=== PATIENT | male | born 1950 | race Caucasian/White ===

== ENCOUNTER 2018-09-01 04:52 | Inpatient (IN) | payer MEDICARE, OTHER ==
[~2018-09-01] VITALS: Ht 167.6 cm; Wt 155.1 kg
[2018-09-01] VITALS (10 sets, daily range): BP systolic 98–130; BP diastolic 60–70
--- OUTSIDE RECORDS SUMMARY | 2018-09-01 05:00 | XMS REPORT ---
Author Author TESSY POON Organization [facility] Address [address] [place] [address] Care Team Providers Care [facility] Coordinator Name Role Phone TESSY POON Unavailable PROBLEMS Type Condition ICD9-CM Code [id number] Code Onset Dates Condition Status SNOMED Code Problem Gout 274.9 Aug, 0 93462760 Problem Atrial fibrillation 427.31 May, 0 04568938 Problem Hyperlipidemia 272.4 May, 0 65122439 Problem Chronic anticoagulation Z79.01 May, 0 471832266 Problem MICHELLE (obstructive sleep apnea) G47.33 May, 0 39307795 Problem Cardiomyopathy I42.9 May, 0 05672603 Problem Sleep apnea G47.30 July, 0 12736371 Problem Essential hypertension I10 0 90678127 Problem Sleep apnea 780.57 July, 0 66877582 Problem Arthritis of left acromioclavicular joint M19.012 Jun, 0 3584179182657054 Problem Type 2 diabetes mellitus 250.00 Jan, 0 90906182 Problem Essential hypertension 401.9 0 35334038 Problem Spider bite 989.5 0 985924661 Problem H/O six vessel coronary artery bypass graft Z95.1 May, 0 540050758 Problem H/O six vessel coronary artery bypass graft V15.1 May, 0 Problem Low serum testosterone level R79.89 May, 0 301456755 Problem Low serum testosterone level 790.99 May, 0 79358380 Problem Arthritis, degenerative M19.90 May, 0 640614999 Problem Obesity, morbid, BMI 50 or higher 278.01 May, 0 820723702 Problem Arthritis, degenerative 715.90 May, 0 973442147 Problem Cardiomyopathy 425.4 May, 0 32108990 Problem Arthritis of left acromioclavicular joint 716.91 Jun, 0 9789332649809943 Problem MICHELLE (obstructive sleep apnea) 327.23 May, 0 64709879 Problem Hematuria, undiagnosed cause 599.70 Aug, 0 69619790 Problem Chronic anticoagulation V58.61 May, 0 237827853 Problem Hyperlipidemia E78.5 May, 0 81317687 Problem Hematuria, undiagnosed cause R31.9 Aug, 0 68231672 Problem Obesity, morbid, BMI 50 or higher E66.01 May, 0 003701991 Problem Hyperlipemia E78.5 Active 98418799 Problem Gout M10.9 Aug, 0 50795131 Problem Obstructive sleep apnea G47.33 Active 37944604 Problem Spider bite T63.301A 0 162582849 Problem Atrial fibrillation I48.91 May, 0 82454464 Problem Type 2 diabetes mellitus E11.9 Active 30006670 Problem Hypertension I10 Active 12128489 Problem Low testosterone E34.9 Active 838645919 Problem Chronic gout of foot, unspecified cause, unspecified laterality M1A.0790 Active 75434887 ALLERGIES No Information ENCOUNTERS Encounter Location Date Diagnosis [address] [address] Sep, [address] [address] 03 Jun, 2018 Type 2 diabetes mellitus E11.9 and Hypertension I10 [address] [address] Jun, Atrial fibrillation I48.[address] [address] May, [address] [address] May, Atrial fibrillation I48.[address] [address] May, Atrial fibrillation I48.[address] [address] May, BMI 45.0-49.9, adult Z68.42 ; Hypertension I10 ; Hyperlipemia E78.5 ; Type 2 diabetes mellitus E11.9 ; Atrial fibrillation I48.91 and Chronic gout of foot, unspecified cause, unspecified laterality M1A.0790 [place] [address] [place] [address] Feb, [facility] [address] [place] [address] Feb, [place] [address] [place] [id number] [place] [address] Oct, [place] [address] [place] [address] Dec, [place] [address] [place] [address] Feb, IMMUNIZATIONS No Known Immunizations SOCIAL HISTORY Never Assessed REASON FOR VISIT Requests return call PLAN OF CARE VITAL SIGNS MEDICATIONS Medication Instructions Dosage Frequency Start Date End Date Duration Status Xarelto 20 MG Oral Once a day 1 tablet 24h 30 day(s) Active RESULTS No Results PROCEDURES No Known procedures INSTRUCTIONS MEDICATIONS ADMINISTERED No Known Medications MEDICAL (GENERAL) HISTORY Type Description Date Medical History Hypertension Medical History Hyperlipemia Medical History Type 2 diabetes mellitus Medical History Obesity Medical History Obstructive sleep apnea Medical History Chronic anticoagulation Medical History Cardiomyopathy Medical History Gout Medical History Arthritis Medical History Low testosterone Medical History Atrial fibrillation Surgical History Bypass-Six Vessel 2015 Hospitalization History Bypass, CVA 2015
--- OUTSIDE RECORDS SUMMARY | 2018-09-01 05:00 | XMS REPORT ---
Author Author TESSY POON Organization [facility] Address [address] [place] [address] Care Team Providers Care Deli Cook Name Role Phone TESSY POON Unavailable PROBLEMS Type Condition ICD9-CM Code VGZ29-WU Code Onset Dates Condition Status SNOMED Code Problem Gout 274.9 Aug, 0 31483271 Problem Atrial fibrillation 427.31 May, 0 20591605 Problem Hyperlipidemia 272.4 May, 0 68775265 Problem Chronic anticoagulation Z79.01 May, 0 516852379 Problem MICHELLE (obstructive sleep apnea) G47.33 May, 0 46040670 Problem Cardiomyopathy I42.9 May, 0 43964362 Problem Sleep apnea G47.30 July, 0 10125796 Problem Essential hypertension I10 0 48475855 Problem Sleep apnea 780.57 July, 0 03631152 Problem Arthritis of left acromioclavicular joint M19.012 Jun, 0 4339985795366349 Problem Type 2 diabetes mellitus 250.00 Jan, 0 59351696 Problem Essential hypertension 401.9 0 88313585 Problem Spider bite 989.5 0 834199060 Problem H/O six vessel coronary artery bypass graft Z95.1 May, 0 485121959 Problem H/O six vessel coronary artery bypass graft V15.1 May, 0 Problem Low serum testosterone level R79.89 May, 0 054259645 Problem Low serum testosterone level 790.99 May, 0 23165943 Problem Arthritis, degenerative M19.90 May, 0 427778020 Problem Obesity, morbid, BMI 50 or higher 278.01 May, 0 306546145 Problem Arthritis, degenerative 715.90 May, 0 950737652 Problem Cardiomyopathy 425.4 May, 0 96780246 Problem Arthritis of left acromioclavicular joint 716.91 Jun, 0 5647007065250288 Problem MICHELLE (obstructive sleep apnea) 327.23 May, 0 58618079 Problem Hematuria, undiagnosed cause 599.70 Aug, 0 10765383 Problem Chronic anticoagulation V58.61 May, 0 718572054 Problem Hyperlipidemia E78.5 May, 0 13703774 Problem Hematuria, undiagnosed cause R31.9 Aug, 0 27356651 Problem Obesity, morbid, BMI 50 or higher E66.01 May, 0 198322278 Problem Hyperlipemia E78.5 Active 34446197 Problem Gout M10.9 Aug, 0 68582253 Problem Obstructive sleep apnea G47.33 Active 14377879 Problem Spider bite T63.301A 0 875392415 Problem Atrial fibrillation I48.91 May, 0 29691987 Problem Type 2 diabetes mellitus E11.9 Active 68869793 Problem Hypertension I10 Active 39477973 Problem Low testosterone E34.9 Active 965720163 Problem Chronic gout of foot, unspecified cause, unspecified laterality M1A.0790 Active 73978160 ALLERGIES No Information ENCOUNTERS Encounter Location Date Diagnosis [address] [address] May, Atrial fibrillation I48.[address] [address] May, Atrial fibrillation I48.[address] [address] May, BMI 45.0-49.9, adult Z68.42 ; Hypertension I10 ; Hyperlipemia E78.5 ; Type 2 diabetes mellitus E11.9 ; Atrial fibrillation I48.91 and Chronic gout of foot, unspecified cause, unspecified laterality M1A.0790 [facility] [address] [id number] [address] Feb, [facility] [address] [address] Feb, [facility] [address] [id number] [address] Oct, [facility] [address] [facility]NOTE 3] [id number] [place] [address] Dec, [facility] [address] [facility]NOTE 3] [id number] [place] [address] Feb, IMMUNIZATIONS No Known Immunizations SOCIAL HISTORY Never Assessed REASON FOR VISIT Medication refill request PLAN OF CARE VITAL SIGNS MEDICATIONS Medication [...]
--- OUTSIDE RECORDS SUMMARY | 2018-09-01 05:00 | XMS REPORT | Continuity of Care Document ---
Author Organization Unknown Address Unknown Allergies There is no data. Medications There is no data. Problems There is no data. Procedures There is no data. Results Test Result Range CULTURE, URINE - 08/14/18 14:08 CULTURE, URINE, ROUTINE SEE NOTE NRG A1C - 08/18/18 09:09 HEMOGLOBIN A1c 8.2 % of total Hgb <5.7 CULTURE, URINE - 08/26/18 14:30 CULTURE, URINE, ROUTINE SEE NOTE NRG Encounters ACCT No. Visit Date/Time Discharge Status Pt. Type Provider Facility Loc./Unit Complaint [id number] 08/26/2018 14:00:00 08/26/2018 23:59:59 CLS Outpatient [facility] [id number] 08/26/2018 14:00:00 Document Registration [id number] 08/18/2018 09:00:00 Document Registration [id number] 08/14/2018 14:00:00 Document Registration
[2018-09-01 05:46] LABS: HEMATOCRIT 38 % (40-54); HEMOGLOBIN 12.5 G/DL (13.3-17.7); MEAN CORPUSCULAR HEMOGLOBIN 31 PG (25-34); MEAN CORPUSCULAR VOLUME 93 FL (80-99); WHITE BLOOD COUNT 15.8 10^3/uL (4.3-11.0)
[2018-09-01 05:47] LABS: BASOPHILS % (AUTO) 0 % (0-10); EOSINOPHILS % (AUTO) 0 % (0-10); LYMPHOCYTES # (AUTO) 1.2 X 10^3 (1.0-4.0); LYMPHOCYTES % (AUTO) 7 % (12-44); MEAN CORPUSCULAR HGB CONC 33 G/DL (32-36); MEAN PLATELET VOLUME 11.5 FL (7.4-10.4); MONOCYTES % (AUTO) 7 % (0-12); NEUTROPHILS # (AUTO) 13.5 X 10^3 (1.8-7.8); NEUTROPHILS % (AUTO) 86 % (42-75); PLATELET COUNT 232 10^3/uL (130-400); RED CELL DISTRIBUTION WIDTH 13.5 % (10.0-14.5)
--- NOTE | 2018-09-01 05:53 | ED General ---
General Chief Complaint: Altered Mental Status Stated Complaint: FELL AT HOME;POSS STROKE Source of Information: Patient, Family Exam Limitations: Other (confusion) (SAL LOW DO) History of Present Illness Date Seen by Provider: Sep 01, 2018 Time Seen by Provider: 05:30 Initial Comments Patient is a 68-year-old male with history of CVA, atrial fibrillation, CAD, diabetes, and obstructive sleep apnea who presents with altered mental status. Patient is normally alert and oriented 3 per spouse but has been progressively more confused with impaired short-term memory the past 2 days . Patient is unable to recall place, month or year and is unsure why he is been evaluated in the emergency department. He has completed antibiotic for treatment of the urinary tract infection 3 days ago. He has not had fever or vomiting or flank pain. Patient has also had difficulty while sleeping at night and has been moving by himself with use of a walker from his bed to the living room to sit in the recliner. Patient has been compliant with his CPAP mask. Spouse reports increased leg swelling. No history of congestive heart failure. Patient is currently on a diuretic. Initially, EMS were called the patient's home for a l ift assist. Apparently, the patient lost balance this evening and fell while trying to go from his bedroom to his living room recliner. Patient denies headache, neck pain, injury or any other pain complaint. He is currently anticoagulated on Xarelto. He denies dizziness lightheadedness, extremity weakness or loss of sensation or any other strokelike symptoms. Denies any constitutional symptoms. History is limited to the patient's memory impairment. Additional history obtained from the patient's spouse and medical records. Timing/Duration: 1-2 Days Severity: Moderate Associated Systoms: Shortness of Air (SAL LOW DO) Allergies and Home Medications Allergies Coded Allergies: No Known Drug Allergies (Unverified , 09/01/18) Patient Home Medication List Home Medication List Reviewed: Yes (SAL LOW DO) Review of Systems Review of Systems Constitutional: no symptoms reported EENTM: no symptoms reported Respiratory: No cough; short of breath Cardiovascular: see HPI, edema, Hx of Intervention, vascular heart diseas Gastrointestinal: no symptoms reported Genitourinary: no symptoms reported Musculoskeletal: no symptoms reported Skin: no symptoms reported Psychiatric/Neurological: No Symptoms Reported (SAL LOW DO) All Other Systems Reviewed Negative Unless Noted: Yes (SAL LOW DO) Past Xxexvyi-Ejvakc-Ytnrdr Hx Past Med/Social Hx: Reviewed Nursing Past Med/Soc Hx (SAL LOW DO) Patient Social History Alcohol Use: Denies Use Recreational Drug Use: No Smoking Status: Former Smoker 2nd Hand Smoke Exposure: No Recent Foreign Travel: No Contact w/Someone Who Travel: No Recent Hopitalizations: No Physical Abuse: No Sexual Abuse: No Mistreated: No Fear: No (SAL LOW DO) Seasonal Allergies Seasonal Allergies: No (SAL LOW DO) Past Medical History Surgeries: Yes (H/O heart bypass) Cardiac Respiratory: Yes Sleep Apnea Cardiac: Yes (six vessel coronary artery bypass graph) Atrial Fibrillation, Cardiomyopathy, High Cholesterol, Hypertension Neurological: Yes (cerebral vasculary accident) Genitourinary: Yes (hematuria) Gastrointestinal: No Musculoskeletal: Yes (arthritis of left acromioclavicular joint, arthritis degenerative) Arthritis Endocrine: Yes (gout, type 2 diabetes) Diabetes, Non-Insulin dep HEENT: No Cancer: No Psychosocial: No Integumentary: No Blood Disorders: No (SAL LOW DO) Physical Exam Vital Signs Vital Signs - First Documented 09/01/18 05:21 Temp 98.4 Pulse 94 Resp 20 B/P (MAP) 128/57 (80) Pulse Ox 95 O2 Delivery Room Air (ÁLVARO CROOK MD) Vital Signs Capillary Refill : (SAL LOW DO) Height, Weight, BMI Height: '" Weight: lbs. oz. kg; BMI Method: General Appearance: No Apparent Distress, WD/WN Eyes: Bilateral Eye Normal Inspection, Bilateral Eye PERRL, Bilateral Eye EOMI HEENT: PERRL/EOMI, TMs Normal, Normal ENT Inspection, Pharynx Normal Neck: Full Range of Motion, Normal Inspection, Non Tender Respiratory: Chest Non Tender, Lungs Clear, Normal Breath Sounds Cardiovascular: Regular Rate, Rhythm, Other (bilateral edema of lower extremities extending proximally to proximal legs, negative Homans signs.) Gastrointestinal: Normal Bowel Sounds, Other (obesity compromising exam) Back: Normal Inspection, No CVA Tenderness Extremity: Normal Capillary Refill, Normal Inspection Neurologic/Psychiatric: No Motor/Sensory Deficits, Normal Mood/Affect, Abnormal x ray developer II-XII, Aphasia, Facial Droop, Motor Weakness Skin: Normal Color, Warm/Dry (SAL LOW DO) Focused Exam Sepsis Stage: Ruled Out (SAL LOW DO) Lactate Level 09/01/18 05:42: Lactic Acid Level 2.65*H (ÁLVARO CROOK MD) Lactic Acid Level Laboratory Tests Test 09/01/18 05:42 Lactic Acid Level 2.65 MMOL/L (0.50-2.00) *H (ÁLVARO CROOK MD) Progress/Results/Core Measures Suspected Sepsis SIRS Temperature: Pulse: Respiratory Rate: Laboratory Tests 09/01/18 05:08: Blood Pressure / Mean: Laboratory Tests 09/01/18 05:08: (SAL LOW DO) Results/Orders Lab Results Laboratory Tests Test 09/01/18 05:08 09/01/18 05:14 09/01/18 05:42 09/01/18 05:50 Range/Units White Blood Count 15.8 H 4.3-11.0 10^3/uL Red Blood Count 4.08 L 4.35-5.85 10^6/uL Hemoglobin 12.5 L 13.3-17.7 G/DL Hematocrit 38 L 40-54 % Mean Corpuscular Volume 93 80-99 FL Mean Corpuscular Hemoglobin 31 25-34 PG Mean Corpuscular Hemoglobin Concent 33 32-36 G/DL Red Cell Distribution Width 13.5 10.0-14.5 % Platelet Count 232 130-400 10^3/uL Mean Platelet Volume 11.5 H 7.4-10.4 FL Neutrophils (%) (Auto) 86 H 42-75 % Lymphocytes (%) (Auto) 7 L 12-44 % Monocytes (%) (Auto) 7 0-12 % Eosinophils (%) (Auto) 0 0-10 % Basophils (%) (Auto) 0 0-10 % Neutrophils # (Auto) 13.5 H 1.8-7.8 X 10^3 Lymphocytes # (Auto) 1.2 1.0-4.0 X 10^3 Monocytes # (Auto) 1.0 0.0-1.0 X 10^3 Eosinophils # (Auto) 0.0 0.0-0.3 10^3/uL Basophils # (Auto) 0.0 0.0-0.1 10^3/uL Neutrophils % (Manual) 83 % Lymphocytes % (Manual) 5 % Monocytes % (Manual) 3 % Eosinophils % (Manual) 0 % Basophils % (Manual) 1 % Band Neutrophils 8 % Sodium Level 132 L 135-145 MMOL/L Potassium Level 4.1 3.6-5.0 MMOL/L Chloride Level 92 L 98-107 MMOL/L Carbon Dioxide Level 19 L 21-32 MMOL/L Anion Gap 21 H 5-14 MMOL/L Blood Urea Nitrogen 14 7-18 MG/DL Creatinine 0.83 0.60-1.30 MG/DL Estimat Glomerular Filtration Rate > 60 BUN/Creatinine Ratio 17 Glucose Level 240 H 70-105 MG/DL Calcium Level 9.2 8.5-10.1 MG/DL Corrected Calcium 9.6 8.5-10.1 MG/DL Total Bilirubin 1.2 H 0.1-1.0 MG/DL Aspartate Amino Transf (AST/SGOT) 25 5-34 U/L Alanine Aminotransferase (ALT/SGPT) 20 0-55 U/L Alkaline Phosphatase 82 40-136 U/L Troponin T 24 H <=15 NG/L Total Protein 7.3 6.4-8.2 GM/DL Albumin 3.5 3.2-4.5 GM/DL Serum Alcohol < 10 <10 MG/DL Glucometer 209 H 70-110 MG/DL Lactic Acid Level 2.65 *H 0.50-2.00 MMOL/L Blood Gas Puncture Site LT RADIAL Blood Gas Patient Temperature 98.4 Arterial Blood pH 7.53 H 7.37-7.43 Arterial Blood Partial Pressure CO2 27 L 35-45 MMHG Arterial Blood Partial Pressure O2 66 L 79-93 MMHG Arterial Blood HCO3 23 23-27 MMOL/L Arterial Blood Total CO2 23.4 21.0-31.0 MMOL/L Arterial Blood Oxygen Saturation 95 94-100 % Arterial Blood Base Excess 0.9 -2.5-2.5 MMOL/L Nick Test UNALBE Blood Gas Ventilator Setting NO Blood Gas Inspired Oxygen 94% (ÁLVARO CROOK MD) My Orders Orders - ÁLVARO CROOK MD Ed Iv/Invasive Line Start (09/01/18 06:17) Vancomycin Injection (Vancomycin Injecti (09/01/18 06:17) Cefepime Injection (Maxipime Injection) (09/01/18 06:17) Blood Culture (09/01/18 06:22) Acetaminophen (09/01/18 06:22) Salicylate (09/01/18 06:22) Probnp Fs (09/01/18 06:26) Ed Iv/Invasive Line Start (09/01/18 06:27) Ns Iv 1000 Ml (Sodium Chloride 0.9%) (09/01/18 06:27) Acetaminophen Tablet/Caplet (Tylenol T (09/01/18 07:00) (ÁLVARO CROOK MD) Vital Signs/I&O 09/01/18 09/01/18 05:21 06:52 Temp 98.4 102.3 Pulse 94 91 Resp 20 22 B/P (MAP) 128/57 (80) 121/67 Pulse Ox 95 97 O2 Delivery Room Air Room Air (ÁLVARO CROOK MD) Vital Signs/I&O Capillary Refill : (SAL LOW DO) Progress Note : Time: 07:07 Progress Note I, Dr. Crook, assumed care from Dr. Low at shift change at 0600. I personally evaluated the patient. In brief, this is a 68-year-old comorbid gentleman with a history of hypertension, hyperlipidemia, coronary artery disease/MO status post bypass, ICD in place, questionable history of heart failure with no echo results immediately available to me, history of paroxysmal atrial fibrillation on Xarelto, gout on allopurinol and on mirtazapine for sleep. The patient was reportedly treated for urinary tract infection with amoxicillin over the last week and took his last pill for this 3 days ago. Over the last 2 days family have noticed and the patient has noticed that he is more confused. He did have what sounds like a mechanical fall while ambulating in his home overnight and that was the reason for initial EMS contact as he needed a lift assist. EMS noted that he was confused and brought him here. Vital signs were initially appropriate and they have remained so aside from a fever which has been noted to 102.5 Fahrenheit. He is pleasantly an appropriately alert and interactive and in no distress but tells me that he knows he is confused and is unable to tell me the year or the president or the month or the season. He moves all extremities equally and no lateralizing deficits are noted on examination. Patient is not complaining of any pain from his fall aside from to his left hip, for which we will obtain an x-ray. Results of workup are otherwise largely unremarkable. We have been unable to obtain a urine sample yet even via straight cath as the patient seems dry and only had 50 mL in his bladder on bladder scan. Patient does have a leukocytosis and an elevated lactate although less than less than 4 so he does not require a full 30 mL per kg bolus. I have held him to 1 L of fluids for now given pulmonary congestion seen on chest x-ray. Troponin is very mildly elevated without acute EKG changes, likely in context reflective of demand ischemia from infectious process. We will cover with cefepime and vancomycin and blood cultures have been drawn. Patient is graciously accepted for admission at [facility] by Dr. Degroot. (ÁLVARO CROOK MD) Departure Communication (Admissions) Patient alert and oriented times person only. Vital signs are stable. Patient h as difficulty following commands but is pain continues coordinated movement of all [address] head ordered to evaluate for possible injury from fall. Limited interpretation due to motion artifact, but without acute evidence of intracranial hemorrhage or acute abnormality. EKG reviewed: Sinus rhythm Rate controlled, inferior Q waves, nonspecific ST-T wave changes. Additional workup pending. Care endorsed to oncoming [facility] at 06:00. Disposition pending. (SAL LOW DO) Impression Primary Impression: Altered mental state Qualified Codes: R41.0 - Disorientation, unspecified Additional Impressions: Transient alteration of awareness Severe sepsis Elevated troponin Disposition: ADMITTED INPATIENT Condition: Improved Admissions Decision to Admit Reason: Admit from ER (Trauma) (ÁLVARO CROOK MD) Departure-Patient Inst. Referrals: TESSY POON MD (PCP) Primary Care Physician SAL LOW DO Sep 01, 2018 05:53 ÁLVARO CROOK MD Sep 01, 2018 07:12
[2018-09-01 05:56] LABS: ABG BASE EXCESS 0.9 MMOL/L (-2.5-2.5); ABG OXYGEN SATURATION 95 % (94-100); ABG PCO2 27 MMHG (35-45); ABG PH 7.53 (7.37-7.43); ABG PO2 66 MMHG (79-93); ABG TCO2 23.4 MMOL/L (21.0-31.0)
[2018-09-01 05:57] LABS: ALLENS TEST UNALBE; PATIENT TEMP 98.4
[2018-09-01 05:58] LABS: VENTILATOR NO
[2018-09-01 06:12] LABS: BAND NEUTROPHILS 8 %; BASOPHILS % (MANUAL) 1 %; EOSINOPHILS % (MANUAL) 0 %; LYMPHOCYTES % (MANUAL) 5 %; MONOCYTES % (MANUAL) 3 %; NEUTROPHILS % (MANUAL) 83 %
--- NOTE | 2018-09-01 06:13 | Diagnostic Imaging Report ---
PROCEDURE: CT head without contrast. TECHNIQUE: Multiple contiguous axial images were obtained through the brain without the use of intravenous contrast. Auto Exposure Controls were utilized during the CT exam to meet ALARA standards for radiation dose reduction. INDICATION: Confusion, not following commands. History of stroke. CORRELATION STUDY: None FINDINGS: Examination compromised by significant patient motion artifact. Ventricles and sulci demonstrate ex-vacuo dilatation of the left lateral ventricle. This is owing to an old left medial parieto-occipital infarct. Additional chronic appearing infarct in the right frontal lobe. Chronic lacunar type infarcts right cerebellar hemisphere. Definitive area of decreased attenuation to suggest edema is not demonstrated. No definitive evidence for an acute intracranial hemorrhage. No midline shift or mass effect. Intracranial vascular calcification. No hyperdense MCA sign. Bony calvarium appearing intact. Paranasal sinuses and mastoid air cells clear. IMPRESSION: 1. Compromised and limited examination by patient motion artifact. No definitive evidence for acute intracranial abnormality. A preliminary report was provided by [employer]. Dictated by: Dictated on workstation # [id number]
[2018-09-01] MEDS ORDERED: CEFEPIME INJECTION 1,000 MG in WATER (STERILE) FOR INJECTION 10 ML IV STA (06:17)
[2018-09-01] MEDS ORDERED: VANCOMYCIN INJECTION 1,000 MG in NS (IVPB) 250 ML IV STA (06:17)
[2018-09-01] MEDS ORDERED: NS IV 1000 ML 1,000 ML IV SCH ×2 (06:17→06:27)
[2018-09-01 06:28] LABS: BUN/CREATININE RATIO 17; CHLORIDE 92 MMOL/L (98-107); CREATININE SERUM 0.83 MG/DL (0.60-1.30); GFR ESTIMATED > 60; POTASSIUM 4.1 MMOL/L (3.6-5.0); SODIUM 132 MMOL/L (135-145)
[2018-09-01 06:29] LABS: ALANINE AMINOTRANSFERASE 20 U/L (0-55); ALBUMIN 3.5 GM/DL (3.2-4.5); ALKALINE PHOSPHATASE 82 U/L (40-136); BILIRUBIN,TOTAL 1.2 MG/DL (0.1-1.0); CALCIUM 9.2 MG/DL (8.5-10.1); GLUCOSE 240 MG/DL (70-105); TOTAL PROTEIN 7.3 GM/DL (6.4-8.2)
--- NOTE | 2018-09-01 06:35 | NUR ---
8 lithuanian straight catheter attempt. No urine return, so bladder scan will be completed.
--- NOTE | 2018-09-01 06:35 | Diagnostic Imaging Report ---
INDICATION: Increasing confusion, unable to follow commands. History of stroke. TECHNIQUE: Single view chest 5:09 AM. CORRELATION STUDY: None FINDINGS: Poststernotomy changes. Left-sided AICD. Heart size enlarged. There is presence of pulmonary vascular congestion and mild perihilar edema. Slightly increased density in the right lung base could reflect mild edema versus early infiltrate or atelectasis. Remaining lung salcedo otherwise clear. IMPRESSION: 1. Findings of pulmonary vascular congestion. Superimposed edema versus infiltrate of the right lung base. Followup imaging as clinically warranted. Dictated by: Dictated on workstation # [id number]
--- NOTE | 2018-09-01 06:40 | NUR ---
Bladder scanned pt with 52 mls.
[2018-09-01 06:47] LABS: CARBON DIOXIDE 19 MMOL/L (21-32)
[2018-09-01] MEDS ORDERED: ACETAMINOPHEN 325 MG TABLET PO ONE (07:00)
--- NOTE | 2018-09-01 07:00 | NUR ---
Report from Isabel MALDONADO: pt needs blood cultures done so antibiotics may be started. Pt has no urine for UA specimen. Laboratory Cathleen is in room reporting unable to get any blood for culture. Isabel MALDONADO returning to room also and Arterial stick R radial performed per Dr permission for a lab specimen. Spoke with Dr Crook and add'l site for #2 blood culture required yet. Pt still has not voided. Pt alert and pleasantly confused with knowing his name and family. Reports at hospital but doesn't know date, yr, or President name. Pt laughs alot and then moans loudly frequently. Altered mental status per family as reported sending "strange text" earlier.
[2018-09-01 07:26] LABS: SALICYLATE < 0.3 MG/DL (5.0-20.0)
[2018-09-01 07:27] LABS: ACETAMINOPHEN < 10 UG/ML (10-30)
--- NOTE | 2018-09-01 07:40 | NUR ---
Attempt x 3 per this RN to get blood. 2 unsuccessful threading of 20 ga IV cath. 22 ga started to Left hand near 4th knuckle. Specimen pulled for 2nd blood culture. Pt needs gentle reminders frequently to hold still and not move during procedures and also the NIBP checks.
--- NOTE | 2018-09-01 07:45 | NUR ---
1000 ml bolus of NS infused. Spoke with Dr Crook and no further bolus order rec'd r/t CXR result and the actual lab value of the Lactic Acid. states to proceed with antibiotics.
--- NOTE | 2018-09-01 07:45 | NUR ---
Pt voided approxx 50 ml concentrated urine. UA to lab.
[2018-09-01] MEDS ORDERED: VANCOMYCIN 1000 MG/VIAL ONE (07:47)
[2018-09-01] MEDS ORDERED: NS (IVPB) 250 ML ONE (07:48)
--- NOTE | 2018-09-01 07:50 | NUR ---
and son departing at this time for home and will return, consent to transfer signed by before departing r/t pt's AMS.
[2018-09-01 08:06] LABS: CLARITY,URINE CLEAR; COLOR,URINE DARK YELLOW; GLUCOSE, URINE (UA) NEGATIVE (NEGATIVE); KETONES,URINE 1+ (NEGATIVE); NITRITE,URINE NEGATIVE (NEGATIVE); PROTEIN,URINE 1+ (NEGATIVE)
[2018-09-01 08:07] LABS: BACTERIA,URINE NEGATIVE /HPF; BILIRUBIN,URINE 2+ (NEGATIVE); LEUKOCYTE ESTERASE ,URINE TRACE (NEGATIVE); RBC,URINE 0-2 /HPF
--- OUTSIDE RECORDS SUMMARY | 2018-09-01 08:07 | XMS REPORT | Continuity of Care Document ---
[...] Status Pt. Type Provider Facility Loc./Unit Complaint [id number] 08/26/2018 14:00:00 08/26/2018 23:59:59 CLS Outpatient [facility] [id number] 08/26/2018 14:00:00 Document Registration [id number] 08/18/2018 09:00:00 Document Registration [id number] 08/14/2018 14:00:00 Document Registration
[2018-09-01 08:09] LABS: AMPHETAMINE SCREEN, URINE NEGATIVE (NEGATIVE); BARBITURATE SCREEN URINE NEGATIVE (NEGATIVE); BENZODIAZEPINES SCREEN URINE NEGATIVE (NEGATIVE); CANNABINOID SCREEN, URINE NEGATIVE (NEGATIVE); COCAINE SCREEN URINE NEGATIVE (NEGATIVE); METHADONE STAT NEGATIVE (NEGATIVE); METHAMPHETAMINE SCREEN URINE S NEGATIVE (NEGATIVE); OPIATE SCREEN URINE NEGATIVE (NEGATIVE); OXYCODONE STAT NEGATIVE (NEGATIVE); PROPOXYPHENE STAT NEGATIVE (NEGATIVE); TRICYCLIC ANTIDEPRESSANTS SCRE NEGATIVE (NEGATIVE)
--- NOTE | 2018-09-01 08:20 | NUR ---
Maxipime infused/ended on mini infusor.
--- NOTE | 2018-09-01 08:30 | NUR ---
Report to Clair MALDONADO at [facility].
--- NOTE | 2018-09-01 08:40 | NUR ---
[facility] here for transfer.
--- NOTE | 2018-09-01 09:00 | NUR ---
Pt departing at this time for transfer to [facility], Cardiac Stepdown CU 2. Condition unchanged, stable. Pt continues on Vancomycin infusing in route. Pt difficult to move as poor manuevering as he requested to assisted scooting to EMS cot. Pt limited in assisting self and staff trying to pull pt up on cart. Pt follows commands poorly, hx of stroke. Report from family pt primarily lives in a chair and uses a walker. Recently ended an antibiotic for UTI.
[2018-09-01] MEDS ORDERED: CATHETER FLUSH 10 ML SYR IV PRN (10:15)
--- NOTE | 2018-09-01 10:28 | History & Physical-Hospitalist ---
History of Present Illness HPI/Chief Complaint CC: Confusion HPI: This is a 68yoWM very complicated pt of Dr. Bright and Dr. [facility] in [place] with a PMH of diabetes mellitus, HTN, defibrillator placement who presented to the [place] [facility] with confusion pt was found to be encephalopathic and found to have UTI with recent antibiotic use for UTI last week with Amoxicillin. Pt wad deemed stable but in need of cardiac step [facility] admission with Cardiology and Pulmonology consultation along with Vancomycin, Cefepime empiric antibiotics and for further supportive care to clear encephalopathy. Source: patient Date Seen 09/01/18 Time Seen by a Provider: 10:00 Attending Physician Latonya Degroot Pankaj K MD Referring Physician Date of Admission Sep 01, 2018 at 08:00 Home Medications & Allergies Home Medications Reviewed patient Home Medication Reconciliation performed by pharmacy medication reconciliations validation technician and/or nursing. Patients Allergies have been reviewed. Allergies Allergies Coded Allergies No Known Drug Allergies (Unverified09/01/18) Past Ezzbald-Kbqhzl-Lqsain Hx Past Med/Social Hx: Reviewed Nursing Past Med/Soc Hx, Reviewed and Corrections made Patient Social History Marrital Status: Employed/Student: retired Alcohol Use: Denies Use Recreational Drug Use: No Smoking Status: Former Smoker 2nd Hand Smoke Exposure: No Recent Foreign Travel: No Contact w/other who traveled: No Recent Hopitalizations: No Recent Infectious Disease Expo: No Seasonal Allergies Seasonal Allergies: No Past Medical History Surgeries: Cardiac Respiratory: Sleep Apnea Currently Using CPAP: Yes Cardiac: Atrial Fibrillation, Cardiomyopathy, Heart Attack, High Cholesterol, Hypertension Musculoskeletal: Arthritis Endocrine: Diabetes, Non-Insulin dep History of Blood Disorders: No Review of Systems Constitutional: other (confused) EENTM: no symptoms reported Respiratory: dyspnea on exertion Cardiovascular: no symptoms reported Gastrointestinal: no symptoms reported Genitourinary: no symptoms reported Musculoskeletal: no symptoms reported Skin: no symptoms reported Psychiatric/Neurological: Other (confusion) Physical Exam Physical Exam Vital Signs Vital Signs - First Documented 09/01/18 05:21 Temp 98.4 Pulse 94 Resp 20 B/P (MAP) 128/57 (80) Pulse Ox 95 O2 Delivery Room Air Capillary Refill : Less Than 3 Seconds Height, Weight, BMI Height: 5'6.00" Weight: 330lbs. 0oz. 149.541781it; BMI Method:Stated General Appearance: No Apparent Distress, WD/WN, Chronically ill, Obese Eyes: Right Eye Normal Inspection, Right Eye PERRL HEENT: PERRL/EOMI, Normal ENT Inspection, Pharynx Normal, Moist Mucous Membranes Neck: Full Range of Motion, Normal Inspection, Non Tender Respiratory: Chest Non Tender, Lungs Clear, Normal Breath Sounds, No Accessory Muscle Use, No Respiratory Distress Cardiovascular: Regular Rate, Rhythm, No Edema, No Gallop, No JVD, No Murmur, Normal Peripheral Pulses Gastrointestinal: Normal Bowel Sounds, No Organomegaly, No Pulsatile Mass, Non Tender, Soft Back: Normal Inspection, No CVA Tenderness, No Vertebral Tenderness Extremity: Normal Capillary Refill, Normal Inspection, Normal Range of Motion, Non Tender, No Calf Tenderness, No Pedal Edema Neurologic/Psychiatric: Alert, Oriented x3, No Motor/Sensory Deficits, Normal Mood/Affect, Disoriented (subtle memory recall) Skin: Normal Color, Warm/Dry Lymphatic: No Adenopathy Results Results/Procedures Labs Laboratory Tests 09/01/18 05:08 Patient resulted labs reviewed. Assessment/Plan Admission Diagnosis Assessment: AMS UTI Cardiomyopathy Defib in place MICHELLE on CPAP CAD prev bypass Plan: Abx Cardiology and Pulmonology consultants Admission Status: Inpatient Order (span 2 midnights) Reason for Inpatient Admission: UTI with encephalopathy Diagnosis/Problems Diagnosis/Problems (1) Altered mental state Status: Acute Qualifiers: Altered mental status type: disorientation Qualified Codes: R41.0 - Disorientation, unspecified (2) UTI (urinary tract infection) Status: Acute Qualifiers: Urinary tract infection type: acute cystitis Hematuria presence: without hematuria Qualified Codes: N30.00 - Acute cystitis without hematuria (3) Cardiomyopathy Status: Chronic Qualifiers: Cardiomyopathy type: unspecified Qualified Codes: I42.9 - Cardiomyopathy, unspecified (4) Cardiac defibrillator in place Status: Chronic (5) Diabetes mellitus Status: Chronic Qualifiers: Diabetes mellitus type: type 2 Diabetes mellitus alf insulin use: with alf use Diabetes mellitus complication status: with circulatory complication Diabetes mellitus complication detail: with other circulatory complications Qualified Codes: E11.59 - Type 2 diabetes mellitus with other circulatory complications; Z79.4 - 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
[2018-09-01] MEDS ORDERED: DOCUSATE SODIUM 100 MG (COLACE) CAP PO PRN (10:45)
[2018-09-01] MEDS ORDERED: HYDROcodone/APAP 5 MG/325 MG (LORTAB) TAB PO PRN (10:45)
[2018-09-01] MEDS ORDERED: diphenhydrAMINE 25 MG TAB (BENADRYL) PO PRN (10:45)
[2018-09-01] MEDS ORDERED: CALCIUM CARBONATE 500 MG (TUMS) TAB.CHEW PO PRN (10:45)
[2018-09-01] MEDS ORDERED: LOPERAMIDE 2 MG (IMODIUM) CAP PO PRN (10:45)
[2018-09-01] MEDS ORDERED: ACETAMINOPHEN 500 MG TAB (TYLENOL) PO PRN (10:45)
[2018-09-01] MEDS ORDERED: ONDANSETRON 4 MG/2 ML (SDV) Z0FRAN IVP PRN (10:45)
[2018-09-01] MEDS ORDERED: MELATONIN 3 MG TABLET PO PRN (10:45)
[2018-09-01] MEDS ORDERED: ALPRAZolam 0.25 MG (XANAX) TAB PO PRN (10:45)
[2018-09-01] MEDS ORDERED: VANCOMYCIN INJECTION 1,500 MG in NS IV 500 ML 500 ML IV NR (11:00)
[2018-09-01] MEDS ORDERED: VANCOMYCIN INJECTION 2,500 MG in NS IV 500 ML 500 ML IV NR (11:00)
[2018-09-01] MEDS ORDERED: FAMO20TA3 PO (11:03)
[2018-09-01] MEDS ORDERED: ALLO300T2 PO (11:03)
[2018-09-01] MEDS ORDERED: METF-397 PO (11:03)
[2018-09-01] MEDS ORDERED: SOTA160T PO (11:03)
[2018-09-01] MEDS ORDERED: SPIR25TA PO (11:03)
[2018-09-01] MEDS ORDERED: MIRT15TA6 PO (11:03)
[2018-09-01] MEDS ORDERED: FURO40TA4 PO (11:03)
[2018-09-01] MEDS ORDERED: ASPI-983 PO (11:03)
[2018-09-01] MEDS ORDERED: RIVA20TA PO (11:03)
[2018-09-01] MEDS ORDERED: PRAV20TA3 PO (11:03)
[2018-09-01] MEDS ORDERED: FINA5TAB6 PO (11:03)
[2018-09-01] MEDS ORDERED: ACET-2267 PO (11:03)
[2018-09-01] MEDS ORDERED: LOSA50TA63 PO (11:03)
--- NOTE | 2018-09-01 11:28 | NUR ---
VANCOMYCIN DOSING SCR 0.83 (USED 1.0); CRCL ~ 96 (USED ADJ BW 98 KG); BOLUS VANC 2500 MG TOTAL THEN VANC 15 MG/KG X 149 KG ~ 2250 MG Q12H CHECK TROUGH LEVEL 6/5 AT 1000 PLESE HOLD DOSE AND CONTACT PHARMACY IF LEVEL IS GREATER THAN 20 OR LESS THAN 10
--- NOTE | 2018-09-01 11:54 | NUR ---
PATIENTS FAMILY HAD A DETAILED LIST OF MEDICATIONS AND VERIFIED HOW HE TAKES THEM. I HAD A LIST FAXED OVER FROM [facility] IN [place] TO VERIFY. THEY HAVE NOT DISPENSED THE SOTALOL, FUROSEMIDE, OR FAMOTIDINE THAT THE FAMILY REPORTED THE PATIENT TAKING ON THEIR LIST. [facility] HAS FILLED FAMOTIDINE 20MG DAILY #90 06-22-18 HOWEVER FAMILY REPORTED IT BID. [facility] CHANGED SYSTEMS IN AND DO NOT HAVE RECORDS OF WHAT WAS FILLED PRIOR TO THAT. I HAVE CALLED AND LEFT A MESSAGE WITH THE PATIENTS TO CALL ME BACK FOR CLARIFICATION ON THESE THREE MEDS. WILL UPDATE MED REC WHEN SHE RETURNS MY CALL. [facility] FILLED: 08-31-18 XARELTO 20MG DAILY #30 (TAKES AT DINNER TIME) 08-31-18 FINASTERIDE 5MG DAILY #30 08-26-18 SPIRONOLACTONE 25MG DAILY #30 08-23-18 PRAVASTATIN 20MG 3 HS #90 08-21-18 METFORMIN 500MG BID #60 08-17-18 AMOXICILLIN 500MG TID X 7 DAYS (FINISHED) 08-14-18 LOSARTAN 50MG DAILY #30 08-14-18 ALLOPURINOL 300MG DAILY #30 07-16-18 MIRTAZAPINE 15MG HS #30 (TAKES 1/2 TAB) HE TAKES ASPIRIN 81MG DAILY AND TYLENOL PRN OTC. Addendum: 09/01/18 at 1310 by GEE FRANZ [facility] SPOKE WITH THE PATIENTS AT THIS TIME AND SHE STATES THE PATIENT IS TAKING THE THREE MEDICATIONS IN QUESTION. THEY DOUBLE CHECKED THEIR LIST AND HE DOES TAKE THE FAMOTIDINE BID DESPITE THE DIRECTIONS AT [facility] 20MG HS LAST FILLED #30 06-22-18. I DID FIND WHERE [facility] FILLED SOTALOL 160MG BID 08-19-18 BUT THEY DID NOT HAVE RECORD OF FUROSEMIDE. I LEFT HE FUROSEMIDE DAILY ON THE MED REC THEY REPORTED HIM TAKING IT HOWEVER WAS UNABLE TO VERIFY THE LAST FILL DATE AND DOSE WITH A PHARMACY.
[2018-09-01] MEDS: CEFEPIME INJECTION 1,000 MG in WATER (STERILE) FOR INJECTION 10 ML IV SCH ×2 (14:33→20:55)
[2018-09-01] MEDS: CATHETER FLUSH 10 ML SYR IV SCH ×2 (14:33→23:16)
--- NOTE | 2018-09-01 17:28 | Consultation-Cardiology ---
HPI-Cardiology Cardiology Consultation Date of Consultation 09/01/18 Date of Admission Time Seen by Provider: 17:24 Indication: change in mental status, coronary artery disease HPI 68 years old gentleman with history of chronic atrial fibrillation, coronary artery disease, permanent pacemaker and CVA. Was treated for urinary tract infection recently, was found at home on the floor, was lethargic, confused, currently feeling better, denied any chest pain, has been having chronic dyspnea. No palpitation, syncope or near syncopal episodes. No claudications. Home Medications & Allergies Allergies: Coded Allergies: No Known Drug Allergies (Unverified , 09/01/18) Home Medication List Reviewed: Yes TMP-Zqsnov-Idexmp Hx Patient Social History Marital Status: Employed/Student: retired Alcohol Use: Denies Use Recreational Drug Use: No Smoking Status: Former Smoker 2nd Hand Smoke Exposure: No Recent Foreign Travel: No Recent Infectious Disease Expo: No Recent Hopitalizations: No Past Medical History discussed below Family Medical History Family Medical Hx noncontributory Review of Systems-General Review of Systems Constitutional: no symptoms reported, diaphoresis, malaise, weakness EENTM: see HPI, no symptoms reported Respiratory: see HPI; No cough; dyspnea on exertion, orthopnea, short of breath Cardiovascular: see HPI; No chest pain; edema, Hx of Intervention; No palpitations, No syncope; vascular heart diseas; No other Gastrointestinal: no symptoms reported, see HPI Genitourinary: no symptoms reported, see HPI Musculoskeletal: no symptoms reported, see HPI Skin: no symptoms reported, see HPI Psychiatric/Neurological: No Symptoms Reported All Other Systems Reviewed Negative Unless Noted: Yes Reviewed Test Results Reviewed Test Results Lab Laboratory Tests Test 09/01/18 05:08 09/01/18 05:14 09/01/18 05:42 09/01/18 05:50 Range/Units White Blood Count 15.8 H 4.3-11.0 10^3/uL Red Blood Count 4.08 L 4.35-5.85 10^6/uL Hemoglobin 12.5 L 13.3-17.7 G/DL Hematocrit 38 L 40-54 % Mean Corpuscular Volume 93 80-99 FL Mean Corpuscular Hemoglobin 31 25-34 PG Mean Corpuscular Hemoglobin Concent 33 32-36 G/DL Red Cell Distribution Width 13.5 10.0-14.5 % Platelet Count 232 130-400 10^3/uL Mean Platelet Volume 11.5 H 7.4-10.4 FL Neutrophils (%) (Auto) 86 H 42-75 % Lymphocytes (%) (Auto) 7 L 12-44 % Monocytes (%) (Auto) 7 0-12 % Eosinophils (%) (Auto) 0 0-10 % Basophils (%) (Auto) 0 0-10 % Neutrophils # (Auto) 13.5 H 1.8-7.8 X 10^3 Lymphocytes # (Auto) 1.2 1.0-4.0 X 10^3 Monocytes # (Auto) 1.0 0.0-1.0 X 10^3 Eosinophils # (Auto) 0.0 0.0-0.3 10^3/uL Basophils # (Auto) 0.0 0.0-0.1 10^3/uL Neutrophils % (Manual) 83 % Lymphocytes % (Manual) 5 % Monocytes % (Manual) 3 % Eosinophils % (Manual) 0 % Basophils % (Manual) 1 % Band Neutrophils 8 % Sodium Level 132 L 135-145 MMOL/L Potassium Level 4.1 3.6-5.0 MMOL/L Chloride Level 92 L 98-107 MMOL/L Carbon Dioxide Level 19 L 21-32 MMOL/L Anion Gap 21 H 5-14 MMOL/L Blood Urea Nitrogen 14 7-18 MG/DL Creatinine 0.83 0.60-1.30 MG/DL Estimat Glomerular Filtration Rate > 60 BUN/Creatinine Ratio 17 Glucose Level 240 H 70-105 MG/DL Calcium Level 9.2 8.5-10.1 MG/DL Corrected Calcium 9.6 8.5-10.1 MG/DL Total Bilirubin 1.2 H 0.1-1.0 MG/DL Aspartate Amino Transf (AST/SGOT) 25 5-34 U/L Alanine Aminotransferase (ALT/SGPT) 20 0-55 U/L Alkaline Phosphatase 82 40-136 U/L Troponin T 24 H <=15 NG/L Pro-B-Type Natriuretic Peptide 1151.0 H <75.0 PG/ML Total Protein 7.3 6.4-8.2 GM/DL Albumin 3.5 3.2-4.5 GM/DL Thyroid Stimulating Hormone (TSH) 3.41 0.35-4.94 UIU/ML Salicylates Level < 0.3 L 5.0-20.0 MG/DL Acetaminophen Level < 10 L 10-30 UG/ML Serum Alcohol < 10 <10 MG/DL Glucometer 209 H 70-110 MG/DL Lactic Acid Level 2.65 *H 0.50-2.00 MMOL/L Ammonia 48 H 11-32 UMOL/L Blood Gas Puncture Site LT RADIAL Blood Gas Patient Temperature 98.4 Arterial Blood pH 7.53 H 7.37-7.43 Arterial Blood Partial Pressure CO2 27 L 35-45 MMHG Arterial Blood Partial Pressure O2 66 L 79-93 MMHG Arterial Blood HCO3 23 23-27 MMOL/L Arterial Blood Total CO2 23.4 21.0-31.0 MMOL/L Arterial Blood Oxygen Saturation 95 94-100 % Arterial Blood Base Excess 0.9 -2.5-2.5 MMOL/L Nick Test UNALBE Blood Gas Ventilator Setting NO Blood Gas Inspired Oxygen 94% Test 09/01/18 07:45 09/01/18 10:03 09/01/18 11:00 09/01/18 16:24 Range/Units Urine Color DARK YELLOW Urine Clarity CLEAR Urine pH 6.0 5-9 Urine Specific [place] 1.020 1.016-1.022 Urine Protein 1+ H NEGATIVE Urine Glucose (UA) NEGATIVE NEGATIVE Urine Ketones 1+ H NEGATIVE Urine Nitrite NEGATIVE NEGATIVE Urine Bilirubin 2+ H NEGATIVE Urine Urobilinogen 4.0 NORMAL MG/DL Urine Leukocyte Esterase TRACE H NEGATIVE Urine RBC (Auto) 1+ H NEGATIVE Urine RBC 0-2 /HPF Urine WBC 2-5 /HPF Urine Squamous Epithelial Cells 10-25 H /HPF Urine Crystals NONE /LPF Urine Bacteria NEGATIVE /HPF Urine Casts PRESENT /LPF Urine Hyaline Casts 10-25 H /LPF Urine Mucus LARGE H /LPF Urine Culture Indicated NO Urine Opiates Screen NEGATIVE NEGATIVE Urine Oxycodone Screen NEGATIVE NEGATIVE Urine Methadone Screen NEGATIVE NEGATIVE Urine Propoxyphene Screen NEGATIVE NEGATIVE Urine Barbiturates Screen NEGATIVE NEGATIVE Ur Tricyclic Antidepressants Screen NEGATIVE NEGATIVE Urine Phencyclidine Screen NEGATIVE NEGATIVE Urine Amphetamines Screen NEGATIVE NEGATIVE Urine Methamphetamines Screen NEGATIVE NEGATIVE Urine Benzodiazepines Screen NEGATIVE NEGATIVE Urine Cocaine Screen NEGATIVE NEGATIVE Urine Cannabinoids Screen NEGATIVE NEGATIVE Lactic Acid Level 1.82 0.50-2.00 MMOL/L Troponin I 0.028 < 0.028 <0.028 NG/ML Physical Exam Physical Exam Vital Signs Vital Signs - First Documented 6/4/19 05:21 Temp 98.4 Pulse 94 Resp 20 B/P (MAP) 128/57 (80) Pulse Ox 95 O2 Delivery Room Air Capillary Refill : Less Than 3 Seconds Height, Weight, BMI Height: 5'6.00" Weight: 330lbs. 0oz. 149.317742zq; BMI Method:Stated General Appearance: No Apparent Distress, WD/WN Eyes: Bilateral Eye Normal Inspection, Bilateral Eye PERRL, Bilateral Eye EOMI HEENT: PERRL/EOMI, TMs Normal, Normal ENT Inspection, Pharynx Normal Neck: Full Range of Motion, Normal Inspection, Non Tender Respiratory: Chest Non Tender, Lungs Clear, Normal Breath Sounds Cardiovascular: Regular Rate, Rhythm, No Gallop, No JVD, Systolic Murmur, Other (bilateral edema of lower extremities extending proximally to proximal legs, negative Homans signs.) Gastrointestinal: Normal Bowel Sounds, Other (obesity compromising exam) Back: Normal Inspection, No CVA Tenderness Extremity: Normal Capillary Refill, Normal Inspection Neurologic/Psychiatric: No Motor/Sensory Deficits, Normal Mood/Affect, Abnormal pressure vessel inspector II-XII, Aphasia, Facial Droop, Motor Weakness Skin: Normal Color, Warm/Dry A/P-Cardiology Admission Diagnosis Sepsis Coronary artery disease Permanent pacemaker Congestive heart failure Assessment/Plan Sepsis, septic workup initiated, started on antibiotic, managed by primary care physician. Coronary artery disease, history of CABG 6 done in 2014. Following with a automotive refinisher, did not see his primary automotive refinisher for the past 2 years. Restart home medication monitor next Chronic atrial fibrillation, maintained on sotalol, monitor EKG. History of permanent pacemaker/ICD. No checkup was done for the past 2 years. I will evaluate and interrogate his pacemaker. Change in mental status, better at this time, probably secondary to sepsis. History of CVA, occurred after his bypass surgery in 2014. Hypertension, restart home medication monitor blood pressure next Hyperlipidemia, monitor lipids COPD/obstructive sleep apnea. Followed by primary care physician next Morbid obesity. BMI 53, we discussed weight loss. DAVIDA FOUNTAIN MD Sep 01, 2018 17:28
[2018-09-01] MEDS ORDERED: SOTALOL HCL 160 MG PO SCH (18:00)
[2018-09-01] MEDS: RIVAROXABAN 20 MG TABLET (XARELTO) PO SCH (18:25)
[2018-09-01] MEDS: SOTALOL 80 MG (BETAPACE) TAB PO SCH (18:25)
[2018-09-01] MEDS ORDERED: NON-FORMULARY MEDICATION 1 EA EA (Famotidine (Acid Reducer (FAMOTIDINE)) 20 MG) PO SCH (21:00)
[2018-09-01] MEDS ORDERED: PRAVASTATIN SODIUM PO SCH (21:00)
[2018-09-01] MEDS: SIMvastatin 10 MG (ZOCOR) TAB PO SCH (21:03)
[2018-09-01] MEDS: FAMOTIDINE 20 MG (PEPCID) TABLET PO SCH (21:11)
[2018-09-01] MEDS: POLYETHYLENE GLYCOL 17 GM (MIRALAX) PACK PO SCH (21:41)
[2018-09-01] MEDS ORDERED: VANCOMYCIN INJECTION 2,250 MG in NS IV 500 ML 500 ML IV SCH (23:00)
[2018-09-02 00:05] VITALS: BP 105/62
[2018-09-02] MEDS: CEFEPIME INJECTION 1,000 MG in WATER (STERILE) FOR INJECTION 10 ML IV SCH ×4 (02:54→20:36)
[2018-09-02 03:41] LABS: BASOPHILS % (AUTO) 0 % (0-10); EOSINOPHILS # (AUTO) 0.1 10^3/uL (0.0-0.3); EOSINOPHILS % (AUTO) 1 % (0-10); HEMATOCRIT 36 % (40-54); HEMOGLOBIN 11.7 G/DL (13.3-17.7); LYMPHOCYTES # (AUTO) 1.8 X 10^3 (1.0-4.0); LYMPHOCYTES % (AUTO) 18 % (12-44); MEAN CORPUSCULAR HEMOGLOBIN 30 PG (25-34); MEAN CORPUSCULAR HGB CONC 33 G/DL (32-36); MEAN CORPUSCULAR VOLUME 93 FL (80-99); MEAN PLATELET VOLUME 11.1 FL (7.4-10.4); MONOCYTES # (AUTO) 1.2 X 10^3 (0.0-1.0); MONOCYTES % (AUTO) 12 % (0-12); NEUTROPHILS # (AUTO) 7.2 X 10^3 (1.8-7.8); NEUTROPHILS % (AUTO) 70 % (42-75); PLATELET COUNT 186 10^3/uL (130-400); RED CELL DISTRIBUTION WIDTH 13.6 % (10.0-14.5); WHITE BLOOD COUNT 10.3 10^3/uL (4.3-11.0)
[2018-09-02 03:58] LABS: ALANINE AMINOTRANSFERASE 20 U/L (0-55); ALBUMIN 3.1 GM/DL (3.2-4.5); ALKALINE PHOSPHATASE 72 U/L (40-136); BUN/CREATININE RATIO 17; CALCIUM 8.6 MG/DL (8.5-10.1); CARBON DIOXIDE 20 MMOL/L (21-32); CHLORIDE 101 MMOL/L (98-107); CHOLESTEROL 109 MG/DL (< 200); CREATININE SERUM 0.77 MG/DL (0.60-1.30); GFR ESTIMATED > 60; GLUCOSE 171 MG/DL (70-105); HDL CHOLESTEROL 21 MG/DL (40-60); POTASSIUM 3.6 MMOL/L (3.6-5.0); SODIUM 131 MMOL/L (135-145); TOTAL PROTEIN 6.7 GM/DL (6.4-8.2); TRIGLYCERIDES 148 MG/DL (<150); VLDL CHOLESTEROL 30 MG/DL (5-40)
[2018-09-02 04:00] VITALS: BP 97/64
[2018-09-02 04:11] LABS: BAND NEUTROPHILS 5 %; LYMPHOCYTES % (MANUAL) 18 %; MONOCYTES % (MANUAL) 8 %; NEUTROPHILS % (MANUAL) 69 %; RBC MORPH NORMAL
--- NOTE | 2018-09-02 05:09 | Pulmonary Consultation ---
History of Present Illness History of Present Illness Date of Consultation 09/02/18 05:04 Time Seen by Provider: 05:05 Date of Admission Reason for Visit: change in mental status, coronary artery disease History of Present Illness 68yo with hx of Afib, CAD, CHF presented secondary to SOB, worsening lethargy, confusion. Denied CP, palpitations, syncope. No prior hx like this in the past. I am consulted for ICU management. Allergies and Home Medications Allergies Coded Allergies: No Known Drug Allergies (Unverified , 09/01/18) Home Medications Acetaminophen 500 Mg Tablet, 1,000 MG PO Q6H PRN for PAIN-MILD, (Reported) Allopurinol 300 Mg Tablet, 300 MG PO DAILY, (Reported) Aspirin 81 Mg Tablet.dr, 81 MG PO DAILY, (Reported) Famotidine 20 Mg Tablet, 20 MG PO BID, (Reported) Finasteride 5 Mg Tablet, 5 MG PO DAILY, (Reported) Furosemide 40 Mg Tablet, 40 MG PO DAILY, (Reported) Losartan Potassium 50 Mg Tablet, 50 MG PO DAILY, (Reported) Metformin HCl 500 Mg Tablet, 500 MG PO 0800,1800, (Reported) Mirtazapine 15 Mg Tablet, 7.5 MG PO HS, (Reported) TAKES 1/2 (15MG) TABLET Pravastatin Sodium 20 Mg Tablet, 60 MG PO HS, (Reported) TAKES 3 (20MG) TABLETS Rivaroxaban 20 Mg Tablet, 20 MG PO 1800, (Reported) Sotalol HCl 160 Mg Tablet, 160 MG PO 0800,1800, (Reported) Spironolactone 25 Mg Tablet, 25 MG PO DAILY, (Reported) Past Pfdhqac-Mrslti-Lkezst Hx Past Med/Social Hx: Reviewed Nursing Past Med/Soc Hx, Reviewed and Corrections made Patient Social History Alcohol Use: Denies Use Recreational Drug Use: No Smoking Status: Former Smoker 2nd Hand Smoke Exposure: No Recent Foreign Travel: No Contact w/Someone Who Travel: No Recent Infectious Disease Expo: No Recent Hopitalizations: No Physical Abuse: No Sexual Abuse: No Mistreated: No Fear: No Seasonal Allergies Seasonal Allergies: No Past Medical History Surgeries: Yes (H/O heart bypass, defibrillator ) Cardiac Respiratory: Yes Sleep Apnea Currently Using CPAP: Yes Cardiac: Yes (six vessel coronary artery bypass graph, defibrillator) Atrial Fibrillation, Cardiomyopathy, Heart Attack, High Cholesterol, Hypertension Neurological: Yes (cerebral vasculary accident) Genitourinary: Yes (hematuria) Gastrointestinal: No Musculoskeletal: Yes (arthritis of left acromioclavicular joint, arthritis degenerative) Arthritis Endocrine: Yes (gout, type 2 diabetes) Diabetes, Non-Insulin dep HEENT: No Cancer: No Psychosocial: No Integumentary: No Blood Disorders: No Review of Systems Time Seen by Provider: 07:18 Sepsis Event Evaluation Height, Weight, BMI Height: 5'6.00" Weight: 330lbs. 0.0oz. 149.695879ol; 53.3 BMI Method:Stated Exam Exam Vital Signs Date Time Temp Pulse Resp B/P (MAP) Pulse Ox O2 Delivery O2 Flow Rate FiO2 09/02/18 04:00 95 Room Air 09/02/18 04:00 65 22 97/64 (75) 92 Room Air 09/02/18 01:05 80 09/02/18 00:05 71 22 105/62 (76) 94 Room Air 09/02/18 00:00 94 Room Air 09/01/18 21:00 95 Room Air 09/01/18 20:00 98.3 75 16 105/70 (82) 94 Room Air 09/01/18 20:00 95 Room Air 09/01/18 19:11 82 09/01/18 18:32 98 Room Air 09/01/18 16:00 89 10 98/69 (79) Room Air 09/01/18 16:00 98 Room Air 09/01/18 13:00 96 09/01/18 12:00 98 Room Air 09/01/18 12:00 97.5 89 21 100/67 (78) 97 09/01/18 10:50 89 15 120/68 (85) 96 Room Air 09/01/18 09:49 87 09/01/18 09:40 98.1 70 32 130/68 (88) 98 Room Air 09/01/18 09:00 102.2 94 22 128/70 (89) 94 Room Air 09/01/18 08:45 94 22 106/61 (76) 95 Room Air 09/01/18 08:30 94 22 128/70 (89) 94 Room Air 09/01/18 08:00 102.3 92 20 116/60 (78) 96 Room Air 09/01/18 07:58 102.2 09/01/18 07:30 89 20 119/62 (81) 97 Room Air 09/01/18 07:02 102.3 91 22 121/67 (85) 97 Room Air 09/01/18 06:52 102.3 91 22 121/67 97 Room Air 09/01/18 05:21 98.4 94 20 128/57 (80) 95 Room Air I & O 09/02/18 07:00 Intake Total 6910 ml Output Total 500 ml Balance 6410 ml Height & Weight Height: 5'6.00" Weight: 330lbs. 0.0oz. 149.148271gu; 53.3 BMI Method:Stated General Appearance: No Apparent Distress, WD/WN, Chronically ill, Obese HEENT: PERRL/EOMI, Normal ENT Inspection, Pharynx Normal, Moist Mucous Membranes Neck: Full Range of Motion, Normal Inspection, Non Tender Respiratory: Chest Non Tender, Lungs Clear, Normal Breath Sounds, No Accessory Muscle Use, No Respiratory Distress Cardiovascular: Regular Rate, Rhythm, No Edema, No Gallop, No JVD, No Murmur, Normal Peripheral Pulses Capillary Refill: Less Than 3 Seconds Extremity: Normal Capillary Refill, Normal Inspection, Normal Range of Motion, Non Tender, No Calf Tenderness, No Pedal Edema Neurologic/Psychiatric: Alert, Oriented x3, No Motor/Sensory Deficits, Normal Mood/Affect, Disoriented (subtle memory recall) Skin: Normal Color, Warm/Dry Lymphatic: No Adenopathy Results Lab Laboratory Tests 09/01/18 05:08 09/02/18 03:15 Assessment/Plan Assessment/Plan S/p Fall Cardiomyopathy with CHFAE -Lasix , Spironolactone -Cardiology following -Echo pending DM MICHELLE CAD hx of CABG REINIER GRIJALVA DO Sep 02, 2018 05:09
[2018-09-02] MEDS: CATHETER FLUSH 10 ML SYR IV SCH ×3 (06:12→20:36)
--- NOTE | 2018-09-02 07:23 | Cardiology Progress Note ---
Subjective Date Seen by Provider: Sep 02, 2018 Time Seen by Provider: 07:20 Subjective/Events-last exam Patient is in bed, no new complaint, feeling better Review of Systems General: No Chills, No Night Sweats, No Fatigue, No Malaise, No Appetite, No Other HEENT: No Head Aches, No Visual Changes, No Eye Pain, No Ear Pain, No Dysphasia, No Sinus Congestion, No Post Nasal Drip, No Sore Throat, No Other Pulmonary: Dyspnea; No Cough, No Pleuritic Chest Pain, No Other Cardiovascular: No: Chest Pain, Palpitations, Orthopnea, Paroxysmal Noc. Dyspnea, Edema, Lt Headedness, Other Focused Exam Lactate Level 09/01/18 05:42: Lactic Acid Level 2.65*H 09/01/18 10:03: Lactic Acid Level 1.82 Objective-Cardiology Exam Last Set of Vital Signs Vital Signs 09/02/18 04:00 Temp 98.3 Pulse 65 Resp 22 B/P (MAP) 97/64 (75) Pulse Ox 95 O2 Delivery Room Air Capillary Refill : Less Than 3 Seconds I&O Intake and Output 09/01/18 23:59 Intake Total 4910 ml Output Total 500 ml Balance 4410 ml Intake Oral 900 ml IV Total 4010 ml Output Urine Total 500 ml Daily Weight Change No General: Alert, Oriented X3, Cooperative HEENT: Atraumatic, PERRLA Neck: Supple, No JVD, No Thyromegaly Lungs: Clear to Auscultation, Normal Air Movement Heart: Regular Rate, Normal S1, Normal S2, No Murmurs, Other (S3) Abdomen: Normal Bowel Sounds, Soft, No Tenderness, No Hepatosplenomegaly, No Masses Extremities: No Clubbing, No Cyanosis, Normal Pulses, No Tenderness/Swelling Skin: No Rashes, No Breakdown, No Significant Lesion Neuro: Normal Gait, Normal Speech, Strength at 5/5 X4 Ext, Normal Tone, Sensation Intact Psych/Mental Status: Mental Status NL, Mood NL Results Lab Laboratory Tests 09/02/18 03:15 A/P-Cardiology Admission Diagnosis Sepsis Coronary artery disease Permanent pacemaker Congestive heart failure Assessment/Plan UTI, receiving antibiotics and managed by primary care physician S/P fall and confusion, better at this time Coronary artery disease, history of CABG 6 done in 2014. 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 clinically stable, continue to monitor Elevated BNP, history of CHF, evaluate echo Chronic atrial fibrillation, maintained on sotalol, ECG reviewed, QTc 484, continue to monitor History of permanent pacemaker/ICD. No checkup was done for the past 2 years, [employer]tr[employer] device. I will evaluate and interrogate his pacemaker. Change in mental status, better at this time, probably secondary to sepsis. History of CVA, occurred after his bypass surgery in 2014. Hypertension, restart home medication monitor blood pressure next Hyperlipidemia, monitor lipids COPD/obstructive sleep apnea. Followed by primary care physician next Morbid obesity. BMI 53, we discussed weight loss. Clinical Quality Measures DVT/VTE Risk/Contraindication: Risk Factor Score Per Nursin RFS Level Per Nursing on Admit: 4+=Very High DAVIDA FOUNTAIN MD Sep 02, 2018 07:23
[2018-09-02] MEDS: ASPIRIN E.C. 81 MG (ECOTRIN) TAB PO SCH (07:37)
[2018-09-02] MEDS: SPIRONOLACTONE 25 MG (ALDACTONE) TAB PO SCH (07:37)
[2018-09-02] MEDS: SOTALOL 80 MG (BETAPACE) TAB PO SCH ×2 (07:37→17:08)
[2018-09-02] MEDS: FUROSEMIDE 40 MG (LASIX) TAB PO SCH (07:38)
[2018-09-02] MEDS: FAMOTIDINE 20 MG (PEPCID) TABLET PO SCH ×2 (07:38→20:36)
[2018-09-02] MEDS: LOSARTAN 50 MG (COZAAR) TAB PO SCH (07:39)
[2018-09-02] MEDS: POLYETHYLENE GLYCOL 17 GM (MIRALAX) PACK PO SCH ×2 (07:39→20:36)
--- NOTE | 2018-09-02 08:22 | NUR ---
REPORT FROM AURA MALDONADO AT THIS TIME. THIS RN WILL ASSUME CARE OF THIS PATIENT WHEN HE ARRIVES TO THIS FLOOR..
--- NOTE | 2018-09-02 08:27 | NUR ---
Pt transferred to Room 433 at this time. VSS prior to transfer. Telemetry placed on pt prior to transfer. Pt transferred by this RN via wheelchair, Arabella and personal belongings transferred with pt at this time.
[2018-09-02] MEDS ORDERED: NON-FORMULARY MEDICATION 1 EA EA (Spironolactone (Aldactone) 25 MG) PO SCH (09:00)
[2018-09-02] MEDS ORDERED: NON-FORMULARY MEDICATION 1 EA EA (Losartan Potassium 50 MG) PO SCH (09:00)
[2018-09-02] MEDS ORDERED: TROUGH ORDER-PHARMACY XX NR (10:00)
--- NOTE | 2018-09-02 10:23 | Progress Note-Hospitalist ---
Subjective HPI/CC On Admission Date Seen by Provider: Sep 02, 2018 Time Seen by Provider: 09:00 CC: Confusion HPI: This is a 68yoWM very complicated pt of Dr. Bright and Dr. [facility] in [place] with a PMH of diabetes mellitus, HTN, defibrillator placement who presented to the [place] ER with confusion pt was found to be encephalopathic and found to have UTI with recent antibiotic use for UTI last week with A moxicillin. Pt wad deemed stable but in need of cardiac step town admission with Cardiology and Pulmonology consultation along with Vancomycin, Cefepime empiric antibiotics and for further supportive care to clear encephalopathy. Subjective/Events-last exam Pt transferred to 4th floor Will consult Dr. Jack for UTI Maintain on antibiotics Breathing, eating, and drinking well PT will be consulted and family brought his walker Likely disposition tomorrow Confusion resolved Review of Systems General: Fatigue Focused Exam Lactate Level 09/01/18 05:42: Lactic Acid Level 2.65*H 09/01/18 10:03: Lactic Acid Level 1.82 Objective Exam Vital Signs Vital Signs Date Time Temp Pulse Resp B/P (MAP) Pulse Ox O2 Delivery O2 Flow Rate FiO2 09/02/18 20:50 98.1 68 18 109/69 (82) 97 NIV CPAP Capillary Refill : Less Than 3 Seconds General Appearance: No Apparent Distress, WD/WN, Chronically ill, Obese HEENT: PERRL/EOMI, Normal ENT Inspection, Pharynx Normal, Moist Mucous Membranes Neck: Full Range of Motion, Normal Inspection, Non Tender Respiratory: Chest Non Tender, Lungs Clear, Normal Breath Sounds, No Accessory Muscle Use, No Respiratory Distress Cardiovascular: Regular Rate, Rhythm, No Edema, No Gallop, No JVD, No Murmur, Normal Peripheral Pulses Gastrointestinal: Normal Bowel Sounds, No Organomegaly, No Pulsatile Mass, Non Tender, Soft Back: Normal Inspection, No CVA Tenderness, No Vertebral Tenderness Extremity: Normal Capillary Refill, Normal Inspection, Normal Range of Motion, Non Tender, No Calf Tenderness, No Pedal Edema Neurologic/Psychiatric: Alert, Oriented x3, No Motor/Sensory Deficits, Normal Mood/Affect, Disoriented (subtle memory recall) Skin: Normal Color, Warm/Dry Lymphatic: No Adenopathy Results/Procedures Lab Laboratory Tests 09/02/18 03:15 Patient resulted labs reviewed. Diagnosis/Problems Diagnosis/Problems (1) Altered mental state Status: Acute Qualifiers: Altered mental status type: disorientation Qualified Codes: R41.0 - Disorientation, unspecified (2) UTI (urinary tract infection) Status: Acute Qualifiers: Urinary tract infection type: acute cystitis Hematuria presence: without hematuria Qualified Codes: N30.00 - Acute cystitis without hematuria (3) Cardiomyopathy Status: Chronic Qualifiers: Cardiomyopathy type: unspecified Qualified Codes: I42.9 - Cardiomyopathy, unspecified (4) Cardiac defibrillator in place Status: Chronic (5) Diabetes mellitus Status: Chronic Qualifiers: Diabetes mellitus type: type 2 Diabetes mellitus six pack loader operator insulin use: with six pack loader operator use Diabetes mellitus complication status: with circulatory complication Diabetes mellitus complication detail: with other circulatory complications Qualified Codes: E11.59 - Type 2 diabetes mellitus with other circulatory complications; Z79.4 - client professional (current) use of insulin (6) MICHELLE on CPAP Status: Chronic Clinical Quality Measures DVT/VTE Risk/Contraindication: Risk Factor Score Per Nursin RFS Level Per Nursing on Admit: 4+=Very High ROSEMARY CURRIE DO Sep 02, 2018 10:23
--- NOTE | 2018-09-02 11:52 | Physical Therapy Evaluation ---
PT Evaluation-General Medical Diagnosis Admission Date Sep 01, 2018 at 08:00 Medical Diagnosis: severe sepsis Onset Date: Sep 02, 2018 Therapy Diagnosis Therapy Diagnosis: abnormal gait Height/Weight Height (Feet): 5 Height (Inches): 6.00 Weight (Pounds): 329 Weight (Ounces): 4.0 Precautions Precautions/Isolations: Fall Prevention, Standard Precautions Referral Physician: Mikayla Reason for Referral: Evaluation/Treatment Medical History Pertinent Medical History: DM, HTN, HI Additional Medical History defibrillator, encephalopathic, cardiomyopathy, frequent UTI Current History Admitted with severe sepsis due to UTI Reviewed History: Yes Social History Home: Single Level Current Living Status: Spouse (and son) Entry Into Home: Stairs With Railing Prior/Core FIM Prior Level of Function Therapy Code Descriptions/Definitions Functional [place] Measure: 0=Not Assessed/NA 4=Minimal Assistance 1=Total Assistance 5=Supervision or Setup 2=Maximal Assistance 6=Modified [place] 3=Moderate Assistance 7=Complete [place] Therapy Quality Codes: 6 Independent with activity with or without an assistive device 5 Patient requires set up or clean up by helper. Patient completes activity by themselves 4 Supervision or touching assist (CGA). [place] provide cues , steadying assist 3 The helper provides less than half the effort to complete the activity 2 The helper provides more than half the effort to complete the activity 1 Dependent. The helper does all the effort to complete an activity 7 Patient refused to complete or attempt activity 9 The patient did not perform the activity before the current illness or injury 88 Not attempted due to Medical conditions or safety concerns Functional Abilities and Goals: Independent: Patient completed the activities by him/herself, with or without an assistive device, with no assistance from a helper. Needed Some Help: Patient needed partial assistance from another person to complete activities. Dependent: A helper completed the activities for the patient. Unknown: Not Applicable: Bed Mobility: 6 Transfers (B,C,W/C) (FIM): 6 Gait: 6 Indoor Mobility (Ambulation): Independent Stairs: Independent fWW at home; mod indep with all mobility; able to walk short community distances. PT Evaluation-Current Subjective Agrees to PT. Reports he progressively got weaker at home. Inquires about [facility] PT after hospital discharge. Objective Patient Orientation: Person, Place, Time, Situation Problem Solving: Good ROM/Strength ROM Lower Extremities wNL Strength Lower Extremities grossly 4-/5 Integumentary/Posture Integumentary intact Bowel Incontinence: No Bladder Incontinence: No Posture forward flexed at hips in standing; Neuromuscular (Tone, Coordination, Reflexes) intact and functional Sensory Vision: Wears Glasses Hearing: Functional Hand Dominance: Right Sensation Right Lower Extremit: Intact Sensation Left Lower Extremity: Intact Transfers Therapy Code Descriptions/Definitions Functional [place] Measure: 0=Not Assessed/NA 4=Minimal Assistance 1=Total Assistance 5=Supervision or Setup 2=Maximal Assistance 6=Modified [place] 3=Moderate Assistance 7=Complete [place] Sit to/from Stand: 4 (CGA for safety with skilled cues for hand placement. ) Gait Mode of Locomotion: Walk Anticipated Mode of Locomotion: Walk Gait (FIM): 4 Distance (FIM): 3=150 ft Distance: 150 ft Gait Assistive Device: FWW Comments/Gait Description slow gait with decreased foot clearance and forward flexed at hips. steady and without noted LOB Balance Sitting Static: Good Sitting Dynamic: Good Standing Static: Good Standing Dynamic: Good Assessment/Needs Pt presents with decreased functional activity tolerance and safety with gait and transfers. He will benefit from skilled PT to address strength and mobilty to allow him to return to a mod indep level of mobility. Rehab Potential: Good PT Half-Way Goals Winding Operator Goals PT Winding Operator Goals Time Frame: Sep 09, 2018 Transfers (B,C,W/C) (FIM): 6 Gait (FIM): 6 Gait distance (FIM): 3=150 ft Gait Assistive Device: FWW PT Plan Problem List Problem List: Activity Tolerance, Functional Strength, Safety, Balance, Gait, Transfer, Bed Mobility Treatment/Plan Treatment Plan: Continue Plan of Care Treatment Plan: Bed Mobility, Education, Functional Activity Dale, Functional Strength, Gait, Safety, Therapeutic Exercise, Transfers Treatment Duration: Sep 09, 2018 Frequency: 6 times per week Estimated Hrs Per Day: .5 hour per day Patient and/or Family Agrees t: Yes Safety Risks/Education Patient Education: Safety Issues Teaching Recipient: Patient Teaching Methods: Discussion Response to Teaching: Return Demonstration Discharge Recommendations Therapy D/C Recommendations: Physical Therapy Home Care Time/GCodes Time In: 1125 Time Out: 1151 Total Billed Treatment Time: 26 Total Billed Treatment visit EVM 10 GT 16 PANFILO MARIE PT Sep 02, 2018 11:52
[2018-09-02 12:00] VITALS: BP 101/65
--- NOTE | 2018-09-02 14:08 | CONSULTATION REPORT ---
DATE OF SERVICE: 09/02/2018 ATTENDING PHYSICIAN: Dr. Degroot. SUMMARY: This is an established patient of mine that sees me every 6 months in [facility]. He was due to see me on 04/30/2018. He missed his appointment and rescheduled it for tomorrow morning at [place], but he is being admitted by Dr. Degroot for UTI and some cognitive changes. He was then put on the appropriate treatment. The patient has a history of BPH and prostatism and is on Proscar 5 mg daily. His PSA has been normal. His rectal exam has been normal. He previously had some microhematuria with negative workup and has sexual dysfunction and hypogonadism and is under observation by the patient's request. IMPRESSION: UTI with history of BPH. RECOMMENDATION: Continue present management and we will reschedule him to [facility] once discharged. Job ID: [id number] DocumentID: [id number] Dictated Date: 09/02/2018 13:01:28 Guardian Family Member Date: 09/02/2018 14:07:29 Dictated By: NELSY TAPIA MD
[2018-09-02] MEDS ORDERED: WATER (STERILE) FOR INJECTION 10 ML ONE (14:10)
[2018-09-02] MEDS ORDERED: ceFAZolin INJECTION 1,000 MG ONE (14:10)
--- NOTE | 2018-09-02 14:26 | Physical Therapy Daily Note ---
PT Daily Note-Current Subjective Patient in bed pre tx, agrees to PT but doesn't want to get out of bed, he says he just got back to bed. Patient has 8/10 pain in right hip. Appearance Patient in bed post tx with nurse call,phone, tray, all needs met. Mental Status Patient Orientation: Person, Place, Situation Transfers Therapy Code Descriptions/Definitions Functional [place] Measure: 0=Not Assessed/NA 4=Minimal Assistance 1=Total Assistance 5=Supervision or Setup 2=Maximal Assistance 6=Modified [place] 3=Moderate Assistance 7=Complete [place] Therapy Quality Codes: 6 Independent with activity with or without an assistive device 5 Patient requires set up or clean up by helper. Patient completes activity by themselves 4 Supervision or touching assist (CGA). [place] provide cues , steadying assist 3 The helper provides less than half the effort to complete the activity 2 The helper provides more than half the effort to complete the activity 1 Dependent. The helper does all the effort to complete an activity 7 Patient refused to complete or attempt activity 9 The patient did not perform the activity before the current illness or injury 88 Not attempted due to Medical conditions or safety concerns Weight Bearing Partial Weight Bearing Exercises Supine Ex: Ankle pumps, Quad Set, Glut sets, Heel Slides, Short Arc Quads, Stra ight leg raise, Hip abd/add Supine Reps: 10 Treatments RLE hip protocol x10 Assessment Current Status: Fair Progress good performance with exercises, patient needed occasional rest break PT Skilled Nursing Goals Car Pusher Goals PT Car Pusher Goals Time Frame: Sep 09, 2018 Transfers (B,C,W/C) (FIM): 6 Gait (FIM): 6 Gait distance (FIM): 3=150 ft Gait Assistive Device: FWW PT Plan Problem List Problem List: Activity Tolerance, Functional Strength, Safety, Balance, Gait, Transfer, Bed Mobility, ROM Treatment/Plan Treatment Plan: Continue Plan of Care Treatment Plan: Bed Mobility, Education, Functional Activity Dale, Functional Strength, Gait, Safety, Therapeutic Exercise, Transfers Treatment Duration: Sep 09, 2018 Frequency: 6 times per week Estimated Hrs Per Day: .5 hour per day Patient and/or Family Agrees t: Yes Safety Risks/Education Patient Education: Correct Positioning, Safety Issues Teaching Recipient: Patient Teaching Methods: Demonstration, Discussion Response to Teaching: Reinforcement Needed Time/GCodes Time In: 1411 Time Out: 1421 Total Billed Treatment Time: 10 Total Billed Treatment 1 visit EX 10' FRANCY JUNIOR PT Sep 02, 2018 14:26
[2018-09-02 16:55] VITALS: BP 103/68
[2018-09-02] MEDS: RIVAROXABAN 20 MG TABLET (XARELTO) PO SCH (17:08)
[2018-09-02] MEDS: SIMvastatin 10 MG (ZOCOR) TAB PO SCH (20:36)
[2018-09-02 20:50] VITALS: BP 109/69
[2018-09-03 00:22] VITALS: BP 132/84
[2018-09-03] MEDS: CEFEPIME INJECTION 1,000 MG in WATER (STERILE) FOR INJECTION 10 ML IV SCH ×2 (02:20→09:23)
[2018-09-03 04:28] VITALS: BP 109/66
[2018-09-03 05:17] LABS: BASOPHILS # (AUTO) 0.1 10^3/uL (0.0-0.1); BASOPHILS % (AUTO) 1 % (0-10); EOSINOPHILS # (AUTO) 0.2 10^3/uL (0.0-0.3); EOSINOPHILS % (AUTO) 3 % (0-10); HEMATOCRIT 35 % (40-54); HEMOGLOBIN 11.5 G/DL (13.3-17.7); LYMPHOCYTES # (AUTO) 1.6 X 10^3 (1.0-4.0); LYMPHOCYTES % (AUTO) 24 % (12-44); MEAN CORPUSCULAR HEMOGLOBIN 30 PG (25-34); MEAN CORPUSCULAR HGB CONC 33 G/DL (32-36); MEAN CORPUSCULAR VOLUME 92 FL (80-99); MEAN PLATELET VOLUME 11.1 FL (7.4-10.4); MONOCYTES # (AUTO) 0.8 X 10^3 (0.0-1.0); MONOCYTES % (AUTO) 12 % (0-12); NEUTROPHILS # (AUTO) 3.9 X 10^3 (1.8-7.8); NEUTROPHILS % (AUTO) 60 % (42-75); PLATELET COUNT 201 10^3/uL (130-400); RED CELL DISTRIBUTION WIDTH 13.7 % (10.0-14.5); WHITE BLOOD COUNT 6.5 10^3/uL (4.3-11.0)
[2018-09-03 05:49] LABS: ALANINE AMINOTRANSFERASE 20 U/L (0-55); ALKALINE PHOSPHATASE 71 U/L (40-136); BILIRUBIN,TOTAL 0.8 MG/DL (0.1-1.0); BUN/CREATININE RATIO 23; CALCIUM 8.8 MG/DL (8.5-10.1); CARBON DIOXIDE 19 MMOL/L (21-32); CHLORIDE 102 MMOL/L (98-107); GFR ESTIMATED > 60; GLUCOSE 207 MG/DL (70-105); POTASSIUM 3.5 MMOL/L (3.6-5.0); SODIUM 133 MMOL/L (135-145); TOTAL PROTEIN 6.5 GM/DL (6.4-8.2)
[2018-09-03] MEDS: CATHETER FLUSH 10 ML SYR IV SCH (06:01)
[2018-09-03 08:00] VITALS: BP 120/69
--- NOTE | 2018-09-03 09:04 | Physical Therapy Daily Note ---
PT Daily Note-Current Subjective Agreeable to PT. Reports he is hoping to go home today. Reports he is going to inquire about [facility] PT. Mental Status Patient Orientation: Person, Place, Time, Situation Transfers Therapy Code Descriptions/Definitions Functional [place] Measure: 0=Not Assessed/NA 4=Minimal Assistance 1=Total Assistance 5=Supervision or Setup 2=Maximal Assistance 6=Modified [place] 3=Moderate Assistance 7=Complete [place] Therapy Quality Codes: 6 Independent with activity with or without an assistive device 5 Patient requires set up or clean up by helper. Patient completes activity by themselves 4 Supervision or touching assist (CGA). [place] provide cues , steadying assist 3 The helper provides less than half the effort to complete the activity 2 The helper provides more than half the effort to complete the activity 1 Dependent. The helper does all the effort to complete an activity 7 Patient refused to complete or attempt activity 9 The patient did not perform the activity before the current illness or in jury 88 Not attempted due to Medical conditions or safety concerns Pt transfers sit to / from stand mod indep. Pt stood while this therapist performs lito care. Pt able to assist in pulling his pants up. Pt and and confirm that she assists with pericare at home. Weight Bearing Partial Weight Bearing Gait Training Gait (FIM): 5 Distance (FIM): 3=150 ft Distance: 175 ft Gait Level of Assist: 5 (SBA for safety) Gait Assistive Device: FWW Pt walked 175 ft with FWW , forward flexed at hips and does not fully extend his knees; relies on FWW fairly heavily. Steady gait without noted LOB episode. Treatments Pt in chair post treatment with needs met. Assessment Current Status: Good Progress Pt is SBA with mobiltiy simply for safety concerns. He does not need asssit and appears to have good safety awareness just slight functional weakness. He would benefit from [facility] PT to address functional strengthening and safety in his home. PT Heel Slicker Goals Care Home Goals PT Care Home Goals Time Frame: Sep 09, 2018 Transfers (B,C,W/C) (FIM): 6 Gait (FIM): 6 Gait distance (FIM): 3=150 ft Gait Assistive Device: FWW PT Plan Problem List Problem List: Activity Tolerance, Functional Strength, Safety Treatment/Plan Treatment Plan: Continue Plan of Care Treatment Plan: Bed Mobility, Education, Functional Activity Dale, Functional Strength, Gait, Safety, Therapeutic Exercise, Transfers Treatment Duration: Sep 09, 2018 Frequency: 6 times per week Estimated Hrs Per Day: .5 hour per day Patient and/or Family Agrees t: Yes Safety Risks/Education Patient Education: Safety Issues Teaching Recipient: Patient Teaching Methods: Discussion Response to Teaching: Verbalize Understanding Discharge Recommendations Therapy D/C Recommendations: Physical Therapy Home Care Time/GCodes Time In: 815 Time Out: 840 Total Billed Treatment Time: 25 Total Billed Treatment visit FA 25 PANFILO MARIE PT Sep 03, 2018 09:04
--- NOTE | 2018-09-03 09:13 | Cardiology Progress Note ---
Subjective Date Seen by Provider: Sep 03, 2018 Time Seen by Provider: 09:10 Subjective/Events-last exam patient is laying down in bed, feeling better. No new complaint. Denied any chest pain Review of Systems General: No Chills, No Night Sweats, No Fatigue, No Malaise, No Appetite, No Other Pulmonary: No Dyspnea, No Cough, No Pleuritic Chest Pain, No Other Cardiovascular: No: Chest Pain, Palpitations, Orthopnea, Paroxysmal Noc. Dyspnea, Edema, Lt Headedness, Other Focused Exam Lactate Level 09/01/18 05:42: Lactic Acid Level 2.65*H 09/01/18 10:03: Lactic Acid Level 1.82 Objective-Cardiology Exam Last Set of Vital Signs Vital Signs 09/03/18 08:00 Temp 97.7 Pulse 74 Resp 18 B/P (MAP) 120/69 (86) Pulse Ox 95 O2 Delivery NIV CPAP Capillary Refill : Less Than 3 Seconds I&O Intake and Output 09/03/18 00:00 Intake Total 5732.5 ml Output Total 1045 ml Balance 4687.5 ml Intake Oral 1180 ml IV Total 4552.5 ml Output Urine Total 1045 ml General: Alert, Oriented X3, Cooperative HEENT: Atraumatic, PERRLA Neck: Supple, No JVD, No Thyromegaly Lungs: Clear to Auscultation, Normal Air Movement Heart: Regular Rate, Normal S1, Normal S2, No Murmurs, Other (S3) Abdomen: Normal Bowel Sounds, Soft, No Tenderness, No Hepatosplenomegaly, No Masses Extremities: No Clubbing, No Cyanosis, Normal Pulses, No Tenderness/Swelling Skin: No Rashes, No Breakdown, No Significant Lesion Neuro: Normal Gait, Normal Speech, Strength at 5/5 X4 Ext, Normal Tone, Sensa tion Intact Psych/Mental Status: Mental Status NL, Mood NL Results Lab Laboratory Tests 09/03/18 05:10 A/P-Cardiology Admission Diagnosis Sepsis Coronary artery disease Permanent pacemaker Congestive heart failure Assessment/Plan UTI, receiving antibiotics and managed by primary care physician S/P fall and confusion, better at this time Coronary artery disease, history of CABG 6 done in 2014. Following with a fusing line inspector, did not see his primary fusing line inspector for the past 2 years. no new complaint, clinically stable. Congestive heart failure, chronic compensated left ventricular systolic dysfunction, probably ischemic cardiomyopathy, echocardiogram showed ejection fraction 40-45 percent. Mild to moderate mitral regurgitation, PA pressure 35 mmHg. Continue on losartan and sotalol. Continue to monitor. No changes are recommended. Chronic atrial fibrillation, maintained on sotalol, ECG reviewed, QTc 484, continue to monitor History of permanent pacemaker/ICD. No checkup was done for the past 2 years, [employer] device. I will evaluate and interrogate his pacemaker. Change in mental status, better at this time, probably secondary to sepsis. History of CVA, occurred after his bypass surgery in 2014. Hypertension, restart home medication monitor blood pressure Hyperlipidemia, monitor lipids COPD/obstructive sleep apnea. Followed by primary care physician next Morbid obesity. BMI 53, we discussed weight loss. Clinical Quality Measures DVT/VTE Risk/Contraindication: Risk Factor Score Per Nursin RFS Level Per Nursing on Admit: 4+=Very High DAVIDA FOUNTAIN MD Sep 03, 2018 09:13
[2018-09-03] MEDS: FUROSEMIDE 40 MG (LASIX) TAB PO SCH (09:23)
[2018-09-03] MEDS: ASPIRIN E.C. 81 MG (ECOTRIN) TAB PO SCH (09:23)
[2018-09-03] MEDS: FAMOTIDINE 20 MG (PEPCID) TABLET PO SCH (09:23)
[2018-09-03] MEDS: SOTALOL 80 MG (BETAPACE) TAB PO SCH (09:23)
[2018-09-03] MEDS: SPIRONOLACTONE 25 MG (ALDACTONE) TAB PO SCH (09:23)
[2018-09-03] MEDS: LOSARTAN 50 MG (COZAAR) TAB PO SCH (09:23)
[2018-09-03] MEDS: POLYETHYLENE GLYCOL 17 GM (MIRALAX) PACK PO SCH (09:24)
[2018-09-03] MEDS ORDERED: LEVO500T2 PO (10:40)
--- NOTE | 2018-09-03 10:42 | Discharge Summary-Hospitalist ---
Diagnosis/Chief Complaint Date of Admission Sep 01, 2018 at 08:00 Date of Discharge Discharge Date: Sep 03, 2018 Admission Diagnosis Assessment: AMS UTI Cardiomyopathy Defib in place MICHELLE on CPAP CAD prev bypass Plan: Abx Cardiology and Pulmonology consultants Discharge Diagnosis (1) Altered mental state Status: Acute (2) UTI (urinary tract infection) Status: Acute (3) Cardiomyopathy Status: Chronic (4) Cardiac defibrillator in place Status: Chronic (5) Diabetes mellitus Status: Chronic (6) MICHELLE on CPAP Status: Chronic Discharge Summary Discharge Physical Exam Allergies: Coded Allergies: No Known Drug Allergies (Unverified , 09/01/18) Vitals & I&Os Vital Signs Date Time Temp Pulse Resp B/P (MAP) Pulse Ox O2 Delivery O2 Flow Rate FiO2 09/03/18 14:00 68 18 115/65 96 Room Air 09/03/18 12:00 98.0 General Appearance: No Apparent Distress, WD/WN Respiratory: Chest Non Tender, Lungs Clear, Normal Breath Sounds, No Accessory Muscle Use, No Respiratory Distress Cardiovascular: Regular Rate, Rhythm, No Edema, No Gallop, No JVD, No Murmur, Normal Peripheral Pulses Neurologic/Psychiatric: Alert, Oriented x3, No Motor/Sensory Deficits, Normal Mood/Affect Hospital Course Was the Problem List Reviewed?: Yes Hospital course: patient had an uneventful course after he was admitted for confusion and found to have acute on chronic UTI s/p recent Amoxil so he was placed on Vanc and Cefepime and consulted Dr Jack along with Cardiology and pulmo. Patient's confusion improved and patient was deemed stable for DC on Le vaquin for 3 days. Labs (last 24 hrs) Laboratory Tests 09/03/18 05:10: White Blood Count 6.5, Red Blood Count 3.86L, Hemoglobin 11.5L, Hematocrit 35L, Mean Corpuscular Volume 92, Mean Corpuscular Hemoglobin 30, Mean Corpuscular Hemoglobin Concent 33, Red Cell Distribution Width 13.7, Platelet Count 201, Mean Platelet Volume 11.1H, Neutrophils (%) (Auto) 60, Lymphocytes (%) (Auto) 24, Monocytes (%) (Auto) 12, Eosinophils (%) (Auto) 3, Basophils (%) (Auto) 1, Neutrophils # (Auto) 3.9, Lymphocytes # (Auto) 1.6, Monocytes # (Auto) 0.8, Eosinophils # (Auto) 0.2, Basophils # (Auto) 0.1, Sodium Level 133L, Potassium Level 3.5L, Chloride Level 102, Carbon Dioxide Level 19L, Anion Gap 12, Blood Urea Nitrogen 18, Creatinine 0.80, Estimat Glomerular Filtration Rate > 60, BUN/Creatinine Ratio 23, Glucose Level 207H, Calcium Level 8.8, Corrected Calcium 9.6, Total Bilirubin 0.8, Aspartate Amino Transf (AST/SGOT) 25, Alanine Aminotransferase (ALT/SGPT) 20, Alkaline Phosphatase 71, Total Protein 6.5, Albumin 3.0L Microbiology 09/01/18 Blood Culture - Preliminary, Resulted Probable Coag Negative Staph Patient resulted labs reviewed. Pending Labs Discussion & Recommendations Discharge Planning: <30 minutes discharge planning Discharge Home Medications: Active Scripts Active Levaquin (Levofloxacin) 500 Mg Tablet 500 Mg PO DAILY Reported Tylenol Extra Strength (Acetaminophen) 500 Mg Tablet 1,000 Mg PO Q6H PRN Mirtazapine 15 Mg Tablet 7.5 Mg PO HS TAKES 1/2 (15MG) TABLET Pravastatin Sodium 20 Mg Tablet 60 Mg PO HS TAKES 3 (20MG) TABLETS Xarelto (Rivaroxaban) 20 Mg Tablet 20 Mg PO 1800 Acid Cone Runner (FAMOTIDINE) (Famotidine) 20 Mg Tablet 20 Mg PO BID Sotalol (Sotalol HCl) 160 Mg Tablet 160 Mg PO 0800,1800 Aldactone (Spironolactone) 25 Mg Tablet 25 Mg PO DAILY Furosemide 40 Mg Tablet 40 Mg PO DAILY Losartan Potassium 50 Mg Tablet 50 Mg PO DAILY Allopurinol 300 Mg Tablet 300 Mg PO DAILY Finasteride 5 Mg Tablet 5 Mg PO DAILY Aspirin EC (Aspirin) 81 Mg Tablet.dr 81 Mg PO DAILY Metformin HCl 500 Mg Tablet 500 Mg PO 0800,1800 Instructions to patient/family Please see electronic discharge instructions given to patient. Clinical Quality Measures DVT/VTE Risk/Contraindication: Risk Factor Score Per Nursin RFS Level Per Nursing on Admit: 4+=Very High Problem Qualifiers (1) Altered mental state: Altered mental status type: disorientation Qualified Codes: R41.0 - Di sorientation, unspecified (2) UTI (urinary tract infection): Urinary tract infection type: acute cystitis Hematuria presence: without hematuria Qualified Codes: N30.00 - Acute cystitis without hematuria (3) Cardiomyopathy: Cardiomyopathy type: unspecified Qualified Codes: I42.9 - Cardiomyopathy, unspecified (4) Diabetes mellitus: Diabetes mellitus type: type 2 Diabetes mellitus fpc insulin use: with fpc use Diabetes mellitus complication status: with circulatory complication Diabetes mellitus complication detail: with other circulatory complications Qualified Codes: E11.59 - Type 2 diabetes mellitus with other circulatory complications; Z79.4 - rodent exterminator (current) use of insulin ROSEMARY CURRIE DO Sep 03, 2018 10:42
--- NOTE | 2018-09-03 11:42 | Progress Note-Urology ---
Progress Note-Urology Progress Notes/Assess & Plan Progress/Assessment & Plan DOING WELL. HOME. FOLLOW UP [facility] IN 2 WEEKS Final Diagnosis UTI NELSY TAPIA MD Sep 03, 2018 11:41
[2018-09-03 12:00] VITALS: BP 115/65
[2018-09-03 14:00] VITALS: BP 115/65
--- NOTE | 2018-09-04 17:13 | Physician Query-Final Dx ---
Final Diagnosis Give Final Diagnosis Please give Final Diagnosis DEVAN CHAPPELL Sep 04, 2018 17:13
--- NOTE | 2018-09-09 08:16 | Physician Query Clarification ---
PQ-Intro New Diagnosis Admission/Discharge Admission Date: Sep 01, 2018 at 08:00 Discharge Date: Sep 03, 2018 at 14:00 The medical record reflects the following clinical scenario: History/Risk Factors: short-term memory altered mental status. Patient is normally alert and oriented 3 per spouse but has been progressively more confused with impaired memory the past 2 days .presented to the [place] ER with confusion pt was found to be encephalopathic and found to have UTI with recent antibiotic use for UTI last week with Amoxicillin. Clinical Findings: Patient is normally alert and oriented 3 per spouse but has been progressively more confused with impaired short-term memory the past 2 days . Patient is unable to recall place, month or year and is unsure why he is been evaluated in the emergency department. Treatment: Vancomycin, Cefepime empiric antibiotics and for further supportive care to clear encephalopathy. Question: What condition best reflects the above clinical scenario? Please document a response in the Progress Noter or Discharge Summary. 1. Encephalopathy 2. Altered mental state 3. Other, with explanation of the clinical findings. 4. Clinically undetermined, no explanation for the clinical findings. PHYSICIAN RESPONSE What condition reflects above: 1 Please remember a lack of response to the above will prompt a phone page by CDI/Coding staff. In responding to this query, please exercise your independent professional judgment. The purpose of this communication is to more accurately reflect the complexity of your patients condition. The fact that a question is asked does not imply that any particular answer is desired or expected. Thank you for your timely response to this clarification. Requestors name: Cathleen Garrido THIS PHYSICIAN QUERY FORM IS A PERMANENT PART OF THE MEDICAL RECORD SAVITA GARRIDO Sep 09, 2018 08:16 ROSEMARY CURRIE DO Sep 09, 2018 08:50
== END 2018-09-03 14:00 | disposition home or self-care (01) | DRG 690 ==
LOC: ER FS 04:56 → ICU 08:00 → 4TH 09-02 08:25
PROVIDERS: ADMIT Internal Medicine; ATTEND Internal Medicine
DX: N30.00 Acute cystitis without hematuria (principal); G93.49 Other encephalopathy; E66.01 Morbid (severe) obesity due to excess calories; Z68.43 Body mass index [BMI] 50.0-59.9, adult; I11.0 Hypertensive heart disease with heart failure; I50.22 Chronic systolic (congestive) heart failure; I25.5 Ischemic cardiomyopathy; I25.10 Atherosclerotic heart disease of native coronary artery without angina pectoris; I48.0 Paroxysmal atrial fibrillation; I34.0 Nonrheumatic mitral (valve) insufficiency; E11.59 Type 2 diabetes mellitus with other circulatory complications; J44.9 Chronic obstructive pulmonary disease, unspecified; G47.33 Obstructive sleep apnea (adult) (pediatric); E78.00 Pure hypercholesterolemia, unspecified; M19.91 Primary osteoarthritis, unspecified site; M10.9 Gout, unspecified; M25.552 Pain in left hip; W19.XXXA Unspecified fall, initial encounter; Y92.019 Unspecified place in single-family (private) house as the place of occurrence of the external cause; Z79.01 Long term (current) use of anticoagulants; Z79.4 Long term (current) use of insulin; Z87.891 Personal history of nicotine dependence; Z95.1 Presence of aortocoronary bypass graft; Z95.810 Presence of automatic (implantable) cardiac defibrillator; Z86.73 Personal history of transient ischemic attack (TIA), and cerebral infarction without residual deficits
CPT/HCPCS: 36415; 70450; 71045; 80053; 80061; 80306; 80320; 80329; 81000; 82140; 82805; 82962; 83605; 83880; 84443; 84484; 85007; 85025; 85027; 87040; 87077; 93005; 93306; 96361; 96365; 96367

== ENCOUNTER 2018-09-23 15:59 | Inpatient (IN) | payer MEDICARE, OTHER ==
[2018-09-23] VITALS (11 sets, daily range): BP systolic 100–132; BP diastolic 61–85
[~2018-09-23] VITALS: Ht 177.8 cm; Wt 161.0 kg
[~2018-09-23 15:59] MED LIST: ACET-2267 PO; ALLO300T2 PO; ASPI-983 PO; FAMO20TA3 PO; FINA5TAB6 PO; FURO40TA4 PO; LEVO500T2 PO; LOSA50TA63 PO; METF-397 PO; MIRT15TA6 PO; PRAV20TA3 PO; RIVA20TA PO; SOTA160T PO; SPIR25TA PO
--- OUTSIDE RECORDS SUMMARY | 2018-09-23 16:05 | XMS REPORT | Continuity of Care Document ---
[...] Status Pt. Type Provider Facility Loc./Unit Complaint [id number] 09/07/2018 09:45:00 09/07/2018 23:59:59 [facility] Outpatient [facility] HU [facility] [id number] 08/26/2018 14:00:00 Document Registration [id number] 08/18/2018 09:00:00 Document Registration [id number] 08/14/2018 14:00:00 Document Registration
--- NOTE | 2018-09-23 16:19 | ED General ---
General Stated Complaint: SOB History of Present Illness Date Seen by Provider: Sep 23, 2018 Time Seen by Provider: 16:18 Initial Comments Patient presents emergency department for evaluation of generalized malaise and fatigue nausea and decreased appetite this started yesterday and today he started feeling short of breath. While he was trying to get into the car shortly prior to arrival he was defibrillated 4 times he thinks within a one to 2 time minute time span. He denies any pain anywhere including his chest and he also denies fevers vomiting diarrhea. He says he has not had any medication regimen changes. He is tachycardic and on a monitored appears that it is intermittently irregular however his EKG appears to be in sinus tachycardia. He does not know his resting heart rate but he doesn't think it is as fast as 120. He is in no obvious distress with normal vital signs other than the tachycardia. Allergies and Home Medications Allergies Coded Allergies: No Known Drug Allergies (Unverified , 09/01/18) Home Medications Acetaminophen 500 Mg Tablet, 1,000 MG PO Q6H PRN for PAIN-MILD, (Reported) Allopurinol 300 Mg Tablet, 300 MG PO DAILY, (Reported) Aspirin 81 Mg Tablet.dr, 81 MG PO DAILY, (Reported) Famotidine 20 Mg Tablet, 20 MG PO BID, (Reported) Finasteride 5 Mg Tablet, 5 MG PO DAILY, (Reported) Furosemide 40 Mg Tablet, 40 MG PO DAILY, (Reported) Levofloxacin 500 Mg Tablet, 500 MG PO DAILY Prescribed by: ROSEMARY CURRIE on 09/03/18 1040 Losartan Potassium 50 Mg Tablet, 50 MG PO DAILY, (Reported) Metformin HCl 500 Mg Tablet, 500 MG PO 0800,1800, (Reported) Mirtazapine 15 Mg Tablet, 7.5 MG PO HS, (Reported) TAKES 1/2 (15MG) TABLET Pravastatin Sodium 20 Mg Tablet, 60 MG PO HS, (Reported) TAKES 3 (20MG) TABLETS Rivaroxaban 20 Mg Tablet, 20 MG PO 1800, (Reported) Sotalol HCl 160 Mg Tablet, 160 MG PO 0800,1800, (Reported) Spironolactone 25 Mg Tablet, 25 MG PO DAILY, (Reported) Patient Home Medication List Home Medication List Reviewed: Yes Review of Systems Review of Systems Constitutional: malaise EENTM: no symptoms reported Respiratory: short of breath Cardiovascular: no symptoms reported Gastrointestinal: no symptoms reported All Other Systems Reviewed Negative Unless Noted: Yes Past Oxeougb-Cumuxk-Rztgmm Hx Patient Social History 2nd Hand Smoke Exposure: No Recent Foreign Travel: No Contact w/Someone Who Travel: No Recent Hopitalizations: No Seasonal Allergies Seasonal Allergies: No Past Medical History Surgeries: Yes (H/O heart bypass, defibrillator ) Cardiac Respiratory: Yes Sleep Apnea Currently Using CPAP: Yes Cardiac: Yes (six vessel coronary artery bypass graph, defibrillator) Atrial Fibrillation, Cardiomyopathy, Heart Attack, High Cholesterol, Hypertension Neurological: Yes (cerebral vasculary accident) Genitourinary: Yes (hematuria) Gastrointestinal: No Musculoskeletal: Yes (arthritis of left acromioclavicular joint, arthritis degenerative) Arthritis Endocrine: Yes (gout, type 2 diabetes) Diabetes, Non-Insulin dep HEENT: No Cancer: No Psychosocial: No Integumentary: No Blood Disorders: No Physical Exam Vital Signs Vital Signs - First Documented 09/23/18 16:02 Temp 97.1 Pulse 122 Resp 18 B/P (MAP) 147/72 (97) Pulse Ox 96 O2 Delivery Room Air Capillary Refill : Height, Weight, BMI Height: 5'6.00" Weight: 342lbs. 0.2oz. 155.255182rx; 53.3 BMI Method:Stated General Appearance: No Apparent Distress, Chronically ill, Obese HEENT: PERRL/EOMI Neck: Supple Respiratory: Lungs Clear, No Accessory Muscle Use, No Respiratory Distress Cardiovascular: Tachycardia Gastrointestinal: Non Tender, Soft Back: Normal Inspection Extremity: Swelling Neurologic/Psychiatric: Alert, Oriented x3 Skin: Normal Color, Warm/Dry Progress/Results/Core Measures Suspected Sepsis SIRS Temperature: Pulse: Respiratory Rate: Laboratory Tests 09/23/18 16:15: White Blood Count 12.4H Blood Pressure / Mean: Laboratory Tests 09/23/18 16:15: Creatinine 0.76, INR Comment 1.3, Platelet Count 252, Total Bilirubin 0.9 Results/Orders Lab Results Laboratory Tests Test 09/23/18 16:15 Range/Units White Blood Count 12.4 H 4.3-11.0 10^3/uL Red Blood Count 4.48 4.35-5.85 10^6/uL Hemoglobin 13.6 13.3-17.7 G/DL Hematocrit 42 40-54 % Mean Corpuscular Volume 93 80-99 FL Mean Corpuscular Hemoglobin 30 25-34 PG Mean Corpuscular Hemoglobin Concent 33 32-36 G/DL Red Cell Distribution Width 13.8 10.0-14.5 % Platelet Count 252 130-400 10^3/uL Mean Platelet Volume 11.3 H 7.4-10.4 FL Neutrophils (%) (Auto) 80 H 42-75 % Lymphocytes (%) (Auto) 12 12-44 % Monocytes (%) (Auto) 7 0-12 % Eosinophils (%) (Auto) 0 0-10 % Basophils (%) (Auto) 1 0-10 % Neutrophils # (Auto) 9.9 H 1.8-7.8 X 10^3 Lymphocytes # (Auto) 1.4 1.0-4.0 X 10^3 Monocytes # (Auto) 0.9 0.0-1.0 X 10^3 Eosinophils # (Auto) 0.0 0.0-0.3 10^3/uL Basophils # (Auto) 0.1 0.0-0.1 10^3/uL Prothrombin Time 16.3 H 12.2-14.7 SEC INR Comment 1.3 0.8-1.4 Activated Partial Thromboplast Time 32 24-35 SEC D-Dimer 0.61 H 0.00-0.49 UG/ML Sodium Level 133 L 135-145 MMOL/L Potassium Level 4.4 3.6-5.0 MMOL/L Chloride Level 93 L 98-107 MMOL/L Carbon Dioxide Level 19 L 21-32 MMOL/L Anion Gap 21 H 5-14 MMOL/L Blood Urea Nitrogen 14 7-18 MG/DL Creatinine 0.76 0.60-1.30 MG/DL Estimat Glomerular Filtration Rate > 60 BUN/Creatinine Ratio 18 Glucose Level 216 H 70-105 MG/DL Calcium Level 9.6 8.5-10.1 MG/DL Corrected Calcium 9.7 8.5-10.1 MG/DL Magnesium Level 1.3 L 1.8-2.4 MG/DL Total Bilirubin 0.9 0.1-1.0 MG/DL Aspartate Amino Transf (AST/SGOT) 32 5-34 U/L Alanine Aminotransferase (ALT/SGPT) 26 0-55 U/L Alkaline Phosphatase 96 40-136 U/L Troponin T 16 H <=15 NG/L Pro-B-Type Natriuretic Peptide 429.8 H <75.0 PG/ML Total Protein 8.2 6.4-8.2 GM/DL Albumin 3.9 3.2-4.5 GM/DL Lipase 16 8-78 U/L My Orders Orders - ESTEPHANIE WOODY DO Chest 1 View Ap/Pa Only (09/23/18 16:20) Troponin T (09/23/18 16:20) Cbc With Automated Diff (09/23/18 16:20) Comprehensive Metabolic Panel (09/23/18 16:20) Fibrin Degradation Products (09/23/18 16:20) Lipase (09/23/18 16:20) Magnesium (09/23/18 16:20) Partial Thromboplastin Time (09/23/18 16:20) Probnp Fs (09/23/18 16:20) Protime With Inr (09/23/18 16:20) Ua Culture If Indicated (09/23/18 16:20) Lactic Acid Analyzer (09/23/18 16:27) Aspirin Chewable Tablet (Baby Aspirin Ch (09/23/18 16:45) Diltiazem Injection (Cardizem Injection) (09/23/18 17:00) Ns Iv 1000 Ml (Sodium Chloride 0.9%) (09/23/18 17:00) Ns (Ivpb) (Sodium Chloride 0.9%) (09/23/18 16:54) Magnesium 1 Gm/100 Ml Ivpb (Magnesium Dale (09/23/18 17:30) Vital Signs/I&O 09/23/18 16:02 Temp 97.1 Pulse 122 Resp 18 B/P (MAP) 147/72 (97) Pulse Ox 96 O2 Delivery Room Air Capillary Refill : Progress Note : Progress Note Patient appears to be in possible A. fib with RVR versus sinus tachycardia with frequent PVCs. I'm going to trial a small dose of Cardizem and then repeat EKG. Patient will require transfer to [place] as he has been defibrillated multiple times. We are trying to get his defibrillator interrogated here however the connection to the Internet has not been able to be established to this point. Dr. Grewal accepted patient. Patient's complexes appeared to narrow after the Cardizem and he appears to be in a sinus tachycardia at 105. His magnesium is low which could be causing the arrhythmia some magnesium was ordered in addition to a small fluid bolus. Patient will be sent in guarded condition. Patient will be admitted to the ICU at [place] at the request of the brass finisher. Critical Care Note Critical Care Total Time (minutes) 37 Departure Impression Primary Impression: Defibrillator discharge Additional Impressions: Hypomagnesemia Elevated brain natriuretic peptide (BNP) level Elevated troponin I level Disposition: ADMITTED INPATIENT Condition: Improved Departure-Patient Inst. Referrals: TESSY POON MD (PCP/Family) Primary Care Physician ESTEPHANIE WOODY DO Sep 23, 2018 16:19
[2018-09-23 16:38] LABS: HEMATOCRIT 42 % (40-54); HEMOGLOBIN 13.6 G/DL (13.3-17.7); MEAN CORPUSCULAR HEMOGLOBIN 30 PG (25-34); MEAN CORPUSCULAR HGB CONC 33 G/DL (32-36); MEAN CORPUSCULAR VOLUME 93 FL (80-99); PLATELET COUNT 252 10^3/uL (130-400); RED CELL DISTRIBUTION WIDTH 13.8 % (10.0-14.5); WHITE BLOOD COUNT 12.4 10^3/uL (4.3-11.0)
[2018-09-23 16:39] LABS: BASOPHILS # (AUTO) 0.1 10^3/uL (0.0-0.1); BASOPHILS % (AUTO) 1 % (0-10); EOSINOPHILS % (AUTO) 0 % (0-10); LYMPHOCYTES # (AUTO) 1.4 X 10^3 (1.0-4.0); LYMPHOCYTES % (AUTO) 12 % (12-44); MEAN PLATELET VOLUME 11.3 FL (7.4-10.4); MONOCYTES # (AUTO) 0.9 X 10^3 (0.0-1.0); MONOCYTES % (AUTO) 7 % (0-12); NEUTROPHILS # (AUTO) 9.9 X 10^3 (1.8-7.8); NEUTROPHILS % (AUTO) 80 % (42-75)
[2018-09-23] MEDS ORDERED: ASPIRIN 81 MG CHEW (CHILDREN'S ASA) PO ONE (16:45)
--- NOTE | 2018-09-23 16:53 | Diagnostic Imaging Report ---
INDICATION: Shortness of breath. EXAMINATION: Portable chest at 4:28 PM. FINDINGS: There is a dual-chamber pacemaker with IACD. The heart size and pulmonary vascularity are normal. The lungs are clear. There are no effusions or pneumothoraces. IMPRESSION: Post surgical changes. No acute abnormality is seen. Dictated by: Dictated on workstation # [id number]
[2018-09-23] MEDS ORDERED: NS (IVPB) 250 ML ONE (16:54)
[2018-09-23] MEDS ORDERED: NS 1000 ML IV BAG IV ONE (17:00)
[2018-09-23] MEDS ORDERED: DILTIAZEM 25 MG/5 ML INJ (CARDIZEM) VIAL IVP ONE (17:00)
[2018-09-23 17:03] LABS: SODIUM 133 MMOL/L (135-145)
[2018-09-23 17:04] LABS: ALKALINE PHOSPHATASE 96 U/L (40-136); BILIRUBIN,TOTAL 0.9 MG/DL (0.1-1.0); BUN/CREATININE RATIO 18; CALCIUM 9.6 MG/DL (8.5-10.1); CARBON DIOXIDE 19 MMOL/L (21-32); CHLORIDE 93 MMOL/L (98-107); CREATININE SERUM 0.76 MG/DL (0.60-1.30); GFR ESTIMATED > 60; GLUCOSE 216 MG/DL (70-105); POTASSIUM 4.4 MMOL/L (3.6-5.0)
[2018-09-23 17:05] LABS: ALANINE AMINOTRANSFERASE 26 U/L (0-55); ALBUMIN 3.9 GM/DL (3.2-4.5); LIPASE 16 U/L (8-78); TOTAL PROTEIN 8.2 GM/DL (6.4-8.2)
--- OUTSIDE RECORDS SUMMARY | 2018-09-23 17:05 | XMS REPORT | Continuity of Care Document ---
[...] Status Pt. Type Provider Facility Loc./Unit Complaint [id number] 09/07/2018 09:45:00 09/07/2018 23:59:59 [facility] Outpatient [facility] HU [facility] [id number] 08/26/2018 14:00:00 Document Registration [id number] 08/18/2018 09:00:00 Document Registration [id number] 08/14/2018 14:00:00 Document Registration
[2018-09-23 17:06] LABS: FIBRIN DEGRADATION PRODUCTS 0.61 UG/ML (0.00-0.49); INR 1.3 (0.8-1.4); PROTHROMBIN TIME PATIENT 16.3 SEC (12.2-14.7)
[2018-09-23 17:16] LABS: MAGNESIUM 1.3 MG/DL (1.8-2.4)
--- NOTE | 2018-09-23 17:29 | NUR ---
EMS being paged out at this time.
[2018-09-23] MEDS ORDERED: NS (IVPB) 250 ML IV ONE (17:30)
[2018-09-23] MEDS: MAGNESIUM 1 GM/100 ML IVPB 100 ML IV SCH ×3 (17:31→22:15)
--- NOTE | 2018-09-23 18:26 | NUR ---
SU WARD admitted to room CU5-1, with an admitting diagnosis of , on 09/23/18 from ER via [facility], accompanied by EMS.SU WARD introduced to surroundings, call light, bed controls, phone, TV, temperature control, lights, meal times, smoking policy, visitor policy, side rail policy, bathrooms and showers. Patient Rights given to patient in the handbook. SU WARD verbalizes understanding that [facility] is not responsible for the loss or damage to any personal effects or valuables that are kept in the patients posession during their hospitalization. The following Patient Care Plans were discussed with the PT: Discharge Planning, ANXIETY,KNOWLEDGE DEFICIT, and ALTERED TISSUE PERFUSION. SU WARD verbalizes understanding of Interdisciplinary Patient Education. Patient and family were informed about the Rapid Response Team and its purpose.
[2018-09-23] MEDS ORDERED: CATHETER FLUSH 10 ML SYR IV PRN (18:45)
--- NOTE | 2018-09-23 18:55 | NUR ---
PER MADAY MALDONADO AT [facility], CARDIOLOGY NOTIFIED BY DR WOODY.
--- NOTE | 2018-09-23 20:02 | Consultation-Cardiology ---
HPI-Cardiology Cardiology Consultation: Date of Consultation 09/23/18 Time Seen by a Provider: 19:30 Date of Admission Attending Physician Mary Grewal MD Admitting Physician Miky Bright MD Consulting Physician EPIFANIO WINTER MD, MA, FACP, FACC, FSCAI, CCDS Physician requesting consult: Dr Grewal HPI: Chief Complaint: Reason for consult: Multiple ICD discharges HPI 68 yo man with h/o CAD and ischemic cm who had multiple ICD discharges today. Reports a h/o PAF. Does not report any cp or palp or syncope today. Feels fairly well at the time of my exam Review of Systems-Cardiology Review of Systems Constitutional: malaise, tiredness; No weight loss, No weight gain Eyes: No vision change Ears/Nose/Throat: No ear discharge, No nasal drainage, No recent hearing loss Respiratory: As described under HPI Cardiovascular: As described under HPI Gastrointestinal: No diarrhea, No nausea, No vomiting Genitourinary: No dysuria, No urine frequency changes Musculoskeletal: back pain (chronic), joint pain (chronic) Skin: No rash, No ulcerations Psychiatric/Neurological: No seizure, No focal weakness, No syncope Hematologic: No bleeding abnormalities All Other Systems Reviewed Negative Unless Noted: Yes YBB-Xjanrz-Sqrfdu Hx Patient Social History Alcohol Use: Denies Use Recreational Drug Use: No Smoking Status: Never a Smoker 2nd Hand Smoke Exposure: No Recent Foreign Travel: No Recent Infectious Disease Expo: No Immunizations Up To Date Date of Pneumonia Vaccine: Sep 23, 2016 Past Medical History PMH As described under Assessment. Family Medical History Family History: Cardiovascular disease 19 MOTHER Diabetes mellitus 19 MOTHER Neoplasm 19 FATHER Allergies and Home Medications Allergies Coded Allergies: No Known Drug Allergies (Unverified , 09/01/18) Home Medications Acetaminophen 500 Mg Tablet, 1,000 MG PO Q6H PRN for PAIN-MILD, (Reported) Allopurinol 300 Mg Tablet, 300 MG PO DAILY, (Reported) Aspirin 81 Mg Tablet.dr, 81 MG PO DAILY, (Reported) Famotidine 20 Mg Tablet, 20 MG PO BID, (Reported) Finasteride 5 Mg Tablet, 5 MG PO DAILY, (Reported) Furosemide 40 Mg Tablet, 40 MG PO DAILY, (Reported) Levofloxacin 500 Mg Tablet, 500 MG PO DAILY Prescribed by: ROSEMARY CURRIE on 09/03/18 1040 Losartan Potassium 50 Mg Tablet, 50 MG PO DAILY, (Reported) Metformin HCl 500 Mg Tablet, 500 MG PO 0800,1800, (Reported) Mirtazapine 15 Mg Tablet, 7.5 MG PO HS, (Reported) TAKES 1/2 (15MG) TABLET Pravastatin Sodium 20 Mg Tablet, 60 MG PO HS, (Reported) TAKES 3 (20MG) TABLETS Rivaroxaban 20 Mg Tablet, 20 MG PO 1800, (Reported) Sotalol HCl 160 Mg Tablet, 160 MG PO 0800,1800, (Reported) Spironolactone 25 Mg Tablet, 25 MG PO DAILY, (Reported) Patient Home Medication List Home Medication List Reviewed: Yes Physical Exam-Cardiology Physical Exam Vital Signs/I&O 09/23/18 09/23/18 09/23/18 09/23/18 16:02 17:45 18:26 18:41 Temp 97.1 97.5 97.2 Pulse 122 105 Resp 18 18 B/P (MAP) 147/72 (97) 149/65 (93) Pulse Ox 96 96 96 O2 Delivery Room Air Room Air 09/23/18 19:27 Temp 97.2 Pulse 92 Resp 18 B/P (MAP) 120/70 (87) Pulse Ox 96 O2 Delivery Room Air Capillary Refill : Less Than 3 Seconds Data Review Labs Laboratory Tests 09/23/18 16:15: White Blood Count 12.4H, Red Blood Count 4.48, Hemoglobin 13.6, Hematocrit 42, Mean Corpuscular Volume 93, Mean Corpuscular Hemoglobin 30, Mean Corpuscular Hemoglobin Concent 33, Red Cell Distribution Width 13.8, Platelet Count 252, Mean Platelet Volume 11.3H, Neutrophils (%) (Auto) 80H, Lymphocytes (%) (Auto) 12, Monocytes (%) (Auto) 7, Eosinophils (%) (Auto) 0, Basophils (%) (Auto) 1, Neutrophils # (Auto) 9.9H, Lymphocytes # (Auto) 1.4, Monocytes # (Auto) 0.9, Eosinophils # (Auto) 0.0, Basophils # (Auto) 0.1, Prothrombin Time 16.3H, INR Comment 1.3, Activated Partial Thromboplast Time 32, D-Dimer 0.61H, Sodium Level 133L, Potassium Level 4.4, Chloride Level 93L, Carbon Dioxide Level 19L, Anion Gap 21H, Blood Urea Nitrogen 14, Creatinine 0.76, Estimat Glomerular Filtration Rate > 60, BUN/Creatinine Ratio 18, Glucose Level 216H, Calcium Level 9.6, Corrected Calcium 9.7, Magnesium Level 1.3L, Total Bilirubin 0.9, Aspartate Amino Transf (AST/SGOT) 32, Alanine Aminotransferase (ALT/SGPT) 26, Alkaline Phosphatase 96, Troponin T 16H, Pro-B-Type Natriuretic Peptide 429.8H, Total Protein 8.2, Albumin 3.9, Lipase 16 09/23/18 19:09: Troponin I 0.149H A/P-Cardiology Assessment/Admission Diagnosis Multiple ICD discharges probably due to PAF with RVR CAD, s/p CABG x 6 in [place], [place] approx 4 years ago, according to the patient H/o ischemic cardiomyopathy that led to ICD placement by his medical microbiologist in [place], [place] Echo of 09/02/18 (Dr Bermudez): LVEF 40-45%, PASP 35 mmHg, biatrial enlargement, mild to mod MR, mod TR Obesity and obesity-hypoventilation and MICHELLE (by history) H/o PAF Discussion and Recomendations * Continue previous cardiac regimen, including Xarelto for stroke prophylaxis * Continue sotalol for rhythm control * Add long-acting diltiazem for vent rate control during A Fib * Monitor rhythm * Monitor labs * I had a detailed discussion with him and his and his son, and explained our treatment plan * I also discussed his case Dr Grewal on the phone earlier today Clinical Quality Measures DVT/VTE Risk/Contraindication: Risk Factor Score Per Nursin RFS Level Per Nursing on Admit: 4+=Very High EPIFANIO WINTER MD [facility] Sep 23, 2018 20:02
[2018-09-23] MEDS ORDERED: DILTIAZEM 240 MG (CARDIZEM CD) CAP PO NR (20:15)
[2018-09-23] MEDS ORDERED: DILTIAZEM 240 MG (CARDIZEM CD) CAP PO ONE (20:16)
[2018-09-23] MEDS ORDERED: RIVAROXABAN 20 MG TABLET (XARELTO) ONE (20:31)
[2018-09-23] MEDS: SOTALOL 80 MG (BETAPACE) TAB PO SCH (20:42)
[2018-09-23] MEDS: RIVAROXABAN 20 MG TABLET (XARELTO) PO SCH (20:45)
[2018-09-23] MEDS: CATHETER FLUSH 10 ML SYR IV SCH (22:15)
[2018-09-24] VITALS (21 sets, daily range): BP systolic 94–132; BP diastolic 61–86
[2018-09-24] MEDS: KCL 20 MEQ TAB (K-DUR) PO SCH (03:22)
[2018-09-24] MEDS: MAGNESIUM 1 GM/100 ML IVPB 100 ML IV SCH ×2 (03:22)
[2018-09-24] MEDS: POTASSIUM CL 10MEQ/50ML IVPB 50 ML IV SCH (03:22)
[2018-09-24] MEDS: CATHETER FLUSH 10 ML SYR IV SCH ×3 (03:40→21:13)
[2018-09-24 03:53] LABS: BASOPHILS % (AUTO) 0 % (0-10); EOSINOPHILS % (AUTO) 0 % (0-10); HEMATOCRIT 37 % (40-54); HEMOGLOBIN 12.3 G/DL (13.3-17.7); LYMPHOCYTES # (AUTO) 1.1 X 10^3 (1.0-4.0); LYMPHOCYTES % (AUTO) 11 % (12-44); MEAN CORPUSCULAR HEMOGLOBIN 30 PG (25-34); MEAN CORPUSCULAR HGB CONC 33 G/DL (32-36); MEAN CORPUSCULAR VOLUME 92 FL (80-99); MEAN PLATELET VOLUME 11.4 FL (7.4-10.4); MONOCYTES % (AUTO) 10 % (0-12); NEUTROPHILS # (AUTO) 8.1 X 10^3 (1.8-7.8); NEUTROPHILS % (AUTO) 79 % (42-75); PLATELET COUNT 210 10^3/uL (130-400); RED CELL DISTRIBUTION WIDTH 14.1 % (10.0-14.5); WHITE BLOOD COUNT 10.2 10^3/uL (4.3-11.0)
[2018-09-24 04:12] LABS: BUN/CREATININE RATIO 17; CARBON DIOXIDE 20 MMOL/L (21-32); CHLORIDE 98 MMOL/L (98-107); CREATININE SERUM 0.84 MG/DL (0.60-1.30); POTASSIUM 4.8 MMOL/L (3.6-5.0); SODIUM 131 MMOL/L (135-145)
[2018-09-24 04:13] LABS: CALCIUM 9.3 MG/DL (8.5-10.1); GFR ESTIMATED > 60; GLUCOSE 194 MG/DL (70-105); MAGNESIUM 2.6 MG/DL (1.8-2.4); PHOSPHORUS 2.5 MG/DL (2.3-4.7)
[2018-09-24] MEDS: DILTIAZEM 240 MG (CARDIZEM CD) CAP PO SCH (08:27)
[2018-09-24] MEDS: SOTALOL 80 MG (BETAPACE) TAB PO SCH ×2 (08:27→21:01)
[2018-09-24] MEDS: SPIRONOLACTONE 25 MG (ALDACTONE) TAB PO SCH (08:27)
[2018-09-24] MEDS: FUROSEMIDE 40 MG (LASIX) TAB PO SCH (08:27)
[2018-09-24] MEDS: LOSARTAN 25 MG (COZAAR) TAB PO SCH (08:28)
--- NOTE | 2018-09-24 08:43 | Cardiology Progress Note ---
Subjective Date Seen by Provider: Sep 24, 2018 Time Seen by Provider: 08:40 Review of Systems General: No Chills, No Night Sweats, No Fatigue, No Malaise, No Appetite, No Other HEENT: No Head Aches, No Visual Changes, No Eye Pain, No Ear Pain, No Dysphasia, No Sinus Congestion, No Post Nasal Drip, No Sore Throat, No Other Pulmonary: Dyspnea; No Cough, No Pleuritic Chest Pain, No Other Cardiovascular: Edema; No: Chest Pain, Palpitations, Orthopnea, Paroxysmal Noc. Dyspnea, Lt Headedness, Other Objective-Cardiology Exam Last Set of Vital Signs Vital Signs 09/24/18 08:00 Temp 100.6 Pulse 78 Resp 11 B/P (MAP) 105/68 (80) Pulse Ox 90 O2 Delivery Room Air Capillary Refill : Less Than 3 Seconds I&O Intake and Output 09/23/18 23:59 Intake Total 500 ml Output Total 450 ml Balance 50 ml Intake Oral 200 ml IV Total 300 ml Output Urine Total 450 ml Daily Weight Change No General: Alert, Oriented X3, Cooperative HEENT: Atraumatic, PERRLA Neck: Supple, No JVD, No Thyromegaly Lungs: Normal Air Movement, Other (terrell rhonchi) Heart: Regular Rate, Normal S1, Normal S2, No Murmurs Abdomen: Normal Bowel Sounds, Soft, No Tenderness, No Hepatosplenomegaly, No Masses Extremities: No Clubbing, No Cyanosis, Normal Pulses, No Tenderness/Swelling, Other (edema) Skin: No Rashes, No Breakdown, No Significant Lesion Neuro: Normal Gait, Normal Speech, Strength at 5/5 X4 Ext, Normal Tone, Sensation Intact Psych/Mental Status: Mental Status NL, Mood NL Results Lab Laboratory Tests 09/23/18 16:15 09/24/18 03:10 A/P-Cardiology Admission Diagnosis Congestive heart failure Coronary artery disease Hypertension Hyperlipidemia Assessment/Plan Multiple shocks from defibrillator occurred while awake, could be secondary to malignant arrhythmia. We will interrogate his device. Consult EP Shortness of breath, generalized M.D., and just of heart failure with acute on chronic left ventricular systolic dysfunction, ischemic cardiomyopathy with ejection fraction 40-45 percent. Echocardiogram was done earlier this month showing [id number] mitral regurgitation, PA pressure 35 mmHg. Continue to monitor. Eye lid elevated troponin level, history of coronary artery disease, CABG 6 done in 2014, planning to evaluate Lexiscan stress test. Chronic paroxysmal atrial fibrillation maintained on sotalol, we'll interrogate his device, continue on current medication. History of permanent pacemaker/ICD. No checkup was done for the past 2 years, [employer] device. I will evaluate and interrogate his pacemaker. Change in mental status, better at this time, probably secondary to sepsis. History of CVA, occurred after his bypass surgery in 2014. Hypertension, restart home medication monitor blood pressure Hyperlipidemia, monitor lipids COPD/obstructive sleep apnea. Followed by primary care physician next Morbid obesity. BMI 53, we discussed weight loss. Clinical Quality Measures DVT/VTE Risk/Contraindication: Risk Factor Score Per Nursin RFS Level Per Nursing on Admit: 4+=Very High DAVIDA FOUNTAIN MD Sep 24, 2018 08:43
[2018-09-24] MEDS ORDERED: REGADENOSON 0.4 MG/5 ML SYR (LEXISCAN) IV ONE (08:45)
--- NOTE | 2018-09-24 09:13 | Electrophysiology Consultation ---
HPI-Cardiology Cardiology Consultation: Date of Consultation 09/24/18 Date of Admission Attending Physician Mary Grewal MD Admitting Physician Miky Bright MD Consulting Physician Royal LAWSON MD HPI: Time Seen by a Provider: 12:00 Chief Complaint: Post-ICD shock This is a 68-year-old gentleman with history of CABG 4 years ago. He also has ischemic cardiomyopathy therefore an ICD was placed for primary prevention around the same time. The patient has history of paroxysmal atrial fibrillation and is on sotalol, Xarelto. 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 Also the ICD was last checked one year ago. The patient was not feeling well yesterday but denied having any palpitation, chest pain or shortness of breath. He then experienced 4 shocks. He denied any syncope or near syncope. Review of Systems-Cardiology Review of Systems Constitutional: No As described under HPI, No no symptoms reported, No chills, No fever, No lightheadedness; malaise, tiredness; No weight loss, No weight gain, No other Eyes: No As described under HPI, No no symptoms reported, No blindness, No blurred vision, No contact lenses, No drainage, No decreased acuity, No foreign body sensation, No glasses, No inflammation, No pain, No photophobia, No previous injury, No shadows, No tunnel vision, No other, No vision change Ears/Nose/Throat: No As described under HPI, No no symptoms reported, No chronic hearing loss, No epistaxis, No ear discharge, No ear pain, No loose teeth, No mouth pain, No mouth swelling, No nasal drainage, No nose pain, No recent hearing loss, No throat pain, No throat swelling, No ulcerations, No other Respiratory: No no symptoms reported; As described under HPI; No cough, No orthopnea, No shortness of breath, No SOB with excertion, No SOB at rest, No stridor, No wheezing, No other Cardiovascular: No no symptoms reported; As described under HPI; No chest pain, No edema, No irregular heart rate, No lightheadedness, No palpitations, No syncope, No other Gastrointestinal: No no symptoms reported, No As described under HPI, No abdomen distended, No abdominal pain, No blood streaked bowels, No constipation, No diarrhea, No difficulty swallowing, No nausea, No poor appetite, No poor fluid intake, No rectal bleeding, No vomiting, No other, No nausea /vomiting/diarrhea, No stool coloration changes Genitourinary: No no symptoms reported, No As described under HPI, No burning, No dysuria, No discharge, No frequency, No flank pain, No hematuria, No incontinence, No pain, No urgency, No other, No urine frequency changes, No urine coloration changes Musculoskeletal: No no symptoms reported, No As describe under HPI; back pain (chronic); No gout; joint pain (chronic); No joint swelling, No muscle pain, No muscle stiffness, No neck pain, No other Skin: No no symptoms reported, No As described under HPI, No change in color, No change in hair/nails, No dryness, No lesions, No lumps, No rash, No other, No skin related problems, No ulcerations, No rash on exposed areas, No ulcerations on exposed areas Psychiatric/Neurological: No seizure, No focal weakness, No syncope Hematologic: No bleeding abnormalities All Other Systems Reviewed Negative Unless Noted: Yes [id number] Hx Patient Social History Alcohol Use: Denies Use Recreational Drug Use: No Smoking Status: Never a Smoker 2nd Hand Smoke Exposure: No Recent Foreign Travel: No Recent Infectious Disease Expo: No Immunizations Up To Date Date of Pneumonia Vaccine: Sep 23, 2016 Past Medical History PMH As described under Assessment. Family Medical History Family History: Cardiovascular disease 19 MOTHER Diabetes mellitus 19 MOTHER Neoplasm 19 FATHER Allergies and Home Medications Allergies Coded Allergies: No Known Drug Allergies (Unverified , 09/01/18) Home Medications Acetaminophen 500 Mg Tablet, 500 MG PO Q4H PRN for PAIN-MILD, (Reported) Allopurinol 300 Mg Tablet, 300 MG PO DAILY, (Reported) Aspirin 81 Mg Tablet.dr, 81 MG PO DAILY, (Reported) Famotidine 20 Mg Tablet, 20 MG PO BID, (Reported) Finasteride 5 Mg Tablet, 5 MG PO DAILY, (Reported) Furosemide 40 Mg Tablet, 40 MG PO DAILY, (Reported) Losartan Potassium 50 Mg Tablet, 50 MG PO DAILY, (Reported) Metformin HCl 500 Mg Tablet, 500 MG PO 0800,1800, (Reported) Mirtazapine 15 Mg Tablet, 7.5 MG PO HS, (Reported) TAKES 1/2 (15MG) TABLET Pravastatin Sodium 20 Mg Tablet, 60 MG PO HS, (Reported) TAKES 3 (20MG) TABLETS Rivaroxaban 20 Mg Tablet, 20 MG PO 1800, (Reported) Sotalol HCl 160 Mg Tablet, 160 MG PO 0800,1800, (Reported) Spironolactone 25 Mg Tablet, 25 MG PO DAILY, (Reported) Patient Home Medication List Home Medication List Reviewed: Yes Physical Exam-Cardiology Physical Exam Vital Signs/I&O 09/24/18 09/24/18 09/24/18 09/24/18 05:00 06:00 07:00 07:00 Pulse 80 80 79 79 Resp 15 13 15 B/P (MAP) 114/77 (89) 113/70 (84) 116/73 (87) Pulse Ox 94 93 92 O2 Delivery Room Air Room Air Room Air 09/24/18 09/24/18 09/24/18 09/24/18 07:45 08:00 08:00 09:00 Temp 100.6 Pulse 78 80 Resp 11 25 B/P (MAP) 105/68 (80) 114/69 (84) Pulse Ox 90 91 O2 Delivery Room Air Room Air Room Air 09/24/18 09/24/18 09/24/18 09/24/18 10:00 11:00 11:04 12:00 Temp 98.7 Pulse 70 64 Resp 12 23 B/P (MAP) 107/71 (83) 104/70 (81) Pulse Ox 90 92 O2 Delivery Room Air Room Air Room Air 09/24/18 09/24/18 09/24/18 09/24/18 12:00 12:55 13:00 14:00 Pulse 60 61 60 60 Resp 24 22 27 B/P (MAP) 99/68 (78) 97/61 (73) 94/69 (77) Pulse Ox 93 93 92 O2 Delivery Room Air Room Air Room Air 09/24/18 09/24/18 15:32 15:53 Temp 97.4 O2 Delivery Room Air 09/24/18 00:00 Intake Total 500 ml Output Total 450 ml Balance 50 ml Capillary Refill : Less Than 3 Seconds Constitutional: appears stated age, AAO x 3; No apparent distress; well- developed, well-nourished HEENT: PERRL; No normal ENT inspection, No TMs normal, No pharynx normal, No scleral icterus (R), No scleral icterus (L), No pale conjunctivae (R), No pale conjunctivae (L), No photophobia, No TM abnormal (R), No TM abnormal (L), No pharyngeal erythema, No tonsillar exudate, No other, No discharge, No EOMI; hearing is well preserved; No hard of hearing; oral hygience is good; No ulceration, No xanthelasmas are seen Neck: No non-tender, No full range of motion, No supple, No normal inspection, No carotid bruit, No limited range of motion, No lymphadenopathy (R), No lymphadenopathy (L), No tender lateral, No tender midline, No thyromegaly, No other; carotid pulses are 2 + bilaterally; No with good upstrokes Respiratory: No accessory muscle use, No respiratory distress, No chest tender, No chest expansion is symmetric; chest is bilaterally symmetric; No lungs clear to percussion; lungs clear to auscultation; No crackles, No rhonchi, No rales, No stridor, No wheezing, No pleural rub, No other Cardiovascular: regular rate-rhythm; No irregularly irregular, No extra beats, No parasternal heave is noted, No JVD, No edema, No bradycardia, No tachycardia, No point of maximal impulse, No cardiac thrills are palpable; S1 and S2; No gallop/S3, No gallop/S4, No diastolic murmur, No systolic murmur, No friction rub, No click, No other Gastrointestinal: No tender, No soft, No round, No distended, No pulsatile mass, No organomegaly, No guarding, No rebound, No tenderness, No hernia, No mass, No audible bowel sounds, No abnormal bowel sounds, No abdominal bruits, No spleenomegaly, No other Rectal: deferred Extremities: No normal range of motion, No non-tender, No normal inspection, No pedal edema, No calf tenderness, No normal capillary refill, No pelvis stable, No calf tenderness, No inflammation, No pedal edema, No slow capillary refill, No swelling, No other, No abrasion, No clubbing, No cyanosis, No ecchymosis, No laceration, No no lower extremity edema bilateral, No significant edema, No tenderness, No wound Neurologic/Psychiatric: no motor/sensory deficits, alert, normal mood/affect, oriented x 3, power is 5/5 both on sides Skin: No normal color, No warm/dry, No cyanosis, No cool, No diaphoresis, No damp, No ecchymosis, No jaundice, No mottled, No pallor, No rash, No tattoos/piercings, No ulcerations, No rash on exposed areas, No ulcerations on exposed areas, No other Data Review Labs Laboratory Tests 09/23/18 19:09: Troponin I 0.149H 09/24/18 03:10: White Blood Count 10.2, Red Blood Count 4.05L, Hemoglobin 12.3L, Hematocrit 37L, Mean Corpuscular Volume 92, Mean Corpuscular Hemoglobin 30, Mean Corpuscular Hemoglobin Concent 33, Red Cell Distribution Width 14.1, Platelet Count 210, Mean Platelet Volume 11.4H, Neutrophils (%) (Auto) 79H, Lymphocytes (%) (Auto) 11L, Monocytes (%) (Auto) 10, Eosinophils (%) (Auto) 0, Basophils (%) (Auto) 0, Neutrophils # (Auto) 8.1H, Lymphocytes # (Auto) 1.1, Monocytes # (Auto) 1.0, Eosinophils # (Auto) 0.0, Basophils # (Auto) 0.0, Sodium Level 131L, Potassium Level 4.8, Chloride Level 98, Carbon Dioxide Level 20L, Anion Gap 13, Blood Urea Nitrogen 14, Creatinine 0.84, Estimat Glomerular Filtration Rate > 60, BUN/Creatinine Ratio 17, Glucose Level 194H, Calcium Level 9.3, Phosphorus Level 2.5, Magnesium Level 2.6H ECG Impression ECG Comment Atrial paced rhythm. QTc interval 416 ms. A/P-Cardiology Assessment/Admission Diagnosis ICD shock, Paroxysmal atrial fibrillation, History of ischemic cardiomyopathy, CAD, CABG. Plan ICD interrogation. Likely inappropriate shocks due to atrial fibrillation with RVR. Device reprogramming of the VT/VF zones. Aggressive management of atrial fibrillation with Betapace and Cardizem. Continue Xarelto for atrial f ibrillation. May require atrial fibrillation ablation in the future. Patient does have history of morbid obesity and obstructive sleep apnea. Deferred treatment of ischemic cardiomyopathy, CAD to Dr. Bermudez. Thank you for your consultation. Please call me if you have any questions. Manuel Lawson MD, FACP, FACC, FSCAI, FHRS, CCDS Interventional Cardiology Cardiac Electrophysiology Vascular Medicine and Endovascular Interventions Clinical Quality Measures DVT/VTE Risk/Contraindication: Risk Factor Score Per Nursin RFS Level Per Nursing on Admit: 4+=Very High Royal LAWSON MD Sep 24, 2018 9:13 am
--- NOTE | 2018-09-24 09:51 | History & Physicial (CHS) ---
HPI History of Present Illness: Few weeks ago was in hospital with sepsis, pretty sick, states he got better after that and has been going to cardiac rehab, he had an appointment yesterday morning but felt too poorly to go and around 3 pm he told his he couldn't breathe, he did not feel palpitations or anything, but felt very short of breath. As they were getting into the car to go to the ER, his defibrillator went off, and went off again- total of 4 times. Date seen by provider: Sep 24, 2018 Time Seen by Provider: 09:45 Attending Physician Leander Grewal MD PCP Miky Bright MD Consult Date of Admission Sep 23, 2018 at 16:34 Home Medications Home Medications Reviewed patient Home Medication Reconciliation performed by pharmacy medication reconciliations pharmacy order entry technician and/or nursing. Patients Allergies have been reviewed. Allergies Coded Allergies: No Known Drug Allergies (Unverified , 09/01/18) [id number] Hx Patient Social History Alcohol Use: Denies Use Recreational Drug Use: No Smoking Status: Never a Smoker 2nd Hand Smoke Exposure: No Recent Foreign Travel: No Contact w/other who traveled: No Recent Hopitalizations: No Recent Infectious Disease Expo: No Immunizations Up To Date Date of Pneumonia Vaccine: Sep 23, 2016 Past Medical History PMHx: CABG x 6 CVA after CABG Atrial fibrillation HTN DMII SurgHx: CABG Debrillator Family Medical History Family History: Cardiovascular disease 19 MOTHER Diabetes mellitus 19 MOTHER Neoplasm 19 FATHER Review of Systems ([facility]) Constitutional: No fever EENTM: No nose congestion, No throat pain Respiratory: cough Cardiovascular: No chest pain, No edema Gastrointestinal: No abdominal pain, No constipation, No diarrhea, No nausea, No vomiting Genitourinary: dysuria Musculoskeletal: joint pain (baseline) Skin: rash (has very red skin in groin ) Psychiatric/Neurological: Denies Anxiety, Denies Depressed Reviewed Test Results Reviewed Test Results Lab Laboratory Tests Test 09/23/18 16:15 09/23/18 19:09 09/24/18 03:10 Range/Units White Blood Count 12.4 H 10.2 4.3-11.0 10^3/uL Red Blood Count 4.48 4.05 L 4.35-5.85 10^6/uL Hemoglobin 13.6 12.3 L 13.3-17.7 G/DL Hematocrit 42 37 L 40-54 % Mean Corpuscular Volume 93 92 80-99 FL Mean Corpuscular Hemoglobin 30 30 25-34 PG Mean Corpuscular Hemoglobin Concent 33 33 32-36 G/DL Red Cell Distribution Width 13.8 14.1 10.0-14.5 % Platelet Count 252 210 130-400 10^3/uL Mean Platelet Volume 11.3 H 11.4 H 7.4-10.4 FL Neutrophils (%) (Auto) 80 H 79 H 42-75 % Lymphocytes (%) (Auto) 12 11 L 12-44 % Monocytes (%) (Auto) 7 10 0-12 % Eosinophils (%) (Auto) 0 0 0-10 % Basophils (%) (Auto) 1 0 0-10 % Neutrophils # (Auto) 9.9 H 8.1 H 1.8-7.8 X 10^3 Lymphocytes # (Auto) 1.4 1.1 1.0-4.0 X 10^3 Monocytes # (Auto) 0.9 1.0 0.0-1.0 X 10^3 Eosinophils # (Auto) 0.0 0.0 0.0-0.3 10^3/uL Basophils # (Auto) 0.1 0.0 0.0-0.1 10^3/uL Prothrombin Time 16.3 H 12.2-14.7 SEC INR Comment 1.3 0.8-1.4 Activated Partial Thromboplast Time 32 24-35 SEC D-Dimer 0.61 H 0.00-0.49 UG/ML Sodium Level 133 L 131 L 135-145 MMOL/L Potassium Level 4.4 4.8 3.6-5.0 MMOL/L Chloride Level 93 L 98 98-107 MMOL/L Carbon Dioxide Level 19 L 20 L 21-32 MMOL/L Anion Gap 21 H 13 5-14 MMOL/L Blood Urea Nitrogen 14 14 7-18 MG/DL Creatinine 0.76 0.84 0.60-1.30 MG/DL Estimat Glomerular Filtration Rate > 60 > 60 BUN/Creatinine Ratio 18 17 Glucose Level 216 H 194 H 70-105 MG/DL Calcium Level 9.6 9.3 8.5-10.1 MG/DL Corrected Calcium 9.7 8.5-10.1 MG/DL Magnesium Level 1.3 L 2.6 H 1.8-2.4 MG/DL Total Bilirubin 0.9 0.1-1.0 MG/DL Aspartate Amino Transf (AST/SGOT) 32 5-34 U/L Alanine Aminotransferase (ALT/SGPT) 26 0-55 U/L Alkaline Phosphatase 96 40-136 U/L Troponin T 16 H <=15 NG/L Pro-B-Type Natriuretic Peptide 429.8 H <75.0 PG/ML Total Protein 8.2 6.4-8.2 GM/DL Albumin 3.9 3.2-4.5 GM/DL Lipase 16 8-78 U/L Troponin I 0.149 H <0.028 NG/ML Phosphorus Level 2.5 2.3-4.7 MG/DL Physical Exam-([facility]) Physical Exam Vital Signs VS - Last 72 Hours, by Label 09/23/18 09/23/18 09/23/18 09/23/18 16:02 17:45 18:26 18:41 Temp 97.1 97.5 97.2 Pulse 122 105 Resp 18 18 B/P (MAP) 147/72 (97) 149/65 (93) Pulse Ox 96 96 96 O2 Delivery Room Air Room Air 09/23/18 09/23/18 09/23/18 09/23/18 18:42 19:00 19:00 19:15 Pulse 99 100 100 98 Resp 13 11 B/P (MAP) Pulse Ox 97 97 O2 Delivery Room Air Room Air 09/23/18 09/23/18 09/23/18 09/23/18 19:27 19:45 20:00 20:00 Temp 97.2 Pulse 92 92 105 Resp 18 20 29 B/P (MAP) 120/70 (87) 125/79 (94) 131/81 (98) Pulse Ox 96 96 93 95 O2 Delivery Room Air Room Air Room Air Room Air 09/23/18 09/23/18 09/23/18 09/23/18 20:35 20:45 21:00 21:15 Pulse 100 95 98 95 Resp 13 17 16 16 B/P (MAP) 128/84 (99) 132/85 (101) 115/73 (87) 100/79 (86) Pulse Ox 96 95 94 96 O2 Delivery Room Air Room Air Room Air Room Air 09/23/18 09/23/18 09/23/18 09/23/18 21:30 21:45 22:00 23:00 Pulse 93 92 86 74 Resp 23 15 22 20 B/P (MAP) 125/80 (95) 115/74 (88) 129/77 (94) 107/61 (76) Pulse Ox 93 94 92 96 O2 Delivery Room Air Room Air Room Air Room Air 09/24/18 09/24/18 09/24/18 09/24/18 00:00 00:00 00:00 01:00 Temp 98.8 Pulse 74 80 Resp 22 B/P (MAP) 132/86 (101) Pulse Ox 94 96 O2 Delivery Room Air Room Air 09/24/18 09/24/18 09/24/18 09/24/18 01:00 02:00 03:00 04:00 Pulse 80 79 71 Resp 26 14 B/P (MAP) 132/79 (96) 124/68 (86) 121/69 (86) Pulse Ox 95 96 94 93 O2 Delivery Room Air Room Air Room Air Room Air 09/24/18 09/24/18 09/24/18 09/24/18 04:00 05:00 06:00 07:00 Pulse 74 80 80 79 Resp 25 15 13 B/P (MAP) 127/77 (94) 114/77 (89) 113/70 (84) Pulse Ox 96 94 93 O2 Delivery Room Air Room Air Room Air 09/24/18 09/24/18 09/24/18 09/24/18 07:00 07:45 08:00 08:00 Temp 100.6 Pulse 79 78 Resp 15 11 B/P (MAP) 116/73 (87) 105/68 (80) Pulse Ox 92 90 O2 Delivery Room Air Room Air Room Air 09/24/18 09/24/18 09/24/18 09/24/18 09:00 10:00 11:00 11:04 Pulse 80 70 64 Resp 25 12 23 B/P (MAP) 114/69 (84) 107/71 (83) 104/70 (81) Pulse Ox 91 90 92 O2 Delivery Room Air Room Air Room Air Room Air 09/24/18 09/24/18 09/24/18 09/24/18 12:00 12:00 12:55 13:00 Temp 98.7 Pulse 60 61 60 Resp 24 22 B/P (MAP) 99/68 (78) 97/61 (73) Pulse Ox 93 93 O2 Delivery Room Air Room Air 09/24/18 09/24/18 09/24/18 14:00 15:32 15:53 Temp 97.4 Pulse 60 Resp 27 B/P (MAP) 94/69 (77) Pulse Ox 92 O2 Delivery Room Air Room Air Capillary Refill : Less Than 3 Seconds General Appearance: WD/WN, no apparent distress Respiratory: lungs clear, normal breath sounds Cardiovascular: regular rate, rhythm, no murmur Gastrointestinal: normal bowel sounds, non tender, soft Extremities: no pedal edema Neurologic/Psychiatric: alert, normal mood/affect Skin: normal color, warm/dry Assessment/Plan Assessment/Plan Admission Dx Defibrillator activation Tachycardia CAD with elevated troponin Admission Status: Inpatient Order (span 2 midnights) Reason for Inpatient Admission: Arrhythmia with possible need for continuous antiarrythmic drip. (1) Defibrillator discharge Status: Acute Assessment & Plan: Possibly related to malignant arrhythmia, interrogating device per Cardiology. Cardizem added on admit. (2) Atrial fibrillation Status: Chronic (3) Coronary artery disease Status: Chronic Assessment & Plan: history of CABG, mildly elevated troponin, last stress test some time ago, plan to repeat per Cardiology. (4) Diabetes mellitus Status: Chronic Assessment & Plan: Sliding scale insulin, diabetic diet. Qualifiers: (5) Hypomagnesemia Status: Acute (6) Elevated brain natriuretic peptide (BNP) level Status: Acute (7) Elevated troponin I level Status: Acute (8) DVT prophylaxis Status: Acute Assessment & Plan: On chronic anticoagulation (9) Hyponatremia Status: Acute Clinical Quality Measures DVT/VTE Risk/Contraindication: Risk Factor Score Per Nursin RFS Level Per Nursing on Admit: 4+=Very High LEANDER GREWAL MD Sep 24, 2018 09:51
--- NOTE | 2018-09-24 10:07 | Diagnostic Imaging Report ---
INDICATION: Dyspnea. COMPARISON: 09/23/2018. FINDINGS: ICD device and midline sternal wire is stable. Upper limits heart size stable. No substantial overdistention of vascularity. No edema, pneumonia, effusion or pneumothorax. IMPRESSION: Stable chest. Dictated by: Dictated on workstation # [id number]
--- NOTE | 2018-09-24 10:09 | NUR ---
WENT OVER MED LIST WITH PATIENT (AND VIEWED EXTERNAL MED HISTORY), HOWEVER PT WAS ADMITTED EARLIER THIS MONTH AND NO CHANGED WERE NOTED EXCEPT THE PATIENT DID FINISH HIS ROUND OF LEVAQUIN.
[2018-09-24] MEDS: RIVAROXABAN 20 MG TABLET (XARELTO) PO SCH (17:34)
[2018-09-24] MEDS: metFORMIN 500 MG (GLUCOPHAGE) TAB PO SCH (17:37)
[2018-09-24] MEDS ORDERED: NON-FORMULARY MEDICATION 1 EA EA (Metformin HCl 500 MG) PO SCH (18:00)
[2018-09-24] MEDS ORDERED: ATORVASTATIN 10 MG (LIPITOR) TABLET PO SCH (21:00)
[2018-09-24] MEDS ORDERED: MIRTAZAPINE 15 MG (REMERON) TAB PO SCH (21:00)
[2018-09-24] MEDS ORDERED: NON-FORMULARY MEDICATION 1 EA EA (Mirtazapine 7.5 MG) PO SCH (21:00)
[2018-09-24] MEDS ORDERED: PRAVASTATIN SODIUM PO SCH (21:00)
[2018-09-24] MEDS ORDERED: NON-FORMULARY MEDICATION 1 EA EA (Famotidine (Acid Reducer (FAMOTIDINE)) 20 MG) PO SCH (21:00)
[2018-09-24] MEDS: FAMOTIDINE 20 MG (PEPCID) TABLET PO SCH (21:01)
[2018-09-25 00:47] VITALS: BP 126/73
[2018-09-25 04:00] LABS: HEMOGLOBIN 12.2 G/DL (13.3-17.7); MEAN PLATELET VOLUME 11.6 FL (7.4-10.4); RED CELL DISTRIBUTION WIDTH 14.6 % (10.0-14.5); WHITE BLOOD COUNT 12.4 10^3/uL (4.3-11.0)
[2018-09-25 04:24] LABS: BUN/CREATININE RATIO 22; CARBON DIOXIDE 22 MMOL/L (21-32); CHLORIDE 96 MMOL/L (98-107); CREATININE SERUM 1.16 MG/DL (0.60-1.30); POTASSIUM 4.6 MMOL/L (3.6-5.0); SODIUM 130 MMOL/L (135-145)
[2018-09-25 04:25] LABS: ALANINE AMINOTRANSFERASE 22 U/L (0-55); ALBUMIN 3.5 GM/DL (3.2-4.5); ALKALINE PHOSPHATASE 75 U/L (40-136); CALCIUM 9.2 MG/DL (8.5-10.1); GFR ESTIMATED > 60; GLUCOSE 182 MG/DL (70-105); MAGNESIUM 1.6 MG/DL (1.8-2.4); PHOSPHORUS 2.7 MG/DL (2.3-4.7); TOTAL PROTEIN 7.1 GM/DL (6.4-8.2)
[2018-09-25 05:13] VITALS: BP 121/77
[2018-09-25] MEDS: POTASSIUM CL 10MEQ/50ML IVPB 50 ML IV SCH (05:14)
[2018-09-25] MEDS: KCL 20 MEQ TAB (K-DUR) PO SCH (05:14)
[2018-09-25] MEDS: CATHETER FLUSH 10 ML SYR IV SCH (05:14)
[2018-09-25] MEDS: MAGNESIUM 1 GM/100 ML IVPB 100 ML IV SCH (05:14)
--- NOTE | 2018-09-25 06:54 | Diagnostic Imaging Report ---
Indication: Shortness of breath. Portable chest 3:38 AM There are postop changes from a median sternotomy. There is a dual-chamber pacemaker. Heart size and pulmonary vascularity are normal. Lungs are clear. There are no effusions or pneumothoraces. Impression: Postsurgical changes of the chest. No acute abnormalities. No change from previous day. Dictated by: Dictated on workstation # [id number]
[2018-09-25] MEDS ORDERED: REGADENOSON 0.4 MG/5 ML SYR (LEXISCAN) IV ONE (07:34)
--- NOTE | 2018-09-25 08:45 | Cardiology Progress Note ---
Cardiology SOAP Progress Note Subjective: no cardiac complaints. Objective: I&O/Vital Signs 09/25/18 09/25/18 09/25/18 09/25/18 04:00 05:13 08:00 09:06 Temp 97.6 Pulse 77 73 Resp 16 B/P (MAP) 121/77 (92) Pulse Ox 93 O2 Delivery Room Air Room Air Room Air 09/25/18 09/25/18 09/25/18 09/25/18 09:15 09:45 10:00 12:00 Pulse 80 73 73 Resp 26 28 25 B/P (MAP) 100/65 (77) 98/64 (75) 99/64 (76) O2 Delivery Room Air Room Air Room Air Room Air 09/25/18 00:00 Intake Total 1250 ml Output Total 500 ml Balance 750 ml Weight (Pounds): 355 Weight (Ounces): 0.0 Weight (Calculated Kilograms): [id number] Constitutional: appears stated age, AAO x 3; No apparent distress; well- developed, well-nourished Respiratory: No accessory muscle use, No respiratory distress, No chest tender, No chest expansion is symmetric; chest is bilaterally symmetric; No lungs clear to percussion; lungs clear to auscultation; No crackles, No rhonchi, No rales, No stridor, No wheezing, No pleural rub, No other Cardiovascular: regular rate-rhythm; No irregularly irregular, No extra beats, No parasternal heave is noted, No JVD, No edema, No bradycardia, No tachycardia, No point of maximal impulse, No cardiac thrills are palpable; S1 and S2; No gallop/S3, No gallop/S4, No diastolic murmur, No systolic murmur, No friction rub, No click, No other Gastrointestional: No tender, No soft, No round, No distended, No pulsatile mass, No organomegaly, No guarding, No rebound, No tenderness, No hernia, No mass, No audible bowel sounds, No abnormal bowel sounds, No abdominal bruits, No spleenomegaly, No other Extremities: No normal range of motion, No non-tender, No normal inspection, No pedal edema, No calf tenderness, No normal capillary refill, No pelvis stable, No calf tenderness, No inflammation, No pedal edema, No slow capillary refill, No swelling, No other, No abrasion, No clubbing, No cyanosis, No ecchymosis, No laceration, No no lower extremity edema bilateral, No significant edema, No tenderness, No wound Neurologic/Psychiatric: no motor/sensory deficits, alert, normal mood/affect, oriented x 3, power is 5/5 both on sides Skin: No normal color, No warm/dry, No cyanosis, No cool, No diaphoresis, No damp, No ecchymosis, No jaundice, No mottled, No pallor, No rash, No tattoos/piercings, No ulcerations, No rash on exposed areas, No ulcerations on exposed areas, No other Results/Procedures: Labs Laboratory Tests 09/25/18 03:15: White Blood Count 12.4H, Red Blood Count 4.12L, Hemoglobin 12.2L, Hematocrit 38L , Mean Corpuscular Volume 92, Mean Corpuscular Hemoglobin 30, Mean Corpuscular Hemoglobin Concent 32, Red Cell Distribution Width 14.6H, Platelet Count 206, Mean Platelet Volume 11.6H, Sodium Level 130L, Potassium Level 4.6, Chloride Level 96L, Carbon Dioxide Level 22, Anion Gap 12, Blood Urea Nitrogen 25H, Creatinine 1.16, Estimat Glomerular Filtration Rate > 60, BUN/Creatinine Ratio 22, Glucose Level 182H, Calcium Level 9.2, Corrected Calcium 9.6, Phosphorus Level 2.7, Magnesium Level 1.6L, Total Bilirubin 1.0, Aspartate Amino Transf (AST/SGOT) 20, Alanine Aminotransferase (ALT/SGPT) 22, Alkaline Phosphatase 75, Troponin I 0.066H, B-Type Natriuretic Peptide 181.8H, Total Protein 7.1, Albumin 3.5 09/25/18 11:10: Urine Color YELLOW, Urine Clarity CLEAR, Urine pH 5, Urine Specific [place]y 1.015L, Urine Protein 3+H, Urine Glucose (UA) NEGATIVE, Urine Ketones NEGATIVE, Urine Nitrite NEGATIVE, Urine Bilirubin NEGATIVE, Urine Urobilinogen 1, Urine Leukocyte Esterase 1+H, Urine RBC (Auto) 3+H, Urine RBC 0-2, Urine WBC 5-10H, Urine Squamous Epithelial Cells 10-25H, Urine Crystals NONE, Urine Bacteria FEWH , Urine Casts NONE, Urine Mucus SMALLH, Urine Culture Indicated YES Microbiology 09/23/18 MRSA Screen - Final, Complete MRSA not isolated A/P: Assessment/Dx: ICD shock, Paroxysmal atrial fibrillation, History of ischemic cardiomyopathy, CAD, CABG. Plan: ICD interrogation done and reviewed in depth by myself. Inappropriate shocks due to atrial fibrillation with rapid ventricular rate. The patient has 3 zones programmed for device therapy. We will change it to only 1 zone for shock therapy for ventricular fibrillation with ventricular rate of 214 ms and above. Atrial fibrillation discriminators will be added. Aggressive atrial fibrillation management with rate control with added Cardizem 240 mg daily. Continue sotalol and Xarelto. May require atrial fibrillation ablation in the future. Patient does have history of morbid obesity and obstructive sleep apnea. patient is interested in transferring his electrophysiology care to our office. Office information was provided. Deferred treatment of ischemic cardiomyopathy, CAD to Dr. Bermudez. Thank you for your consultation. Please call me if you have any questions. Manuel Lawson MD, FACP, FACC, FSCAI, FHRS, CCDS Interventional Cardiology Cardiac Electrophysiology Vascular Medicine and Endovascular Interventions Royal LAWSON MD Sep 25, 2018 08:44
[2018-09-25] MEDS ORDERED: ALLOPURINOL 300 MG (ZYLOPRIM) TAB PO SCH (09:00)
[2018-09-25] MEDS ORDERED: ASPIRIN E.C. 81 MG (ECOTRIN) TAB PO SCH (09:00)
[2018-09-25] MEDS ORDERED: NON-FORMULARY MEDICATION 1 EA EA (Allopurinol 300 MG) PO SCH (09:00)
[2018-09-25 09:15] VITALS: BP 100/65
[2018-09-25] MEDS: SOTALOL 80 MG (BETAPACE) TAB PO SCH (09:42)
[2018-09-25] MEDS: FUROSEMIDE 40 MG (LASIX) TAB PO SCH (09:42)
[2018-09-25] MEDS: metFORMIN 500 MG (GLUCOPHAGE) TAB PO SCH ×2 (09:42→11:59)
[2018-09-25] MEDS: DILTIAZEM 240 MG (CARDIZEM CD) CAP PO SCH (09:43)
[2018-09-25] MEDS: SPIRONOLACTONE 25 MG (ALDACTONE) TAB PO SCH (09:43)
[2018-09-25] MEDS: LOSARTAN 25 MG (COZAAR) TAB PO SCH (09:43)
[2018-09-25] MEDS: FAMOTIDINE 20 MG (PEPCID) TABLET PO SCH (09:44)
[2018-09-25 09:45] VITALS: BP 98/64
[2018-09-25 10:00] VITALS: BP 99/64
[2018-09-25 11:19] LABS: BILIRUBIN,URINE NEGATIVE (NEGATIVE); CLARITY,URINE CLEAR; COLOR,URINE YELLOW; GLUCOSE, URINE (UA) NEGATIVE (NEGATIVE); KETONES,URINE NEGATIVE (NEGATIVE); LEUKOCYTE ESTERASE ,URINE 1+ (NEGATIVE); NITRITE,URINE NEGATIVE (NEGATIVE); PH,URINE 5 (5-9); PROTEIN,URINE 3+ (NEGATIVE); UROBILINOGEN,URINE 1 MG/DL (NORMAL)
[2018-09-25 11:31] LABS: BACTERIA,URINE FEW /HPF; RBC,URINE 0-2 /HPF
--- NOTE | 2018-09-25 12:01 | Cardiology Progress Note ---
Subjective Date Seen by Provider: Sep 25, 2018 Time Seen by Provider: 11:59 Subjective/Events-last exam Patient is in bed, feeling better, no new complaint Review of Systems General: No Chills, No Night Sweats, No Fatigue, No Malaise, No Appetite, No Other HEENT: No Head Aches, No Visual Changes, No Eye Pain, No Ear Pain, No Dysphasia, No Sinus Congestion, No Post Nasal Drip, No Sore Throat, No Other Pulmonary: No Dyspnea, No Cough, No Pleuritic Chest Pain, No Other Cardiovascular: No: Chest Pain, Palpitations, Orthopnea, Paroxysmal Noc. Dyspnea, Edema, Lt Headedness, Other Objective-Cardiology Exam Last Set of Vital Signs Vital Signs 09/25/18 09/25/18 05:13 10:00 Temp 97.6 Pulse 73 Resp 25 B/P (MAP) 99/64 (76) Pulse Ox 93 O2 Delivery Room Air Capillary Refill : Less Than 3 Seconds I&O Intake and Output 09/25/18 00:00 Intake Total 2120 ml Output Total 1150 ml Balance 970 ml Intake Oral 2020 ml IV Total 100 ml Output Urine Total 1150 ml # Bowel Movements 2 General: Alert, Oriented X3, Cooperative HEENT: Atraumatic, PERRLA Neck: Supple, No JVD, No Thyromegaly Lungs: Normal Air Movement, Other (terrell rhonchi) Heart: Regular Rate, Normal S1, Normal S2, No Murmurs Abdomen: Normal Bowel Sounds, Soft, No Tenderness, No Hepatosplenomegaly, No Masses Extremities: No Clubbing, No Cyanosis, Normal Pulses, No Tenderness/Swelling, Other (edema) Skin: No Rashes, No Breakdown, No Significant Lesion Neuro: Normal Gait, Normal Speech, Strength at 5/5 X4 Ext, Normal Tone, Sensation Intact Psych/Mental Status: Mental Status NL, Mood NL Results Lab Laboratory Tests 09/25/18 03:15 A/P-Cardiology Admission Diagnosis Congestive heart failure Coronary artery disease Hypertension Hyperlipidemia Assessment/Plan Multiple shocks from defibrillator occurred while awake, secondary to atrial fibrillation with rapid ventricular response. Better at this time, started on Cardizem and tolerating it well. Shortness of breath, generalized M.D., and just of heart failure with acute on chronic left ventricular systolic dysfunction, ischemic cardiomyopathy with ejection fraction 40-45 percent. Echocardiogram was done earlier this month sh owing [id number] mitral regurgitation, PA pressure 35 mmHg. Continue to monitor. Elevation in troponin level probably secondary to the treatment with the defibrillator next Coronary artery disease history of CABG 6 done in 2014, stress test showed fixed defect at the inferior wall with no significant ischemia. Probably extracardiac attenuation. Chronic paroxysmal atrial fibrillation maintained on sotalol, back in atrial paced rhythm, continue on sotalol and add Cardizem and monitor as an outpatient History of permanent pacemaker/ICD. No checkup was done for the past 2 years, [employer] device, interrogation showed multiple shocks from defibrillator due to atrial fibrillation with rapid ventricular response Change in mental status, better at this time, probably secondary to sepsis. History of CVA, occurred after his bypass surgery in 2014. Hypertension, restart home medication monitor blood pressure Hyperlipidemia, monitor lipids COPD/obstructive sleep apnea. Followed by primary care physician next Morbid obesity. BMI 53, we discussed weight loss. Okay for discharge and follow-up as an outpatient Clinical Quality Measures DVT/VTE Risk/Contraindication: Risk Factor Score Per Nursin RFS Level Per Nursing on Admit: 4+=Very High DAVIDA FOUNTAIN MD Sep 25, 2018 12:01
[2018-09-25] MEDS ORDERED: DILT240C97 PO (12:03)
--- NOTE | 2018-09-25 12:29 | Discharge Instructions ---
Discharge Inst-[facility] Discharge Medications New Medications: Diltiazem HCl (Diltiazem 24Hr Cd) 240 Mg Cap.er.24h 240 MG PO DAILY, #30 CAP 3 Refills Continued Medications: Acetaminophen (Tylenol Extra Strength) 500 Mg Tablet 500 MG PO Q4H PRN for PAIN-MILD, TAB Allopurinol (Allopurinol) 300 Mg Tablet 300 MG PO DAILY, TAB Aspirin (Aspirin EC) 81 Mg Tablet.dr 81 MG PO DAILY, TAB Famotidine (Acid Student Financial Services Counselor (FAMOTIDINE)) 20 Mg Tablet 20 MG PO BID, TAB Finasteride (Finasteride) 5 Mg Tablet 5 MG PO DAILY, TAB Furosemide (Furosemide) 40 Mg Tablet 40 MG PO DAILY, TAB Losartan Potassium (Losartan Potassium) 50 Mg Tablet 50 MG PO DAILY, TAB Metformin HCl (Metformin HCl) 500 Mg Tablet 500 MG PO 0800,1800, TAB Mirtazapine (Mirtazapine) 15 Mg Tablet 7.5 MG PO HS, TAB TAKES 1/2 (15MG) TABLET Pravastatin Sodium (Pravastatin Sodium) 20 Mg Tablet 60 MG PO HS, TAB TAKES 3 (20MG) TABLETS Rivaroxaban (Xarelto) 20 Mg Tablet 20 MG PO 1800, TAB Sotalol HCl (Sotalol) 160 Mg Tablet 160 MG PO 0800,1800, TAB Spironolactone (Aldactone) 25 Mg Tablet 25 MG PO DAILY, TAB Patient Instructions Goal/Follow Up Appt: Follow up September 30 at 9:20 with Cathy Patterson at [facility] in [facility] (Dr. Bright is out of the office next week) Activity & Diet Discharge Diet: ADA Diet Activity as Tolerated: Yes LEANDER PATRICIA MD Sep 25, 2018 12:29
--- NOTE | 2018-09-25 13:47 | Discharge Summary ---
Diagnosis/Chief Complaint Date of Admission Sep 23, 2018 at 16:34 Date of Discharge Sep 25, 2018 Admission Diagnosis Admission Diagnosis Debrillator discharge Afib with RVR Hyponatremia Hypomagnesemia acute on Chronic systolic CHF CAD Discharge Diagnosis See problem list Problems/Diagnosis: (1) Defibrillator discharge Assessment & Plan: Possibly related to malignant arrhythmia, interrogating device per Cardiology. Cardizem added on admit. Secondary to afib with RVR, management per Cardiology, appreciate recommendations. Status: Acute (2) Atrial fibrillation Status: Chronic (3) Coronary artery disease Assessment & Plan: history of CABG, mildly elevated troponin, last stress test some time ago, plan to repeat per Cardiology. Stress test 09/25 with fixed inferior wall defect, no significant ischemia Status: Chronic (4) Diabetes mellitus Assessment & Plan: Sliding scale insulin, diabetic diet. Qualifiers: Status: Chronic (5) Hypomagnesemia Assessment & Plan: May be secondary to furosemide, will need further follow up/recheck outpatient. Status: Acute (6) Elevated brain natriuretic peptide (BNP) level Status: Acute (7) Elevated troponin I level Status: Acute (8) Hyponatremia Assessment & Plan: Possibly related to volume overload from CHF vs mirtazepine vs furosemide. Needs recheck/further work-up outpatient. Status: Acute (9) Acute on chronic systolic (congestive) heart failure Status: Acute Chief Complaint/HPI Chief Complaint/HPI Few weeks ago was in hospital with sepsis, pretty sick, states he got better after that and has been going to cardiac rehab, he had an appointment yesterday morning but felt too poorly to go and around 3 pm he told his he couldn't breathe, he did not feel palpitations or anything, but felt very short of breath. As they were getting into the car to go to the ER, his defibrillator went off, and went off again- total of 4 times. Discharge Summary-Simple/Stand Consultations Discharge Physical Examination Allergies: Coded Allergies: No Known Drug Allergies (Unverified , 09/01/18) Vitals & I&Os Vital Sign - Last 12Hours Date Time Temp Pulse Resp B/P (MAP) Pulse Ox O2 Delivery O2 Flow Rate FiO2 09/25/18 12:00 Room Air 09/25/18 10:00 73 25 99/64 (76) 09/25/18 05:13 97.6 93 Intake and Output 09/25/18 00:00 Intake Total 1250 ml Output Total 500 ml Balance 750 ml General Appearance: Alert, No Acute Distress Respiratory: Clear to Auscultation, Normal Air Movement Cardiovascular: Regular Rate, No Murmurs Neuro: Normal Speech Psych/Mental Status: Mental Status NL Hospital Course See final discharge diagnosis. Labs Laboratory Tests Test 09/23/18 16:15 09/23/18 19:09 09/24/18 03:10 09/25/18 03:15 Range/Units White Blood Count 12.4 H 10.2 12.4 H 4.3-11.0 10^3/uL Red Blood Count 4.48 4.05 L 4.12 L 4.35-5.85 10^6/uL Hemoglobin 13.6 12.3 L 12.2 L 13.3-17.7 G/DL Hematocrit 42 37 L 38 L 40-54 % Mean Corpuscular Volume 93 92 92 80-99 FL Mean Corpuscular Hemoglobin 30 30 30 25-34 PG Mean Corpuscular Hemoglobin Concent 33 33 32 32-36 G/DL Red Cell Distribution Width 13.8 14.1 14.6 H 10.0-14.5 % Platelet Count 252 210 206 130-400 10^3/uL Mean Platelet Volume 11.3 H 11.4 H 11.6 H 7.4-10.4 FL Neutrophils (%) (Auto) 80 H 79 H 42-75 % Lymphocytes (%) (Auto) 12 11 L 12-44 % Monocytes (%) (Auto) 7 10 0-12 % Eosinophils (%) (Auto) 0 0 0-10 % Basophils (%) (Auto) 1 0 0-10 % Neutrophils # (Auto) 9.9 H 8.1 H 1.8-7.8 X 10^3 Lymphocytes # (Auto) 1.4 1.1 1.0-4.0 X 10^3 Monocytes # (Auto) 0.9 1.0 0.0-1.0 X 10^3 Eosinophils # (Auto) 0.0 0.0 0.0-0.3 10^3/uL Basophils # (Auto) 0.1 0.0 0.0-0.1 10^3/uL Prothrombin Time 16.3 H 12.2-14.7 SEC INR Comment 1.3 0.8-1.4 Activated Partial Thromboplast Time 32 24-35 SEC D-Dimer 0.61 H 0.00-0.49 UG/ML Sodium Level 133 L 131 L 130 L 135-145 MMOL/L Potassium Level 4.4 4.8 4.6 3.6-5.0 MMOL/L Chloride Level 93 L 98 96 L 98-107 MMOL/L Carbon Dioxide Level 19 L 20 L 22 21-32 MMOL/L Anion Gap 21 H 13 12 5-14 MMOL/L Blood Urea Nitrogen 14 14 25 H 7-18 MG/DL Creatinine 0.76 0.84 1.16 0.60-1.30 MG/DL Estimat Glomerular Filtration Rate > 60 > 60 > 60 BUN/Creatinine Ratio 18 17 22 Glucose Level 216 H 194 H 182 H 70-105 MG/DL Calcium Level 9.6 9.3 9.2 8.5-10.1 MG/DL Corrected Calcium 9.7 9.6 8.5-10.1 MG/DL Magnesium Level 1.3 L 2.6 H 1.6 L 1.8-2.4 MG/DL Total Bilirubin 0.9 1.0 0.1-1.0 MG/DL Aspartate Amino Transf (AST/SGOT) 32 20 5-34 U/L Alanine Aminotransferase (ALT/SGPT) 26 22 0-55 U/L Alkaline Phosphatase 96 75 40-136 U/L Troponin T 16 H <=15 NG/L Pro-B-Type Natriuretic Peptide 429.8 H <75.0 PG/ML Total Protein 8.2 7.1 6.4-8.2 GM/DL Albumin 3.9 3.5 3.2-4.5 GM/DL Lipase 16 8-78 U/L Troponin I 0.149 H 0.066 H <0.028 NG/ML Phosphorus Level 2.5 2.7 2.3-4.7 MG/DL B-Type Natriuretic Peptide 181.8 H <100.0 PG/ML Test 09/25/18 11:10 Range/Units Urine Color YELLOW Urine Clarity CLEAR Urine pH 5 5-9 Urine Specific [place] 1.015 L 1.016-1.022 Urine Protein 3+ H NEGATIVE Urine Glucose (UA) NEGATIVE NEGATIVE Urine Ketones NEGATIVE NEGATIVE Urine Nitrite NEGATIVE NEGATIVE Urine Bilirubin NEGATIVE NEGATIVE Urine Urobilinogen 1 NORMAL MG/DL Urine Leukocyte Esterase 1+ H NEGATIVE Urine RBC (Auto) 3+ H NEGATIVE Urine RBC 0-2 /HPF Urine WBC 5-10 H /HPF Urine Squamous Epithelial Cells 10-25 H /HPF Urine Crystals NONE /LPF Urine Bacteria FEW H /HPF Urine Casts NONE /LPF Urine Mucus SMALL H /LPF Urine Culture Indicated YES Discharge Instructions to patient/family Please see electronic discharge instructions given to patient. Discharge Medications Reviewed and agree with Discharge Medication list on patient's Discharge Instruction sheet Clinical Quality Measures DVT/VTE Risk/Contraindication: Risk Factor Score Per Nursin RFS Level Per Nursing on Admit: 4+=Very High Copy Copies To 1: TESSY POON MD, BETHANY N MD Sep 25, 2018 13:47
--- NOTE | 2018-09-25 14:29 | STRESS TEST ---
DATE OF SERVICE: 09/25/2018 LEXISCAN MYOVIEW STRESS TEST REPORT REFERRING PHYSICIANS: 1. Miky Bright MD 2. Mary Grewal MD Baseline heart rate is 75. Baseline blood pressure 113/70. Baseline EKG is sinus rhythm with poor R-wave progression. IN SUMMARY: The patient was injected with 10.77 mCi of technetium-99 Myoview and the resting images were obtained. Then, the patient received 0.4 mg of Lexiscan followed by 32.6 mCi of technetium-99 Myoview. After the test, patient became hypotensive and had lightheadedness that improved with IV fluid. No EKG changes were noted. The resting and stress images were reviewed and compared in the short axis, horizontal long axis, and vertical long axis views. Review of the images showed decreased uptake involving the inferior wall, mid to apical inferior wall and inferolateral wall with no reversibility. SSS is 9, SDS 1, TID value 1.1. On the gated images, the left ventricle appeared to be normal size with normal contractility. Calculated ejection fraction 54%. IN CONCLUSION: 1. The patient tolerated Lexiscan well. 2. Diaphragmatic attenuation with fixed defect involving the mid to apical inferior wall and inferolateral wall. 3. Normal left ventricular size with calculated ejection fraction 54%. Job ID: [id number] DocumentID: [id number] Dictated Date: 09/25/2018 11:46:12 Data Management Specialist Date: 09/25/2018 14:29:11 Dictated By: DAVIDA FOUNTAIN MD
[2018-09-28] MEDS ORDERED: DILT240C PO (12:07)
== END 2018-09-25 15:40 | disposition home or self-care (01) | DRG 308 ==
LOC: EDUNIT# 15:59 → ER FS 16:01 → 4TH 16:34 → ICU 16:34 → UNDOADMIN 16:34 → ICU 09-24 14:05
PROVIDERS: ADMIT Family Medicine; ATTEND Family Medicine
DX: I48.0 Paroxysmal atrial fibrillation (principal); I11.0 Hypertensive heart disease with heart failure; I50.23 Acute on chronic systolic (congestive) heart failure; E66.2 Morbid (severe) obesity with alveolar hypoventilation; Z68.43 Body mass index [BMI] 50.0-59.9, adult; E87.1 Hypo-osmolality and hyponatremia; E83.42 Hypomagnesemia; I25.10 Atherosclerotic heart disease of native coronary artery without angina pectoris; I25.5 Ischemic cardiomyopathy; I34.0 Nonrheumatic mitral (valve) insufficiency; E78.00 Pure hypercholesterolemia, unspecified; E11.9 Type 2 diabetes mellitus without complications; M19.91 Primary osteoarthritis, unspecified site; J44.9 Chronic obstructive pulmonary disease, unspecified; I25.2 Old myocardial infarction; Z86.73 Personal history of transient ischemic attack (TIA), and cerebral infarction without residual deficits; Z79.01 Long term (current) use of anticoagulants; Z79.82 Long term (current) use of aspirin; Z79.84 Long term (current) use of oral hypoglycemic drugs; Z95.810 Presence of automatic (implantable) cardiac defibrillator; Z95.1 Presence of aortocoronary bypass graft
CPT/HCPCS: 36415; 71045; 78452; 80048; 80053; 81000; 83690; 83735; 83880; 84100; 84484; 85025; 85027; 85379; 85610; 85730; 87077; 87081; 87088; 87186; 93005; 93017; 96374; 96375

== ENCOUNTER 2018-09-28 07:08 | Inpatient (IN) | payer MEDICARE, OTHER | END 2018-09-29 10:47 | LOC: 4TH 09-29 02:02 → ER FS 07:08 → 4TH 08:35 ==

== ENCOUNTER 2018-09-29 10:04 | Inpatient (IN) | payer MEDICARE, OTHER ==
[~2018-09-29] VITALS: Ht 177.8 cm; Wt 151.7 kg
--- NOTE | 2018-09-29 08:43 | NUR ---
Pt c/o's non prod cough. Dr. Degroot notified and new orders received for Rain GARCIA q4hrs prn. Addendum: 09/29/18 at 233 by DAYRON CARRINGTON RN 09/29/18 at 0327
[~2018-09-29 10:04] MED LIST changes: +DILT240C PO; +DILT240C97 PO
--- NOTE | 2018-09-29 10:50 | NUR ---
Admitted to room 232, with an admitting diagnosis of debility, on 09-29-18 from 4th via , accompanied by .SU WARD introduced to surroundings, call light, bed controls, phone, TV, temperature control, lights, meal times, smoking policy, visitor policy, side rail policy, bathrooms and showers. Patient Rights given to patient in the handbook.SU WARD verbalizes understanding that [facility] is not responsible for the loss or damage to any personal effects or valuables that are kept in the patients posession during their hospitalization. The following Patient Care Plans were discussed with the : Discharge Planning, ,, and . SU WARD verbalizes understanding of Interdisciplinary Patient Education. Patient and/or family were informed about the Rapid Response Team and its purpose. Patient received Patient Rights Booklet, which includes Privacy Act Statement and Data Collection Information Summary.
--- NOTE | 2018-09-29 11:18 | NUR ---
REVIEWED MEDICATIONS THEY WERE REPORTED UPON ADMISSION TO 4TH FLOOR.
[2018-09-29] MEDS ORDERED: ACETAMINOPHEN 500 MG TAB (TYLENOL) PO PRN (11:30)
[2018-09-29] MEDS ORDERED: cefTRIAXone FOR IV USE 2,000 MG in WATER (STERILE) FOR INJECTION 20 ML IV SCH (11:30)
--- NOTE | 2018-09-29 11:44 | Physical Therapy Evaluation ---
PT Evaluation-General Medical Diagnosis Admission Date 09/29/2018 Medical Diagnosis: encephalopathy Onset Date: Sep 28, 2018 Therapy Diagnosis Therapy Diagnosis: abnormal gait Height/Weight Height (Feet): 5 Height (Inches): 10.00 Weight (Pounds): 355 Weight (Ounces): 0.0 Precautions Precautions/Isolations: Standard Precautions Referral Physician: Mikayla Reason for Referral: Evaluation/Treatment Medical History Pertinent Medical History: Atrial Fib, DM, HTN, [place] Current History Pt has had more than one hospital admission in the -past 6 weeks and is having more difficulty managing at home. He was recently on acute services due to encephalopathy and UTI. Reviewed History: Yes Social History Home: Single Level Current Living Status: Spouse (and son) Entry Into Home: Stairs With Railing PT Steps Into Home: 2 PT Steps Inside Home: 0 Prior/Core FIM Prior Level of Function Therapy Code Descriptions/Definitions Functional [place] Measure: 0=Not Assessed/NA 4=Minimal Assistance 1=Total Assistance 5=Supervision or Setup 2=Maximal Assistance 6=Modified [place] 3=Moderate Assistance 7=Complete [place] Therapy Quality Codes: 6 Independent with activity with or without an assistive device 5 Patient requires set up or clean up by helper. Patient completes activity by themselves 4 Supervision or touching assist (CGA). [place] provide cues , steadying assist 3 The helper provides less than half the effort to complete the activity 2 The helper provides more than half the effort to complete the activity 1 Dependent. The helper does all the effort to complete an activity 7 Patient refused to complete or attempt activity 9 The patient did not perform the activity before the current illness or injury 88 Not attempted due to Medical conditions or safety concerns Functional Abilities and Goals: Independent: Patient completed the activities by him/herself, with or without an assistive device, with no assistance from a helper. Needed Some Help: Patient needed partial assistance from another person to complete activities. Dependent: A helper completed the activities for the patient. Unknown: Not Applicable: Bed Mobility: 6 Transfers (B,C,W/C) (FIM): 6 Gait: 6 Stairs: 5 (household) Indoor Mobility (Ambulation): Independent Stairs: Independent Prior Devices Use: Walker Pt was able to ambulate in his home and up/down his steps; able to walk short community distances with FWW; alwys had family when he went outside the home. Has a drivers license but does not drive. PT Evaluation-Current Subjective Agrees to PT. happy to be on ARU as he reports he has been struggling at home. Reports he feels weak. Pain Numeric Pain Scale: 0-No Pain Location: No Pain Reported Objective Patient Orientation: Person, Place, Time, Situation Problem Solving: Fair Attachments: Ambrocio Catheter, IV ROM/Strength ROM Lower Extremities WFL Strenght Lower Extremities strength is grossly 4/5 Integumentary/Posture Integumentary Refer to nursing notes. Bowel Incontinence: No Bladder Incontinence: Ambrocio Cath Posture stands forward flexed at the hips and head forward Neuromuscular (Tone, Coordination, Reflexes) WFL Sensory Vision: impaired in one eye Hearing: Functional Hand Dominance: Right Sensation Right Lower Extremit: Intact Sensation Left Lower Extremity: Intact Transfers Therapy Code Descriptions/Definitions Functional [place] Measure: 0=Not Assessed/NA 4=Minimal Assistance 1=Total Assistance 5=Supervision or Setup 2=Maximal Assistance 6=Modified [place] 3=Moderate Assistance 7=Complete [place] Therapy Quality Codes: 6 Independent with activity with or without an assistive device 5 Patient requires set up or clean up by helper. Patient completes activity by themselves 4 Supervision or touching assist (CGA). [place] provide cues , steadying assist 3 The helper provides less than half the effort to complete the activity 2 The helper provides more than half the effort to complete the activity 1 Dependent. The helper does all the effort to complete an activity 7 Patient refused to complete or attempt activity 9 The patient did not perform the activity before the current illness or injury 88 Not attempted due to Medical conditions or safety concerns Transfers (B, C, W/C) (FIM): 3 Scootin Rollin Roll Left to Right (QC): 4 Supine to/from Sit: 3 Sit to/from Stand: 4 Sit to Lying (QC): 3 (assist with both legs) Lying to Sitting/Side of Bed(Q: 4 (CGA and skilled cues to seqwuence) Sit to Stand (QC): 4 (min assist and skilled cues for sequencing.) Chair/[id number]-[id number] Xfer(QC): 4 Car Transfer (QC): 3 (assist with both legs) Gait Does the Patient Walk?: Yes Mode of Locomotion: Walk Anticipated Mode of Locomotion: Walk Gait (FIM): 2 Distance (FIM): 0=347-34 ft Walk 10 feet (QC): 4 Walk 50 ft with 2 Turns(QC): 4 Walk 150 ft (QC): 88 Walking 10ft/uneven surface-QC: 4 Distance: 50 ft Gait Level of Assist: 1 Gait Assistive Device: FWW Comments/Gait Description forward flexed at hips and head forward; leans on walker; decreased foot clearance with decreased heel strike/toe off; slightly shuffled. Wheelchair Training Does the Pt Use a Wheelchair?: No Stairs Stairs (FIM): 1 #of Steps: 1 Level of Assist: 4 1 Step (curb) (QC): 4 4 Steps (QC): 88 Assistive Device: Walker 12 Steps (QC): 88 Balance Sitting Static: Fair Sitting Dynamic: Fair Standing Static: Fair Standing Dynamic: Fair Picking up an Object (QC): 88 (unsafe to attempt and did not perform before. ) Treatment Treatment focused on functional mobilty such as sit to stand transfers multiple times from varied surfaces paired with safety education / training and cues for sequencing. Worked on safe gait patterns with improved posture and foot clearnace. Co treat with OT partial treatment due to the need for the skill of 2 clinicians. PT/OT co treat during a bathing episode. As OT addressed self care/bathing; PT addressed seated dynamic balance as pt leaned forward and side to side; in addition, PT addressed functional and safety with sit to stand transfers in a wet shower with skilled cues for safety, sequencing and safety awareness. Pt does seem to have some decreased safety awareness and sequencing therefore 2 skilled caregivers required for optimal task completion in a safe and effective manner. Assessment/Needs Pt presents post acute hospital admit and recent hospital readmission. He is having increased difficulty managing at home with impaired functional mobility. He presents with decreased strength, balance and safety techniques that impair transfers and gait; in addition, he has impaired functional activity tolerance. He does have supportive family that assist with his care as needed but he is needing more and more assist at home. He will benefit from skilled PT intervention to allow him to return to his PLOF and decrease the burden of caregiver care. Rehab Potential: Good PT Short Term Goals Short Term Goals Time Frame: Oct 06, 2018 Transfers (B,C,W/C) (FIM): 5 Gait (FIM): 4 Distance (FIM): 3=150 ft Gait Level of Assist: 4 Gait Assistive Device: FWW PT System Support Developer Goals Skilled Nursing Goals PT System Support Developer Goals Time Frame: Oct 20, 2018 Transfers (B,C,W/C) (FIM): 6 Sit to Lying (QC): 6 Lying-Sitting on Side/Bed(QC): 6 Sit to Stand (QC): 6 Roll Left to Right (QC): 6 Chair/Rzm-kc-Slvzb Xfer(QC): 6 Car Transfer (QC): 5 Does the Patient Walk: Yes Gait (FIM): 6 Gait distance (FIM): 3=150 ft Walk 10 feet (QC): 6 Walk 10ft-Uneven Surface(QC): 6 Walk 50ft with 2 Turns (QC): 6 Walk 150 ft (QC): 6 Gait Assistive Device: FWW Does the Pt use WC or Scooter?: No Stairs (FIM): 5 (household level) # of Steps: 4 1 Step (curb) (QC): 6 4 Steps (QC): 6 12 Steps (QC): 88 Picking up an Object (QC): 88 Goal is for pt to return to a mod indep level in his home with gait and transfers and be able to manage his porch steps mod indep PT Plan Problem List Problem List: Activity Tolerance, Functional Strength, Safety, Balance, Gait, Transfer, Bed Mobility Treatment/Plan Treatment Plan: Continue Plan of Care Treatment Plan: Bed Mobility, Education, Functional Activity [place], Functional Strength, Group Therapy, Gait, Safety, Therapeutic Exercise, Transfers Treatment Duration: Oct 20, 2018 Frequency: At least 5 of 7 days/Wk (IRF) Estimated Hrs Per Day: 1.5 hours per day Patient and/or Family Agrees t: Yes Safety Risks/Education Patient Education: Transfer Techniques, Safety Issues Teaching Recipient: Patient Teaching Methods: Demonstration, Discussion Response to Teaching: Reinforcement Needed Discharge Recommendations Therapy D/C Recommendations: Physical Therapy Home Care Time/GCodes Time In: 1025 Time Out: 1145 (OT eval 1045-1055Co treat [id number]) Total Billed Treatment Time: 70 Total Billed Treatment visit EVM 20 FA 50 PANFILO MARIE PT Sep 29, 2018 11:44
--- OUTSIDE RECORDS SUMMARY | 2018-09-29 11:58 | XMS REPORT | Continuity of Care Document ---
[...] Status Pt. Type Provider Facility Loc./Unit Complaint [id number] 09/07/2018 09:45:00 09/07/2018 23:59:59 [facility] Outpatient [facility] [id number] 08/26/2018 14:00:00 Document Registration [id number] 08/18/2018 09:00:00 Document Registration [id number] 08/14/2018 14:00:00 Document Registration
[2018-09-29 12:19] VITALS: BP 94/57
--- NOTE | 2018-09-29 13:29 | ST Cognitive Linguistic Eval ---
Speech Evaluation-General Medical Diagnosis encephalopathy Onset Date: Sep 28, 2018 Therapy Diagnosis Therapy Diagnosis: Cognitive-communication Precautions Precautions/Isolations: Standard Precautions Referral Referring Physician: Dr. Degroot Medical History Pertinent Medical History: Atrial Fib, DM, HTN, [place] Reviewed History: Yes Social History Current Living Status: Spouse (and son) Speech PLF-Current Status Prior Level of Function The patient lived at home with his and was independent for most of his daily needs. Subjective The patient was compliant with the cognitive evaluation. Language Eval: Auditory Comprehends Simple Yes/No Ques: Functional Indent/Objects Multiple Garg: Functional Ident/Pics in Multiple Garg: Mild Follows 1-Step Commands: Mild Follows Complex Directions: Moderate Follows General Conversations: Mild Language Eval: Verbal Language Completes Spontaneous Greeting: Functional Produces Auto, Serial Info: Mild Imitates Simple Words/Phrases: Mild Word Finding: Mild Requests Basic Needs: Mild States Basic Personal Info: Mild Expresses Complex Ideas: Moderate Objective Cognitive Domain Attention: Mild Memory: Moderate Problem Solving: Moderate Executive Functions: Moderate Visuospatial Skills: Moderate Composite Severity Rating: WNL Clock Drawing Severity Rating: Moderate Objective Formal/Standardized Tests [facility] Mental Status ([facility]) Results The patient scored a 9/30 which places him in the dementia stage. Oral Motor/Speech Production Within Functional Limits Impression The patient is a pleasant 68 year old male who was admitted to the ARU s/p complex medical status. The patient has been hospitalized 3x in the past two weeks. The UMS was administered at bedside with the results of 9/30. This score places the patient in the dementia range. Due to these scores the patient will receive skilled ST for memory, problem solving and safety awareness. Focus of therapy will be to improve these areas for a safe return home. Communication/Social Cognition Comprehension: 3 Expression: 4 Social Interaction: 5 Problem Solvin Memory: 2 Speech Patient Assess Expression of Ideas/Wants: Frequently (2) Understanding Verbal Content: Sometimes Understands(2) Brief Interview-Mental Status: Yes Repetition of Three Words: Two (2) Temporal Orientation: Year: Correct (3) Temporal Orientation: Month: Accurate within 5 days(2) Temporal Orientation: Day: Incorrect or No Answer(0) Recall : Wear to say "Sock": No, could not recall (0) Recall : Color: No, could not recall (0) Recall : Bed: No, could not recall (0) Memory/Recall Ability: Current season, That he or she is in a hsp/hsp unit Speech Short Term Goals Short Term Goals Short Term Goals 1) The patient will complete memory tasks with 80% or greater given minimal cues. 2) The patient will complete problem solving tasks with 80% or greater given minimal cues. 3) The patient will complete safety awareness tasks with 80% or greater given minimal cues. Speech Sample Clerk Goals Shelter Goals The patient will improve cognitive skills in order to return safely to his home. Speech-Plan Patient/Family Goals Patient/Family Goals: The patient plans to return to his home with his post rehab. Treatment Plan Speech Therapy Treatment Plan: Continue Plan of Care The patient requires cognitive therapy for improving safety and independence. Treatment Duration: Oct 16, 2018 Frequency: 5 times per week Estimated Hrs Per Day: .5 hour per day Rehab Potential: Good Barriers to Learning: The patient has moderate cognitive deficits. Pt/Family Agrees to Plan: Yes Safety Risks/Education Teaching Recipient: Patient, Significant Other Teaching Methods: Discussion Response to Teaching: Verbalize Understanding Education Topics Provided: Safety and communication of wants/needs in his room. Time Speech Therapy Time In: 12:50 Speech Therapy Time Out: 13:05 Total Billed Time: 15 Billed Treatment Time 1, SPSNDCOMP JUDY Acevedo Sep 29, 2018 13:29
--- NOTE | 2018-09-29 14:33 | Occupational Therapy Eval ---
OT Evaluation-General/PLF Medical Diagnosis Admission Date Sep 29, 2018 at 11:11 Medical Diagnosis: encephalopathy Onset Date: Sep 28, 2018 Therapy Diagnosis Therapy Diagnosis: Weakness Height/Weight Height (Feet): 5 Height (Inches): 10.00 Weight (Pounds): 332 Weight (Ounces): 0.5 Precautions Precautions/Isolations: Standard Precautions Weight Bear Status Weight Bearing Restriction: Weight Bearing/Tolerated Referral Physician: Mikayla Referral Reason: Activity Tolerance, Self Care, Evaluation/Treatment, Strengthening/ROM Medical History Pertinent Medical History: Atrial Fib, DM, HTN, [place] Reviewed History: Yes Social History Home: Single Level Current Living Status: Spouse (and son) Entry Into Home: Stairs With Railing Steps Into Home: 2 Steps Inside Home: 0 ADL-Prior Level of Function Therapy Code Descriptions/Definitions Functional [place] Measure: 0=Not Assessed/NA 4=Minimal Assistance 1=Total Assistance 5=Supervision or Setup 2=Maximal Assistance 6=Modified [place] 3=Moderate Assistance 7=Complete [place] Therapy Quality Codes: 6 Independent with activity with or without an assistive device 5 Patient requires set up or clean up by helper. Patient completes activity by themselves 4 Supervision or touching assist (CGA). [place] provide cues , steadying assist 3 The helper provides less than half the effort to complete the activity 2 The helper provides more than half the effort to complete the activity 1 Dependent. The helper does all the effort to complete an activity 7 Patient refused to complete or attempt activity 9 The patient did not perform the activity before the current illness or injury 88 Not attempted due to Medical conditions or safety concerns Functional Abilities and Goals: Independent: Patient completed the activities by him/herself, with or without an assistive device, with no assistance from a helper. Needed Some Help: Patient needed partial assistance from another person to complete activities. Dependent: A helper completed the activities for the patient. Unknown: Not Applicable: ADL PLOF Comments Spouse assisted pt. as needed. She states that she assisted with bathing and cleansing rear lito area, donning socks, and getting positioned in bed at night. Self Care: Needed Some Help Functional Cognition: Independent DME/Equipment: Shower DME/Equipment Comments Pt. has a walker. He also has a step up to get into shower. Drive Self: No OT Current Status Subjective Pt. does not report pain. Appearance Pt. is alert and oriented and agrees to OT treatment. Mental Status/Objective Patient Orientation: Person, Place Attachments: Ambrocio Catheter, IV Current Hand Dominance: Right Upper Extremity ROM WFL Upper Extremity Strength WFL ADL-Treatment Grooming (FIM): 5 (Set up to comb hair.) Bathing (FIM): 3 (Pt. required assistance to bathe bilateral LE and lito area in stance.) Shower/Bathe Self (QC): 3 Upper Body Dressing (FIM): 5 Upper Body Dressing (QC): 4 Lower Body Dressing (FIM): 2 Lower Body Dressing (QC): 2 On/Off Footwear (QC): 2 Transfers (B, C, W/C) (FIM): 4 Shower Transfer (FIM): 4 Pt. agreed to shower. OT/PT completed partial co-treat together, as OT facilitated ADL education and completion and PT focused on sitting and standing dynamic balance. Pt. completed shower and dressing but is unable to bend over to feet, and unable to bring them up to him. Pt. requires cues to breathe during strenuous tasks, and often holds breath. After shower task, pt. transferred to wheelchair and went back to room. Transferred to bed with mod assist for sit-supine. Education OT Patient Education: Correct positioning, Modified ADL techniques, Progress toward Goal/Update tx plan, Purpose of tx/functional activities, Reviewed precautions, Rehab process, Transfer techniques Teaching Recipient: Patient Teaching Methods: Demonstration, Discussion Response to Teaching: Verbalize Understanding, Return Demonstration OT Short Term Goals Short Term Goals Time Frame: Oct 06, 2018 Eating(FIM): 5 Grooming(FIM): 5 Bathing(FIM): 4 Upper Body Dressing(FIM): 5 Lower Body Dressing(FIM): 4 Toileting(FIM): 4 Transfers (B,C,W/C) (FIM): 5 Toilet/Commode Transfer(FIM): 5 Shower Transfer(FIM): 5 Additional Short Term Goals: 1-Demonstrate ADL Tasks, 2-Verbalize Understandin g, 3-ImproveStrength/Dale 1=Demonstrate adherence to instructed precautions during ADL tasks. 2=Patient will verbalize/demonstrate understanding of assistive devices/modifications for ADL. 3=Patient will improve strength/tolerance for activity to enable patient to perform ADL's. OT Snf Goals Snf Goals Time Frame: Oct 20, 2018 Eating (FIM): 6 Eating (QC): 6 Groomin Oral Hygiene (QC): 6 Bathing(FIM): 5 Shower/Bathe Self (QC): 4 Upper Body Dressing(FIM): 5 Upper Body Dressing (QC): 5 Lower Body Dressing(FIM): 5 Lower Body Dressing (QC): 4 Toileting(FIM): 5 Toileting Hygiene (QC): 4 Transfers (B,C,W/C) (FIM): 6 Toilet/Commode Transfer(FIM): 6 Toilet/Commode Transfer (QC): 6 Shower Transfer(FIM): 5 Additional Goals: 1-Demonstrate ADL Tasks, 2-Verbalize Understanding, 3- ImproveStrength/Dale 1=Demonstrate adherence to instructed precautions during ADL tasks. 2=Patient will verbalize/demonstrate understanding of assistive devices/modifications for ADL. 3=Patient will improve strength/tolerance for activity to enable patient to perform ADL's. OT Education/Plan Problem List/Assessment Assessment: Decreased Activ Tolerance, Dependent Transfers, Impaired Bed Mobility, Impaired Funct Balance, Impaired I ADL's, Impaired Self-Care Skills Discharge Recommendations Plan/Recommendations: Continue POC Therapy D/C Recommendations: Home w/ Family Support, Occupational Therapy Home Care Comment Equipment needs to be determined. Treatment Plan/Plan of Care Treatment,Training & Education: Yes Patient would benefit from OT for education, treatment and training to promote independence in ADL's, mobility, safety and/or upper extremity function for ADL's. Plan of Care: ADL Retraining, Functional Mobility, Group Exercise/Act as Ind, UE Funct Exercise/Act Treatment Duration: Oct 20, 2018 Frequency: At least 5 of 7 days/Wk (IRF) Estimated Hrs Per Day: 1.5 hours per day Agreement: Yes Rehab Potential: Fair Time/GCodes Start Time: 10:45 Stop Time: 11:45 Total Time Billed (hr/min): 60 Billed Treatment Time [id number] OT Kenyetta daniels EVH [id number]- ADL x [id number] with PT. Please see above note for designated roles. TEETEE WAITE OT Sep 29, 2018 14:32
--- NOTE | 2018-09-29 14:41 | Occupational Ther Daily Note ---
OT Current Status-Daily Note Subjective No pain reported. Appearance Pt. agrees to treatment. Mental Status/Objective Patient Orientation: Person, Place Therapy Code Descriptions/Definitions Functional [place] Measure: 0=Not Assessed/NA 4=Minimal Assistance 1=Total Assistance 5=Supervision or Setup 2=Maximal Assistance 6=Modified [place] 3=Moderate Assistance 7=Complete [place] Attachments: Ambrocio Catheter ADL-Treatment Therapy Code Descriptions/Definitions Functional [place] Measure: 0=Not Assessed/NA 4=Minimal Assistance 1=Total Assistance 5=Supervision or Setup 2=Maximal Assistance 6=Modified [place] 3=Moderate Assistance 7=Complete [place] Therapy Quality Codes: 6 Independent with activity with or without an assistive device 5 Patient requires set up or clean up by helper. Patient completes activity by themselves 4 Supervision or touching assist (CGA). Lorraine provide cues , steadying assist 3 The helper provides less than half the effort to complete the activity 2 The helper provides more than half the effort to complete the activity 1 Dependent. The helper does all the effort to complete an activity 7 Patient refused to complete or attempt activity 9 The patient did not perform the activity before the current illness or injury 88 Not attempted due to Medical conditions or safety concerns Lower Body Dressing (FIM): 2 Lower Body Dressing (QC): 2 Toileting (FIM): 1 Toileting Hygiene (QC): 1 Transfers (B, C, W/C) (FIM): 4 Toilet/Commode Transfer (FIM): 4 Toilet Transfer (QC): 4 Other Treatment Pt. agrees to work on bed mobility with OT. Pt. able to transfer self supine- sit with SBA and increased effort. While sitting on side of bed, did attempt to bring foot up to bed area to doff sock. Pt. unable to do this. Pt. reports at this time that he feels that he has been incontinent of BM. Is afraid of attempting to ambulate to toilet in bathroom. OT gets pt. BSC. Pt. transfers with CGA and pt. has had slight BM in shorts. Pt. sits and is able to go more. Pt. requires max assist to cleanse rear lito area, and to don clean shorts. Stood and transferred back to bed with min assist. All needs met in room. Education OT Patient Education: Correct positioning, Modified ADL techniques, Progress toward Goal/Update tx plan, Purpose of tx/functional activities, Reviewed precautions, Rehab process, Transfer techniques Teaching Recipient: Patient Teaching Methods: Demonstration, Discussion Response to Teaching: Verbalize Understanding, Return Demonstration OT Short Term Goals Short Term Goals Time Frame: Oct 06, 2018 Eating(FIM): 5 Grooming(FIM): 5 Bathing(FIM): 4 Upper Body Dressing(FIM): 5 Lower Body Dressing(FIM): 4 Toileting(FIM): 4 Transfers (B,C,W/C) (FIM): 5 Toilet/Commode Transfer(FIM): 5 Shower Transfer(FIM): 5 Additional Short Term Goals: 1-Demonstrate ADL Tasks, 2-Verbalize Understanding, 3-ImproveStrength/Dale 1=Demonstrate adherence to instructed precautions during ADL tasks. 2=Patient will verbalize/demonstrate understanding of assistive devices/modifications for ADL. 3=Patient will improve strength/tolerance for activity to enable patient to perform ADL's. OT Skilled Nursing Goals Skilled Nursing Goals Time Frame: Oct 20, 2018 Eating (FIM): 6 Eating (QC): 6 Groomin Oral Hygiene (QC): 6 Bathing(FIM): 5 Shower/Bathe Self (QC): 4 Upper Body Dressing(FIM): 5 Upper Body Dressing (QC): 5 Lower Body Dressing(FIM): 5 Lower Body Dressing (QC): 4 Toileting(FIM): 5 Toileting Hygiene (QC): 4 Transfers (B,C,W/C) (FIM): 6 Toilet/Commode Transfer(FIM): 6 Toilet/Commode Transfer (QC): 6 Shower Transfer(FIM): 5 Additional Goals: 1-Demonstrate ADL Tasks, 2-Verbalize Understanding, 3-ImproveStrength/Dale 1=Demonstrate adherence to instructed precautions during ADL tasks. 2=Patient will verbalize/demonstrate understanding of assistive devices/modifications for ADL. 3=Patient will improve strength/tolerance for activity to enable patient to perform ADL's. OT Education/Plan Problem List/Assessment Assessment: Decreased Activ Tolerance, Dependent Transfers, Impaired Bed Mobility, Impaired I ADL's, Impaired Self-Care Skills Discharge Recommendations Plan/Recommendations: Continue POC Therapy D/C Recommendations: Home w/ Family Support, Occupational Therapy Home Care Equpiment Recommendations-D/C: Hip Kit Treatment Plan/Plan of Care Treatment,Training & Education: Yes Patient would benefit from OT for education, treatment and training to promote independence in ADL's, mobility, safety and/or upper extremity function for ADL's. Plan of Care: ADL Retraining, Functional Mobility, Group Exercise/Act as Ind, UE Funct Exercise/Act Treatment Duration: Oct 20, 2018 Frequency: At least 5 of 7 days/Wk (IRF) Estimated Hrs Per Day: 1.5 hours per day Agreement: Yes Rehab Potential: Fair Time/GCodes Start Time: 13:30 Stop Time: 14:05 Total Time Billed (hr/min): 35 Billed Treatment Time 1, ADL x 2 TEETEE WAITE OT Sep 29, 2018 14:40
--- NOTE | 2018-09-29 14:57 | Physical Therapy Daily Note ---
PT Daily Note-Current Subjective Patient is in bed and agrees to PT. No c/o Pain Numeric Pain Scale: 3 Location: Lower Location Body Site: Back Pain Description: Chronic Mental Status Patient Orientation: Normal For Age Transfers Therapy Code Descriptions/Definitions Functional [place] Measure: 0=Not Assessed/NA 4=Minimal Assistance 1=Total Assistance 5=Supervision or Setup 2=Maximal Assistance 6=Modified [place] 3=Moderate Assistance 7=Complete [place] Therapy Quality Codes: 6 Independent with activity with or without an assistive device 5 Patient requires set up or clean up by helper. Patient completes activity by themselves 4 Supervision or touching assist (CGA). Clinton provide cues , steadying assist 3 The helper provides less than half the effort to complete the activity 2 The helper provides more than half the effort to complete the activity 1 Dependent. The helper does all the effort to complete an activity 7 Patient refused to complete or attempt activity 9 The patient did not perform the activity before the current illness or injury 88 Not attempted due to Medical conditions or safety concerns Transfers (B, C, W/C) (FIM): 4 Scootin Supine to/from Sit: 5 Sit to/from Stand: 4 Sit to Lying (QC): 5 Sit to Stand (QC): 4 Chair/Pmk-af-Mdorc Xfer(QC): 4 Gait Training Does the Patient Walk?: Yes Gait (FIM): 4 Distance (FIM): 3=150 ft Distance: 150' x 2 Walk 10 feet (QC): 4 Walk 50 ft with 2 Turns(QC): 4 Walk 150 ft (QC): 4 Gait Level of Assist: 4 Gait Assistive Device: FWW trunk flexed posture with FWW use; 1 seated recovery period due to fatigue Exercises Seated Therapy Exercises: Ankle pumps, Long arc quads Seated Reps: 15 Assessment Patient tolerated treatment well and is recliner with needs met. PT Short Term Goals Short Term Goals Time Frame: Oct 06, 2018 Transfers (B,C,W/C) (FIM): 5 Gait (FIM): 4 Distance (FIM): 3=150 ft Gait Level of Assist: 4 Gait Assistive Device: FWW PT Senior Piping Designer Goals Senior Piping Designer Goals PT Senior Piping Designer Goals Time Frame: Oct 20, 2018 Transfers (B,C,W/C) (FIM): 6 Sit to Lying (QC): 6 Lying-Sitting on Side/Bed(QC): 6 Sit to Stand (QC): 6 Rollin Roll Left to Right (QC): 6 Chair/Oor-et-Nnfni Xfer(QC): 6 Car Transfer (QC): 5 Does the Patient Walk: Yes Gait (FIM): 6 Gait distance (FIM): 3=150 ft Walk 10 feet (QC): 6 Walk 10ft-Uneven Surface(QC): 6 Walk 50ft with 2 Turns (QC): 6 Walk 150 ft (QC): 6 Gait Assistive Device: FWW Does the Pt use WC or Scooter?: No Stairs (FIM): 5 (household level) # of Steps: 4 1 Step (curb) (QC): 6 4 Steps (QC): 6 12 Steps (QC): 88 Picking up an Object (QC): 88 PT Plan Treatment/Plan Treatment Plan: Continue Plan of Care Treatment Plan: Bed Mobility, Education, Functional Activity Dale, Functional Strength, Group Therapy, Gait, Safety, Therapeutic Exercise, Transfers Treatment Duration: Oct 20, 2018 Frequency: At least 5 of 7 days/Wk (IRF) Estimated Hrs Per Day: 1.5 hours per day Patient and/or Family Agrees t: Yes Time/GCodes Time In: 1530 Time Out: 1550 Total Billed Treatment Time: 20 Total Billed Treatment 1 visit FA 20 min REJI ETIENNE PT Sep 29, 2018 14:57
[2018-09-29 16:23] VITALS: BP 93/61
[2018-09-29] MEDS: TAMSULOSIN 0.4 MG (FLOMAX) CAP PO SCH (17:19)
[2018-09-29] MEDS: RIVAROXABAN 20 MG TABLET (XARELTO) PO SCH (17:19)
[2018-09-29] MEDS: SOTALOL 80 MG (BETAPACE) TAB PO SCH (17:20)
[2018-09-29] MEDS: FAMOTIDINE 20 MG (PEPCID) TABLET PO SCH (20:34)
[2018-09-29] MEDS: ATORVASTATIN 10 MG (LIPITOR) TABLET PO SCH (20:34)
[2018-09-29] MEDS: MIRTAZAPINE 15 MG (REMERON) TAB PO SCH (20:34)
[2018-09-29] MEDS: VANCOMYCIN INJECTION 1,500 MG in NS IV 500 ML 500 ML IV SCH (20:36)
[2018-09-29] MEDS ORDERED: guaiFENesin/DM (ROBITUSSIN DM) 10 ML UDC PO PRN (20:45)
[2018-09-29] MEDS: MICONAZOLE NITRATE 2% CRM 30 GM TP SCH (20:51)
[2018-09-29] MEDS: MICONAZOLE 2% POWDER (DESENEX AF) 90 GM TOP SCH (20:51)
[2018-09-29 23:50] VITALS: BP 95/58
[2018-09-30 05:45] VITALS: BP 99/60
[2018-09-30 06:23] LABS: BASOPHILS # (AUTO) 0.1 10^3/uL (0.0-0.1); BASOPHILS % (AUTO) 1 % (0-10); EOSINOPHILS # (AUTO) 0.3 10^3/uL (0.0-0.3); EOSINOPHILS % (AUTO) 4 % (0-10); HEMATOCRIT 33 % (40-54); HEMOGLOBIN 11.2 G/DL (13.3-17.7); LYMPHOCYTES # (AUTO) 1.7 X 10^3 (1.0-4.0); LYMPHOCYTES % (AUTO) 18 % (12-44); MEAN CORPUSCULAR HEMOGLOBIN 30 PG (25-34); MEAN CORPUSCULAR HGB CONC 34 G/DL (32-36); MEAN CORPUSCULAR VOLUME 89 FL (80-99); MEAN PLATELET VOLUME 11.7 FL (7.4-10.4); MONOCYTES # (AUTO) 1.2 X 10^3 (0.0-1.0); MONOCYTES % (AUTO) 13 % (0-12); NEUTROPHILS # (AUTO) 5.9 X 10^3 (1.8-7.8); NEUTROPHILS % (AUTO) 64 % (42-75); PLATELET COUNT 223 10^3/uL (130-400); RED CELL DISTRIBUTION WIDTH 14.1 % (10.0-14.5); WHITE BLOOD COUNT 9.2 10^3/uL (4.3-11.0)
[2018-09-30 06:50] LABS: ALBUMIN 2.8 GM/DL (3.2-4.5); BILIRUBIN,TOTAL 0.5 MG/DL (0.1-1.0); CALCIUM 8.7 MG/DL (8.5-10.1); CREATININE SERUM 1.32 MG/DL (0.60-1.30); POTASSIUM 3.9 MMOL/L (3.6-5.0); TOTAL PROTEIN 6.1 GM/DL (6.4-8.2)
--- NOTE | 2018-09-30 08:59 | NUR ---
FUEL CELL BUILDER met with patient and spouse, Arabella to complete initial assessment. Patient was asleep during assessment. Assessment information gathered from spouse. Patient admitted to ARU from internally with debility, secondary to acute encephalopathy. Patient, spouse and adult son, Wan reside in [place], [place]. The home is one level with two steps at the entrance with handrails. The home also has a step within the home. The home has been modified for handicap accessibility with wide doorways and a walk in shower. Spouse reports patient has had several hospitalizations within the last couple months, over these past months, spouse has also noticed an increase in confusion and forgetfulness. Prior to current hospitalization, patient utilized a FWW for all ambulation. Spouse reports he was able to complete ADLs independently, but required assistance with sit to stand and shower transfers. PCP verified as Dr. Bright, Urologist as Dr. Jack, Cardiologists as Dr. Bermudez and Dr. Villeda. Primary contacts as spouse, Arabella ([phone]) and secondary contact as son, Wan ([phone]) and Klever ([phone]). Insurance verified as Medicare and [employer] with prescription coverage. Patient utilizes [facility] for local pharmacy needs. FUEL CELL BUILDER reviewed typical rehabilitation length of stay and weekly team conferences with spouse, she expressed no concerns at this time. FUEL CELL BUILDER will follow for appropriate discharge needs.
[2018-09-30] MEDS: ALLOPURINOL 300 MG (ZYLOPRIM) TAB PO SCH (09:00)
[2018-09-30] MEDS: FUROSEMIDE 40 MG (LASIX) TAB PO SCH (09:00)
[2018-09-30] MEDS: LOSARTAN 50 MG (COZAAR) TAB PO SCH (09:00)
[2018-09-30] MEDS: DILTIAZEM 240 MG (CARDIZEM CD) CAP PO SCH (09:00)
[2018-09-30] MEDS: SPIRONOLACTONE 25 MG (ALDACTONE) TAB PO SCH (09:00)
[2018-09-30] MEDS: SOTALOL 80 MG (BETAPACE) TAB PO SCH ×2 (09:28→18:00)
[2018-09-30] MEDS ORDERED: FUROSEMIDE 40 MG/4 ML INJ (LASIX) IVP NR (09:45)
--- NOTE | 2018-09-30 09:47 | PM&R H&P / Post Admit Assess ---
History of Present Illness HPI/Chief Complaint Chief Complaint: Severe debility with encephalopathy. HPI: This is a 68yoWM who was just transferred from [facility] floor from [facility] due to confusion, UTI, and fever. Dr. Lawson was consulted for atrial fibrillation. He was just discharged previous Friday when his defibrillator discharged and he was evaluated found to be stable and was discharged home but he began feeling badly shortly after arriving home and returned back with confusion, recurrent UTI, and upper respiratory cough. He was found to have low grade fever he was placed on Rocephin and Vancomycin empirically and also based on cultures before and was deemed stable to be transferred to in patient rehab to work on cognition after slums score initiated and will likely benefit from Aricept in addition he will undergo intensive rehab to further strengthen in order to go home and be successful and returning to his to live independently with close f/u by PCP along with Urology and Cardiology. Prior level of functioning was fairly independent with ADL's and ambulation. Source: patient, family, RN/MD, old records Exam Limitations: no limitations Date Seen 09/30/18 Time Seen by a Provider: 09:15 Attending Physician Latonya Currie DO PCP Miky Bright MD Referring Physician Date of Admission Sep 29, 2018 at 11:11 Home Medications & Allergies Home Medications Reviewed patient Home Medication Reconciliation performed by pharmacy medication reconciliations concrete engineering technician and/or nursing. Patients Allergies have been reviewed. Allergies Allergies Coded Allergies No Known Drug Allergies (Unverified09/01/18) Past Bspgycp-Biifqo-Isatzp Hx Past Med/Social Hx: Reviewed Nursing Past Med/Soc Hx, Reviewed and Corrections made Patient Social History Marrital Status: Employed/Student: retired Alcohol Use: Denies Use Recreational Drug Use: No Smoking Status: Former Smoker 2nd Hand Smoke Exposure: No Physical Abuse Screen: No Sexual Abuse: No Recent Foreign Travel: No Contact w/other who traveled: No Recent Hopitalizations: No Recent Infectious Disease Expo: No Immunizations Up To Date Pediatric: Yes Date of Pneumonia Vaccine: Sep 23, 2016 Seasonal Allergies Seasonal Allergies: No Past Medical History Surgeries: Cardiac, CABG Respiratory: Sleep Apnea Currently Using CPAP: Yes Cardiac: Atrial Fibrillation, Cardiomyopathy, Heart Attack, High Cholesterol, Hypertension Neurological: Dementia Genitourinary: Benign Prostatic Hyperpl, Bladder Infection, Renal Failure Gastrointestinal: Chronic Constipation Musculoskeletal: Arthritis Endocrine: Diabetes, Non-Insulin dep Psychosocial: Sleep Difficulties History of Blood Disorders: No Family History Cardiovascular disease 19 MOTHER, Onset:Unknown Diabetes mellitus 19 MOTHER, Onset:Unknown Neoplasm 19 FATHER, Onset:Unknown Review of Systems Constitutional: see HPI, malaise, weakness EENTM: no symptoms reported Respiratory: cough Cardiovascular: no symptoms reported Gastrointestinal: diarrhea Genitourinary: discharge, hematuria Musculoskeletal: no symptoms reported Skin: no symptoms reported Psychiatric/Neurological: Anxiety, Depressed All Other Systems Reviewed Negative Unless Noted: Yes Physical Exam Exam Vital Signs Vital Signs Date Time Temp Pulse Resp B/P (MAP) Pulse Ox O2 Delivery O2 Flow Rate FiO2 09/30/18 08:18 Room Air 09/30/18 07:00 60 09/30/18 05:45 97.0 20 99/60 (73) 94 Capillary Refill : General Appearance: No Apparent Distress, WD/WN, Chronically ill HEENT: PERRL/EOMI, Normal ENT Inspection, Pharynx Normal, Moist Mucous Membrane s Neck: Full Range of Motion, Normal Inspection, Non Tender, Supple Respiratory: Chest Non Tender, Lungs Clear, Normal Breath Sounds, No Accessory Muscle Use, No Respiratory Distress Cardiovascular: Regular Rate, Rhythm, No Edema, No Gallop, No JVD, No Murmur Gastrointestinal: Normal Bowel Sounds, No Organomegaly, No Pulsatile Mass, Non Tender, Soft Back: Normal Inspection, No CVA Tenderness, No Vertebral Tenderness Extremity: Normal Capillary Refill, Normal Inspection, Normal Range of Motion, Non Tender, No Calf Tenderness, No Pedal Edema Neurologic/Psychiatric: Alert, Oriented x3, No Motor/Sensory Deficits, Normal Mood/Affect, transportation services representative II-XII Norm as Tested, Disoriented (poor recall), Motor Weakness (generalized weakness) Skin: Normal Color, Warm/Dry Lymphatic: No Adenopathy Results Results/Procedures Labs Laboratory Tests 09/30/18 06:13 Patient resulted labs reviewed. Assessment/Plan Assessment and Plan Assess & Plan/Chief Complaint Assessment: Encephalopathy acute on chronic New diagnosis of dementia 12/28 SLUMS done yesterday starting Aricept 5mg CAD AF Pacemaker UTI Cough Cardiomyopathy Confusion Plan: Aricept IRF protocols Abx and review cultures Bowel regimen Consult Dr Jack and Dr Renny Ambrocio cath (1) Encephalopathy (2) Hyponatremia (3) Coronary artery disease (4) Atrial fibrillation (5) Diabetes mellitus (6) UTI (urinary tract infection) (7) Cardiomyopathy (8) Cardiac defibrillator in place (9) Acute on chronic systolic (congestive) heart failure (10) MICHELLE on CPAP (11) Defibrillator discharge (12) Elevated brain natriuretic peptide (BNP) level (13) Transient alteration of awareness (14) Unable to ambulate Post Admission Physician Asses Date seen by provider: Sep 30, 2018 Time seen by provider: 09:15 Admisison Dx: (1) Encephalopathy The preadmission screen agrees with the post admission assessment that the patient is a good candidate for inpatient rehabilitation. The patient will have a comprehensive program of inpatient rehabilitation with a goal of maximizing level of functional independence prior to discharge home with family. The patient will have PT/OT ninety minutes per day, each discipline, five days a week for gait, strengthening, conditioning, balance, ADLs, any patient/family/caregiver training as necessary. Speech therapy to do cognitive assessment and treat as indicated. Rehabilitation nursing to assist with bowel, bladder, skin, wound care, medication administration, pain management. Dial Marker to assist with discharge planning, community reentry. SCD's for DVT prophylaxis. He appears to be well motivated to participate in three hours of therapy a day. He should be able to tolerate three hours of therapy a day from a [facility]. He should benefit from the three hours of therapy a day. He has a reasonable discharge plan, reasonable discharge rehabilitation goals and a supportive family. He has various comorbidities that need to be closely monitored with medications and treatments adjusted on a daily basis as needed. These include: see list Barriers to discharge for this patient who had been independent prior to this are for him to be modified independent to supervision for ADLs and mobility skills prior to discharge home with family, so as to lessen the burden of the caregivers. Risks for this patient include: 1. Fall 2. Fracture 3. DVT 4. Pulmonary embolism 5. Wound infection 6. Skin breakdown 7. Contractures 8. Poorly controlled pain 9. Urinary retention 10. UTI 11. Respiratory infection 12. Aspiration Estimated Length of Stay: 7 days Prognosis: Rehab prognosis appears good for goal of discharge home with family modified independent to supervision for ADLs and mobility skills. LATONYA CURRIE DO Sep 30, 2018 09:47
--- NOTE | 2018-09-30 09:48 | Individualized Plan of Care ---
Individualized Plan of Care Rehab Nursing IPOC Order Admission Date Sep 29, 2018 at 11:11 Current Orders Orders Admission Order(Inpt,Obs,Sdc) (09/29/18 11:09) Vital Signs: Per Unit Policy ( ,16,00 (09/29/18 11:09) Student Services Coordinator-Inpt Rehab Con (09/29/18 11:09) Rehab Nursing Orders-Ipoc (09/29/18 11:09) Physical Therapy Rehab Orders (09/29/18 11:09) Occupational Therapy Rehab Ord (09/29/18 11:09) Speech Therapy Rehab Orders (09/29/18 11:09) Intake & Output ,, (09/29/18 11:09) Precautions (Aru) (09/29/18 11:09) Weekly Weight (Lbs) WEEK (09/29/18 11:09) Rehab-Intensity Of Therapy (09/29/18 11:09) Initiate Admission Nursing Pro .admission (09/29/18 11:09) Code/Resuscitation (09/29/18 11:22) Initiate Admission Nursing Pro .admission (09/29/18 11:22) Telemetry (09/29/18 11:22) Vital Signs: Every 4 Hours (Or (09/29/18 11:22) Cho 60g/M 3snack (16-2000 Bravo) (09/29/18 Dinner) Acetaminophen Tablet (Tylenol Tablet) (09/29/18 11:30) Allopurinol Tablet (Zyloprim Tablet) (09/30/18 09:00) Aspirin Enteric Coated Tablet (Ecotrin T (09/30/18 09:00) Atorvastatin Tablet (Lipitor Tablet) (09/29/18 21:00) Diltiazem Cd 24 Hr Capsule (Cardizem Cd (09/30/18 09:00) Famotidine Tablet (Pepcid Tablet) (09/29/18 21:00) Finasteride Tablet (Proscar Tablet) (09/30/18 09:00) Furosemide Injection (Lasix Injection) (09/30/18 09:45) Furosemide Tablet (Lasix Tablet) (09/30/18 09:00) Losartan Tablet (Cozaar Tablet) (09/30/18 09:00) Miconazole 2% Powder (Desenex Af 2% Powd (09/29/18 21:00) Miconazole Nitrate 2% Crm (Micaderm 2% C (09/29/18 21:00) Mirtazapine Tablet (Remeron Tablet) (09/29/18 21:00) Rivaroxaban Tablet (Xarelto Tablet) (09/29/18 18:00) Sotalol Tablet (Betapace Tablet) (09/29/18 18:00) Spironolactone Tablet (Aldactone Tablet) (09/30/18 09:00) Tamsulosin Capsule (Flomax Capsule) (09/29/18 18:00) Vancomycin Injection (Vancomycin Injecti (09/29/18 21:00) Consult Physician (09/29/18 11:22) Telemetry Nursing Assessment ( (09/29/18 11:22) Cbc With Automated Diff (09/30/18 06:00) Comprehensive Metabolic Panel (09/30/18 06:00) Consult Urology (09/29/18 11:22) Ceftriaxone For Iv Use (Rocephin For I (09/29/18 11:30) Patient Visit (09/29/18 ) Pt Eval Moderate Complexity (09/29/18 ) Functional Activities, Ea 15 (09/29/18 ) Trough Order (Trough Order-Pharmacy Orde (10/01/18 08:00) Vancomycin,Trough (10/01/18 08:00) Patient Visit (09/29/18 ) Speech Sound Lang Comp (09/29/18 ) Patient Visit (09/29/18 ) Functional Activities, Ea 15 (09/29/18 ) Guaifenesin/Dm Syrup (Robitussin Dm Syru (09/29/18 20:45) Nursing Communication (Order) (09/30/18 09:30) Donepezil Tablet (Aricept Tablet) (09/30/18 21:00) Phenazopyridine Tablet (Pyridium Tablet) (09/30/18 13:00) Sulfamethoxazole/Trimet Ds Tab (Bactrim (09/30/18 17:00) Ua Culture If Indicated (09/30/18 12:58) Patient Visit (09/30/18 ) Treat. Speech/Lang/Voice (09/30/18 ) Patient Visit (09/30/18 ) Functional Activities, Ea 15 (09/30/18 ) Gait Training, Ea 15 Min (09/30/18 ) Exercise Therap, Ea 15 Min (09/30/18 ) Rehab Nursing Orders: Ongoing Assess. of Cognitive Status, Ongoing Assess. of Function Status, Bladder Scan, Bladder Training, Bowel Management, Bowel Training, Disease Management & Educaiton, DVT Prophylaxis, Fall Prevention, Fluid/Electrolyte/Nutrition Mgmt, Infection Prevention, Medication Management & Education, Management of Risks & Complications, Management of Skin Intergrity, Nutrition Management, Pain Management, Patient/Family Support, Safety Management Intensity of Therapy to be met Patient to be seen: Min.3h per day/5 of 7d PT IPOC Problem List: Activity Tolerance, Functional Strength, Safety, Balance, Gait, Transfer, Bed Mobility Treatment Plan: Continue Plan of Care Bed Mobility, Education, Functional Activity Dale, Functional Strength, Group Therapy, Gait, Safety, Therapeutic Exercise, Transfers Treatment Duration: Oct 20, 2018 Frequency: At least 5 of 7 days/Wk (IRF) Estimated Hrs Per Day: 1.5 hours per day OT IPOC Problems: Decreased Activ Tolerance, Dependent Transfers, Impaired Bed Mobility, Impaired I ADL's, Impaired Self-Care Skills OT Treatment, Training and Edu: Yes Plan of Care: ADL Retraining, Functional Mobility, Group Exercise/Act as Ind, UE Funct Exercise/Act Treatment Duration: Oct 20, 2018 Frequency: At least 5 of 7 days/Wk (IRF) Estimated Hrs Per Day: 1.[address] IPOC Speech Therapy Treatment Plan: Continue Plan of Care Treatment Duration: Oct 16, 2018 Frequency: 5 times per week Estimated Hrs Per Day: .5 hour per day Student Services Coordinator/Case Mgmt Student Services Coordinator/Case Managemen: Discharge Planning Dietitian/Kier Drier Dietitian/Kier Drier to monitor nutritional status and make changes and/or recommendations as needed and work with speech pathology on dietary upgrades as the occur. Physician IPOC Medical Issues being managed closely and that require the 24 hour availability of a physician: New diagnosis and confirmed dementia with slums score of 9/30 will require initiation of Aricept new medication will need close monitoring in addition major fall risk and continues on vancomycin and Bactrim for coag negative staph in blood and urine and Ambrocio catheter required and managed by urology along with cardiology managing atrial fibrillation Medical Issues: Bowel/Bladder Function, DVT Prophylaxis, Falls Precautions, Fluid/Electrolyte/Nutrition Balance, Pain Management Brief Synthesis of Preadmission Screen, Post-Admission Evaluation, and Therapy Evaluations: PT will focus on safety with fall prevention and ambulation with a walker each and every time and will work on cognition in order to prevent falls OT will focus on independent ADLs and further be able to lessen the burden on the caregiver at home Speech therapy will work on cognition since we are adding Aricept to help memory Medical Prognosis: Good Anticipated Length of Stay: 7 days ROSEMARY CURRIE DO Sep 30, 2018 09:48
[2018-09-30] MEDS: FINASTERIDE (PROSCAR) 5 MG TAB PO SCH (09:50)
[2018-09-30] MEDS: ASPIRIN E.C. 81 MG (ECOTRIN) TAB PO SCH (09:50)
[2018-09-30] MEDS: VANCOMYCIN INJECTION 1,500 MG in NS IV 500 ML 500 ML IV SCH ×2 (09:50→20:51)
[2018-09-30] MEDS: FAMOTIDINE 20 MG (PEPCID) TABLET PO SCH ×2 (09:50→20:49)
[2018-09-30] MEDS: MICONAZOLE NITRATE 2% CRM 30 GM TP SCH ×2 (09:51→20:56)
[2018-09-30] MEDS: MICONAZOLE 2% POWDER (DESENEX AF) 90 GM TOP SCH ×2 (09:51→20:56)
--- NOTE | 2018-09-30 10:17 | Speech Therapy Daily Note ---
Speech Daily Progress Note Subjective Date Seen by Provider: Sep 30, 2018 Time Seen by Provider: 00:30 The patient was resting in his bed after breakfast when I entered his room. His was present for the entire session. Objective The patient completed general information questions with 75% accuracy given moderate verbal cues and/or repetitions. Assessment Assessment Current Status: Fair Progress Treatment Plan Continue Plan of Care Communication Comprehension: 3 Expression: 4 Social Cognition Social Interaction: 5 Problem Solvin Memory: 2 Speech Short Term Goals Short Term Goals Short Term Goals 1) The patient will complete memory tasks with 80% or greater given minimal cues. 2) The patient will complete problem solving tasks with 80% or greater given minimal cues. 3) The patient will complete safety awareness tasks with 80% or greater given minimal cues. Speech Shelter Goals Transition Coach Goals The patient will improve cognitive skills in order to return safely to his home. Speech-Plan Patient/Family Goals Patient/Family Goals: The patient plans on returning home with his post rehab. Treatment Plan Speech Therapy Treatment Plan: Continue Plan of Care The patient was compliant and participated well with his first ST session today. Treatment Duration: Oct 16, 2018 Frequency: 5 times per week Estimated Hrs Per Day: .5 hour per day Rehab Potential: Fair Barriers to Learning: Moderate cognitive deficit Pt/Family Agrees to Plan: Yes Safety Risks/Education Teaching Recipient: Patient, Significant Other Teaching Methods: Discussion Response to Teaching: Verbalize Understanding Education Topics Provided: Continued safety within his room and communication of his needs. Time Speech Therapy Time In: 09:00 Speech Therapy Time Out: 09:30 Total Billed Time: 30 Billed Treatment Time 1, JUDY Chavez Sep 30, 2018 10:17
--- NOTE | 2018-09-30 10:34 | NUR ---
Pastoral care visit.
--- NOTE | 2018-09-30 10:43 | Cardiology Progress Note ---
Cardiology SOAP Progress Note Subjective: No cardiac complaints. Objective: I&O/Vital Signs 09/30/18 09/30/18 09/30/18 09/30/18 01:00 05:45 07:00 08:18 Temp 97.0 Pulse 63 62 60 Resp 20 B/P (MAP) 99/60 (73) Pulse Ox 94 O2 Delivery Room Air Room Air 09/30/18 00:00 Intake Total 515 ml Balance 515 ml Weight (Pounds): 332 Weight (Ounces): 0.5 Weight (Calculated Kilograms): [id number] Constitutional: No appears stated age; AAO x 3; No apparent distress, No PERRL, No well-developed, No well-nourished, No other Respiratory: No accessory muscle use, No respiratory distress, No chest tender, No chest expansion is symmetric; chest is bilaterally symmetric; No lungs clear to percussion; lungs clear to auscultation; No crackles, No rhonchi, No rales, No stridor, No wheezing, No pleural rub, No other Cardiovascular: No regular rate-rhythm; irregularly irregular; No extra beats, No parasternal heave is noted, No JVD, No edema, No bradycardia, No tachycardia, No point of maximal impulse, No cardiac thrills are palpable; S1 and S2; No gallop/S3, No gallop/S4, No diastolic murmur, No systolic murmur, No friction rub, No click, No other Gastrointestional: No tender, No soft, No round, No distended, No pulsatile mass, No organomegaly, No guarding, No rebound, No tenderness, No hernia, No mass, No audible bowel sounds, No abnormal bowel sounds, No abdominal bruits, No spleenomegaly, No other Extremities: No normal range of motion, No non-tender, No normal inspection, No pedal edema, No calf tenderness, No normal capillary refill, No pelvis stable, No calf tenderness, No inflammation, No pedal edema, No slow capillary refill, No swelling, No other, No abrasion, No clubbing, No cyanosis, No ecchymosis, No laceration, No no lower extremity edema bilateral, No significant edema, No tenderness, No wound Neurologic/Psychiatric: no motor/sensory deficits, alert, normal mood/affect, oriented x 3 Results/Procedures: Labs Laboratory Tests 09/30/18 06:13: White Blood Count 9.2, Red Blood Count 3.74L, Hemoglobin 11.2L, Hematocrit 33L, Mean Corpuscular Volume 89, Mean Corpuscular Hemoglobin 30, Mean Corpuscular Hemoglobin Concent 34, Red Cell Distribution Width 14.1, Platelet Count 223, Mean Platelet Volume 11.7H, Neutrophils (%) (Auto) 64, Lymphocytes (%) (Auto) 18 , Monocytes (%) (Auto) 13H, Eosinophils (%) (Auto) 4, Basophils (%) (Auto) 1, Neutrophils # (Auto) 5.9, Lymphocytes # (Auto) 1.7, Monocytes # (Auto) 1.2H, Eosinophils # (Auto) 0.3, Basophils # (Auto) 0.1, Sodium Level 130L, Potassium Level 3.9, Chloride Level 101, Carbon Dioxide Level 17L, Anion Gap 12, Blood Urea Nitrogen 51H, Creatinine 1.32H, Estimat Glomerular Filtration Rate 54, BUN/Creatinine Ratio 39, Glucose Level 222H, Calcium Level 8.7, Corrected Calcium 9.7, Total Bilirubin 0.5, Aspartate Amino Transf (AST/SGOT) 25, Alanine Aminotransferase (ALT/SGPT) 20, Alkaline Phosphatase 68, Total Protein 6.1L, Albumin 2.8L A/P: Assessment/Dx: Fall, confusion, on inpatient admission. Low-grade fever, leukocytosis, CAD, CABG, Ischemic cardiomyopathy, ICD, Paroxysmal atrial fibrillation, Anemia, Lactic acidosis, Hyponatremia, Elevated BUN Plan: Fall, confusion, defer to the primary team. Low-grade fever, leukocytosis, defer to the primary team. CAD, CABG, continue aspirin, statin. Ischemic cardiomyopathy, Elevated BNP. Continue lasix. ICD, no acute issues. Paroxysmal atrial fibrillation, controlled ventricular rate, continue sotalol, cardizem and xarelto. Sotalol and Cardizem were held since systolic blood pressure was 99 mmHg this morning. Will restart as soon as a systolic blood pressure is over 110 mmHg. Anemia, unclear etiology. Lactic acidosis, defer to primary team. sepsis needs to be ruled out. Hyponatremia, likely secondary to diuretics. Elevated BUN, ?dehydration. Thank you for your consultation. Please call me if you have any questions. Manule Lawson MD, FACP, FACC, FSCAI, FHRS, CCDS Interventional Cardiology Cardiac Electrophysiology Vascular Medicine and Endovascular Interventions Royal LAWSON MD Sep 30, 2018 10:43
--- NOTE | 2018-09-30 11:15 | Progress Note - Urology ---
Progress Note-Urology Progress Notes/Assess & Plan Progress/Assessment & Plan NO COMPLAINTS. URINE CLEAR Final Diagnosis URINE RETENTION NELSY TAPIA MD Sep 30, 2018 11:14
--- NOTE | 2018-09-30 12:02 | Physical Therapy Daily Note ---
PT Daily Note-Current Subjective Pt. asleep in recliner, his asleep in his hospital bed. Pt. awakens slowly with verbal stimuli. Agrees to Rx, States he is having excrutiating pain with urination and demonstrates this frequently during Rx, Pain Numeric Pain Scale: 7 Location: Lower Location Body Site: Genital Pain Description: Stabbing Appearance pt. with facial pain scale anthony ugarte 7/10 Mental Status Patient Orientation: Normal For Age Attachments: Ambrocio Catheter, IV Transfers Therapy Code Descriptions/Definitions Functional [place] Measure: 0=Not Assessed/NA 4=Minimal Assistance 1=Total Assistance 5=Supervision or Setup 2=Maximal Assistance 6=Modified [place] 3=Moderate Assistance 7=Complete [place] Therapy Quality Codes: 6 Independent with activity with or without an assistive device 5 Patient requires set up or clean up by helper. Patient completes activity by themselves 4 Supervision or touching assist (CGA). [place] provide cues , steadying assist 3 The helper provides less than half the effort to complete the activity 2 The helper provides more than half the effort to complete the activity 1 Dependent. The helper does all the effort to complete an activity 7 Patient refused to complete or attempt activity 9 The patient did not perform the activity before the current illness or injury 88 Not attempted due to Medical conditions or safety concerns Transfers (B, C, W/C) (FIM): 5 Scootin Rollin Supine to/from Sit: 5 Sit to/from Stand: 5 Gait Training Does the Patient Walk?: Yes Gait (FIM): 5 Distance (FIM): 3=150 ft (165x2) Gait Level of Assist: 5 Gait Persons Needed: 1 Gait Assistive Device: FWW assist for IV only, slow gait flexed over FWW, likely heavy wt bearing on UEs, Exercises Supine Ex: Ankle pumps, Rolling, Heel Slides, Scooting, Hip abd/add Supine Reps: 15 Seated Therapy Exercises: Ankle pumps, Sit to stand, Long arc quads, Hip flexion Seated Reps: 15 Assessment Current Status: Good Progress burning urethral pain limits participation this date, slow with several rests secondary to pain PT Short Term Goals Short Term Goals Time Frame: Oct 06, 2018 Transfers (B,C,W/C) (FIM): 5 Gait (FIM): 4 Distance (FIM): 3=150 ft Gait Level of Assist: 4 Gait Assistive Device: FWW PT Senior Hris Analyst Goals Care Home Goals PT Care Home Goals Time Frame: Oct 20, 2018 Transfers (B,C,W/C) (FIM): 6 Sit to Lying (QC): 6 Lying-Sitting on Side/Bed(QC): 6 Sit to Stand (QC): 6 Rollin Roll Left to Right (QC): 6 Chair/Nwg-cu-Czdbu Xfer(QC): 6 Car Transfer (QC): 5 Does the Patient Walk: Yes Gait (FIM): 6 Gait distance (FIM): 3=150 ft Walk 10 feet (QC): 6 Walk 10ft-Uneven Surface(QC): 6 Walk 50ft with 2 Turns (QC): 6 Walk 150 ft (QC): 6 Gait Assistive Device: FWW Does the Pt use WC or Scooter?: No Stairs (FIM): 5 # of Steps: 4 1 Step (curb) (QC): 6 4 Steps (QC): 6 12 Steps (QC): 88 Picking up an Object (QC): 88 PT Plan Treatment/Plan Treatment Plan: Continue Plan of Care Treatment Plan: Bed Mobility, Education, Functional Activity Dale, Functional Strength, Group Therapy, Gait, Safety, Therapeutic Exercise, Transfers Treatment Duration: Oct 20, 2018 Frequency: At least 5 of 7 days/Wk (IRF) Estimated Hrs Per Day: 1.5 hours per day Patient and/or Family Agrees t: Yes Safety Risks/Education Patient Education: Gait Training, Transfer Techniques, Correct Positioning, Disease Process, Safety Issues Teaching Recipient: Patient Teaching Methods: Demonstration, Discussion Response to Teaching: Verbalize Understanding, Return Demonstration, Reinforcement Needed Time/GCodes Time In: 1100 Time Out: 1200 Total Billed Treatment Time: 60 Total Billed Treatment 1,EX20m,GT25m,FA15m G Codes Necessary: GUTIERREZ Fleming NUB CARD TENDER Sep 30, 2018 12:02
--- NOTE | 2018-09-30 12:57 | Occupational Ther Daily Note ---
OT Current Status-Daily Note Subjective Pt in bed, agrees to treatment. Pt reports pain with urination. Mental Status/Objective Therapy Code Descriptions/Definitions Functional [place] Measure: 0=Not Assessed/NA 4=Minimal Assistance 1=Total Assistance 5=Supervision or Setup 2=Maximal Assistance 6=Modified [place] 3=Moderate Assistance 7=Complete [place] ADL-Treatment Pt declined bathing today, states he has already changed clothes with assist from spouse. Pt requests to complete grooming. Supine to sit with minimal assistance. Pt completed grooming tasks seated at EOB. Pt brushed teeth with set up. Declined other ADLs at this time. Therapy Code Descriptions/Definitions Functional [place] Measure: 0=Not Assessed/NA 4=Minimal Assistance 1=Total Assistance 5=Supervision or Setup 2=Maximal Assistance 6=Modified [place] 3=Moderate Assistance 7=Complete [place] Therapy Quality Codes: 6 Independent with activity with or without an assistive device 5 Patient requires set up or clean up by helper. Patient completes activity by themselves 4 Supervision or touching assist (CGA). [place] provide cues , steadying assist 3 The helper provides less than half the effort to complete the activity 2 The helper provides more than half the effort to complete the activity 1 Dependent. The helper does all the effort to complete an activity 7 Patient refused to complete or attempt activity 9 The patient did not perform the activity before the current illness or injury 88 Not attempted due to Medical conditions or safety concerns Grooming (FIM): 5 Other Treatment Sit to stand with minimal assistance. Gait to therapy gym with FWW, slow pace. One seated rest break secondary to fatigue. Pt completed arm bike x10 minutes to increase overall strength and activity tolerance needed for functional tasks. Pt completed activity with minimal resistance and slow pace. No rest breaks needed. Bilateral UE exercises completed to increase strength for ADLs and transfers. Pt performed four exercises x10 reps with red theraband. Rest breaks taken between exercises. Skilled cues for proper exercise technique. Pt returned to room with FWW. Needed one rest break. Transfer to chair with CGA. Pt sitting in chair with needs met and spouse present after session. OT Short Term Goals Short Term Goals Time Frame: Oct 06, 2018 Eating(FIM): 5 Grooming(FIM): 5 Bathing(FIM): 4 Upper Body Dressing(FIM): 5 Lower Body Dressing(FIM): 4 Toileting(FIM): 4 Transfers (B,C,W/C) (FIM): 5 Toilet/Commode Transfer(FIM): 5 Shower Transfer(FIM): 5 Additional Short Term Goals: 1-Demonstrate ADL Tasks, 2-Verbalize Understanding, 3-ImproveStrength/Dale 1=Demonstrate adherence to instructed precautions during ADL tasks. 2=Patient will verbalize/demonstrate understanding of assistive devices/modifications for ADL. 3=Patient will improve strength/tolerance for activity to enable patient to perform ADL's. OT Supervisory Aide Goals Supervisory Aide Goals Time Frame: Oct 20, 2018 Eating (FIM): 6 Eating (QC): 6 Groomin Oral Hygiene (QC): 6 Bathing(FIM): 5 Shower/Bathe Self (QC): 4 Upper Body Dressing(FIM): 5 Upper Body Dressing (QC): 5 Lower Body Dressing(FIM): 5 Lower Body Dressing (QC): 4 Toileting(FIM): 5 Toileting Hygiene (QC): 4 Transfers (B,C,W/C) (FIM): 6 Toilet/Commode Transfer(FIM): 6 Toilet/Commode Transfer (QC): 6 Shower Transfer(FIM): 5 Additional Goals: 1-Demonstrate ADL Tasks, 2-Verbalize Understanding, 3- ImproveStrength/Dale 1=Demonstrate adherence to instructed precautions during ADL tasks. 2=Patient will verbalize/demonstrate understanding of assistive devices /modifications for ADL. 3=Patient will improve strength/tolerance for activity to enable patient to perform ADL's. OT Education/Plan Discharge Recommendations Plan/Recommendations: Continue POC Treatment Plan/Plan of Care Patient would benefit from OT for education, treatment and training to promote independence in ADL's, mobility, safety and/or upper extremity function for ADL's. Plan of Care: ADL Retraining, Functional Mobility, Group Exercise/Act as Ind, UE Funct Exercise/Act Treatment Duration: Oct 20, 2018 Frequency: At least 5 of 7 days/Wk (IRF) Estimated Hrs Per Day: 1.5 hours per day Agreement: Yes Rehab Potential: Fair Time/GCodes Start Time: 09:30 Stop Time: 10:30 Total Time Billed (hr/min): 60 Billed Treatment Time 1 visit, ADL(15minutes), EX(25minutes), FA(20minutes) CHERYL MONTALVO OT Sep 30, 2018 12:57
[2018-09-30] MEDS ORDERED: PHENAZOPYRIDINE 100 MG (PYRIDIUM) TABLET PO PRN (13:00)
--- NOTE | 2018-09-30 13:32 | Occupational Ther Daily Note ---
OT Current Status-Daily Note Subjective Pt sitting in chair, agrees to therapy. States he's not really having any pain at this time. Mental Status/Objective Therapy Code Descriptions/Definitions Functional [place] Measure: 0=Not Assessed/NA 4=Minimal Assistance 1=Total Assistance 5=Supervision or Setup 2=Maximal Assistance 6=Modified [place] 3=Moderate Assistance 7=Complete [place] ADL-Treatment Therapy Code Descriptions/Definitions Functional [place] Measure: 0=Not Assessed/NA 4=Minimal Assistance 1=Total Assistance 5=Supervision or Setup 2=Maximal Assistance 6=Modified [place] 3=Moderate Assistance 7=Complete [place] Therapy Quality Codes: 6 Independent with activity with or without an assistive device 5 Patient requires set up or clean up by helper. Patient completes activity by themselves 4 Supervision or touching assist (CGA). [place] provide cues , steadying assist 3 The helper provides less than half the effort to complete the activity 2 The helper provides more than half the effort to complete the activity 1 Dependent. The helper does all the effort to complete an activity 7 Patient refused to complete or attempt activity 9 The patient did not perform the activity before the current illness or injury 88 Not attempted due to Medical conditions or safety concerns Other Treatment Pt completed bilateral UE exercises to increase strength for ADLs and transfers. Pt performed shoulder flexion, forward press, biceps curls, and wrist flex/ext x10 reps with 2# dowel bassem. Rest breaks between exercises. Cues for proper exercise technique. Bilateral hand biomedical engineering technologist exercises x20 reps with moderate resistance therapy foam. Pt sitting in chair with needs met after session, spouse present. OT Short Term Goals Short Term Goals Time Frame: Oct 06, 2018 Eating(FIM): 5 Grooming(FIM): 5 Bathing(FIM): 4 Upper Body Dressing(FIM): 5 Lower Body Dressing(FIM): 4 Toileting(FIM): 4 Transfers (B,C,W/C) (FIM): 5 Toilet/Commode Transfer(FIM): 5 Shower Transfer(FIM): 5 Additional Short Term Goals: 1-Demonstrate ADL Tasks, 2-Verbalize Understanding, 3-ImproveStrength/Dale 1=Demonstrate adherence to instructed precautions during ADL tasks. 2=Patient will verbalize/demonstrate understanding of assistive de vices/modifications for ADL. 3=Patient will improve strength/tolerance for activity to enable patient to perform ADL's. OT Senior Living Goals Senior Living Goals Time Frame: Oct 20, 2018 Eating (FIM): 6 Eating (QC): 6 Groomin Oral Hygiene (QC): 6 Bathing(FIM): 5 Shower/Bathe Self (QC): 4 Upper Body Dressing(FIM): 5 Upper Body Dressing (QC): 5 Lower Body Dressing(FIM): 5 Lower Body Dressing (QC): 4 Toileting(FIM): 5 Toileting Hygiene (QC): 4 Transfers (B,C,W/C) (FIM): 6 Toilet/Commode Transfer(FIM): 6 Toilet/Commode Transfer (QC): 6 Shower Transfer(FIM): 5 Additional Goals: 1-Demonstrate ADL Tasks, 2-Verbalize Understanding, 3- ImproveStrength/Dale 1=Demonstrate adherence to instructed precautions during ADL tasks. 2=Patient will verbalize/demonstrate understanding of assistive devices/modifications for ADL. 3=Patient will improve strength/tolerance for activity to enable patient to perform ADL's. OT Education/Plan Discharge Recommendations Plan/Recommendations: Continue POC Treatment Plan/Plan of Care Patient would benefit from OT for education, treatment and training to promote independence in ADL's, mobility, safety and/or upper extremity function for ADL's. Plan of Care: ADL Retraining, Functional Mobility, Group Exercise/Act as Ind, UE Funct Exercise/Act Treatment Duration: Oct 20, 2018 Frequency: At least 5 of 7 days/Wk (IRF) Estimated Hrs Per Day: 1.5 hours per day Agreement: Yes Rehab Potential: Fair Time/GCodes Start Time: 13:00 Stop Time: 13:15 Total Time Billed (hr/min): 15 Billed Treatment Time 1 visit, EX(15minutes) CHERYL MONATLVO OT Sep 30, 2018 13:32
--- NOTE | 2018-09-30 14:30 | Physical Therapy Daily Note ---
PT Daily Note-Current Subjective Pt. states he still has pain with urination and in urethra most of the time. Pt. wants to use BSC for BM and requests his pants be changed and notes that the pad in his chair is stained likely with BM Pain Numeric Pain Scale: 7 Location Body Site: Genital Pain Description: Stabbing, Burning Mental Status Patient Orientation: Person, Place, Time, Situation Attachments: IV Transfers Therapy Code Descriptions/Definitions Functional [place] Measure: 0=Not Assessed/NA 4=Minimal Assistance 1=Total Assistance 5=Supervision or Setup 2=Maximal Assistance 6=Modified [place] 3=Moderate Assistance 7=Complete [place] Therapy Quality Codes: 6 Independent with activity with or without an assistive device 5 Patient requires set up or clean up by helper. Patient completes activity by themselves 4 Supervision or touching assist (CGA). [place] provide cues , steadying assist 3 The helper provides less than half the effort to complete the activity 2 The helper provides more than half the effort to complete the activity 1 Dependent. The helper does all the effort to complete an activity 7 Patient refused to complete or attempt activity 9 The patient did not perform the activity before the current illness or injury 88 Not attempted due to Medical conditions or safety concerns sit to stands x 5 with emphasis on use of hands on arms of chair for safety Gait Training Gait Assistive Device: FWW 50 ft to BSC, FWW SBA Exercises Seated Therapy Exercises: Ankle pumps, Long arc quads, Hip flexion Seated Reps: 10 Treatments max assist to doff soiled pants and doff clean, pt on BSC for BM , call mckeon at hand Assessment Current Status: Fair Progress pain conts a limiting factor PT Short Term Goals Short Term Goals Time Frame: Oct 06, 2018 Transfers (B,C,W/C) (FIM): 5 Gait (FIM): 4 Distance (FIM): 3=150 ft Gait Level of Assist: 4 Gait Assistive Device: FWW PT Regular Senior Care Provider Goals Alf Goals PT Alf Goals Time Frame: Oct 20, 2018 Transfers (B,C,W/C) (FIM): 6 Sit to Lying (QC): 6 Lying-Sitting on Side/Bed(QC): 6 Sit to Stand (QC): 6 Rollin Roll Left to Right (QC): 6 Chair/[place] Xfer(QC): 6 Car Transfer (QC): 5 Does the Patient Walk: Yes Gait (FIM): 6 Gait distance (FIM): 3=150 ft Walk 10 feet (QC): 6 Walk 10ft-Uneven Surface(QC): 6 Walk 50ft with 2 Turns (QC): 6 Walk 150 ft (QC): 6 Gait Assistive Device: FWW Does the Pt use WC or Scooter?: No Stairs (FIM): 5 # of Steps: 4 1 Step (curb) (QC): 6 4 Steps (QC): 6 12 Steps (QC): 88 Picking up an Object (QC): 88 PT Plan Treatment/Plan Treatment Plan: Continue Plan of Care Treatment Plan: Bed Mobility, Education, Functional Activity Dale, Functional Strength, Group Therapy, Gait, Safety, Therapeutic Exercise, Transfers Treatment Duration: Oct 20, 2018 Frequency: At least 5 of 7 days/Wk (IRF) Estimated Hrs Per Day: 1.5 hours per day Patient and/or Family Agrees t: Yes Safety Risks/Education Patient Education: Gait Training, Transfer Techniques, Correct Positioning, Disease Process, Safety Issues Teaching Recipient: Patient Teaching Methods: Demonstration, Discussion Response to Teaching: Verbalize Understanding, Return Demonstration, Reinforcement Needed Time/GCodes Time In: 1405 Time Out: 1420 Total Billed Treatment Time: 15 Total Billed Treatment 1,FA15m G Codes Necessary: No GUTIERREZ RAIN DIRECTOR OF UNDERGRADUATE ADMISSIONS Sep 30, 2018 14:30
--- NOTE | 2018-09-30 16:40 | NUR ---
Verbal order from Dr. Villeda to hold Xeralto for this evening due to joseph blood and blood clots in the urine.
[2018-09-30] MEDS: RIVAROXABAN 20 MG TABLET (XARELTO) PO SCH (16:53)
--- NOTE | 2018-09-30 16:56 | NUR ---
DRY WALL INSTALLER met with patient and spouse to review team conference summary. As patient just recently admitted, requires standby assist for transfers and gait and mod assist for lower body ADLs, team has recommended patient be reevaluated at next team conference on 710. Patient spouse are agreeable to this. Patient and spouse expressed no further questions or concerns at this time. DRY WALL INSTALLER will continue to follow
[2018-09-30 17:44] VITALS: BP 103/68
[2018-09-30] MEDS: TRIM/SULFAMETH 160/800 (SEPTRA DS) TAB PO SCH (18:23)
[2018-09-30] MEDS: TAMSULOSIN 0.4 MG (FLOMAX) CAP PO SCH (18:23)
[2018-09-30 19:05] LABS: BILIRUBIN,URINE NEGATIVE (NEGATIVE); CLARITY,URINE VERY CLOUDY; COLOR,URINE AMBER; GLUCOSE, URINE (UA) NEGATIVE (NEGATIVE); KETONES,URINE NEGATIVE (NEGATIVE); LEUKOCYTE ESTERASE ,URINE 3+ (NEGATIVE); NITRITE,URINE NEGATIVE (NEGATIVE); PH,URINE 5 (5-9); PROTEIN,URINE 3+ (NEGATIVE); UROBILINOGEN,URINE 4 MG/DL (NORMAL)
[2018-09-30 19:12] LABS: WBC,URINE TNTC /HPF
[2018-09-30 19:14] LABS: BACTERIA,URINE LARGE /HPF; RBC,URINE 50-100 /HPF
[2018-09-30 19:17] LABS: YEAST,URINE LARGE /HPF
[2018-09-30] MEDS: ATORVASTATIN 10 MG (LIPITOR) TABLET PO SCH (20:49)
[2018-09-30] MEDS: MIRTAZAPINE 15 MG (REMERON) TAB PO SCH (20:50)
[2018-09-30] MEDS: DONEPEZIL 5 MG (ARICEPT) TAB PO SCH (20:50)
--- NOTE | 2018-09-30 23:45 | NUR ---
Both HL's infiltrated. Attempted to restart IV by Neena, Nursing space control supervisor w/o success. Neena states Mindy, Nursing Envelope Machine Adjuster will attempt. Cont to monitor.
--- NOTE | 2018-10-01 01:48 | NUR ---
Dr. Degroot notified of unsuccessful attempts to restart IV and that pt only received half of IV Vanco scheduled at 2100 before IV infiltrated. Orders received to hold Vanco for now and she will address IV options in am.
[2018-10-01 05:16] VITALS: BP 161/75
[2018-10-01] MEDS: TRIM/SULFAMETH 160/800 (SEPTRA DS) TAB PO SCH ×2 (06:14→17:03)
--- NOTE | 2018-10-01 06:42 | NUR ---
Order received for anesthesia to start IV. Order entered and Nursing Fishing Vessel Mate notified.
[2018-10-01] MEDS ORDERED: TROUGH ORDER-PHARMACY XX NR ×2 (08:00→20:00)
--- NOTE | 2018-10-01 09:27 | Occupational Ther Daily Note ---
OT Current Status-Daily Note Subjective Pt seen in room, up in recliner, agreeable to OT. Pt groaned periodically from pain he reported in his groin but did not rate or describe it. Appearance Alert, cooperative Mental Status/Objective Therapy Code Descriptions/Definitions Functional [place] Measure: 0=Not Assessed/NA 4=Minimal Assistance 1=Total Assistance 5=Supervision or Setup 2=Maximal Assistance 6=Modified [place] 3=Moderate Assistance 7=Complete [place] Attachments: Ambrocio Catheter ADL-Treatment Pt and reported that he is able to feed himself but his occasionally helps with setup. He needed min assist to get up from recliner and walked slowly with CGA to bathroom. Pt educ shower transfer technique, with a little assist. Shower bench, grab bars, hand held shower. Pt washed and dried all parts except his back, using a long handled sponge which he uses at home, setup, supervision. Sit to stand during shower with SBA and CGA for steadying when pt washing bottom. Occasional cues for what to do next. He donned shirt with setup and min assist with pants, with help threading Ambrocio through pants leg and placing R foot into pants. He stood CGA to pull pants up, FWW. Pt unable to doff/don slipper socks. Walked CGA, FWW to recliner, with cues for hand placement for sitting. Pt left up in recliner, all needs met. Therapy Code Descriptions/Definitions Functional [place] Measure: 0=Not Assessed/NA 4=Minimal Assistance 1=Total Assistance 5=Supervision or Setup 2=Maximal Assistance 6=Modified [place] 3=Moderate Assistance 7=Complete [place] Therapy Quality Codes: 6 Independent with activity with or without an assistive device 5 Patient requires set up or clean up by helper. Patient completes activity by themselves 4 Supervision or touching assist (CGA). [place] provide cues , steadying assist 3 The helper provides less than half the effort to complete the activity 2 The helper provides more than half the effort to complete the activity 1 Dependent. The helper does all the effort to complete an activity 7 Patient refused to complete or attempt activity 9 The patient did not perform the activity before the current illness or injury 88 Not attempted due to Medical conditions or safety concerns Eating (FIM): 5 Eating (QC): 5 Bathing (FIM): 4 (Washed and dried all parts, CGA for sanding. Long handled sponge, shower bench, grab bars, hand held shower) Upper Body (FIM): 5 (setup) Lower Body Dressing (FIM): 3 (Help with Ambrocio, getting pants on over R foot, socks and shoes) Transfers (B, C, W/C) (FIM): 4 Shower Transfer(FIM): 4 (Min assist) Education OT Patient Education: Modified ADL techniques, Progress toward Goal/Update tx plan, Purpose of tx/functional activities, Transfer techniques Teaching Recipient: Patient Teaching Methods: Discussion Response to Teaching: Verbalize Understanding, Return Demonstration, Reinforcement Needed OT Short Term Goals Short Term Goals Time Frame: Oct 06, 2018 Eating(FIM): 5 Grooming(FIM): 5 Bathing(FIM): 4 Upper Body Dressing(FIM): 5 Lower Body Dressing(FIM): 4 Toileting(FIM): 4 Transfers (B,C,W/C) (FIM): 5 Toilet/Commode Transfer(FIM): 5 Shower Transfer(FIM): 5 Additional Short Term Goals: 1-Demonstrate ADL Tasks, 2-Verbalize Understanding, 3-ImproveStrength/Dale 1=Demonstrate adherence to instructed precautions during ADL tasks. 2=Patient will verbalize/demonstrate understanding of assistive devices/modifications for ADL. 3=Patient will improve strength/tolerance for activity to enable patient to perform ADL's. OT Yard Associate Goals Yard Associate Goals Time Frame: Oct 20, 2018 Eating (FIM): 6 Eating (QC): 6 Groomin Oral Hygiene (QC): 6 Bathing(FIM): 5 Shower/Bathe Self (QC): 4 Upper Body Dressing(FIM): 5 Upper Body Dressing (QC): 5 Lower Body Dressing(FIM): 5 Lower Body Dressing (QC): 4 Toileting(FIM): 5 Toileting Hygiene (QC): 4 Transfers (B,C,W/C) (FIM): 6 Toilet/Commode Transfer(FIM): 6 Toilet/Commode Transfer (QC): 6 Shower Transfer(FIM): 5 Additional Goals: 1-Demonstrate ADL Tasks, 2-Verbalize Understanding, 3- ImproveStrength/Dale 1=Demonstrate adherence to instructed precautions during ADL tasks. 2=Patient will verbalize/demonstrate understanding of assistive devices/modifications for ADL. 3=Patient will improve strength/tolerance for activity to enable patient to perform ADL's. OT Education/Plan Discharge Recommendations Plan/Recommendations: Continue POC Treatment Plan/Plan of Care Patient would benefit from OT for education, treatment and training to promote independence in ADL's, mobility, safety and/or upper extremity function for ADL's. Plan of Care: ADL Retraining, Functional Mobility, Group Exercise/Act as Ind, UE Funct Exercise/Act Treatment Duration: Oct 20, 2018 Frequency: At least 5 of 7 days/Wk (IRF) Estimated Hrs Per Day: 1.5 hours per day Agreement: Yes Rehab Potential: Fair Time/GCodes Start Time: 08:30 Stop Time: 09:20 Total Time Billed (hr/min): 50 Billed Treatment Time visit, 50 minutes ADL MERLENE RAYA OT Oct 01, 2018 09:27
--- NOTE | 2018-10-01 09:35 | Progress Note - Urology ---
Progress Note-Urology Progress Notes/Assess & Plan Progress/Assessment & Plan STARTED SOME GROSS HEMATURIA AND SOME CLOTS YESTERDAY. UA AND UC OBTAINED AND STARTED ON BACTRIM DS. CYSTOSCOPY TOMORROW, FULLY EXPLAINED TO PATIENT AND Final Diagnosis URINE RETENTION AND GROSS HEMATURIA NELSY TAPIA MD Oct 01, 2018 09:35
--- NOTE | 2018-10-01 09:35 | NUR ---
Dr. Jack here to see patient. Orders for Cystoscopy in AM- bedside, no NPO, local. Leave Ambrocio catheter in. Consent signed and placed in chart.
--- NOTE | 2018-10-01 09:38 | NUR ---
Anesthesia here to start IV.
[2018-10-01] MEDS: ALLOPURINOL 300 MG (ZYLOPRIM) TAB PO SCH (09:53)
[2018-10-01] MEDS: ASPIRIN E.C. 81 MG (ECOTRIN) TAB PO SCH (09:53)
[2018-10-01] MEDS: FINASTERIDE (PROSCAR) 5 MG TAB PO SCH (09:53)
[2018-10-01] MEDS: FAMOTIDINE 20 MG (PEPCID) TABLET PO SCH ×2 (09:53→19:55)
[2018-10-01] MEDS: MICONAZOLE 2% POWDER (DESENEX AF) 90 GM TOP SCH ×2 (09:54→19:56)
[2018-10-01] MEDS: MICONAZOLE NITRATE 2% CRM 30 GM TP SCH ×2 (09:55→19:56)
[2018-10-01] MEDS: SPIRONOLACTONE 25 MG (ALDACTONE) TAB PO SCH (10:14)
[2018-10-01 10:15] VITALS: BP 108/71
[2018-10-01] MEDS: DILTIAZEM 240 MG (CARDIZEM CD) CAP PO SCH (10:15)
[2018-10-01] MEDS: LOSARTAN 50 MG (COZAAR) TAB PO SCH (10:15)
[2018-10-01] MEDS: FUROSEMIDE 40 MG (LASIX) TAB PO SCH (10:15)
--- NOTE | 2018-10-01 10:15 | NUR ---
BP 108/71, P 84. Dr. Villeda notified. Orders to give Betapace and hold Lasix, Aldactone, Cardizem, and Cozaar. Addendum: 10/01/18 at 1018 by BREN LIN RN Orders to hold Betapace as well.
[2018-10-01] MEDS: SOTALOL 80 MG (BETAPACE) TAB PO SCH ×2 (10:18→17:03)
--- NOTE | 2018-10-01 10:24 | Speech Therapy Daily Note ---
Speech Daily Progress Note Subjective Date Seen by Provider: Oct 01, 2018 Time Seen by Provider: 00:30 The patient was sitting up in his chair waiting on an IV to be placed when I entered his room. Objective The patient completed memory tasks at 70% with moderate verbal cues. Assessment Assessment Current Status: Fair Progress Treatment Plan Continue Plan of Care Communication Comprehension: 3 Expression: 4 Social Cognition Social Interaction: 5 Problem Solvin Memory: 2 Speech Short Term Goals Short Term Goals Short Term Goals 1) The patient will complete memory tasks with 80% or greater given minimal cues. 2) The patient will complete problem solving tasks with 80% or greater given minimal cues. 3) The patient will complete safety awareness tasks with 80% or greater given minimal cues. Speech Assisted Goals Construction Specialist Goals The patient will improve cognitive skills in order to return safely to his home. Speech-Plan Patient/Family Goals Patient/Family Goals: The patient plans on returning home with his post rehab. Treatment Plan Speech Therapy Treatment Plan: Continue Plan of Care The patient is showing mild progress with ST at this time. Treatment Duration: Oct 16, 2018 Frequency: 5 times per week Estimated Hrs Per Day: .5 hour per day Rehab Potential: Fair Barriers to Learning: Moderate cognitive deficit. Pt/Family Agrees to Plan: Yes Safety Risks/Education Teaching Recipient: Patient, Significant Other Teaching Methods: Demonstration, Discussion Response to Teaching: Verbalize Understanding, Return Demonstration Education Topics Provided: Continued safety within his room. Time Speech Therapy Time In: 09:45 Speech Therapy Time Out: 10:15 Total Billed Time: 30 Billed Treatment Time 1, JUDY Chavez Oct 01, 2018 10:24
[2018-10-01] MEDS: fluCOnazole (DIFLUCAN) 100 MG TAB PO SCH (10:45)
--- NOTE | 2018-10-01 11:58 | PM&R Progress Note ---
Subjective HPI/CC On Admission Date Seen by Provider: Oct 01, 2018 Time Seen by Provider: 10:00 Chief Complaint: Severe debility with encephalopathy. HPI: This is a 68yoWM who was just transferred from [facility] floor from [facility] due to confusion, UTI, and fever. Dr. Lawson was consulted for atrial fibrillation. He was just discharged previous Friday when his defibrillator discharged and he was evaluated found to be stable and was discharged home but he began feeling badly shortly after arriving home and returned back with confusion, recurrent UTI, and upper respiratory cough. He was found to have low grade fever he was placed on Rocephin and Vancomycin empirically and also based on cultures before and was deemed stable to be transferred to in patient rehab to work on cognition after slums score initiated and will likely benefit from Aricept in addition he will undergo intensive rehab to further strengthen in order to go home and be successful and returning to his to live independently with close f/u by PCP along with Urology and Cardiology. Prior level of functioning was fairly independent with ADL's and ambulation. Subjective/Events-last exam He is noted on urine culture so we'll start Diflucan Lost IV so will start midline tomorrow line vancomycin level is high anyway at 22.7 so we'll continue to hold Anesthesia to attempt to start IV Very poor vascular access may need a [place] port in the future Accu-Cheks twice a day with sliding scale insulin regimen a Cystoscopy is planned for tomorrow per urology Conferred with ice hockey coach therapy notes at bedside Bowels are moving Slept pretty well Review of Systems General: Fatigue Neurological: Confusion Objective Exam Vital Signs Vital Signs Date Time Temp Pulse Resp B/P (MAP) Pulse Ox O2 Delivery O2 Flow Rate FiO2 10/01/18 12:54 94 10/01/18 09:00 Room Air 10/01/18 05:16 97.0 18 161/75 (103) 97 Capillary Refill : General Appearance: No Apparent Distress, WD/WN, Chronically ill HEENT: PERRL/EOMI, Normal ENT Inspection, Pharynx Normal, Moist Mucous Membranes Neck: Full Range of Motion, Normal Inspection, Non Tender, Supple Respiratory: Chest Non Tender, Lungs Clear, Normal Breath Sounds, No Accessory Muscle Use, No Respiratory Distress Cardiovascular: Regular Rate, Rhythm, No Edema, No Gallop, No JVD, No Murmur Gastrointestinal: Normal Bowel Sounds, No Organomegaly, No Pulsatile Mass, Non Tender, Soft Back: Normal Inspection, No CVA Tenderness, No Vertebral Tenderness Extremity: Normal Capillary Refill, Normal Inspection, Normal Range of Motion, Non Tender, No Calf Tenderness, No Pedal Edema Neurologic/Psychiatric: Alert, Oriented x3, No Motor/Sensory Deficits, Normal 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 FIM Transfers Therapy Code Descriptions/Definitions Functional [place] Measure: 0=Not Assessed/NA 4=Minimal Assistance 1=Total Assistance 5=Supervision or Setup 2=Maximal Assistance 6=Modified [place] 3=Moderate Assistance 7=Complete [place] Therapy Quality Codes: 6 Independent with activity with or without an assistive device 5 Patient requires set up or clean up by helper. Patient completes activity by themselves 4 Supervision or touching assist (CGA). [place] provide cues , steadying assist 3 The helper provides less than half the effort to complete the activity 2 The helper provides more than half the effort to complete the activity 1 Dependent. The helper does all the effort to complete an activity 7 Patient refused to complete or attempt activity 9 The patient did not perform the activity before the current illness or injury 88 Not attempted due to Medical conditions or safety concerns Transfers (B, C, W/C) (FIM): 4 Scootin Rollin Roll Left to Right (QC): 4 Supine to/from Sit: 5 Sit to/from Stand: 5 Sit to Lying (QC): 5 Sit to Stand (QC): 4 Chair/[id number]-[place] Xfer(QC): 4 Car Transfer (QC): 3 (assist with both legs) Gait Training Does the Patient Walk?: Yes Gait (FIM): 5 Distance (FIM): 3=150 ft (165x2) Distance: 150' x 2 Walk 10 feet (QC): 4 Walk 50 ft with 2 Turns(QC): 4 Walk 150 ft (QC): 4 Walking 10ft/uneven surface-QC: 4 Gait Level of Assist: 5 Gait Persons Needed: 1 Gait Assistive Device: FWW Wheelchair Training Does the Pt Use a Wheelchair?: No Stair Training Stairs (FIM): 1 #of Steps: 1 1 Step (curb) (QC): 4 4 Steps (QC): 88 12 Steps (QC): 88 Level of Assist: 4 Balance Picking up an Object (QC): 88 (unsafe to attempt and did not perform before. ) Mental Status/Objective Comprehension: 3 Expression: 4 Social Interaction: 5 Problem Solvin Memory: 2 ADL-Treatment Feedin Eating (QC): 5 Groomin Bathin (Washed and dried all parts, CGA for sanding. Long handled sponge, shower bench, grab bars, hand held shower) Shower/Bathe Self (QC): 3 Upper Extremity Dressin (setup) Upper Body Dressing (QC): 4 Lower Extremity Dressin (Help with Ambrocio, getting pants on over R foot, socks and shoes) Lower Body Dressing (QC): 2 On/Off Footwear (QC): 2 Toiletin Toileting Hygiene (QC): 1 Toilet/Commode Transfer: 4 Toilet Transfer (QC): 4 Shower: 4 (Min assist) Assessment/Plan Assessment and Plan Assess & Plan/Chief Complaint Assessment: Encephalopathy acute on chronic New diagnosis of dementia 12/28 SLUMS done yesterday starting Aricept 5mg CAD AF Pacemaker UTI Cough Cardiomyopathy Confusion Plan: Aricept IRF protocols Abx and review cultures Bowel regimen Consult Dr Jack and Dr Lawson Ambrocio cath with cysto tomorrow Midline (1) Encephalopathy (2) Unable to ambulate (3) Transient alteration of awareness (4) DVT prophylaxis (5) Coronary artery disease (6) Atrial fibrillation (7) Diabetes mellitus (8) Hyponatremia (9) UTI (urinary tract infection) (10) Cardiomyopathy (11) Cardiac defibrillator in place (12) Acute on chronic systolic (congestive) heart failure (13) MICHELLE on CPAP ROSEMARY CURRIE DO Oct 01, 2018 11:57
--- NOTE | 2018-10-01 12:02 | Physical Therapy Daily Note ---
PT Daily Note-Current Subjective Pt. agrees to Rx. States he still has pain with urination . Pain Numeric Pain Scale: 6 Location: Soft Tissue Pain Description: Stabbing Comment: pain with urination Mental Status Patient Orientation: Person, Place, Time, Situation Attachments: Ambrocio Catheter Transfers Therapy Code Descriptions/Definitions Functional [place] Measure: 0=Not Assessed/NA 4=Minimal Assistance 1=Total Assistance 5=Supervision or Setup 2=Maximal Assistance 6=Modified [place] 3=Moderate Assistance 7=Complete [place] Therapy Quality Codes: 6 Independent with activity with or without an assistive device 5 Patient requires set up or clean up by helper. Patient completes activity by themselves 4 Supervision or touching assist (CGA). [place] provide cues , steadying assist 3 The helper provides less than half the effort to complete the activity 2 The helper provides more than half the effort to complete the activity 1 Dependent. The helper does all the effort to complete an activity 7 Patient refused to complete or attempt activity 9 The patient did not perform the activity before the current illness or injury 88 Not attempted due to Medical conditions or safety concerns Transfers (B, C, W/C) (FIM): 5 Scootin Rollin Supine to/from Sit: 5 Sit to/from Stand: 6 needs some cuing and instruction for sup to side to sit Gait Training Does the Patient Walk?: Yes Gait (FIM): 3 Distance (FIM): 3=150 ft (150x2, 75) Gait Level of Assist: 5 Gait Persons Needed: 1 Gait Assistive Device: FWW flexed at trunk, slow gait, heavy wt bearing on FWW Exercises Supine Ex: Bridging, Ankle pumps, Quad Set, Rolling, Glut sets, Heel Slides, Short Arc Quads, Scooting, Straight leg raise, Hip abd/add Supine Reps: 15 Seated Therapy Exercises: Ankle pumps, Sit to stand, Hip flexion Seated Reps: 15 NuStep Minutes: 12 NuStep Workload: 3 Assessment Current Status: Good Progress when pat. urinates he has exquisite pain and has to stop all he is doing til pain and urine pass. large clots noted in urine in cath tubing PT Short Term Goals Short Term Goals Time Frame: Oct 06, 2018 Transfers (B,C,W/C) (FIM): 5 Gait (FIM): 4 Distance (FIM): 3=150 ft Gait Level of Assist: 4 Gait Assistive Device: FWW PT Rn Or Lpn Goals Rn Or Lpn Goals PT Alf Goals Time Frame: Oct 20, 2018 Transfers (B,C,W/C) (FIM): 6 Sit to Lying (QC): 6 Lying-Sitting on Side/Bed(QC): 6 Sit to Stand (QC): 6 Rollin Roll Left to Right (QC): 6 Chair/Pjq-bf-Hxdgq Xfer(QC): 6 Car Transfer (QC): 5 Does the Patient Walk: Yes Gait (FIM): 6 Gait distance (FIM): 3=150 ft Walk 10 feet (QC): 6 Walk 10ft-Uneven Surface(QC): 6 Walk 50ft with 2 Turns (QC): 6 Walk 150 ft (QC): 6 Gait Assistive Device: FWW Does the Pt use WC or Scooter?: No Stairs (FIM): 5 # of Steps: 4 1 Step (curb) (QC): 6 4 Steps (QC): 6 12 Steps (QC): 88 Picking up an Object (QC): 88 PT Plan Treatment/Plan Treatment Plan: Continue Plan of Care Treatment Plan: Bed Mobility, Education, Functional Activity [place], Functional Strength, Group Therapy, Gait, Safety, Therapeutic Exercise, Transfers Treatment Duration: Oct 20, 2018 Frequency: At least 5 of 7 days/Wk (IRF) Estimated Hrs Per Day: 1.5 hours per day Patient and/or Family Agrees t: Yes Safety Risks/Education Patient Education: Gait Training, Transfer Techniques, Correct Positioning, Disease Process, Safety Issues Teaching Recipient: Patient Teaching Methods: Demonstration, Discussion Response to Teaching: Verbalize Understanding, Return Demonstration, Reinforcement Needed Time/GCodes Time In: 1100 Time Out: 1200 Total Billed Treatment Time: 60 Total Billed Treatment 1,EX25m,FA15m,GT20m G Codes Necessary: GUTIERREZ Fleming CUTTING AND BONING SUPERVISOR Oct 01, 2018 12:02
[2018-10-01] MEDS ORDERED: LIDOCAINE 1% INJ 20 ML 20 ML VIAL ONE (12:44)
--- NOTE | 2018-10-01 14:00 | NUR ---
Anesthesia unable to start IV. Dr. Degroot notified. New order for midline first thing tomorrow, 10/02/18, AM.
--- NOTE | 2018-10-01 14:27 | Occupational Ther Daily Note ---
OT Current Status-Daily Note Subjective pt sitting in [place] gym upon OT arrival. pt transitioned from PT services to OT services. pt reports no pain at this time. p agreed to OT [place] session with focus on increasing activity tolerance for daily activities. Mental Status/Objective Therapy Code Descriptions/Definitions Functional [place] Measure: 0=Not Assessed/NA 4=Minimal Assistance 1=Total Assistance 5=Supervision or Setup 2=Maximal Assistance 6=Modified [place] 3=Moderate Assistance 7=Complete [place] ADL-Treatment Therapy Code Descriptions/Definitions Functional [place] Measure: 0=Not Assessed/NA 4=Minimal Assistance 1=Total Assistance 5=Supervision or Setup 2=Maximal Assistance 6=Modified [place] 3=Moderate Assistance 7=Complete [place] Therapy Quality Codes: 6 Independent with activity with or without an assistive device 5 Patient requires set up or clean up by helper. Patient completes activity by themselves 4 Supervision or touching assist (CGA). [place] provide cues , steadying assist 3 The helper provides less than half the effort to complete the activity 2 The helper provides more than half the effort to complete the activity 1 Dependent. The helper does all the effort to complete an activity 7 Patient refused to complete or attempt activity 9 The patient did not perform the activity before the current illness or injury 88 Not attempted due to Medical conditions or safety concerns Other Treatment pt perform UBE forward with MIN resistance for 10 minutes and no rest break. pt education on use of field sales specialist to increase independence when dropping items on f nettie. pt demo ability to pickler helper 9 items from floor with use of reach and skilled cuing while seated. pt then ambulated back to room with CGA for safety/ balance using RW. 80ft. pt sitting in recliner chair, call light within reach, all needs met. Education OT Patient Education: Progress toward Goal/Update tx plan, Purpose of tx/functional activities, Safety issues, Transfer techniques, Use of adapted equipment Teaching Recipient: Patient Teaching Methods: Demonstration, Discussion Response to Teaching: Verbalize Understanding, Return Demonstration OT Short Term Goals Short Term Goals Time Frame: Oct 06, 2018 Eating(FIM): 5 Grooming(FIM): 5 Bathing(FIM): 4 Upper Body Dressing(FIM): 5 Lower Body Dressing(FIM): 4 Toileting(FIM): 4 Transfers (B,C,W/C) (FIM): 5 Toilet/Commode Transfer(FIM): 5 Shower Transfer(FIM): 5 Additional Short Term Goals: 1-Demonstrate ADL Tasks, 2-Verbalize Understanding, 3-ImproveStrength/Dale 1=Demonstrate adherence to instructed precautions during ADL tasks. 2=Patient will verbalize/demonstrate understanding of assistive devices/modifications for ADL. 3=Patient will improve strength/tolerance for activity to enable patient to pe rform ADL's. OT Marine Animal Trainer Goals Marine Animal Trainer Goals Time Frame: Oct 20, 2018 Eating (FIM): 6 Eating (QC): 6 Groomin Oral Hygiene (QC): 6 Bathing(FIM): 5 Shower/Bathe Self (QC): 4 Upper Body Dressing(FIM): 5 Upper Body Dressing (QC): 5 Lower Body Dressing(FIM): 5 Lower Body Dressing (QC): 4 Toileting(FIM): 5 Toileting Hygiene (QC): 4 Transfers (B,C,W/C) (FIM): 6 Toilet/Commode Transfer(FIM): 6 Toilet/Commode Transfer (QC): 6 Shower Transfer(FIM): 5 Additional Goals: 1-Demonstrate ADL Tasks, 2-Verbalize Understanding, 3- ImproveStrength/Dale 1=Demonstrate adherence to instructed precautions during ADL tasks. 2=Patient will verbalize/demonstrate understanding of assistive devices/modifications for ADL. 3=Patient will improve strength/tolerance for activity to enable patient to perform ADL's. OT Education/Plan Problem List/Assessment Assessment: Decreased Activ Tolerance, Decreased Safety Aware, Decreased UE Strength, Impaired Funct Balance, Impaired I ADL's, Impaired Self-Care Skills Discharge Recommendations Plan/Recommendations: Continue POC Treatment Plan/Plan of Care Treatment,Training & Education: Yes Patient would benefit from OT for education, treatment and training to promote independence in ADL's, mobility, safety and/or upper extremity function for ADL's. Plan of Care: ADL Retraining, Functional Mobility, Group Exercise/Act as Ind, UE Funct Exercise/Act Treatment Duration: Oct 20, 2018 Frequency: At least 5 of 7 days/Wk (IRF) Estimated Hrs Per Day: 1.5 hours per day Agreement: Yes Rehab Potential: Fair Time/GCodes Start Time: 14:13 Stop Time: 14:40 Billed Treatment Time FA 27 minutes, 2 units ADRIENNE PAEZ OT Oct 01, 2018 14:27
--- NOTE | 2018-10-01 14:35 | Physical Therapy Daily Note ---
PT Daily Note-Current Subjective Pt agreeable to PT session. States he is a little tired but ok. Pain Comment: 0-10/10, sporatic pain when urinating, nsg and physician aware Appearance Pt sitting up in chair with at bedside upon arrival for PT visit. At end of session, pt sitting up in chair with OT. Mental Status Patient Orientation: Person, Place, Time, Eyes Open, Situation Attachments: Ambrocio Catheter Transfers Therapy Code Descriptions/Definitions Functional [place] Measure: 0=Not Assessed/NA 4=Minimal Assistance 1=Total Assistance 5=Supervision or Setup 2=Maximal Assistance 6=Modified [place] 3=Moderate Assistance 7=Complete [place] Therapy Quality Codes: 6 Independent with activity with or without an assistive device 5 Patient requires set up or clean up by helper. Patient completes activity by themselves 4 Supervision or touching assist (CGA). [place] provide cues , steadying assist 3 The helper provides less than half the effort to complete the activity 2 The helper provides more than half the effort to complete the activity 1 Dependent. The helper does all the effort to complete an activity 7 Patient refused to complete or attempt activity 9 The patient did not perform the activity before the current illness or injury 88 Not attempted due to Medical conditions or safety concerns Transfers (B, C, W/C) (FIM): 4 Scootin Sit to/from Stand: 4 (CGA provided due to excruciating pain coming on from urethra) Gait Training Does the Patient Walk?: Yes Gait (FIM): 5 Distance (FIM): 3=150 ft Distance: 200 Gait Level of Assist: 5 Gait Persons Needed: 1 Gait Assistive Device: FWW fwd flexed trunk, heavily relying on UE's on walker for support, slow gait, step through gait pattern. Gait training in // bars inst in and attempting to perform improved posture standing up straight (pt c/o it increasing his back pain some), decreasing wt through UE's. Exercises Standin way Ex=Flex, Abd, Ext, Marching, Weight shifts Standing Reps: 10 ((+) fwd gait decreasing UE support x6 laps in // bars) Treatments transfers, safety, gait, activity tolerance, functional mobility, balance, strength, education, posture Assessment Current Status: Good Progress PT Short Term Goals Short Term Goals Time Frame: Oct 06, 2018 Transfers (B,C,W/C) (FIM): 5 Gait (FIM): 4 Distance (FIM): 3=150 ft Gait Level of Assist: 4 Gait Assistive Device: FWW PT Fpc Goals Fpc Goals PT Precision Lens Technician Goals Time Frame: Oct 20, 2018 Transfers (B,C,W/C) (FIM): 6 Sit to Lying (QC): 6 Lying-Sitting on Side/Bed(QC): 6 Sit to Stand (QC): 6 Rollin Roll Left to Right (QC): 6 Chair/Fpp-eu-Gmmyn Xfer(QC): 6 Car Transfer (QC): 5 Does the Patient Walk: Yes Gait (FIM): 6 Gait distance (FIM): 3=150 ft Walk 10 feet (QC): 6 Walk 10ft-Uneven Surface(QC): 6 Walk 50ft with 2 Turns (QC): 6 Walk 150 ft (QC): 6 Gait Assistive Device: FWW Does the Pt use WC or Scooter?: No Stairs (FIM): 5 # of Steps: 4 1 Step (curb) (QC): 6 4 Steps (QC): 6 12 Steps (QC): 88 Picking up an Object (QC): 88 PT Plan Treatment/Plan Treatment Plan: Continue Plan of Care Treatment Plan: Bed Mobility, Education, Functional Activity Dale, Functional Strength, Group Therapy, Gait, Safety, Therapeutic Exercise, Transfers Treatment Duration: Oct 20, 2018 Frequency: At least 5 of 7 days/Wk (IRF) Estimated Hrs Per Day: 1.5 hours per day Patient and/or Family Agrees t: Yes Safety Risks/Education Patient Education: Gait Training, Transfer Techniques, Correct Positioning, Safety Issues Teaching Recipient: Patient Teaching Methods: Discussion Response to Teaching: Verbalize Understanding, Return Demonstration Time/GCodes Time In: 1350 Time Out: 1413 Total Billed Treatment Time: 23 Total Billed Treatment 1 visit, GT x 1 unit, EX x1 unit TAPAN KHAN PTA Oct 01, 2018 14:35
[2018-10-01 15:10] VITALS: BP 98/65
[2018-10-01] MEDS: RIVAROXABAN 20 MG TABLET (XARELTO) PO SCH (15:11)
--- NOTE | 2018-10-01 15:11 | NUR ---
Dr. Villeda to floor. Orders to decrease Betapace to 80 MG PO BID- hold for SBP less than 110, decrease Cardizem (CD) to 120 MG PO daily- hold for SBP less than 90, decrease Cozaar to 25 MG PO daily- hold for SBP less than 100. Hold Lasix and Aldactone for SBP less than 90. Also, hold Xarelto this evening D/T blood in urine and Cystoscopy in AM.
--- NOTE | 2018-10-01 15:23 | NUR ---
Per Dr. Villeda, leave Telemetry on for one more day.
--- NOTE | 2018-10-01 15:25 | NUR ---
Lidocaine pulled by Anesthesia. Will take off of eMAR.
--- NOTE | 2018-10-01 15:33 | Progress Note - Cardiology ---
Cardiology SOAP Progress Note Subjective: Does not report cp or palp or syncope or shortness of breath at rest Objective: I&O/Vital Signs 10/01/18 10/01/18 10/01/18 10/01/18 05:16 07:00 09:00 10:15 Temp 97.0 Pulse 70 84 84 Resp 18 B/P (MAP) 161/75 (103) 108/71 (83) Pulse Ox 97 O2 Delivery Room Air Room Air 10/01/18 10/01/18 12:54 15:10 Temp 97.2 Pulse 94 60 Resp 18 B/P (MAP) 98/65 (76) Pulse Ox 96 O2 Delivery Room Air 10/01/18 00:00 Intake Total 700 ml Output Total 660 ml Balance 40 ml Weight (Pounds): 332 Weight (Ounces): 0.5 Weight (Calculated Kilograms): 150.135446 Constitutional: AAO x 3, well-developed Respiratory: chest is bilaterally symmetric, lungs clear to auscultation Cardiovascular: irregularly irregular, S1 and S2, systolic murmur (soft JOHANNA at card base) Gastrointestional: No tender; soft; No guarding, No rebound; audible bowel sounds Extremities: swelling (bilat, mild leg edema); No clubbing, No cyanosis Neurologic/Psychiatric: other (moves all limbs equally) Skin: No rash on exposed areas, No ulcerations on exposed areas Results/Procedures: Labs Laboratory Tests 09/30/18 18:11: Urine Color AMBERH, Urine Clarity VERY CLOUDYH, Urine pH 5, Urine Specific [place] 1.015L, Urine Protein 3+H, Urine Glucose (UA) NEGATIVE, Urine Ketones NEGATIVE, Urine Nitrite NEGATIVE, Urine Bilirubin NEGATIVE, Urine Urobilinogen 4H, Urine Leukocyte Esterase 3+H, Urine RBC (Auto) 5+H, Urine RBC 50-100H, Urine WBC TNTCH, Urine Squamous Epithelial Cells 5-10, Urine Crystals NONE, Urine Bacteria LARGEH, Urine Casts NONE, Urine Mucus SMALLH, Urine Yeast LARGEH, Urine Culture Indicated YES 10/01/18 08:00: Vancomycin Level Trough 22.7H Laboratory Tests 09/30/18 06:13 A/P: Assessment: Gross hematuria with blood clots. Xarelto held since 09/30/[address] Jack planning cystoscopy on 10/02/18 CAD, CABG Ischemic cardiomyopathy. Echo of 09/02/18 (Dr Bermudez): LVEF 40-45%, midl to mod MR, mod TR, PASP 35 mmHg ICD, followed by Dr Lawson Paroxysmal atrial fibrillation Anemia, unclear etiology, managed by the Med Svce Hyponatremia and elevated BUN/Cr ratio, likely secondary to diuretics. Plan: * I reviewed his records, interviewed him, examined him, and answered his questions * Xarelto held until source of bleeding identified and treated * Diuretics held for two days because of lab-based evidence of dehydration and elec abn * Hold parameters placed on losartan, long-acting diltiazem, and ARBs. This is because of intermittently low bp * Continue to monitor labs EPIFANIO WINTER MD FACP [facility]S Oct 01, 2018 15:33
[2018-10-01 16:31] VITALS: BP 113/63
[2018-10-01] MEDS: TAMSULOSIN 0.4 MG (FLOMAX) CAP PO SCH (17:02)
[2018-10-01] MEDS: inSUlin ASPART (NovoLOG) 1 UNIT/0.01 ML (CHARGE PER UNIT) SC SCH (17:03)
[2018-10-01] MEDS: DONEPEZIL 5 MG (ARICEPT) TAB PO SCH (19:55)
[2018-10-01] MEDS: ATORVASTATIN 10 MG (LIPITOR) TABLET PO SCH (19:55)
[2018-10-01] MEDS: MIRTAZAPINE 15 MG (REMERON) TAB PO SCH (19:56)
[2018-10-01] MEDS ORDERED: VANCOMYCIN 1250 MG/NS 250 ML IVPB IV SCH ×2 (21:00)
[2018-10-02] MEDS: inSUlin ASPART (NovoLOG) 1 UNIT/0.01 ML (CHARGE PER UNIT) SC SCH ×2 (05:36→16:48)
[2018-10-02 05:42] LABS: BASOPHILS # (AUTO) 0.1 10^3/uL (0.0-0.1); BASOPHILS % (AUTO) 1 % (0-10); EOSINOPHILS # (AUTO) 0.3 10^3/uL (0.0-0.3); EOSINOPHILS % (AUTO) 3 % (0-10); HEMATOCRIT 36 % (40-54); HEMOGLOBIN 11.8 G/DL (13.3-17.7); LYMPHOCYTES # (AUTO) 2.1 X 10^3 (1.0-4.0); LYMPHOCYTES % (AUTO) 18 % (12-44); MEAN CORPUSCULAR HEMOGLOBIN 30 PG (25-34); MEAN CORPUSCULAR HGB CONC 33 G/DL (32-36); MEAN CORPUSCULAR VOLUME 90 FL (80-99); MEAN PLATELET VOLUME 10.7 FL (7.4-10.4); MONOCYTES # (AUTO) 1.1 X 10^3 (0.0-1.0); MONOCYTES % (AUTO) 10 % (0-12); NEUTROPHILS # (AUTO) 7.7 X 10^3 (1.8-7.8); NEUTROPHILS % (AUTO) 69 % (42-75); PLATELET COUNT 297 10^3/uL (130-400); RED CELL DISTRIBUTION WIDTH 14.3 % (10.0-14.5); WHITE BLOOD COUNT 11.2 10^3/uL (4.3-11.0)
[2018-10-02 05:59] LABS: ALANINE AMINOTRANSFERASE 22 U/L (0-55); ALBUMIN 2.9 GM/DL (3.2-4.5); ALKALINE PHOSPHATASE 80 U/L (40-136); BILIRUBIN,TOTAL 0.5 MG/DL (0.1-1.0); BUN/CREATININE RATIO 27; CALCIUM 9.2 MG/DL (8.5-10.1); CARBON DIOXIDE 19 MMOL/L (21-32); CHLORIDE 104 MMOL/L (98-107); CREATININE SERUM 1.06 MG/DL (0.60-1.30); GFR ESTIMATED > 60; GLUCOSE 213 MG/DL (70-105); POTASSIUM 4.5 MMOL/L (3.6-5.0); SODIUM 134 MMOL/L (135-145); TOTAL PROTEIN 6.4 GM/DL (6.4-8.2)
[2018-10-02] MEDS: TRIM/SULFAMETH 160/800 (SEPTRA DS) TAB PO SCH ×2 (06:08→16:48)
[2018-10-02 06:21] VITALS: BP 105/66
--- NOTE | 2018-10-02 08:10 | NUR ---
PTD VANCOMYCIN LABS: SCR 1.06(1.32 7) VANCOMYCIN LEVELS 10/02 @ 0800 22.7 AND AT 2006 15.7 PHARMACOKINETIC CALC. KD 0.031 T1/2 22.5 HOURS PLAN: DAY 5 OF VANCOMYCIN THERAPY; CHANGE VANCOMYCIN TO 1,500MG IV Q24 HOURS, NEXT DOSE DUE TODAY @1000.
[2018-10-02] MEDS: ASPIRIN E.C. 81 MG (ECOTRIN) TAB PO SCH (08:25)
[2018-10-02] MEDS: LOSARTAN 25 MG (COZAAR) TAB PO SCH (08:25)
[2018-10-02] MEDS: FAMOTIDINE 20 MG (PEPCID) TABLET PO SCH ×2 (08:25→20:59)
[2018-10-02] MEDS: FINASTERIDE (PROSCAR) 5 MG TAB PO SCH (08:25)
[2018-10-02] MEDS: DILTIAZEM 120 MG (CARDIZEM CD) CAP PO SCH (08:25)
[2018-10-02] MEDS: FUROSEMIDE 40 MG (LASIX) TAB PO SCH (08:25)
[2018-10-02] MEDS: fluCOnazole (DIFLUCAN) 100 MG TAB PO SCH (08:25)
[2018-10-02] MEDS: ALLOPURINOL 300 MG (ZYLOPRIM) TAB PO SCH (08:25)
[2018-10-02] MEDS: SPIRONOLACTONE 25 MG (ALDACTONE) TAB PO SCH (08:25)
[2018-10-02] MEDS: SOTALOL 80 MG (BETAPACE) TAB PO SCH ×2 (08:25→17:55)
[2018-10-02 08:26] VITALS: BP 110/72
[2018-10-02] MEDS: MICONAZOLE NITRATE 2% CRM 30 GM TP SCH ×2 (09:23→20:58)
[2018-10-02] MEDS: MICONAZOLE 2% POWDER (DESENEX AF) 90 GM TOP SCH ×2 (09:23→20:58)
--- NOTE | 2018-10-02 09:30 | Progress Note-Pre Operative ---
Pre-Operative Progress Note H&P Reviewed The H&P was reviewed, patient examined and no changes noted. Date Seen by Provider: Oct 02, 2018 Time Seen by Provider: 09:30 Date H&P Reviewed: Oct 02, 2018 Time H&P Reviewed: 09:30 Pre-Operative Diagnosis: RETENTION AND GROSS HEMATURIA NELSY TAPIA MD Oct 02, 2018 09:30
--- NOTE | 2018-10-02 10:28 | Speech Therapy Daily Note ---
Speech Daily Progress Note Subjective Date Seen by Provider: Oct 02, 2018 Time Seen by Provider: 00:30 The patient was compliant with completion of memory tasks today. Objective The patient completed memory tasks at 70% with mod to max verbal cues and/or repetitions. Assessment Assessment Current Status: Fair Progress Treatment Plan Continue Plan of Care Communication Comprehension: 3 Expression: 4 Social Cognition Social Interaction: 5 Problem Solvin Memory: 2 Speech Short Term Goals Short Term Goals Short Term Goals 1) The patient will complete memory tasks with 80% or greater given minimal cues. 2) The patient will complete problem solving tasks with 80% or greater given minimal cues. 3) The patient will complete safety awareness tasks with 80% or greater given minimal cues. Speech Direct Marketing Manager Goals Direct Marketing Manager Goals The patient will improve cognitive skills in order to return safely to his home. Speech-Plan Patient/Family Goals Patient/Family Goals: The patient plans on returning home with his post rehab. Treatment Plan Speech Therapy Treatment Plan: Continue Plan of Care The patient states he feels he is getting a little bit better. Treatment Duration: Oct 16, 2018 Frequency: 5 times per week Estimated Hrs Per Day: .5 hour per day Rehab Potential: Fair Barriers to Learning: Cognitive deficits Pt/Family Agrees to Plan: Yes Safety Risks/Education Teaching Recipient: Patient Teaching Methods: Discussion Response to Teaching: Verbalize Understanding Education Topics Provided: Memory strategies to utilize in the hospital as well as when he returns home. Time Speech Therapy Time In: 08:30 Speech Therapy Time Out: 09:00 Total Billed Time: 30 Billed Treatment Time [address] Oct 02, 2018 10:28
--- NOTE | 2018-10-02 10:42 | Diagnostic Imaging Report ---
Indication: PICC line placement Portable chest 10:28 AM There are postop changes from a median sternotomy. There is a dual-chamber pacemaker with IACD. Heart size and pulmonary vascularity are normal. Lungs are clear. There is no PICC line apparent in the chest. Impression: Postsurgical changes. No acute abnormality seen. PICC line is not seen. Dictated by: Dictated on workstation # [id number]
--- NOTE | 2018-10-02 11:36 | PM&R Progress Note ---
Subjective HPI/CC On Admission Date Seen by Provider: Oct 02, 2018 Time Seen by Provider: 09:00 Chief Complaint: Severe debility with encephalopathy. HPI: This is a 68yoWM who was just [facility] due to confusion, UTI, and fever. Dr. Lawson was consulted for atrial fibrillation. He was just discharged previous Friday when his defibrillator discharged and he was evaluated found to be stable and was discharged home but he began feeling badly shortly after arriving home and ret urned back with confusion, recurrent UTI, and upper respiratory cough. He was found to have low grade fever he was placed on Rocephin and Vancomycin empirically and also based on cultures before and was deemed stable to be transferred to in patient rehab to work on cognition after slums score initiated and will likely benefit from Aricept in addition he will undergo intensive rehab to further strengthen in order to go home and be successful and returning to his to live independently with close f/u by PCP along with Urology and Cardiology. Prior level of functioning was fairly independent with ADL's and ambulation. Subjective/Events-last exam Yeast is noted on urine culture so started Diflucan Midline replaced and now Vanc back on board Very poor vascular access may need a Groshong port in the future Accu-Cheks twice a day with sliding scale insulin regimen A Cystoscopy is planned for today Conferred with linoleum tile layer therapy notes at bedside Bowels are moving Slept pretty well Review of Systems General: Fatigue Objective Exam Vital Signs Vital Signs Date Time Temp Pulse Resp B/P (MAP) Pulse Ox O2 Delivery O2 Flow Rate FiO2 10/02/18 12:36 92 10/02/18 08:26 110/72 (85) 10/02/18 08:00 Room Air 10/02/18 06:21 97.8 18 93 Capillary Refill : General Appearance: No Apparent Distress, WD/WN, Chronically ill HEENT: PERRL/EOMI, Normal ENT Inspection, Pharynx Normal, Moist Mucous Membranes Neck: Full Range of Motion, Normal Inspection, Non Tender, Supple Respiratory: Chest Non Tender, Lungs Clear, Normal Breath Sounds, No Accessory Muscle Use, No Respiratory Distress Cardiovascular: Regular Rate, Rhythm, No Edema, No Gallop, No JVD, No Murmur Gastrointestinal: Normal Bowel Sounds, No Organomegaly, No Pulsatile Mass, Non Tender, Soft Back: Normal Inspection, No CVA Tenderness, No Vertebral Tenderness Extremity: Normal Capillary Refill, Normal Inspection, Normal Range of Motion, Non Tender, No Calf Tenderness, No Pedal Edema Neurologic/Psychiatric: Alert, Oriented x3, No Motor/Sensory Deficits, Normal Mood/Affect, manager field II-XII Norm as Tested, Disoriented (poor recall), Motor Weakness (generalized weakness) Skin: Normal Color, Warm/Dry Lymphatic: No Adenopathy Results/Procedures Lab Laboratory Tests 10/02/18 05:35 Patient resulted labs reviewed. FIM Transfers Therapy Code Descriptions/Definitions Functional [place] Measure: 0=Not Assessed/NA 4=Minimal Assistance 1=Total Assistance 5=Supervision or Setup 2=Maximal Assistance 6=Modified [place] 3=Moderate Assistance 7=Complete [place] Therapy Quality Codes: 6 Independent with activity with or without an assistive device 5 Patient requires set up or clean up by helper. Patient completes activity by themselves 4 Supervision or touching assist (CGA). [place] provide cues , steadying assist 3 The helper provides less than half the effort to complete the activity 2 The helper provides more than half the effort to complete the activity 1 Dependent. The helper does all the effort to complete an activity 7 Patient refused to complete or attempt activity 9 The patient did not perform the activity before the current illness or injury 88 Not attempted due to Medical conditions or safety concerns Transfers (B, C, W/C) (FIM): 4 Scootin Rollin Roll Left to Right (QC): 4 Supine to/from Sit: 5 Sit to/from Stand: 4 (CGA provided due to excruciating pain coming on from urethra) Sit to Lying (QC): 5 Sit to Stand (QC): 4 Chair/Kta-qa-Aaobk Xfer(QC): 4 Car Transfer (QC): 3 (assist with both legs) Gait Training Does the Patient Walk?: Yes Gait (FIM): 5 Distance (FIM): 3=150 ft Distance: 200 Walk 10 feet (QC): 4 Walk 50 ft with 2 Turns(QC): 4 Walk 150 ft (QC): 4 Walking 10ft/uneven surface-QC: 4 Gait Level of Assist: 5 Gait Persons Needed: 1 Gait Assistive Device: FWW Wheelchair Training Does the Pt Use a Wheelchair?: No Stair Training Stairs (FIM): 1 #of Steps: 1 1 Step (curb) (QC): 4 4 Steps (QC): 88 12 Steps (QC): 88 Level of Assist: 4 Balance Picking up an Object (QC): 88 (unsafe to attempt and did not perform before. ) Mental Status/Objective Comprehension: 3 Expression: 4 Social Interaction: 5 Problem Solvin Memory: 2 ADL-Treatment Feedin Eating (QC): 5 Groomin Bathin (Washed and dried all parts, CGA for sanding. Long handled sponge, shower bench, grab bars, hand held shower) Shower/Bathe Self (QC): 3 Upper Extremity Dressin (setup) Upper Body Dressing (QC): 4 Lower Extremity Dressin (Help with Ambrocio, getting pants on over R foot, socks and shoes) Lower Body Dressing (QC): 2 On/Off Footwear (QC): 2 Toiletin Toileting Hygiene (QC): 1 Toilet/Commode Transfer: 4 Toilet Transfer (QC): 4 Shower: 4 (Min assist) Assessment/Plan Assessment and Plan Assess & Plan/Chief Complaint Assessment: Encephalopathy acute on chronic New diagnosis of dementia 12/28 SLUMS done on admit so started Aricept 5mg CAD AF Pacemaker UTI Cough Cardiomyopathy Confusion Plan: Aricept IRF protocols Abx and review cultures Bowel regimen Consult Dr Jack and Dr Lawson Ambrocio cath with cysto today Midline (1) Encephalopathy (2) Unable to ambulate (3) Transient alteration of awareness (4) DVT prophylaxis (5) Coronary artery disease (6) Atrial fibrillation (7) Diabetes mellitus (8) Hyponatremia (9) UTI (urinary tract infection) (10) Cardiomyopathy (11) Cardiac defibrillator in place (12) Acute on chronic systolic (congestive) heart failure (13) MICHELLE on CPAP ROSEMARY CURRIE DO Oct 02, 2018 11:36
--- NOTE | 2018-10-02 11:47 | Diagnostic Imaging Report ---
EXAM: CHEST 1 VIEW, AP/PA ONLY INDICATION: PICC line placement. COMPARISON: Chest radiograph from earlier today. FINDINGS: New right PICC tip low SVC. Sternotomy. AICD. Normal heart size and central pulmonary vascularity. No focal pulmonary opacity, pleural effusion or pneumothorax. IMPRESSION: New right PICC tip low SVC. Dictated by: Dictated on workstation # [id number]
--- NOTE | 2018-10-02 11:57 | Physical Therapy Daily Note ---
PT Daily Note-Current Subjective Pt. agrees to Rx. States he might be a little better . Not as painful to urinate as it was. Reviewed what his steps are like at home and how he manages them. Pain Numeric Pain Scale: 5-Moderate Pain Location: Right Location Body Site: Hip Pain Description: Pressure (with extension in supine) Mental Status Patient Orientation: Person, Place, Time, Situation Attachments: Ambrocio Catheter, Other-See Comments (telemetry) Transfers Therapy Code Descriptions/Definitions Functional [place] Measure: 0=Not Assessed/NA 4=Minimal Assistance 1=Total Assistance 5=Supervision or Setup 2=Maximal Assistance 6=Modified [place] 3=Moderate Assistance 7=Complete [place] Therapy Quality Codes: 6 Independent with activity with or without an assistive device 5 Patient requires set up or clean up by helper. Patient completes activity by themselves 4 Supervision or touching assist (CGA). [place] provide cues , steadying assist 3 The helper provides less than half the effort to complete the activity 2 The helper provides more than half the effort to complete the activity 1 Dependent. The helper does all the effort to complete an activity 7 Patient refused to complete or attempt activity 9 The patient did not perform the activity before the current illness or injury 88 Not attempted due to Medical conditions or safety concerns Transfers (B, C, W/C) (FIM): 6 Scootin Rollin Supine to/from Sit: 6 Sit to/from Stand: 6 Gait Training Does the Patient Walk?: Yes Gait (FIM): 5 Distance (FIM): 3=150 ft (150x4) Gait Level of Assist: 5 Gait Persons Needed: 1 Gait Assistive Device: FWW slow, flexed at hips over FWW. no LOB Stair Training Stair Training: Handrails/: 2 handrails Stairs (FIM): 2 #of Steps: 4 Stairs: Pattern: Step to Level of Assist: 4 instructions for sequence Exercises Supine Ex: Bridging, Ankle pumps, Quad Set, Rolling, Glut sets, Heel Slides, Short Arc Quads, Scooting, Straight leg raise, Hip abd/add Supine Reps: 15 Seated Therapy Exercises: Ankle pumps, Sit to stand, Long arc quads Seated Reps: 15 NuStep Minutes: 8 NuStep Workload: 3 Assessment Current Status: Good Progress PT Short Term Goals Short Term Goals Time Frame: Oct 06, 2018 Transfers (B,C,W/C) (FIM): 5 Gait (FIM): 4 Distance (FIM): 3=150 ft Gait Level of Assist: 4 Gait Assistive Device: FWW PT Flow Manager Goals Flow Manager Goals PT Residential Goals Time Frame: Oct 20, 2018 Transfers (B,C,W/C) (FIM): 6 Sit to Lying (QC): 6 Lying-Sitting on Side/Bed(QC): 6 Sit to Stand (QC): 6 Rollin Roll Left to Right (QC): 6 Chair/Uma-zi-Vbgly Xfer(QC): 6 Car Transfer (QC): 5 Does the Patient Walk: Yes Gait (FIM): 6 Gait distance (FIM): 3=150 ft Walk 10 feet (QC): 6 Walk 10ft-Uneven Surface(QC): 6 Walk 50ft with 2 Turns (QC): 6 Walk 150 ft (QC): 6 Gait Assistive Device: FWW Does the Pt use WC or Scooter?: No Stairs (FIM): 5 # of Steps: 4 1 Step (curb) (QC): 6 4 Steps (QC): 6 12 Steps (QC): 88 Picking up an Object (QC): 88 PT Plan Treatment/Plan Treatment Plan: Continue Plan of Care Treatment Plan: Bed Mobility, Education, Functional Activity Dale, Functional Strength, Group Therapy, Gait, Safety, Therapeutic Exercise, Transfers Treatment Duration: Oct 20, 2018 Frequency: At least 5 of 7 days/Wk (IRF) Estimated Hrs Per Day: 1.5 hours per day Patient and/or Family Agrees t: Yes Safety Risks/Education Patient Education: Gait Training, Transfer Techniques, Steps, Correct Positioning, Disease Process, Safety Issues Teaching Recipient: Patient Teaching Methods: Demonstration, Discussion Response to Teaching: Verbalize Understanding, Return Demonstration, Reinforcement Needed Time/GCodes Time In: 1100 Time Out: 1200 Total Billed Treatment Time: 60 Total Billed Treatment 1,GT25m,EX20m,FA15m G Codes Necessary: GUTIERREZ Fleming MARKETING SEGMENT MANAGER Oct 02, 2018 11:57
[2018-10-02] MEDS: VANCOMYCIN 1500 MG/NS 500 ML IVPB IV SCH ×2 (12:20)
--- NOTE | 2018-10-02 12:36 | Occupational Ther Daily Note ---
OT Current Status-Daily Note Subjective Pt in bed, agrees to therapy. Pt states he still has pain with urination, but not quite as bad. Mental Status/Objective Therapy Code Descriptions/Definitions Functional [place] Measure: 0=Not Assessed/NA 4=Minimal Assistance 1=Total Assistance 5=Supervision or Setup 2=Maximal Assistance 6=Modified [place] 3=Moderate Assistance 7=Complete [place] ADL-Treatment Pt supine to sit with supervision and increased time. Pt declined bathing today. Pt required assist to thread catheter and bilateral LE into shorts. Stood with supervision for balance during pant hike. Declined to change out of hospital gown. Therapy Code Descriptions/Definitions Functional [place] Measure: 0=Not Assessed/NA 4=Minimal Assistance 1=Total Assistance 5=Supervision or Setup 2=Maximal Assistance 6=Modified [place] 3=Moderate Assistance 7=Complete [place] Therapy Quality Codes: 6 Independent with activity with or without an assistive device 5 Patient requires set up or clean up by helper. Patient completes activity by themselves 4 Supervision or touching assist (CGA). [place] provide cues , steadying assist 3 The helper provides less than half the effort to complete the activity 2 The helper provides more than half the effort to complete the activity 1 Dependent. The helper does all the effort to complete an activity 7 Patient refused to complete or attempt activity 9 The patient did not perform the activity before the current illness or injury 88 Not attempted due to Medical conditions or safety concerns Lower Body Dressing (FIM): 3 Other Treatment Gait to therapy gym with FWW, slow pace, but no LOB noted. Pt required one seated rest break secondary to fatigue. Bilateral UE exercises completed to increase strength needed for ADLs and transfers. Pt performed shoulder flexion, biceps curls, and wrist flex/ext x15 reps with 2# dowel bassem. Rest breaks taken between exercises. Graded clothespin task with bilateral hands to increase technical service specialist/pinch strength. Pt able to complete task without difficulty. Pt ambulated to commons area with FWW, sitting with spouse and son with needs met after session. OT Short Term Goals Short Term Goals Time Frame: Oct 06, 2018 Eating(FIM): 5 Grooming(FIM): 5 Bathing(FIM): 4 Upper Body Dressing(FIM): 5 Lower Body Dressing(FIM): 4 Toileting(FIM): 4 Transfers (B,C,W/C) (FIM): 5 Toilet/Commode Transfer(FIM): 5 Shower Transfer(FIM): 5 Additional Short Term Goals: 1-Demonstrate ADL Tasks, 2-Verbalize Understanding, 3-ImproveStrength/Dale 1=Demonstrate adherence to instructed precautions during ADL tasks. 2=Patient will verbalize/demonstrate understanding of assistive devices/modifications for ADL. 3=Patient will improve strength/tolerance for activity to enable patient to perform ADL's. OT Longterm Goals Cotton Agent Goals Time Frame: Oct 20, 2018 Eating (FIM): 6 Eating (QC): 6 Groomin Oral Hygiene (QC): 6 Bathing(FIM): 5 Shower/Bathe Self (QC): 4 Upper Body Dressing(FIM): 5 Upper Body Dressing (QC): 5 Lower Body Dressing(FIM): 5 Lower Body Dressing (QC): 4 Toileting(FIM): 5 Toileting Hygiene (QC): 4 Transfers (B,C,W/C) (FIM): 6 Toilet/Commode Transfer(FIM): 6 Toilet/Commode Transfer (QC): 6 Shower Transfer(FIM): 5 Additional Goals: 1-Demonstrate ADL Tasks, 2-Verbalize Understanding, 3- ImproveStrength/Dale 1=Demonstrate adherence to instructed precautions during ADL tasks. 2=Patient will verbalize/demonstrate understanding of assistive dev ices/modifications for ADL. 3=Patient will improve strength/tolerance for activity to enable patient to perform ADL's. OT Education/Plan Discharge Recommendations Plan/Recommendations: Continue POC Treatment Plan/Plan of Care Patient would benefit from OT for education, treatment and training to promote independence in ADL's, mobility, safety and/or upper extremity function for ADL's. Plan of Care: ADL Retraining, Functional Mobility, Group Exercise/Act as Ind, UE Funct Exercise/Act Treatment Duration: Oct 20, 2018 Frequency: At least 5 of 7 days/Wk (IRF) Estimated Hrs Per Day: 1.5 hours per day Agreement: Yes Rehab Potential: Fair Time/GCodes Start Time: 10:15 Stop Time: 11:00 Total Time Billed (hr/min): 45 Billed Treatment Time 1 visit, [id number], FA(15minutes, EX(15minutes) CHERYL MONTALVO OT Oct 02, 2018 12:36
--- NOTE | 2018-10-02 13:16 | Progress Note-Post Operative ---
Post-Operative Progess Note Surgeon (s)/Program Director/Traffic Director (s) Surgeon NELSY TAPIA MD Program Director/Traffic Director: NONE Pre-Operative Diagnosis RETENTION AND GROSS HEMATURIA Post-Operative Diagnosis SAME Procedure & Operative Findings Date of Procedure 10/02/18 Procedure Performed/Findings CYSTOSCOPY Anesthesia Type LOCAL Estimated Blood Loss Estimated blood loss (mL): NONE Specimens/Packing Specimens Removed NONE Packing: NONE NELSY TAPIA MD Oct 02, 2018 13:16
--- NOTE | 2018-10-02 14:22 | Therapy Group Daily Note ---
Therapy Daily Group Note Patient Education Topic Other List Below (how to play Apples to Apples table game) Exercises Fine Motor, Other (reaching, pincer coordination) Session Ratio (pt:therapist): 4:1 Goal of Session: Other (list) (problem solving, creative thinking, ) Goal Met for this Session: Yes Pt Benefit of Group: Contributions to Others, Recognition of Peers, Socialization Other/Notes Pt. participated group PT OT session this date. Pt. ambulated to from with FWW and assist for IV. Pts. gathered at table in groups of 4 and participated in table games involving a lot of interaction, socialization as well as sequencing, creative thinking and some problem solving. Pt. was very social and engaged others well . There was a lot of laughter and conversation at the table. Pt to bed with CGA and assist to change his gown etc.Pt. was incont of urine as he just had hearn cath DCd. Phillips at hand needs met. Start Time: 13:00 Stop Time: 14:10 Total Billed Treatment Time: 70 Total Billed Treatment 1,GRP GUTIERREZ RAIN MANAGER ENGINE Oct 02, 2018 14:22
[2018-10-02] MEDS: RIVAROXABAN 20 MG TABLET (XARELTO) PO SCH (17:54)
[2018-10-02] MEDS: TAMSULOSIN 0.4 MG (FLOMAX) CAP PO SCH (17:54)
[2018-10-02 18:00] VITALS: BP 101/65
--- NOTE | 2018-10-02 18:47 | Progress Note - Cardiology ---
Cardiology SOAP Progress Note Subjective: No cp or palp or syncope or shortness of breath Gen weakness and malaise Objective: I&O/Vital Signs 10/02/18 10/02/18 10/02/18 10/02/18 07:00 08:00 08:26 12:36 Pulse 100 97 92 B/P (MAP) 110/72 (85) O2 Delivery Room Air 10/02/18 00:00 Intake Total 720 ml Output Total 900 ml Balance -180 ml Weight (Pounds): 336 Weight (Ounces): 8.0 Weight (Calculated Kilograms): 152.733374 Constitutional: AAO x 3, well-developed Respiratory: chest is bilaterally symmetric, lungs clear to auscultation Cardiovascular: irregularly irregular, S1 and S2, systolic murmur (soft JOHANNA at card base) Gastrointestional: No tender; soft; No guarding, No rebound; audible bowel sounds Extremities: swelling (bilat, mild leg edema); No clubbing, No cyanosis Neurologic/Psychiatric: other (moves all limbs equally) Skin: No rash on exposed areas, No ulcerations on exposed areas Results/Procedures: Labs Laboratory Tests 10/01/18 20:07: Vancomycin Level Trough 15.7 10/02/18 05:33: Glucometer 200H 10/02/18 05:35: White Blood Count 11.2H, Red Blood Count 3.95L, Hemoglobin 11.8L, Hematocrit 36L , Mean Corpuscular Volume 90, Mean Corpuscular Hemoglobin 30, Mean Corpuscular Hemoglobin Concent 33, Red Cell Distribution Width 14.3, Platelet Count 297, Darlyn n Platelet Volume 10.7H, Neutrophils (%) (Auto) 69, Lymphocytes (%) (Auto) 18, Monocytes (%) (Auto) 10, Eosinophils (%) (Auto) 3, Basophils (%) (Auto) 1, Neutrophils # (Auto) 7.7, Lymphocytes # (Auto) 2.1, Monocytes # (Auto) 1.1H, Eosinophils # (Auto) 0.3, Basophils # (Auto) 0.1, Sodium Level 134L, Potassium Level 4.5, Chloride Level 104, Carbon Dioxide Level 19L, Anion Gap 11, Blood Urea Nitrogen 29H, Creatinine 1.06, Estimat Glomerular Filtration Rate > 60, BUN/Creatinine Ratio 27, Glucose Level 213H, Calcium Level 9.2, Corrected Calcium 10.1, Total Bilirubin 0.5, Aspartate Amino Transf (AST/SGOT) 26, Alanine Aminotransferase (ALT/SGPT) 22, Alkaline Phosphatase 80, Total Protein 6.4, Albumin 2.9L 10/02/18 16:24: Glucometer 249H Microbiology 10/01/18 MRSA Screen - Final, Complete MRSA not isolated 09/30/18 Urine Culture - Final, Complete YEAST Laboratory Tests 10/02/18 05:35 A/P: Assessment: Gross hematuria with blood clots, now resolved. Cystoscopy by Dr Jack on , apparently, did now show any significant findings CAD, CABG Ischemic cardiomyopathy. Echo of 09/02/18 (Dr Bermudez): LVEF 40-45%, mild to mod MR, mod TR, PASP 35 mmHg ICD, followed by Dr Lawson Paroxysmal atrial fibrillation Anemia, unclear etiology, managed by the Med Svce Hyponatremia and elevated BUN/Cr ratio, likely secondary to diuretics. Plan: * Xarelto resumed * Reduce diuretics * Hold parameters placed on losartan, long-acting diltiazem, and ARBs. This is because of intermittently low bp * Continue to monitor labs EPIFANIO WINTER MD FACP [facility] Oct 02, 2018 18:47
[2018-10-02] MEDS: DONEPEZIL 5 MG (ARICEPT) TAB PO SCH (20:58)
[2018-10-02] MEDS: ATORVASTATIN 10 MG (LIPITOR) TABLET PO SCH (20:59)
[2018-10-02] MEDS: MIRTAZAPINE 15 MG (REMERON) TAB PO SCH (20:59)
[2018-10-03 05:32] LABS: BASOPHILS # (AUTO) 0.1 10^3/uL (0.0-0.1); BASOPHILS % (AUTO) 1 % (0-10); EOSINOPHILS # (AUTO) 0.3 10^3/uL (0.0-0.3); EOSINOPHILS % (AUTO) 3 % (0-10); HEMATOCRIT 34 % (40-54); HEMOGLOBIN 11.1 G/DL (13.3-17.7); LYMPHOCYTES # (AUTO) 1.9 X 10^3 (1.0-4.0); LYMPHOCYTES % (AUTO) 19 % (12-44); MEAN CORPUSCULAR HEMOGLOBIN 30 PG (25-34); MEAN CORPUSCULAR HGB CONC 33 G/DL (32-36); MEAN CORPUSCULAR VOLUME 90 FL (80-99); MEAN PLATELET VOLUME 10.4 FL (7.4-10.4); MONOCYTES # (AUTO) 0.8 X 10^3 (0.0-1.0); MONOCYTES % (AUTO) 8 % (0-12); NEUTROPHILS # (AUTO) 6.8 X 10^3 (1.8-7.8); NEUTROPHILS % (AUTO) 69 % (42-75); PLATELET COUNT 316 10^3/uL (130-400); RED CELL DISTRIBUTION WIDTH 14.8 % (10.0-14.5); WHITE BLOOD COUNT 9.9 10^3/uL (4.3-11.0)
[2018-10-03 05:50] VITALS: BP 116/71
[2018-10-03 05:50] LABS: ALANINE AMINOTRANSFERASE 25 U/L (0-55); ALBUMIN 2.8 GM/DL (3.2-4.5); ALKALINE PHOSPHATASE 79 U/L (40-136); BILIRUBIN,TOTAL 0.4 MG/DL (0.1-1.0); BUN/CREATININE RATIO 23; CARBON DIOXIDE 21 MMOL/L (21-32); CHLORIDE 106 MMOL/L (98-107); CREATININE SERUM 1.01 MG/DL (0.60-1.30); GFR ESTIMATED > 60; GLUCOSE 228 MG/DL (70-105); POTASSIUM 4.3 MMOL/L (3.6-5.0); SODIUM 136 MMOL/L (135-145); TOTAL PROTEIN 6.1 GM/DL (6.4-8.2)
[2018-10-03] MEDS: TRIM/SULFAMETH 160/800 (SEPTRA DS) TAB PO SCH ×2 (06:25→17:00)
[2018-10-03] MEDS: inSUlin ASPART (NovoLOG) 1 UNIT/0.01 ML (CHARGE PER UNIT) SC SCH ×2 (06:26→17:00)
[2018-10-03 08:43] VITALS: BP 121/86
[2018-10-03] MEDS: FAMOTIDINE 20 MG (PEPCID) TABLET PO SCH ×2 (08:43→20:43)
[2018-10-03] MEDS: SOTALOL 80 MG (BETAPACE) TAB PO SCH ×2 (08:43→17:11)
[2018-10-03] MEDS: DILTIAZEM 120 MG (CARDIZEM CD) CAP PO SCH (08:43)
[2018-10-03] MEDS: MICONAZOLE 2% POWDER (DESENEX AF) 90 GM TOP SCH ×2 (08:44→20:43)
[2018-10-03] MEDS: fluCOnazole (DIFLUCAN) 100 MG TAB PO SCH (08:44)
[2018-10-03] MEDS: ALLOPURINOL 300 MG (ZYLOPRIM) TAB PO SCH (08:44)
[2018-10-03] MEDS: LOSARTAN 25 MG (COZAAR) TAB PO SCH (08:44)
[2018-10-03] MEDS: ASPIRIN E.C. 81 MG (ECOTRIN) TAB PO SCH (08:44)
[2018-10-03] MEDS: FINASTERIDE (PROSCAR) 5 MG TAB PO SCH (08:44)
[2018-10-03] MEDS: MICONAZOLE NITRATE 2% CRM 30 GM TP SCH ×2 (08:45→20:44)
--- NOTE | 2018-10-03 09:38 | Physical Therapy Daily Note ---
PT Daily Note-Current Subjective Agrees to Rx Pain Location: No Pain Reported Mental Status Patient Orientation: Person, Place, Time, Situation Transfers Therapy Code Descriptions/Definitions Functional [place] Measure: 0=Not Assessed/NA 4=Minimal Assistance 1=Total Assistance 5=Supervision or Setup 2=Maximal Assistance 6=Modified [place] 3=Moderate Assistance 7=Complete [place] Therapy Quality Codes: 6 Independent with activity with or without an assistive device 5 Patient requires set up or clean up by helper. Patient completes activity by themselves 4 Supervision or touching assist (CGA). [place] provide cues , steadying assist 3 The helper provides less than half the effort to complete the activity 2 The helper provides more than half the effort to complete the activity 1 Dependent. The helper does all the effort to complete an activity 7 Patient refused to complete or attempt activity 9 The patient did not perform the activity before the current illness or injury 88 Not attempted due to Medical conditions or safety concerns Transfers (B, C, W/C) (FIM): 6 Scootin Rollin Supine to/from Sit: 6 Sit to/from Stand: 6 Gait Training Does the Patient Walk?: Yes Gait (FIM): 5 Distance (FIM): 3=150 ft (200,150) Gait Level of Assist: 5 Gait Persons Needed: 1 Gait Assistive Device: FWW flexed at hips over FWW Exercises Seated Therapy Exercises: Ankle pumps, Sit to stand, Long arc quads, Hip flexion Seated Reps: 15 Assessment Current Status: Good Progress PT Short Term Goals Short Term Goals Time Frame: Oct 06, 2018 Transfers (B,C,W/C) (FIM): 5 Gait (FIM): 4 Distance (FIM): 3=150 ft Gait Level of Assist: 4 Gait Assistive Device: FWW PT Senior Administrative Support Goals Residential Goals PT Residential Goals Time Frame: Oct 20, 2018 Transfers (B,C,W/C) (FIM): 6 Sit to Lying (QC): 6 Lying-Sitting on Side/Bed(QC): 6 Sit to Stand (QC): 6 Rollin Roll Left to Right (QC): 6 Chair/Ngf-wc-Vlhiz Xfer(QC): 6 Car Transfer (QC): 5 Does the Patient Walk: Yes Gait (FIM): 6 Gait distance (FIM): 3=150 ft Walk 10 feet (QC): 6 Walk 10ft-Uneven Surface(QC): 6 Walk 50ft with 2 Turns (QC): 6 Walk 150 ft (QC): 6 Gait Assistive Device: FWW Does the Pt use WC or Scooter?: No Stairs (FIM): 5 # of Steps: 4 1 Step (curb) (QC): 6 4 Steps (QC): 6 12 Steps (QC): 88 Picking up an Object (QC): 88 PT Plan Treatment/Plan Treatment Plan: Continue Plan of Care Treatment Plan: Bed Mobility, Education, Functional Activity Dale, Functional Strength, Group Therapy, Gait, Safety, Therapeutic Exercise, Transfers Treatment Duration: Oct 20, 2018 Frequency: At least 5 of 7 days/Wk (IRF) Estimated Hrs Per Day: 1.5 hours per day Patient and/or Family Agrees t: Yes Safety Risks/Education Patient Education: Gait Training, Transfer Techniques, Correct Positioning, Disease Process, Safety Issues Teaching Recipient: Patient Teaching Methods: Demonstration, Discussion Response to Teaching: Verbalize Understanding, Return Demonstration, Reinforcement Needed Time/GCodes Time In: 800 Time Out: 815 Total Billed Treatment Time: 15 Total Billed Treatment 1,GT15m G Codes Necessary: GUTIERREZ Fleming INSPECTOR GENERAL Oct 03, 2018 09:38
[2018-10-03] MEDS: VANCOMYCIN 1500 MG/NS 500 ML IVPB IV SCH ×2 (10:27)
--- NOTE | 2018-10-03 11:00 | Progress Note - Urology ---
Progress Note-Urology Progress Notes/Assess & Plan Progress/Assessment & Plan VOIDING. NO GROSS HEMATURIA. SOME INCONTINENCE. WE WILL OBSERVE Final Diagnosis URINE RETENTION AND GROSS HEMATURIA NELSY TAPIA MD Oct 03, 2018 11:00
--- NOTE | 2018-10-03 13:01 | PM&R Progress Note ---
Subjective HPI/CC On Admission Date Seen by Provider: Oct 03, 2018 Time Seen by Provider: 11:30 Chief Complaint: Severe debility with encephalopathy. HPI: This is a 68yoWM who [facility] due to confusion, UTI, and fever. Dr. Lawson was consulted for atrial fibrillation. He was just discharged previous Friday when his defibrillator discharged and he was evaluated found to be stable and was discharged home but he began feeling badly shortly after arriving home and ret urned back with confusion, recurrent UTI, and upper respiratory cough. He was found to have low grade fever he was placed on Rocephin and Vancomycin empirically and also based on cultures before and was deemed stable to be transferred to in patient rehab to work on cognition after slums score initiated and will likely benefit from Aricept in addition he will undergo intensive rehab to further strengthen in order to go home and be successful and returning to his to live independently with close f/u by PCP along with Urology and Cardiology. Prior level of functioning was fairly independent with ADL's and ambulation. Subjective/Events-last exam Yeast is noted on urine culture so started Diflucan 2 days ago Midline replaced and now Vanc back on board and pharmacy is monitoring closely Very poor vascular access may need a [place] port in the future Accu-Cheks twice a day with sliding scale insulin regimen A and I have reviewed sugar checks Cystoscopy completed yesterday and now Ambrocio DC and having some incontinence so will monitor that closely Conferred with windows administrator therapy notes at bedside Bowels are moving today Slept pretty well Tolerating Aricept well Review of Systems General: Fatigue Neurological: Confusion Objective Exam Vital Signs Vital Signs Date Time Temp Pulse Resp B/P (MAP) Pulse Ox O2 Delivery O2 Flow Rate FiO2 10/03/18 18:06 Room Air 10/03/18 16:43 97.5 68 16 102/62 (75) 98 Capillary Refill : General Appearance: No Apparent Distress, WD/WN, Chronically ill HEENT: PERRL/EOMI, Normal ENT Inspection, Pharynx Normal, Moist Mucous Membranes Neck: Full Range of Motion, Normal Inspection, Non Tender, Supple Respiratory: Chest Non Tender, Lungs Clear, Normal Breath Sounds, No Accessory Muscle Use, No Respiratory Distress Cardiovascular: Regular Rate, Rhythm, No Edema, No Gallop, No JVD, No Murmur Gastrointestinal: Normal Bowel Sounds, No Organomegaly, No Pulsatile Mass, Non Tender, Soft Back: Normal Inspection, No CVA Tenderness, No Vertebral Tenderness Extremity: Normal Capillary Refill, Normal Inspection, Normal Range of Motion, Non Tender, No Calf Tenderness, No Pedal Edema Neurologic/Psychiatric: Alert, Oriented x3, No Motor/Sensory Deficits, Normal Mood/Affect, body presser II-XII Norm as Tested, Disoriented (poor recall), Motor Weakness (generalized weakness) Skin: Normal Color, Warm/Dry Lymphatic: No Adenopathy Results/Procedures Lab Laboratory Tests 10/03/18 05:20 Patient resulted labs reviewed. FIM Transfers Therapy Code Descriptions/Definitions Functional [place] Measure: 0=Not Assessed/NA 4=Minimal Assistance 1=Total Assistance 5=Supervision or Setup 2=Maximal Assistance 6=Modified [place] 3=Moderate Assistance 7=Complete [place] Therapy Quality Codes: 6 Independent with activity with or without an assistive device 5 Patient requires set up or clean up by helper. Patient completes activity by themselves 4 Supervision or touching assist (CGA). [place] provide cues , steadying assist 3 The helper provides less than half the effort to complete the activity 2 The helper provides more than half the effort to complete the activity 1 Dependent. The helper does all the effort to complete an activity 7 Patient refused to complete or attempt activity 9 The patient did not perform the activity before the current illness or injury 88 Not attempted due to Medical conditions or safety concerns Transfers (B, C, W/C) (FIM): 6 Scootin Rollin Roll Left to Right (QC): 4 Supine to/from Sit: 6 Sit to/from Stand: 6 Sit to Lying (QC): 5 Sit to Stand (QC): 4 Chair/Odk-zm-Bhanf Xfer(QC): 4 Car Transfer (QC): 3 (assist with both legs) Gait Training Does the Patient Walk?: Yes Gait (FIM): 5 Distance (FIM): 3=150 ft (200,150) Distance: 200 Walk 10 feet (QC): 4 Walk 50 ft with 2 Turns(QC): 4 Walk 150 ft (QC): 4 Walking 10ft/uneven surface-QC: 4 Gait Level of Assist: 5 Gait Persons Needed: 1 Gait Assistive Device: FWW Wheelchair Training Does the Pt Use a Wheelchair?: No Stair Training Stair Training: Handrails/: 2 handrails Stairs (FIM): 2 #of Steps: 4 1 Step (curb) (QC): 4 4 Steps (QC): 88 12 Steps (QC): 88 Stairs: Pattern: Step to Level of Assist: 4 Balance Picking up an Object (QC): 88 (unsafe to attempt and did not perform before. ) Mental Status/Objective Comprehension: 3 Expression: 4 Social Interaction: 5 Problem Solvin Memory: 2 ADL-Treatment Feedin Eating (QC): 5 Groomin Bathin (Washed and dried all parts, CGA for sanding. Long handled sponge, shower bench, grab bars, hand held shower) Shower/Bathe Self (QC): 3 Upper Extremity Dressin (setup) Upper Body Dressing (QC): 4 Lower Extremity Dressin Lower Body Dressing (QC): 2 On/Off Footwear (QC): 2 Toiletin Toileting Hygiene (QC): 1 Toilet/Commode Transfer: 4 Toilet Transfer (QC): 4 Shower: 4 (Min assist) Assessment/Plan Assessment and Plan Assess & Plan/Chief Complaint Assessment: Encephalopathy acute on chronic New diagnosis of dementia 12/28 SLUMS done on admit so started Aricept 5mg CAD AF Pacemaker UTI Cough Cardiomyopathy Confusion Plan: Aricept IRF protocols Abx and review cultures Bowel regimen Consult Dr Jack and Dr Lawson Ambrocio cath with cysto yesterday Midline (1) Encephalopathy (2) Unable to ambulate (3) Transient alteration of awareness (4) DVT prophylaxis (5) Coronary artery disease (6) Atrial fibrillation (7) Diabetes mellitus (8) Hyponatremia (9) UTI (urinary tract infection) (10) Cardiomyopathy (11) Cardiac defibrillator in place (12) Acute on chronic systolic (congestive) heart failure (13) MICHELLE on CPAP ROSEMARY CURRIE DO Oct 03, 2018 13:01
--- NOTE | 2018-10-03 16:34 | NUR ---
DC Telemetry per Dr. Villeda.
--- NOTE | 2018-10-03 16:39 | Progress Note - Cardiology ---
Cardiology SOAP Progress Note Subjective: No cp or palp or syncope Gen malaise and weakness and exertional shortness of breath, slowly improving Objective: I&O/Vital Signs 10/03/18 10/03/18 10/03/18 10/03/18 05:50 07:00 08:43 09:59 Temp 96.9 Pulse 72 73 88 Resp 20 B/P (MAP) 116/71 (86) 121/86 (98) Pulse Ox 95 97 O2 Delivery Room Air Room Air Room Air 10/03/18 13:00 Pulse 65 10/03/18 00:00 Intake Total 1625 ml Output Total 1100 ml Balance 525 ml Weight (Pounds): 336 Weight (Ounces): 8.0 Weight (Calculated Kilograms): 152.007790 Constitutional: AAO x 3, well-developed Respiratory: chest is bilaterally symmetric, lungs clear to auscultation Cardiovascular: irregularly irregular, S1 and S2, systolic murmur (soft JOHANNA at card base) Gastrointestional: No tender; soft; No guarding, No rebound; audible bowel sounds Extremities: swelling (bilat, mild leg edema); No clubbing, No cyanosis Neurologic/Psychiatric: other (moves all limbs equally) Skin: No rash on exposed areas, No ulcerations on exposed areas Results/Procedures: Labs Laboratory Tests 10/03/18 05:20: White Blood Count 9.9, Red Blood Count 3.74L, Hemoglobin 11.1L, Hematocrit 34L, Mean Corpuscular Volume 90, Mean Corpuscular Hemoglobin 30, Mean Corpuscular Hemoglobin Concent 33, Red Cell Distribution Width 14.8H, Platelet Count 316, Mean Platelet Volume 10.4, Neutrophils (%) (Auto) 69, Lymphocytes (%) (Auto) 19, Monocytes (%) (Auto) 8, Eosinophils (%) (Auto) 3, Basophils (%) (Auto) 1, Neutrophils # (Auto) 6.8, Lymphocytes # (Auto) 1.9, Monocytes # (Auto) 0.8, Eosinophils # (Auto) 0.3, Basophils # (Auto) 0.1, Sodium Level 136, Potassium Level 4.3, Chloride Level 106, Carbon Dioxide Level 21, Anion Gap 9, Blood Urea Nitrogen 23H, Creatinine 1.01, Estimat Glomerular Filtration Rate > 60, BUN/Creatinine Ratio 23, Glucose Level 228H, Calcium Level 9.0, Corrected Calcium 10.0, Total Bilirubin 0.4, Aspartate Amino Transf (AST/SGOT) 30, Alanine Aminotransferase (ALT/SGPT) 25, Alkaline Phosphatase 79, Total Protein 6.1L, Albumin 2.8L Microbiology 10/01/18 MRSA Screen - Final, Complete MRSA not isolated 09/30/18 Urine Culture - Final, Complete YEAST Laboratory Tests 10/02/18 05:35 10/03/18 05:20 A/P: Assessment: Gross hematuria with blood clots, now resolved. Cystoscopy by Dr Jack on 10/02/18, apparently, did now show any significant findings CAD, CABG Ischemic cardiomyopathy. Echo of 09/02/18 (Dr Bermudez): LVEF 40-45%, mild to mod MR, mod TR, PASP 35 mmHg ICD, followed by Dr Lawson Paroxysmal atrial fibrillation Anemia, unclear etiology, managed by the Med Svce Hyponatremia and elevated BUN/Cr ratio, likely secondary to diuretics. Plan: * Xarelto resumed * Diuretics reduced * Hold parameters placed on losartan, long-acting diltiazem, and ARBs. This is because of intermittently low bp * Continue to monitor labs * D/c EPIFANIO Solano MD FACP [facility] CCDS Oct 03, 2018 16:39
[2018-10-03 16:43] VITALS: BP 102/62
[2018-10-03] MEDS: TAMSULOSIN 0.4 MG (FLOMAX) CAP PO SCH (17:00)
[2018-10-03] MEDS: RIVAROXABAN 20 MG TABLET (XARELTO) PO SCH (17:00)
[2018-10-03] MEDS: ATORVASTATIN 10 MG (LIPITOR) TABLET PO SCH (20:43)
[2018-10-03] MEDS: MIRTAZAPINE 15 MG (REMERON) TAB PO SCH (20:43)
[2018-10-03] MEDS: DONEPEZIL 5 MG (ARICEPT) TAB PO SCH (20:43)
[2018-10-04 05:50] VITALS: BP 110/69
[2018-10-04] MEDS: TRIM/SULFAMETH 160/800 (SEPTRA DS) TAB PO SCH ×2 (06:32→17:27)
[2018-10-04] MEDS: inSUlin ASPART (NovoLOG) 1 UNIT/0.01 ML (CHARGE PER UNIT) SC SCH ×2 (06:33→17:28)
[2018-10-04 08:34] VITALS: BP 110/74
[2018-10-04] MEDS: FAMOTIDINE 20 MG (PEPCID) TABLET PO SCH ×2 (08:36→21:09)
[2018-10-04] MEDS: FUROSEMIDE 40 MG (LASIX) TAB PO SCH (08:36)
[2018-10-04] MEDS: ASPIRIN E.C. 81 MG (ECOTRIN) TAB PO SCH (08:36)
[2018-10-04] MEDS: DILTIAZEM 120 MG (CARDIZEM CD) CAP PO SCH (08:36)
[2018-10-04] MEDS: fluCOnazole (DIFLUCAN) 100 MG TAB PO SCH (08:36)
[2018-10-04] MEDS: LOSARTAN 25 MG (COZAAR) TAB PO SCH (08:36)
[2018-10-04] MEDS: FINASTERIDE (PROSCAR) 5 MG TAB PO SCH (08:36)
[2018-10-04] MEDS: SOTALOL 80 MG (BETAPACE) TAB PO SCH ×2 (08:36→17:28)
[2018-10-04] MEDS: SPIRONOLACTONE 25 MG (ALDACTONE) TAB PO SCH (08:36)
[2018-10-04] MEDS: ALLOPURINOL 300 MG (ZYLOPRIM) TAB PO SCH (08:36)
[2018-10-04] MEDS: MICONAZOLE NITRATE 2% CRM 30 GM TP SCH ×2 (08:37→21:09)
[2018-10-04] MEDS: MICONAZOLE 2% POWDER (DESENEX AF) 90 GM TOP SCH ×2 (08:37→21:08)
[2018-10-04] MEDS: VANCOMYCIN 1500 MG/NS 500 ML IVPB IV SCH ×2 (10:27)
--- NOTE | 2018-10-04 13:47 | PM&R Progress Note ---
Subjective HPI/CC On Admission Date Seen by Provider: Oct 04, 2018 Time Seen by Provider: 13:00 Chief Complaint: Severe debility with encephalopathy. HPI: This is a 68yoWM who was just [facility] from [facility] due to confusion, UTI, and fever. Dr. Lawson was consulted for atrial fibrillation. He was just discharged previous Friday when his defibrillator discharged and he was evaluated found to be stable and was discharged home but he began feeling badly shortly after arriving home and returned back with confusion, recurrent UTI, and upper respiratory cough. He was found to have low grade fever he was placed on Rocephin and Vancomycin empirically and also based on cultures before and was deemed stable to be transferred to in patient rehab to work on cognition after slums score initiated and will likely benefit from Aricept in addition he will undergo intensive rehab to further strengthen in order to go home and be successful and returning to his to live independently with close f/u by PCP along with Urology and Cardiology. Prior level of functioning was fairly independent with ADL's and ambulation. Subjective/Events-last exam Maintained on Diflucan started 3 days ago Midline replaced Friday and now Vanc back on board and pharmacy is monitoring closely Very poor vascular access may need a [place] port in the future Accu-Cheks twice a day with sliding scale insulin regimen A and I have reviewed sugar checks Cystoscopy completed Friday and now Ambrocio DC and having less incontinence so will monitor that closely Conferred with plastics scientist therapy notes at bedside Bowels are moving today Slept pretty well Tolerating Aricept well Review of Systems General: Fatigue Genitourinary: Incontinence Objective Exam Vital Signs Vital Signs Date Time Temp Pulse Resp B/P (MAP) Pulse Ox O2 Delivery O2 Flow Rate FiO2 10/04/18 18:08 Room Air 10/04/18 15:55 96.8 82 14 105/70 (82) 99 Capillary Refill : General Appearance: No Apparent Distress, WD/WN, Chronically ill HEENT: PERRL/EOMI, Normal ENT Inspection, Pharynx Normal, Moist Mucous Membranes Neck: Full Range of Motion, Normal Inspection, Non Tender, Supple Respiratory: Chest Non Tender, Lungs Clear, Normal Breath Sounds, No Accessory Muscle Use, No Respiratory Distress Cardiovascular: Regular Rate, Rhythm, No Edema, No Gallop, No JVD, No Murmur Gastrointestinal: Normal Bowel Sounds, No Organomegaly, No Pulsatile Mass, Non Tender, Soft Back: Normal Inspection, No CVA Tenderness, No Vertebral Tenderness Extremity: Normal Capillary Refill, Normal Inspection, Normal Range of Motion, Non Tender, No Calf Tenderness, No Pedal Edema Neurologic/Psychiatric: Alert, Oriented x3, No Motor/Sensory Deficits, Normal Mood/Affect, transmission technician II-XII Norm as Tested, Disoriented (poor recall), Motor Weakness (generalized weakness) Skin: Normal Color, Warm/Dry Lymphatic: No Adenopathy Results/Procedures Lab Patient resulted labs reviewed. FIM Transfers Therapy Code Descriptions/Definitions Functional [place] Measure: 0=Not Assessed/NA 4=Minimal Assistance 1=Total Assistance 5=Supervision or Setup 2=Maximal Assistance 6=Modified [place] 3=Moderate Assistance 7=Complete [place] Therapy Quality Codes: 6 Independent with activity with or without an assistive device 5 Patient requires set up or clean up by helper. Patient completes activity by themselves 4 Supervision or touching assist (CGA). [place] provide cues , steadying assist 3 The helper provides less than half the effort to complete the activity 2 The helper provides more than half the effort to complete the activity 1 Dependent. The helper does all the effort to complete an activity 7 Patient refused to complete or attempt activity 9 The patient did not perform the activity before the current illness or injury 88 Not attempted due to Medical conditions or safety concerns Transfers (B, C, W/C) (FIM): 6 Scootin Rollin Roll Left to Right (QC): 4 Supine to/from Sit: 6 Sit to/from Stand: 6 Sit to Lying (QC): 5 Sit to Stand (QC): 4 Chair/[id number]-xz-[id number] Xfer(QC): 4 Car Transfer (QC): 3 (assist with both legs) Gait Training Does the Patient Walk?: Yes Gait (FIM): 5 Distance (FIM): 3=150 ft (200,150) Distance: 200 Walk 10 feet (QC): 4 Walk 50 ft with 2 Turns(QC): 4 Walk 150 ft (QC): 4 Walking 10ft/uneven surface-QC: 4 Gait Level of Assist: 5 Gait Persons Needed: 1 Gait Assistive Device: FWW Wheelchair Training Does the Pt Use a Wheelchair?: No Stair Training Stair Training: Handrails/: 2 handrails Stairs (FIM): 2 #of Steps: 4 1 Step (curb) (QC): 4 4 Steps (QC): 88 12 Steps (QC): 88 Stairs: Pattern: Step to Level of Assist: 4 Balance Picking up an Object (QC): 88 (unsafe to attempt and did not perform before. ) Mental Status/Objective Comprehension: 3 Expression: 4 Social Interaction: 5 Problem Solvin Memory: 2 ADL-Treatment Feedin Eating (QC): 5 Groomin Bathin (Washed and dried all parts, CGA for sanding. Long handled sponge, shower bench, grab bars, hand held shower) Shower/Bathe Self (QC): 3 Upper Extremity Dressin (setup) Upper Body Dressing (QC): 4 Lower Extremity Dressin Lower Body Dressing (QC): 2 On/Off Footwear (QC): 2 Toiletin Toileting Hygiene (QC): 1 Toilet/Commode Transfer: 4 Toilet Transfer (QC): 4 Shower: 4 (Min assist) Assessment/Plan Assessment and Plan Assess & Plan/Chief Complaint Assessment: Encephalopathy acute on chronic New diagnosis of dementia 12/28 SLUMS done on admit so started Aricept 5mg CAD AF Pacemaker UTI Cough Cardiomyopathy Confusion improved Plan: Aricept IRF protocols Abx and review cultures Bowel regimen Consult Dr Jack and Dr Lawson Ambrocio cath DC with cysto Friday Midline (1) Encephalopathy (2) Unable to ambulate (3) Transient alteration of awareness (4) DVT prophylaxis (5) Coronary artery disease (6) Atrial fibrillation (7) Diabetes mellitus (8) Hyponatremia (9) UTI (urinary tract infection) (10) Cardiomyopathy (11) Cardiac defibrillator in place (12) Acute on chronic systolic (congestive) heart failure (13) MICHELLE on CPAP ROSEMARY CURRIE DO Oct 04, 2018 13:47
[2018-10-04 15:55] VITALS: BP 105/70
--- NOTE | 2018-10-04 16:34 | Progress Note - Urology ---
Progress Note-Urology Progress Notes/Assess & Plan Progress/Assessment & Plan VOIDING BETTER EVERY DAY. INCREASE CONTINENCE. URINE CLEAR. PVR YESTERDAY WAS 33 AND TODAY IS O. WE WILL DO PRN Final Diagnosis URINE RETENTION NELSY TAPIA MD Oct 04, 2018 16:34
[2018-10-04] MEDS: RIVAROXABAN 20 MG TABLET (XARELTO) PO SCH (17:27)
[2018-10-04] MEDS: TAMSULOSIN 0.4 MG (FLOMAX) CAP PO SCH (17:27)
--- NOTE | 2018-10-04 19:03 | Progress Note - Cardiology ---
Cardiology SOAP Progress Note Subjective: No cp, palp, syncope Shortness of breath better Has not noted any recurrence of blood in urine Objective: I&O/Vital Signs 10/04/18 10/04/18 10/04/18 10/04/18 08:34 09:59 15:55 18:08 Temp 96.8 Pulse 75 82 Resp 18 14 B/P (MAP) 110/74 (86) 105/70 (82) Pulse Ox 96 99 O2 Delivery Room Air Room Air Room Air Room Air 10/04/18 00:00 Intake Total 1255 ml Output Total 500 ml Balance 755 ml Weight (Pounds): 336 Weight (Ounces): 8.0 Weight (Calculated Kilograms): 152.784336 Constitutional: AAO x 3, well-developed Respiratory: chest is bilaterally symmetric, lungs clear to auscultation Cardiovascular: irregularly irregular, S1 and S2, systolic murmur (soft JOHANNA at card base) Gastrointestional: No tender; soft; No guarding, No rebound; audible bowel sounds Extremities: swelling (bilat, mild leg edema); No clubbing, No cyanosis Neurologic/Psychiatric: other (moves all limbs equally) Skin: No rash on exposed areas, No ulcerations on exposed areas Results/Procedures: Labs Laboratory Tests 10/04/18 06:11: Glucometer 179H 10/04/18 15:54: Glucometer 272H Microbiology 10/01/18 MRSA Screen - Final, Complete MRSA not isolated 09/30/18 Urine Culture - Final, Complete YEAST Laboratory Tests 10/03/18 05:20 A/P: Assessment: Gross hematuria with blood clots, now resolved. Cystoscopy by Dr Jack on 10/02/18, apparently, did now show any significant findings CAD, CABG Ischemic cardiomyopathy. Echo of 09/02/18 (Dr Bermudez): LVEF 40-45%, mild to mod MR, mod TR, PASP 35 mmHg ICD, followed by Dr Lawson Paroxysmal atrial fibrillation Anemia, unclear etiology, managed by the Med Svce Hyponatremia and elevated BUN/Cr ratio, likely secondary to diuretics. Plan: * Xarelto resumed * Diuretics reduced * Hold parameters placed on losartan, long-acting diltiazem, and ARBs. This is because of intermittently low bp * Continue to monitor labs EPIFANIO WINTER MD FACP FAC CCDS Oct 04, 2018 19:03
[2018-10-04] MEDS: DONEPEZIL 5 MG (ARICEPT) TAB PO SCH (21:09)
[2018-10-04] MEDS: MIRTAZAPINE 15 MG (REMERON) TAB PO SCH (21:09)
[2018-10-04] MEDS: ATORVASTATIN 10 MG (LIPITOR) TABLET PO SCH (21:09)
[2018-10-05 05:35] VITALS: BP 118/76
[2018-10-05] MEDS: TRIM/SULFAMETH 160/800 (SEPTRA DS) TAB PO SCH ×2 (05:55→16:21)
[2018-10-05 06:19] LABS: BASOPHILS # (AUTO) 0.1 10^3/uL (0.0-0.1); BASOPHILS % (AUTO) 1 % (0-10); EOSINOPHILS # (AUTO) 0.4 10^3/uL (0.0-0.3); EOSINOPHILS % (AUTO) 3 % (0-10); HEMATOCRIT 36 % (40-54); HEMOGLOBIN 11.6 G/DL (13.3-17.7); LYMPHOCYTES # (AUTO) 2.1 X 10^3 (1.0-4.0); LYMPHOCYTES % (AUTO) 17 % (12-44); MEAN CORPUSCULAR HEMOGLOBIN 30 PG (25-34); MEAN CORPUSCULAR HGB CONC 33 G/DL (32-36); MEAN CORPUSCULAR VOLUME 91 FL (80-99); MEAN PLATELET VOLUME 10.3 FL (7.4-10.4); MONOCYTES # (AUTO) 0.8 X 10^3 (0.0-1.0); MONOCYTES % (AUTO) 6 % (0-12); NEUTROPHILS # (AUTO) 9.4 X 10^3 (1.8-7.8); NEUTROPHILS % (AUTO) 74 % (42-75); PLATELET COUNT 329 10^3/uL (130-400); RED CELL DISTRIBUTION WIDTH 14.9 % (10.0-14.5); WHITE BLOOD COUNT 12.8 10^3/uL (4.3-11.0)
[2018-10-05 06:43] LABS: ALANINE AMINOTRANSFERASE 24 U/L (0-55); ALBUMIN 2.9 GM/DL (3.2-4.5); ALKALINE PHOSPHATASE 84 U/L (40-136); BILIRUBIN,TOTAL 0.5 MG/DL (0.1-1.0); BUN/CREATININE RATIO 18; CALCIUM 9.2 MG/DL (8.5-10.1); CARBON DIOXIDE 21 MMOL/L (21-32); CHLORIDE 104 MMOL/L (98-107); CREATININE SERUM 0.99 MG/DL (0.60-1.30); GFR ESTIMATED > 60; GLUCOSE 194 MG/DL (70-105); SODIUM 134 MMOL/L (135-145); TOTAL PROTEIN 7.1 GM/DL (6.4-8.2)
[2018-10-05 06:45] LABS: POTASSIUM 6.6 MMOL/L (3.6-5.0)
[2018-10-05] MEDS: inSUlin ASPART (NovoLOG) 1 UNIT/0.01 ML (CHARGE PER UNIT) SC SCH ×2 (06:50→16:22)
[2018-10-05 07:28] LABS: BASOPHILS # (AUTO) 0.1 10^3/uL (0.0-0.1); BASOPHILS % (AUTO) 1 % (0-10); EOSINOPHILS # (AUTO) 0.4 10^3/uL (0.0-0.3); EOSINOPHILS % (AUTO) 3 % (0-10); HEMATOCRIT 37 % (40-54); HEMOGLOBIN 11.9 G/DL (13.3-17.7); LYMPHOCYTES % (AUTO) 15 % (12-44); MEAN CORPUSCULAR HEMOGLOBIN 30 PG (25-34); MEAN CORPUSCULAR HGB CONC 33 G/DL (32-36); MEAN CORPUSCULAR VOLUME 91 FL (80-99); MEAN PLATELET VOLUME 10.2 FL (7.4-10.4); MONOCYTES # (AUTO) 0.8 X 10^3 (0.0-1.0); MONOCYTES % (AUTO) 6 % (0-12); NEUTROPHILS # (AUTO) 9.9 X 10^3 (1.8-7.8); NEUTROPHILS % (AUTO) 75 % (42-75); PLATELET COUNT 352 10^3/uL (130-400); RED CELL DISTRIBUTION WIDTH 14.9 % (10.0-14.5); WHITE BLOOD COUNT 13.1 10^3/uL (4.3-11.0)
[2018-10-05 07:48] LABS: ALANINE AMINOTRANSFERASE 24 U/L (0-55); ALKALINE PHOSPHATASE 87 U/L (40-136); BILIRUBIN,TOTAL 0.5 MG/DL (0.1-1.0); BUN/CREATININE RATIO 17; CALCIUM 9.4 MG/DL (8.5-10.1); CARBON DIOXIDE 20 MMOL/L (21-32); CHLORIDE 105 MMOL/L (98-107); CREATININE SERUM 0.98 MG/DL (0.60-1.30); GFR ESTIMATED > 60; GLUCOSE 199 MG/DL (70-105); POTASSIUM 4.7 MMOL/L (3.6-5.0); SODIUM 135 MMOL/L (135-145); TOTAL PROTEIN 6.8 GM/DL (6.4-8.2)
[2018-10-05] MEDS ORDERED: TROUGH ORDER-PHARMACY XX NR (09:00)
--- NOTE | 2018-10-05 09:09 | PM&R Progress Note ---
Subjective HPI/CC On Admission Date Seen by Provider: Oct 05, 2018 Time Seen by Provider: 09:00 Chief Complaint: Severe debility with encephalopathy. HPI: This is a 68yoWM who was just transferred [facility] floor from [facility] due to confusion, UTI, and fever. Dr. Lawson was consulted for atrial fibrillation. He was just discharged previous Friday when his defibrillator discharged and he was evaluated found to be stable and was discharged home but he began feeling badly shortly after arriving home and ret urned back with confusion, recurrent UTI, and upper respiratory cough. He was found to have low grade fever he was placed on Rocephin and Vancomycin empirically and also based on cultures before and was deemed stable to be transferred to in patient rehab to work on cognition after slums score initiated and will likely benefit from Aricept in addition he will undergo intensive rehab to further strengthen in order to go home and be successful and returning to his to live independently with close f/u by PCP along with Urology and Cardiology. Prior level of functioning was fairly independent with ADL's and ambulation. Subjective/Events-last exam Will complete Vancomycin later this week. White count is 13,000 but no fever. Potassium was 6.6 but that was repeated and it was 4.7. Creatinine was normal. Overall doing very well. is very pleased with his progress. Eating and drinking well. Bowels are moving. Less incontinence. Conferred with RN. Reviewed therapy notes. Review of Systems General: Fatigue Neurological: Confusion Objective Exam Vital Signs Vital Signs Date Time Temp Pulse Resp B/P (MAP) Pulse Ox O2 Delivery O2 Flow Rate FiO2 10/05/18 17:27 97.0 80 16 114/74 (87) 96 Room Air Capillary Refill : General Appearance: No Apparent Distress, WD/WN, Chronically ill HEENT: PERRL/EOMI, Normal ENT Inspection, Pharynx Normal, Moist Mucous Membranes Neck: Full Range of Motion, Normal Inspection, Non Tender, Supple Respiratory: Chest Non Tender, Lungs Clear, Normal Breath Sounds, No Accessory Muscle Use, No Respiratory Distress Cardiovascular: Regular Rate, Rhythm, No Edema, No Gallop, No JVD, No Murmur Gastrointestinal: Normal Bowel Sounds, No Organomegaly, No Pulsatile Mass, Non Tender, Soft Back: Normal Inspection, No CVA Tenderness, No Vertebral Tenderness Extremity: Normal Capillary Refill, Normal Inspection, Normal Range of Motion, Non Tender, No Calf Tenderness, No Pedal Edema Neurologic/Psychiatric: Alert, Oriented x3, No Motor/Sensory Deficits, Normal Mood/Affect, heater furnace II-XII Norm as Tested, Disoriented (poor recall), Motor Weakness (generalized weakness) Skin: Normal Color, Warm/Dry Lymphatic: No Adenopathy Results/Procedures Lab Laboratory Tests 10/05/18 06:00 10/05/18 07:15 Patient resulted labs reviewed. FIM Transfers Therapy Code Descriptions/Definitions Functional [place] Measure: 0=Not Assessed/NA 4=Minimal Assistance 1=Total Assistance 5=Supervision or Setup 2=Maximal Assistance 6=Modified [place] 3=Moderate Assistance 7=Complete [place] Therapy Quality Codes: 6 Independent with activity with or without an assistive device 5 Patient requires set up or clean up by helper. Patient completes activity by themselves 4 Supervision or touching assist (CGA). [place] provide cues , steadying assist 3 The helper provides less than half the effort to complete the activity 2 The helper provides more than half the effort to complete the activity 1 Dependent. The helper does all the effort to complete an activity 7 Patient refused to complete or attempt activity 9 The patient did not perform the activity before the current illness or injury 88 Not attempted due to Medical conditions or safety concerns Transfers (B, C, W/C) (FIM): 6 Scootin Rollin Roll Left to Right (QC): 4 Supine to/from Sit: 6 Sit to/from Stand: 6 Sit to Lying (QC): 5 Sit to Stand (QC): 4 Chair/[id number]-fj-Hxbdp Xfer(QC): 4 Car Transfer (QC): 3 (assist with both legs) Gait Training Does the Patient Walk?: Yes Gait (FIM): 5 Distance (FIM): 3=150 ft (200,150) Distance: 200 Walk 10 feet (QC): 4 Walk 50 ft with 2 Turns(QC): 4 Walk 150 ft (QC): 4 Walking 10ft/uneven surface-QC: 4 Gait Level of Assist: 5 Gait Persons Needed: 1 Gait Assistive Device: FWW Wheelchair Training Does the Pt Use a Wheelchair?: No Stair Training Stair Training: Handrails/: 2 handrails Stairs (FIM): 2 #of Steps: 4 1 Step (curb) (QC): 4 4 Steps (QC): 88 12 Steps (QC): 88 Stairs: Pattern: Step to Level of Assist: 4 Balance Picking up an Object (QC): 88 (unsafe to attempt and did not perform before. ) Mental Status/Objective Comprehension: 3 Expression: 4 Social Interaction: 5 Problem Solvin Memory: 2 ADL-Treatment Feedin Eating (QC): 5 Groomin Bathin (Washed and dried all parts, CGA for sanding. Long handled sponge, shower bench, grab bars, hand held shower) Shower/Bathe Self (QC): 3 Upper Extremity Dressin (setup) Upper Body Dressing (QC): 4 Lower Extremity Dressin Lower Body Dressing (QC): 2 On/Off Footwear (QC): 2 Toiletin Toileting Hygiene (QC): 1 Toilet/Commode Transfer: 4 Toilet Transfer (QC): 4 Shower: 4 (Min assist) Assessment/Plan Assessment and Plan Assess & Plan/Chief Complaint Assessment: Encephalopathy acute on chronic New diagnosis of dementia 12/28 SLUMS done on admit so started Aricept 5mg CAD AF Pacemaker UTI Cough Cardiomyopathy Confusion improved Plan: Aricept IRF protocols Abx and review cultures Bowel regimen Consult Dr Jack and Dr Lawson Ambrocio cath DC s/p cysto Friday Midline (1) Encephalopathy (2) Unable to ambulate (3) Transient alteration of awareness (4) DVT prophylaxis (5) Coronary artery disease (6) Atrial fibrillation (7) Diabetes mellitus (8) Hyponatremia (9) UTI (urinary tract infection) (10) Cardiomyopathy (11) Cardiac defibrillator in place (12) Acute on chronic systolic (congestive) heart failure (13) MICHELLE on CPAP ROSEMARY CURRIE DO Oct 05, 2018 09:09
[2018-10-05] MEDS: SOTALOL 80 MG (BETAPACE) TAB PO SCH ×2 (09:30→18:52)
[2018-10-05] MEDS: DILTIAZEM 120 MG (CARDIZEM CD) CAP PO SCH (09:36)
[2018-10-05] MEDS: FAMOTIDINE 20 MG (PEPCID) TABLET PO SCH ×2 (09:36→20:54)
[2018-10-05] MEDS: fluCOnazole (DIFLUCAN) 100 MG TAB PO SCH (09:36)
[2018-10-05] MEDS: LOSARTAN 25 MG (COZAAR) TAB PO SCH (09:36)
[2018-10-05] MEDS: ALLOPURINOL 300 MG (ZYLOPRIM) TAB PO SCH (09:36)
[2018-10-05] MEDS: ASPIRIN E.C. 81 MG (ECOTRIN) TAB PO SCH (09:36)
[2018-10-05] MEDS: FINASTERIDE (PROSCAR) 5 MG TAB PO SCH (09:36)
--- NOTE | 2018-10-05 10:44 | Cardiology Progress Note ---
Cardiology SOAP Progress Note Subjective: no cardiac complaints. Objective: I&O/Vital Signs 10/06/18 05:43 Temp 97.4 Pulse 81 Resp 18 B/P (MAP) 103/67 (79) Pulse Ox 96 O2 Delivery Room Air 10/06/18 00:00 Intake Total 1150 ml Output Total 1200 ml Balance -50 ml Weight (Pounds): 336 Weight (Ounces): 8.0 Weight (Calculated Kilograms): 152.430721 Constitutional: AAO x 3, well-developed Respiratory: chest is bilaterally symmetric, lungs clear to auscultation Cardiovascular: irregularly irregular, S1 and S2, systolic murmur (soft JOHANNA at card base) Gastrointestional: No tender; soft; No guarding, No rebound; audible bowel sounds Extremities: swelling (bilat, mild leg edema); No clubbing, No cyanosis Neurologic/Psychiatric: other (moves all limbs equally) Skin: No rash on exposed areas, No ulcerations on exposed areas Results/Procedures: Labs Laboratory Tests 10/05/18 15:32: Glucometer 255H 10/06/18 05:38: Glucometer 199H Microbiology 10/01/18 MRSA Screen - Final, Complete MRSA not isolated 09/30/18 Urine Culture - Final, Complete YEAST A/P: Assessment/Dx: Fall, confusion, on inpatient admission. Low-grade fever, leukocytosis, CAD, CABG, Ischemic cardiomyopathy, ICD, Paroxysmal atrial fibrillation, Anemia, Lactic acidosis, Hyponatremia, Elevated BUN Plan: Fall, confusion, defer to the primary team. resolved. Low-grade fever, leukocytosis, defer to the primary team. resolved. CAD, CABG, continue aspirin, statin. Ischemic cardiomyopathy, stable. ICD, no acute issues. Paroxysmal atrial fibrillation, controlled ventricular rate, continue sotalol, cardizem and xarelto. Sotalol and Cardizem were held since systolic blood pressure was 99 mmHg this morning. Will restart as soon as a systolic blood pressure is over 110 mmHg. Anemia, unclear etiology. Hyponatremia, likely secondary to diuretics. Thank you for your consultation. Please call me if you have any questions. Manuel Lawson MD, FACP, FACC, FSCAI, FHRS, CCDS Interventional Cardiology Cardiac Electrophysiology Vascular Medicine and Endovascular Interventions Royal LAWSON MD Oct 05, 2018 10:44
[2018-10-05] MEDS: VANCOMYCIN 1500 MG/NS 500 ML IVPB IV SCH ×2 (11:03)
--- NOTE | 2018-10-05 11:17 | Occupational Ther Daily Note ---
OT Current Status-Daily Note Subjective No pain reported. Appearance Pt. up in chair. Agrees to work with OT. Mental Status/Objective Patient Orientation: Person, Place Therapy Code Descriptions/Definitions Functional [place] Measure: 0=Not Assessed/NA 4=Minimal Assistance 1=Total Assistance 5=Supervision or Setup 2=Maximal Assistance 6=Modified [place] 3=Moderate Assistance 7=Complete [place] Attachments: IV ADL-Treatment Therapy Code Descriptions/Definitions Functional [place] Measure: 0=Not Assessed/NA 4=Minimal Assistance 1=Total Assistance 5=Supervision or Setup 2=Maximal Assistance 6=Modified [place] 3=Moderate Assistance 7=Complete [place] Therapy Quality Codes: 6 Independent with activity with or without an assistive device 5 Patient requires set up or clean up by helper. Patient completes activity by themselves 4 Supervision or touching assist (CGA). [place] provide cues , steadying assist 3 The helper provides less than half the effort to complete the activity 2 The helper provides more than half the effort to complete the activity 1 Dependent. The helper does all the effort to complete an activity 7 Patient refused to complete or attempt activity 9 The patient did not perform the activity before the current illness or injury 88 Not attempted due to Medical conditions or safety concerns Grooming (FIM): 4 (Assist to brush hair correctly.) Bathing (FIM): 4 (CGA in stance. Cues to wash rear and front lito areas thoroughly. Pt. utilized LH sponge to wash feet.) Shower/Bathe Self (QC): 4 Upper Body (FIM): 5 Upper Body Dressing (QC): 4 Lower Body Dressing (FIM): 3 (Pt. unable to don/doff slipper socks, but is able to don shorts.) Lower Body Dressing (QC): 3 On/Off Footwear (QC): 2 Transfers (B, C, W/C) (FIM): 4 (CGA to ambulate.) Shower Transfer(FIM): 4 Education OT Patient Education: Correct positioning, Modified ADL techniques, Progress toward Goal/Update tx plan, Purpose of tx/functional activities, Reviewed precautions, Rehab process, Transfer techniques Teaching Recipient: Patient Teaching Methods: Demonstration, Discussion Response to Teaching: Verbalize Understanding, Return Demonstration OT Short Term Goals Short Term Goals Time Frame: Oct 06, 2018 Eating(FIM): 5 Grooming(FIM): 5 Bathing(FIM): 4 Upper Body Dressing(FIM): 5 Lower Body Dressing(FIM): 4 Toileting(FIM): 4 Transfers (B,C,W/C) (FIM): 5 Toilet/Commode Transfer(FIM): 5 Shower Transfer(FIM): 5 Additional Short Term Goals: 1-Demonstrate ADL Tasks, 2-Verbalize Understanding, 3-ImproveStrength/Dale 1=Demonstrate adherence to instructed precautions during ADL tasks. 2=Patient will verbalize/demonstrate understanding of assistive devices/modifications for ADL. 3=Patient will improve strength/tolerance for activity to enable patient to perform ADL's. OT Prison Goals Prison Goals Time Frame: Oct 20, 2018 Eating (FIM): 6 Eating (QC): 6 Groomin Oral Hygiene (QC): 6 Bathing(FIM): 5 Shower/Bathe Self (QC): 4 Upper Body Dressing(FIM): 5 Upper Body Dressing (QC): 5 Lower Body Dressing(FIM): 5 Lower Body Dressing (QC): 4 Toileting(FIM): 5 Toileting Hygiene (QC): 4 Transfers (B,C,W/C) (FIM): 6 Toilet/Commode Transfer(FIM): 6 Toilet/Commode Transfer (QC): 6 Shower Transfer(FIM): 5 Additional Goals: 1-Demonstrate ADL Tasks, 2-Verbalize Understanding, 3- ImproveStrength/Dale 1=Demonstrate adherence to instructed precautions during ADL tasks. 2=Patient will verbalize/demonstrate understanding of assistive devices/modifications for ADL. 3=Patient will improve strength/tolerance for activity to enable patient to perform ADL's. OT Education/Plan Problem List/Assessment Assessment: Decreased Activ Tolerance, Dependent Transfers, Impaired Cognition, Impaired I ADL's, Impaired Self-Care Skills Discharge Recommendations Plan/Recommendations: Continue POC Therapy D/C Recommendations: Home w/ Family Support, Occupational Therapy Home Care Equpiment Recommendations-D/C: Hip Kit Comment Pt. will be issued hip kit to practice with in hospital setting. Treatment Plan/Plan of Care Treatment,Training & Education: Yes Patient would benefit from OT for education, treatment and training to promote independence in ADL's, mobility, safety and/or upper extremity function for ADL's. Plan of Care: ADL Retraining, Functional Mobility, Group Exercise/Act as Ind, UE Funct Exercise/Act Treatment Duration: Oct 20, 2018 Frequency: At least 5 of 7 days/Wk (IRF) Estimated Hrs Per Day: 1.5 hours per day Agreement: Yes Rehab Potential: Fair Time/GCodes Start Time: 10:15 Stop Time: 11:00 Total Time Billed (hr/min): 45 Billed Treatment Time 1, ADL x 3 TEETEE WAITE OT Oct 05, 2018 11:17
[2018-10-05] MEDS: MICONAZOLE 2% POWDER (DESENEX AF) 90 GM TOP SCH ×2 (11:31→20:55)
[2018-10-05] MEDS: MICONAZOLE NITRATE 2% CRM 30 GM TP SCH ×2 (11:31→20:55)
--- NOTE | 2018-10-05 11:55 | Physical Therapy Daily Note ---
PT Daily Note-Current Subjective Patient in recliner pre tx, agrees to PT, has no complaints of pain. Appearance Patient in recliner post tx with nurse call, phone, tray, all needs met. Mental Status Patient Orientation: Normal For Age Attachments: IV Transfers Therapy Code Descriptions/Definitions Functional [place] Measure: 0=Not Assessed/NA 4=Minimal Assistance 1=Total Assistance 5=Supervision or Setup 2=Maximal Assistance 6=Modified [place] 3=Moderate Assistance 7=Complete [place] Therapy Quality Codes: 6 Independent with activity with or without an assistive device 5 Patient requires set up or clean up by helper. Patient completes activity by themselves 4 Supervision or touching assist (CGA). [place] provide cues , steadying assist 3 The helper provides less than half the effort to complete the activity 2 The helper provides more than half the effort to complete the activity 1 Dependent. The helper does all the effort to complete an activity 7 Patient refused to complete or attempt activity 9 The patient did not perform the activity before the current illness or injury 88 Not attempted due to Medical conditions or safety concerns Transfers (B, C, W/C) (FIM): 6 Sit to/from Stand: 6 Bed to/from Chair: 6 Gait Training Gait (FIM): 5 Distance: 150', 200' Gait Level of Assist: 5 Gait Persons Needed: 1 Gait Assistive Device: FWW slow but steady ambulation, slightly SOB after ambulation Exercises Seated Therapy Exercises: Ankle pumps, Hip flexion, Hip abd/add (with RTB and pillow) Seated Reps: 20 Standing: Hip Abduction, Heel/toe raises, Marching, Mini squats Standing Reps: 15 LAQ alternating for 5 min NuStep Minutes: 15 NuStep Workload: 4 Treatments transfers, ambulation, LE exercise Assessment Current Status: Fair Progress improving strength and general mobility PT Short Term Goals Short Term Goals Time Frame: Oct 06, 2018 Transfers (B,C,W/C) (FIM): 5 Gait (FIM): 4 Distance (FIM): 3=150 ft Gait Level of Assist: 4 Gait Assistive Device: FWW PT Program Counselor Goals Program Counselor Goals PT Program Counselor Goals Time Frame: Oct 20, 2018 Transfers (B,C,W/C) (FIM): 6 Sit to Lying (QC): 6 Lying-Sitting on Side/Bed(QC): 6 Sit to Stand (QC): 6 Rollin Roll Left to Right (QC): 6 Chair/Aqt-hb-Aeuff Xfer(QC): 6 Car Transfer (QC): 5 Does the Patient Walk: Yes Gait (FIM): 6 Gait distance (FIM): 3=150 ft Walk 10 feet (QC): 6 Walk 10ft-Uneven Surface(QC): 6 Walk 50ft with 2 Turns (QC): 6 Walk 150 ft (QC): 6 Gait Assistive Device: FWW Does the Pt use WC or Scooter?: No Stairs (FIM): 5 # of Steps: 4 1 Step (curb) (QC): 6 4 Steps (QC): 6 12 Steps (QC): 88 Picking up an Object (QC): 88 PT Plan Problem List Problem List: Activity Tolerance, Functional Strength, Safety, Balance, Gait, Transfer, Bed Mobility, ROM Treatment/Plan Treatment Plan: Continue Plan of Care Treatment Plan: Bed Mobility, Education, Functional Activity Dale, Functional Strength, Group Therapy, Gait, Safety, Therapeutic Exercise, Transfers Treatment Duration: Oct 20, 2018 Frequency: At least 5 of 7 days/Wk (IRF) Estimated Hrs Per Day: 1.5 hours per day Patient and/or Family Agrees t: Yes Safety Risks/Education Patient Education: Gait Training, Transfer Techniques, Correct Positioning, Safety Issues Teaching Recipient: Patient Teaching Methods: Demonstration, Discussion Response to Teaching: Reinforcement Needed Time/GCodes Time In: 1100 Time Out: 1200 Total Billed Treatment Time: 60 Total Billed Treatment 1 visit GT 20' EX 30' FA 10' FRANCY JUNIOR PT Oct 05, 2018 11:55
--- NOTE | 2018-10-05 14:18 | Therapy Group Daily Note ---
Therapy Daily Group Note Patient Education Topic Exercises (Reason and benefit of each exercise. ) Exercises LE Seated Exercise, UE Exercise Session Ratio (pt:therapist): 4:1 Goal of Session: Other (list) Socialization with other patients and to facilatate interpatient discussion on their experiences while here. U/LE strengthening as welll as breathing techniques to facilitate lung expansion. Goal Met for this Session: Yes Pt Benefit of Group: Contributions to Others, Increased Functional Strength, Socialization Pt interacted well with group and participated with strengthening activities. He was eager to assist and motivate the patient sitting next to him. Other/Notes UE and LE ther ex performed for gross muscle groups ROM and functional strength; also performed ther ex to promote lung expansion through scap squeeze and deep breathing and overhead reach. Education provided on the importance of ther ex and how it facilitates functional ROM and deep breathing to reduce the risk of pneumonia. Start Time: 12:50 Stop Time: 14:00 Total Billed Treatment Time: 70 Total Billed Treatment visit GRP 70 PANFILO MARIE PT Oct 05, 2018 14:18
--- NOTE | 2018-10-05 16:06 | Speech Therapy Daily Note ---
Speech Daily Progress Note Subjective Date Seen by Provider: Oct 05, 2018 Time Seen by Provider: 00:30 The patient was sitting in his recliner resting when I entered his room. Objective The patient completed a series of memory exercises with 75% accuracy given decreased verbal cues. Assessment Assessment Current Status: Fair Progress Treatment Plan Continue Plan of Care Communication Comprehension: 3 Expression: 4 Social Cognition Social Interaction: 5 Problem Solvin Memory: 2 Speech Short Term Goals Short Term Goals Short Term Goals 1) The patient will complete memory tasks with 80% or greater given minimal cues. 2) The patient will complete problem solving tasks with 80% or greater given minimal cues. 3) The patient will complete safety awareness tasks with 80% or greater given minimal cues. Speech Prison Goals Prison Goals The patient will improve cognitive skills in order to return safely to his home. Speech-Plan Patient/Family Goals Patient/Family Goals: The patient plans to return home with his post rehab. Treatment Plan Speech Therapy Treatment Plan: Continue Plan of Care The patient is progressing and exhibiting increased level of alertness. Treatment Duration: Oct 16, 2018 Frequency: 5 times per week Estimated Hrs Per Day: .5 hour per day Rehab Potential: Fair Barriers to Learning: Patient's level of memory deficit Pt/Family Agrees to Plan: Yes Safety Risks/Education Teaching Recipient: Patient, Significant Other Teaching Methods: Demonstration, Discussion Response to Teaching: Verbalize Understanding, Return Demonstration Education Topics Provided: Continued safety within his room. Time Speech Therapy Time In: 15:00 Speech Therapy Time Out: 15:30 Total Billed Time: 30 Billed Treatment Time 1E[address] Oct 05, 2018 16:06
[2018-10-05 17:27] VITALS: BP 114/74
[2018-10-05] MEDS: TAMSULOSIN 0.4 MG (FLOMAX) CAP PO SCH (18:51)
[2018-10-05] MEDS: RIVAROXABAN 20 MG TABLET (XARELTO) PO SCH (18:51)
[2018-10-05] MEDS: ATORVASTATIN 10 MG (LIPITOR) TABLET PO SCH (20:54)
[2018-10-05] MEDS: MIRTAZAPINE 15 MG (REMERON) TAB PO SCH (20:54)
[2018-10-05] MEDS: DONEPEZIL 5 MG (ARICEPT) TAB PO SCH (20:55)
[2018-10-06 05:43] VITALS: BP 103/67
[2018-10-06] MEDS: inSUlin ASPART (NovoLOG) 1 UNIT/0.01 ML (CHARGE PER UNIT) SC SCH ×2 (05:48→16:59)
[2018-10-06] MEDS: TRIM/SULFAMETH 160/800 (SEPTRA DS) TAB PO SCH ×2 (06:33→17:00)
[2018-10-06] MEDS: MICONAZOLE NITRATE 2% CRM 30 GM TP SCH (09:35)
[2018-10-06] MEDS: MICONAZOLE 2% POWDER (DESENEX AF) 90 GM TOP SCH (09:35)
[2018-10-06] MEDS: FUROSEMIDE 40 MG (LASIX) TAB PO SCH (09:36)
[2018-10-06] MEDS: SPIRONOLACTONE 25 MG (ALDACTONE) TAB PO SCH (09:36)
[2018-10-06] MEDS: SOTALOL 80 MG (BETAPACE) TAB PO SCH ×2 (09:36→18:13)
[2018-10-06] MEDS: LOSARTAN 25 MG (COZAAR) TAB PO SCH (09:36)
[2018-10-06] MEDS: ALLOPURINOL 300 MG (ZYLOPRIM) TAB PO SCH (09:36)
[2018-10-06] MEDS: fluCOnazole (DIFLUCAN) 100 MG TAB PO SCH (09:36)
[2018-10-06] MEDS: FAMOTIDINE 20 MG (PEPCID) TABLET PO SCH ×2 (09:37→20:43)
[2018-10-06] MEDS: DILTIAZEM 120 MG (CARDIZEM CD) CAP PO SCH (09:37)
[2018-10-06] MEDS: ASPIRIN E.C. 81 MG (ECOTRIN) TAB PO SCH (09:37)
[2018-10-06] MEDS: FINASTERIDE (PROSCAR) 5 MG TAB PO SCH (09:37)
--- NOTE | 2018-10-06 09:54 | PM&R Progress Note ---
Subjective HPI/CC On Admission Date Seen by Provider: Oct 06, 2018 Time Seen by Provider: 09:15 Chief Complaint: Severe debility with encephalopathy. HPI: This is a 68yoWM who was just [facility] from [facility] due to confusion, UTI, and fever. Dr. Lawson was consulted for atrial fibrillation. He was just discharged previous Friday when his defibrillator discharged and he was evaluated found to be stable and was discharged home but he began feeling badly shortly after arriving home and returned back with confusion, recurrent UTI, and upper respiratory cough. He was found to have low grade fever he was placed on Rocephin and Vancomycin empirically and also based on cultures before and was deemed stable to be transferred to in patient rehab to work on cognition after slums score initiated and will likely benefit from Aricept in addition he will undergo intensive rehab to further strengthen in order to go home and be successful and returning to his to live independently with close f/u by PCP along with Urology and Cardiology. Prior level of functioning was fairly independent with ADL's and ambulation. Subjective/Events-last exam He had a BM today. Acu-Checks are good. The fungal infection in his groin is now resolved so will change his creams to prn. Checked meds and labs. Urinating well without incontinence. thinks he is doing really well. Aricept seems to help the cognition. No falls reported. Overall dramatic improvement since admission. Dr. Lawson saw the Pt today and ordered an EKG to see if he is in A-FIB. Will monitor Pt closely. Conferred with RN. Reviewed therapy notes. Review of Systems General: Fatigue Objective Exam Vital Signs Vital Signs Date Time Temp Pulse Resp B/P (MAP) Pulse Ox O2 Delivery O2 Flow Rate FiO2 10/06/18 16:24 96.2 67 16 110/72 (85) 100 Room Air Capillary Refill : General Appearance: No Apparent Distress, WD/WN, Chronically ill HEENT: PERRL/EOMI, Normal ENT Inspection, Pharynx Normal, Moist Mucous Membranes Neck: Full Range of Motion, Normal Inspection, Non Tender, Supple Respiratory: Chest Non Tender, Lungs Clear, Normal Breath Sounds, No Accessory Muscle Use, No Respiratory Distress Cardiovascular: Regular Rate, Rhythm, No Edema, No Gallop, No JVD, No Murmur Gastrointestinal: Normal Bowel Sounds, No Organomegaly, No Pulsatile Mass, Non Tender, Soft Back: Normal Inspection, No CVA Tenderness, No Vertebral Tenderness Extremity: Normal Capillary Refill, Normal Inspection, Normal Range of Motion, Non Tender, No Calf Tenderness, No Pedal Edema Neurologic/Psychiatric: Alert, Oriented x3, No Motor/Sensory Deficits, Normal Mood/Affect, compressed gases tester II-XII Norm as Tested, Disoriented (poor recall), Motor Weakness (generalized weakness) Skin: Normal Color, Warm/Dry Lymphatic: No Adenopathy Results/Procedures Lab Patient resulted labs reviewed. FIM Transfers Therapy Code Descriptions/Definitions Functional [place] Measure: 0=Not Assessed/NA 4=Minimal Assistance 1=Total Assistance 5=Supervision or Setup 2=Maximal Assistance 6=Modified [place] 3=Moderate Assistance 7=Complete [place] Therapy Quality Codes: 6 Independent with activity with or without an assistive device 5 Patient requires set up or clean up by helper. Patient completes activity by themselves 4 Supervision or touching assist (CGA). [place] provide cues , steadying assist 3 The helper provides less than half the effort to complete the activity 2 The helper provides more than half the effort to complete the activity 1 Dependent. The helper does all the effort to complete an activity 7 Patient refused to complete or attempt activity 9 The patient did not perform the activity before the current illness or in jury 88 Not attempted due to Medical conditions or safety concerns Transfers (B, C, W/C) (FIM): 6 Scootin Rollin Roll Left to Right (QC): 4 Supine to/from Sit: 6 Sit to/from Stand: 6 Sit to Lying (QC): 5 Sit to Stand (QC): 4 Chair/Img-xa-Ovcfo Xfer(QC): 4 Bed to/from Chair: 6 Car Transfer (QC): 3 (assist with both legs) Gait Training Does the Patient Walk?: Yes Gait (FIM): 5 Distance (FIM): 3=150 ft (200,150) Distance: 150', 200' Walk 10 feet (QC): 4 Walk 50 ft with 2 Turns(QC): 4 Walk 150 ft (QC): 4 Walking 10ft/uneven surface-QC: 4 Gait Level of Assist: 5 Gait Persons Needed: 1 Gait Assistive Device: FWW Wheelchair Training Does the Pt Use a Wheelchair?: No Stair Training Stair Training: Handrails/: 2 handrails Stairs (FIM): 2 #of Steps: 4 1 Step (curb) (QC): 4 4 Steps (QC): 88 12 Steps (QC): 88 Stairs: Pattern: Step to Level of Assist: 4 Balance Picking up an Object (QC): 88 (unsafe to attempt and did not perform before. ) Mental Status/Objective Comprehension: 3 Expression: 4 Social Interaction: 5 Problem Solvin Memory: 2 ADL-Treatment Feedin Eating (QC): 5 Groomin (Assist to brush hair correctly.) Bathin (CGA in stance. Cues to wash rear and front lito areas thoroughly. Pt. utilized LH sponge to wash feet.) Shower/Bathe Self (QC): 4 Upper Extremity Dressin Upper Body Dressing (QC): 4 Lower Extremity Dressin (Pt. unable to don/doff slipper socks, but is able to don shorts.) Lower Body Dressing (QC): 3 On/Off Footwear (QC): 2 Toiletin Toileting Hygiene (QC): 1 Toilet/Commode Transfer: 4 Toilet Transfer (QC): 4 Shower: 4 Assessment/Plan Assessment and Plan Assess & Plan/Chief Complaint Assessment: Encephalopathy acute on chronic New diagnosis of dementia 12/28 SLUMS done on admit so started Aricept 5mg CAD AF Pacemaker UTI Cough Cardiomyopathy Confusion improved Plan: Aricept IRF protocols Abx and reviewed cultures Bowel regimen Consult Dr Jack and Dr Lawson Midline (1) Encephalopathy (2) Unable to ambulate (3) Transient alteration of awareness (4) DVT prophylaxis (5) Coronary artery disease (6) Atrial fibrillation (7) Diabetes mellitus (8) Hyponatremia (9) UTI (urinary tract infection) (10) Cardiomyopathy (11) Cardiac defibrillator in place (12) Acute on chronic systolic (congestive) heart failure (13) MICHELLE on CPAP ROSEMARY CURRIE DO Oct 06, 2018 09:54
--- NOTE | 2018-10-06 10:05 | Cardiology Progress Note ---
Cardiology SOAP Progress Note Subjective: No cardiac complaints. Objective: I&O/Vital Signs 10/06/18 05:43 Temp 97.4 Pulse 81 Resp 18 B/P (MAP) 103/67 (79) Pulse Ox 96 O2 Delivery Room Air 10/06/18 00:00 Intake Total 1150 ml Output Total 1200 ml Balance -50 ml Weight (Pounds): 336 Weight (Ounces): 8.0 Weight (Calculated Kilograms): 152.457666 Constitutional: AAO x 3, well-developed Respiratory: chest is bilaterally symmetric, lungs clear to auscultation Cardiovascular: irregularly irregular, S1 and S2, systolic murmur (soft JOHANNA at card base) Gastrointestional: No tender; soft; No guarding, No rebound; audible bowel sounds Extremities: swelling (bilat, mild leg edema); No clubbing, No cyanosis Neurologic/Psychiatric: other (moves all limbs equally) Skin: No rash on exposed areas, No ulcerations on exposed areas Results/Procedures: Labs Laboratory Tests 10/05/18 15:32: Glucometer 255H 10/06/18 05:38: Glucometer 199H Microbiology 10/01/18 MRSA Screen - Final, Complete MRSA not isolated 09/30/18 Urine Culture - Final, Complete YEAST A/P: Assessment/Dx: Fall, confusion, on inpatient admission. Low-grade fever, leukocytosis, CAD, CABG, Ischemic cardiomyopathy, ICD, Paroxysmal atrial fibrillation, Anemia, Lactic acidosis, Hyponatremia, Elevated BUN Plan: Gross hematuria - resolved. Cystoscopy by Dr Jack. Fall, confusion, defer to the primary team. resolved. Low-grade fever, leukocytosis, defer to the primary team. resolved. CAD, CABG, continue aspirin, statin. Ischemic cardiomyopathy, stable. ICD, no acute issues. Paroxysmal atrial fibrillation, controlled ventricular rate, continue sotalol, cardizem and xarelto. Request EKG. Anemia, unclear etiology. Hyponatremia, likely secondary to diuretics. Thank you for your consultation. Please call me if you have any questions. Manuel Lawson MD, FACP, FACC, FSCAI, FHRS, CCDS Interventional Cardiology Cardiac Electrophysiology Vascular Medicine and Endovascular Interventions Royal LAWSON MD Oct 06, 2018 10:05
--- NOTE | 2018-10-06 10:54 | Physical Therapy Daily Note ---
PT Daily Note-Current Subjective Patient in recliner pre tx, agrees to PT, has no complaints of pain. Appearance Patient in recliner post tx with nurse call, phone, tray, all needs met. Mental Status Patient Orientation: Person, Place, Situation, Normal For Age Transfers Therapy Code Descriptions/Definitions Functional [place] Measure: 0=Not Assessed/NA 4=Minimal Assistance 1=Total Assistance 5=Supervision or Setup 2=Maximal Assistance 6=Modified [place] 3=Moderate Assistance 7=Complete [place] Therapy Quality Codes: 6 Independent with activity with or without an assistive device 5 Patient requires set up or clean up by helper. Patient completes activity by themselves 4 Supervision or touching assist (CGA). [place] provide cues , steadying assist 3 The helper provides less than half the effort to complete the activity 2 The helper provides more than half the effort to complete the activity 1 Dependent. The helper does all the effort to complete an activity 7 Patient refused to complete or attempt activity 9 The patient did not perform the activity before the current illness or injury 88 Not attempted due to Medical conditions or safety concerns Transfers (B, C, W/C) (FIM): 5 Sit to/from Stand: 5 Bed to/from Chair: 5 Gait Training Gait (FIM): 5 Distance: 200'x4 Gait Level of Assist: 5 Gait Persons Needed: 1 Gait Assistive Device: FWW slow but steady ambulation, occasional standing rest break Exercises LAQ alternating for 5 min with 2# ankle weights NuStep Minutes: 15 NuStep Workload: 5 Treatments transfers, ambulation, LE exercise Assessment Current Status: Fair Progress patient gets a little SOB with ambulation but recovers quickly with rest PT Short Term Goals Short Term Goals Time Frame: Oct 06, 2018 Transfers (B,C,W/C) (FIM): 5 Gait (FIM): 4 Distance (FIM): 3=150 ft Gait Level of Assist: 4 Gait Assistive Device: FWW PT Fci Goals Fci Goals PT Fci Goals Time Frame: Oct 20, 2018 Transfers (B,C,W/C) (FIM): 6 Sit to Lying (QC): 6 Lying-Sitting on Side/Bed(QC): 6 Sit to Stand (QC): 6 Rollin Roll Left to Right (QC): 6 Chair/Bul-rd-Ofbkl Xfer(QC): 6 Car Transfer (QC): 5 Does the Patient Walk: Yes Gait (FIM): 6 Gait distance (FIM): 3=150 ft Walk 10 feet (QC): 6 Walk 10ft-Uneven Surface(QC): 6 Walk 50ft with 2 Turns (QC): 6 Walk 150 ft (QC): 6 Gait Assistive Device: FWW Does the Pt use WC or Scooter?: No Stairs (FIM): 5 # of Steps: 4 1 Step (curb) (QC): 6 4 Steps (QC): 6 12 Steps (QC): 88 Picking up an Object (QC): 88 PT Plan Problem List Problem List: Activity Tolerance, Functional Strength, Safety, Balance, Gait, Transfer, Bed Mobility, ROM Treatment/Plan Treatment Plan: Continue Plan of Care Treatment Plan: Bed Mobility, Education, Functional Activity Dale, Functional Strength, Group Therapy, Gait, Safety, Therapeutic Exercise, Transfers Treatment Duration: Oct 20, 2018 Frequency: At least 5 of 7 days/Wk (IRF) Estimated Hrs Per Day: 1.5 hours per day Patient and/or Family Agrees t: Yes Safety Risks/Education Patient Education: Gait Training, Transfer Techniques, Correct Positioning, Safety Issues Teaching Recipient: Patient Teaching Methods: Demonstration, Discussion Response to Teaching: Reinforcement Needed Time/GCodes Time In: 1000 Time Out: 1100 Total Billed Treatment Time: 60 Total Billed Treatment 1 visit EX 20' FA 10' GT 30' FRANCY JUNIOR PT Oct 06, 2018 10:54
--- NOTE | 2018-10-06 10:54 | Occupational Ther Daily Note ---
OT Current Status-Daily Note Subjective Pt sitting in chair, agrees to therapy. Denies pain. Mental Status/Objective Therapy Code Descriptions/Definitions Functional [place] Measure: 0=Not Assessed/NA 4=Minimal Assistance 1=Total Assistance 5=Supervision or Setup 2=Maximal Assistance 6=Modified [place] 3=Moderate Assistance 7=Complete [place] ADL-Treatment Pt declined shower today, agrees to dressing and grooming. Sit to stand with supervision. Gait to restroom with FWW, no LOB. Pt stood at sink to complete grooming tasks. Pt shaved, washed face, and brushed teeth with modified independence. Dressing completed seated in chair. Don pullover shirt with set up. Pt able to thread bilateral LE into shorts. Stood with supervision for balance during pant hike. Assist required for socks. Pt states spouse assists him at home and he is not interested in using sock aid at this time. Therapy Code Descriptions/Definitions Functional [place] Measure: 0=Not Assessed/NA 4=Minimal Assistance 1=Total Assistance 5=Supervision or Setup 2=Maximal Assistance 6=Modified [place] 3=Moderate Assistance 7=Complete [place] Therapy Quality Codes: 6 Independent with activity with or without an assistive device 5 Patient requires set up or clean up by helper. Patient completes activity by themselves 4 Supervision or touching assist (CGA). [place] provide cues , steadying assist 3 The helper provides less than half the effort to complete the activity 2 The helper provides more than half the effort to complete the activity 1 Dependent. The helper does all the effort to complete an activity 7 Patient refused to complete or attempt activity 9 The patient did not perform the activity before the current illness or injury 88 Not attempted due to Medical conditions or safety concerns Grooming (FIM): 6 Oral Hygiene (QC): 6 Upper Body (FIM): 5 Upper Body Dressing (QC): 5 Lower Body Dressing (FIM): 3 Other Treatment Gait to therapy gym with FWW, slow pace, but no LOB and pt did not require seated rest break. Arm bike [id number] to increase overall strength and activity tolerance needed for functional task completion. Pt performed task with moderate resistance and slow pace. No rest breaks needed. Fine motor task with nuts and bolts using bilateral UE with 2# weights in place to increase strength and fine motor coordination. Pt completed task with increased time. Graded clothespin task with bilateral hands to increase investigator narcotics/pinch strength. Pt returned to room, seated in chair with needs met and spouse present after session. OT Short Term Goals Short Term Goals Time Frame: Oct 06, 2018 Eating(FIM): 5 Grooming(FIM): 5 Bathing(FIM): 4 Upper Body Dressing(FIM): 5 Lower Body Dressing(FIM): 4 Toileting(FIM): 4 Transfers (B,C,W/C) (FIM): 5 Toilet/Commode Transfer(FIM): 5 Shower Transfer(FIM): 5 Additional Short Term Goals: 1-Demonstrate ADL Tasks, 2-Verbalize Understanding, 3-ImproveStrength/Dale 1=Demonstrate adherence to instructed precautions during ADL tasks. 2=Patient will verbalize/demonstrate understanding of assistive devices/modifications for ADL. 3=Patient will improve strength/tolerance for activity to enable patient to perform ADL's. OT Mechanical Car Checker Goals Alf Goals Time Frame: Oct 20, 2018 Eating (FIM): 6 Eating (QC): 6 Groomin Oral Hygiene (QC): 6 Bathing(FIM): 5 Shower/Bathe Self (QC): 4 Upper Body Dressing(FIM): 5 Upper Body Dressing (QC): 5 Lower Body Dressing(FIM): 5 Lower Body Dressing (QC): 4 Toileting(FIM): 5 Toileting Hygiene (QC): 4 Transfers (B,C,W/C) (FIM): 6 Toilet/Commode Transfer(FIM): 6 Toilet/Commode Transfer (QC): 6 Shower Transfer(FIM): 5 Additional Goals: 1-Demonstrate ADL Tasks, 2-Verbalize Understanding, 3- ImproveStrength/Dale 1=Demonstrate adherence to instructed precautions during ADL tasks. 2=Patient will verbalize/demonstrate understanding of assistive devices/modifications for ADL. 3=Patient will improve strength/tolerance for activity to enable patient to perform ADL's. OT Education/Plan Discharge Recommendations Plan/Recommendations: Continue POC Treatment Plan/Plan of Care Patient would benefit from OT for education, treatment and training to promote independence in ADL's, mobility, safety and/or upper extremity function for ADL's. Plan of Care: ADL Retraining, Functional Mobility, Group Exercise/Act as Ind, UE Funct Exercise/Act Treatment Duration: Oct 20, 2018 Frequency: At least 5 of 7 days/Wk (IRF) Estimated Hrs Per Day: 1.5 hours per day Agreement: Yes Rehab Potential: Fair Time/GCodes Start Time: 08:00 Stop Time: 09:15 Total Time Billed (hr/min): 75 Billed Treatment Time 1 visit, ADLx2(30minutes), EXx3(45minutes) CHERYL MONTALVO OT Oct 06, 2018 10:54
[2018-10-06] MEDS: VANCOMYCIN 1500 MG/NS 500 ML IVPB IV SCH ×2 (11:05)
--- NOTE | 2018-10-06 11:07 | Progress Note - Urology ---
Progress Note-Urology Progress Notes/Assess & Plan Progress/Assessment & Plan CONTINUES WELL REDMAN. WE WILL SEE PRN. PATIENT TO KEEP PREVIOUS OFFICE APPOINTMENT Final Diagnosis RETENTION AND GROSS HEMATURIA (RESOLVED) NELSY TAPIA MD Oct 06, 2018 11:07
--- NOTE | 2018-10-06 14:51 | Speech Therapy Daily Note ---
Speech Daily Progress Note Subjective Date Seen by Provider: Oct 06, 2018 Time Seen by Provider: 00:30 The patient was sitting in his chair and appeared very alert and better. Objective The patient completed problem solving tasks at 90% with minimal verbal cues. Assessment Assessment Current Status: Good Progress Treatment Plan Continue Plan of Care Communication Comprehension: 3 Expression: 4 Social Cognition Social Interaction: 5 Problem Solvin Memory: 2 Speech Short Term Goals Short Term Goals Short Term Goals 1) The patient will complete memory tasks with 80% or greater given minimal cues. 2) The patient will complete problem solving tasks with 80% or greater given minimal cues. 3) The patient will complete safety awareness tasks with 80% or greater given minimal cues. Speech Amusement Park Worker Goals Amusement Park Worker Goals The patient will improve cognitive skills in order to return safely to his home. Speech-Plan Patient/Family Goals Patient/Family Goals: The patient plans on returning home with his post rehab. Treatment Plan Speech Therapy Treatment Plan: Continue Plan of Care The patient is making good progress with all therapies. Treatment Duration: Oct 16, 2018 Frequency: 5 times per week Estimated Hrs Per Day: .5 hour per day Rehab Potential: Fair Barriers to Learning: Patient has some cognitive deficits which appear to be resolving. Pt/Family Agrees to Plan: Yes Safety Risks/Education Teaching Recipient: Patient Teaching Methods: Discussion Response to Teaching: Verbalize Understanding Education Topics Provided: Continued safety in his room and upon his return home. Time Speech Therapy Time In: 14:00 Speech Therapy Time Out: 14:30 Total Billed Time: 30 Billed Treatment Time [address] Oct 06, 2018 14:51
--- NOTE | 2018-10-06 14:57 | Physical Therapy Daily Note ---
PT Daily Note-Current Subjective Patient in recliner pre tx, agrees to PT, has no complaints of pain. Appearance Patient in recliner post tx with nurse call, phone, tray, all needs met. Mental Status Patient Orientation: Normal For Age Transfers Therapy Code Descriptions/Definitions Functional [place] Measure: 0=Not Assessed/NA 4=Minimal Assistance 1=Total Assistance 5=Supervision or Setup 2=Maximal Assistance 6=Modified [place] 3=Moderate Assistance 7=Complete [place] Therapy Quality Codes: 6 Independent with activity with or without an assistive device 5 Patient requires set up or clean up by helper. Patient completes activity by themselves 4 Supervision or touching assist (CGA). Indian provide cues , steadying assist 3 The helper provides less than half the effort to complete the activity 2 The helper provides more than half the effort to complete the activity 1 Dependent. The helper does all the effort to complete an activity 7 Patient refused to complete or attempt activity 9 The patient did not perform the activity before the current illness or injury 88 Not attempted due to Medical conditions or safety concerns Transfers (B, C, W/C) (FIM): 5 Sit to/from Stand: 5 Bed to/from Chair: 5 Gait Training Gait (FIM): 5 Distance: 200'x2 Gait Level of Assist: 5 Gait Persons Needed: 1 Gait Assistive Device: FWW slow, occasional standing rest break, patient slightly SOB after ambulation but recovers quickly with rest. Exercises Standing: Hip Abduction, Heel/toe raises, Marching, Mini squats Standing Reps: 15 Treatments ambulation, LE exercise, transfers Assessment Current Status: Fair Progress improving general strength and endurance PT Short Term Goals Short Term Goals Time Frame: Oct 06, 2018 Transfers (B,C,W/C) (FIM): 5 Gait (FIM): 4 Distance (FIM): 3=150 ft Gait Level of Assist: 4 Gait Assistive Device: FWW PT Retirement Goals Retirement Goals PT Retirement Goals Time Frame: Oct 20, 2018 Transfers (B,C,W/C) (FIM): 6 Sit to Lying (QC): 6 Lying-Sitting on Side/Bed(QC): 6 Sit to Stand (QC): 6 Rollin Roll Left to Right (QC): 6 Chair/Jnn-js-Iydpa Xfer(QC): 6 Car Transfer (QC): 5 Does the Patient Walk: Yes Gait (FIM): 6 Gait distance (FIM): 3=150 ft Walk 10 feet (QC): 6 Walk 10ft-Uneven Surface(QC): 6 Walk 50ft with 2 Turns (QC): 6 Walk 150 ft (QC): 6 Gait Assistive Device: FWW Does the Pt use WC or Scooter?: No Stairs (FIM): 5 # of Steps: 4 1 Step (curb) (QC): 6 4 Steps (QC): 6 12 Steps (QC): 88 Picking up an Object (QC): 88 PT Plan Problem List Problem List: Activity Tolerance, Functional Strength, Safety, Balance, Gait, Transfer, Bed Mobility, ROM Treatment/Plan Treatment Plan: Continue Plan of Care Treatment Plan: Bed Mobility, Education, Functional Activity Dale, Functional Strength, Group Therapy, Gait, Safety, Therapeutic Exercise, Transfers Treatment Duration: Oct 20, 2018 Frequency: At least 5 of 7 days/Wk (IRF) Estimated Hrs Per Day: 1.5 hours per day Patient and/or Family Agrees t: Yes Safety Risks/Education Patient Education: Gait Training, Transfer Techniques, Correct Positioning, Disease Process Teaching Recipient: Patient Teaching Methods: Demonstration, Discussion Response to Teaching: Reinforcement Needed Time/GCodes Time In: 1430 Time Out: 1500 Total Billed Treatment Time: 30 Total Billed Treatment 1 visit GT 15' EX 15' FRANCY JUNIOR PT Oct 06, 2018 14:57
[2018-10-06 16:24] VITALS: BP 110/72
[2018-10-06] MEDS: TAMSULOSIN 0.4 MG (FLOMAX) CAP PO SCH (18:13)
[2018-10-06] MEDS: RIVAROXABAN 20 MG TABLET (XARELTO) PO SCH (18:13)
[2018-10-06] MEDS ORDERED: MICONAZOLE 2% POWDER (DESENEX AF) 90 GM TOP PRN (19:30)
[2018-10-06] MEDS ORDERED: MICONAZOLE NITRATE 2% CRM 30 GM TP PRN (19:45)
[2018-10-06] MEDS: MIRTAZAPINE 15 MG (REMERON) TAB PO SCH (20:42)
[2018-10-06] MEDS: ATORVASTATIN 10 MG (LIPITOR) TABLET PO SCH (20:42)
[2018-10-06] MEDS: DONEPEZIL 5 MG (ARICEPT) TAB PO SCH (20:43)
[2018-10-07] MEDS: TRIM/SULFAMETH 160/800 (SEPTRA DS) TAB PO SCH (05:32)
[2018-10-07] MEDS: inSUlin ASPART (NovoLOG) 1 UNIT/0.01 ML (CHARGE PER UNIT) SC SCH ×2 (05:32→17:17)
[2018-10-07 05:56] VITALS: BP 108/73
[2018-10-07] MEDS: ASPIRIN E.C. 81 MG (ECOTRIN) TAB PO SCH (09:30)
[2018-10-07] MEDS: fluCOnazole (DIFLUCAN) 100 MG TAB PO SCH (09:30)
[2018-10-07] MEDS: ALLOPURINOL 300 MG (ZYLOPRIM) TAB PO SCH (09:30)
[2018-10-07] MEDS: FINASTERIDE (PROSCAR) 5 MG TAB PO SCH (09:30)
[2018-10-07] MEDS: FAMOTIDINE 20 MG (PEPCID) TABLET PO SCH ×2 (09:30→21:18)
[2018-10-07] MEDS: LOSARTAN 25 MG (COZAAR) TAB PO SCH (09:31)
[2018-10-07] MEDS: SOTALOL 80 MG (BETAPACE) TAB PO SCH ×2 (09:31→17:18)
[2018-10-07] MEDS: DILTIAZEM 120 MG (CARDIZEM CD) CAP PO SCH (09:31)
[2018-10-07 09:33] VITALS: BP 96/54
--- NOTE | 2018-10-07 09:37 | PM&R Progress Note ---
Subjective HPI/CC On Admission Date Seen by Provider: Oct 07, 2018 Time Seen by Provider: 09:15 Chief Complaint: Severe debility with encephalopathy. HPI: This is a 68yoWM who was just [facility] from [facility] due to confusion, UTI, and fever. Dr. Lawson was consulted for atr ial fibrillation. He was just discharged previous Friday when his defibrillator discharged and he was evaluated found to be stable and was discharged home but he began feeling badly shortly after arriving home and returned back with confusion, recurrent UTI, and upper respiratory cough. He was found to have low grade fever he was placed on Rocephin and Vancomycin empirically and also based on cultures before and was deemed stable to be transferred to in patient rehab to work on cognition after slums score initiated and will likely benefit from Aricept in addition he will undergo intensive rehab to further strengthen in order to go home and be successful and returning to his to live independently with close f/u by PCP along with Urology and Cardiology. Prior level of functioning was fairly independent with ADL's and ambulation. Subjective/Events-last exam We went ahead and discontinued the Vanc, Bactrim, and Diflucan. Dong very well. Had a BM yesterday. Ambrocio out. No retention of the urine. No incontinence except for night time. Standby assists for therapy. really helps him at home. Slum score repeat is now 27 up from 9. Will DC on Friday. Will monitor Pt closely. Conferred with RN. Reviewed therapy notes. Review of Systems General: Fatigue Objective Exam Vital Signs Vital Signs Date Time Temp Pulse Resp B/P (MAP) Pulse Ox O2 Delivery O2 Flow Rate FiO2 10/07/18 17:18 97.8 84 18 112/76 (88) 97 Room Air Capillary Refill : General Appearance: No Apparent Distress, WD/WN, Chronically ill HEENT: PERRL/EOMI, Normal ENT Inspection, Pharynx Normal, Moist Mucous Membranes Neck: Full Range of Motion, Normal Inspection, Non Tender, Supple Respiratory: Chest Non Tender, Lungs Clear, Normal Breath Sounds, No Accessory Muscle Use, No Respiratory Distress Cardiovascular: Regular Rate, Rhythm, No Edema, No Gallop, No JVD, No Murmur Gastrointestinal: Normal Bowel Sounds, No Organomegaly, No Pulsatile Mass, Non Tender, Soft Back: Normal Inspection, No CVA Tenderness, No Vertebral Tenderness Extremity: Normal Capillary Refill, Normal Inspection, Normal Range of Motion, Non Tender, No Calf Tenderness, No Pedal Edema Neurologic/Psychiatric: Alert, Oriented x3, No Motor/Sensory Deficits, Normal Mood/Affect, occupational health nurse manager II-XII Norm as Tested, Disoriented (poor recall), Motor Weakness (generalized weakness) Skin: Normal Color, Warm/Dry Lymphatic: No Adenopathy Results/Procedures Lab Patient resulted labs reviewed. FIM Transfers Therapy Code Descriptions/Definitions Functional [place] Measure: 0=Not Assessed/NA 4=Minimal Assistance 1=Total Assistance 5=Supervision or Setup 2=Maximal Assistance 6=Modified [place] 3=Moderate Assistance 7=Complete [place] Therapy Quality Codes: 6 Independent with activity with or without an assistive device 5 Patient requires set up or clean up by helper. Patient completes activity by themselves 4 Supervision or touching assist (CGA). [place] provide cues , steadying assist 3 The helper provides less than half the effort to complete the activity 2 The helper provides more than half the effort to complete the activity 1 Dependent. The helper does all the effort to complete an activity 7 Patient refused to complete or attempt activity 9 The patient did not perform the activity before the current illness or injury 88 Not attempted due to Medical conditions or safety concerns Transfers (B, C, W/C) (FIM): 5 Scootin Rollin Roll Left to Right (QC): 4 Supine to/from Sit: 6 Sit to/from Stand: 5 Sit to Lying (QC): 5 Sit to Stand (QC): 4 Chair/Kzd-bg-Qwfbb Xfer(QC): 4 Bed to/from Chair: 5 Car Transfer (QC): 3 (assist with both legs) Gait Training Does the Patient Walk?: Yes Gait (FIM): 5 Distance (FIM): 3=150 ft (200,150) Distance: 200'x2 Walk 10 feet (QC): 4 Walk 50 ft with 2 Turns(QC): 4 Walk 150 ft (QC): 4 Walking 10ft/uneven surface-QC: 4 Gait Level of Assist: 5 Gait Persons Needed: 1 Gait Assistive Device: FWW Wheelchair Training Does the Pt Use a Wheelchair?: No Stair Training Stair Training: Handrails/: 2 handrails Stairs (FIM): 2 #of Steps: 4 1 Step (curb) (QC): 4 4 Steps (QC): 88 12 Steps (QC): 88 Stairs: Pattern: Step to Level of Assist: 4 Balance Picking up an Object (QC): 88 (unsafe to attempt and did not perform before. ) Mental Status/Objective Comprehension: 3 Expression: 4 Social Interaction: 5 Problem Solvin Memory: 2 ADL-Treatment Feedin Eating (QC): 5 Groomin Oral Hygiene (QC): 6 Bathin (CGA in stance. Cues to wash rear and front lito areas thoroughly. Pt. utilized LH sponge to wash feet.) Shower/Bathe Self (QC): 4 Upper Extremity Dressin Upper Body Dressing (QC): 5 Lower Extremity Dressin Lower Body Dressing (QC): 3 On/Off Footwear (QC): 2 Toiletin Toileting Hygiene (QC): 1 Toilet/Commode Transfer: 4 Toilet Transfer (QC): 4 Shower: 4 Assessment/Plan Assessment and Plan Assess & Plan/Chief Complaint Assessment: Encephalopathy acute on chronic New diagnosis of dementia 12/28 SLUMS done on admit so started Aricept 5mg and now SLUMS is 27 CAD AF Pacemaker UTI Cough Cardiomyopathy Confusion improved Plan: Aricept to continue at DC IRF protocols Abx and reviewed cultures Bowel regimen Consult Dr Jack and Dr Lawson Midline (1) Encephalopathy (2) Unable to ambulate (3) Transient alteration of awareness (4) DVT prophylaxis (5) Coronary artery disease (6) Atrial fibrillation (7) Diabetes mellitus (8) Hyponatremia (9) UTI (urinary tract infection) (10) Cardiomyopathy (11) Cardiac defibrillator in place (12) Acute on chronic systolic (congestive) heart failure (13) MICHELLE on CPAP ROSEMARY CURRIE DO Oct 07, 2018 09:37
[2018-10-07] MEDS: VANCOMYCIN 1500 MG/NS 500 ML IVPB IV SCH ×2 (09:47)
--- NOTE | 2018-10-07 10:57 | Occupational Ther Daily Note ---
OT Current Status-Daily Note Subjective Pt sitting in chair, agrees to treatment. No c/o pain. Mental Status/Objective Therapy Code Descriptions/Definitions Functional [place] Measure: 0=Not Assessed/NA 4=Minimal Assistance 1=Total Assistance 5=Supervision or Setup 2=Maximal Assistance 6=Modified [place] 3=Moderate Assistance 7=Complete [place] ADL-Treatment Pt declined shower or dressing. Assist to don socks. Sit to stand with modified independence. Gait to restroom with FWW. Stood at sink to complete grooming tasks. Pt brushed teeth and combed hair with modified independence. Therapy Code Descriptions/Definitions Functional [place] Measure: 0=Not Assessed/NA 4=Minimal Assistance 1=Total Assistance 5=Supervision or Setup 2=Maximal Assistance 6=Modified [place] 3=Moderate Assistance 7=Complete [place] Therapy Quality Codes: 6 Independent with activity with or without an assistive device 5 Patient requires set up or clean up by helper. Patient completes activity by themselves 4 Supervision or touching assist (CGA). [place] provide cues , steadying assist 3 The helper provides less than half the effort to complete the activity 2 The helper provides more than half the effort to complete the activity 1 Dependent. The helper does all the effort to complete an activity 7 Patient refused to complete or attempt activity 9 The patient did not perform the activity before the current illness or injury 88 Not attempted due to Medical conditions or safety concerns Grooming (FIM): 6 Oral Hygiene (QC): 6 Other Treatment Gait to therapy gym with FWW, slow pace, no rest breaks needed. Bilateral UE exercises completed to increase strength needed for ADLs and transfers. Pt performed shoulder flexion, abduction, biceps curls, and triceps extension exercises x10 reps with moderate resistance theraband. Brief rest breaks between exercises. Skilled cues for proper exercise technique. Arm bike [id number] to increase overall strength and activity tolerance for functional task completion. Pt completed task with moderate resistance and slow pace. No rest breaks needed. Pt performed standing activity to increase standing balance and activity tolerance. Pt required one seated rest break secondary to fatigue. Putty activity with bilateral hands to increase forensic chemist strength and coordinatio n/manipulation skills. Pt able to remove small beads from moderate resistance putty without assist. Graded clothespin task with bilateral hands to increase forensic chemist/pinch strength for functional tasks. Pt returned to room, sitting in chair with needs met and spouse present after session. OT Short Term Goals Short Term Goals Time Frame: Oct 06, 2018 Eating(FIM): 5 Grooming(FIM): 5 Bathing(FIM): 4 Upper Body Dressing(FIM): 5 Lower Body Dressing(FIM): 4 Toileting(FIM): 4 Transfers (B,C,W/C) (FIM): 5 Toilet/Commode Transfer(FIM): 5 Shower Transfer(FIM): 5 Additional Short Term Goals: 1-Demonstrate ADL Tasks, 2-Verbalize Understandi ng, 3-ImproveStrength/Dale 1=Demonstrate adherence to instructed precautions during ADL tasks. 2=Patient will verbalize/demonstrate understanding of assistive devices/modifications for ADL. 3=Patient will improve strength/tolerance for activity to enable patient to perform ADL's. OT Retirement Goals Retirement Goals Time Frame: Oct 20, 2018 Eating (FIM): 6 Eating (QC): 6 Groomin Oral Hygiene (QC): 6 Bathing(FIM): 5 Shower/Bathe Self (QC): 4 Upper Body Dressing(FIM): 5 Upper Body Dressing (QC): 5 Lower Body Dressing(FIM): 5 Lower Body Dressing (QC): 4 Toileting(FIM): 5 Toileting Hygiene (QC): 4 Transfers (B,C,W/C) (FIM): 6 Toilet/Commode Transfer(FIM): 6 Toilet/Commode Transfer (QC): 6 Shower Transfer(FIM): 5 Additional Goals: 1-Demonstrate ADL Tasks, 2-Verbalize Understanding, 3- ImproveStrength/Dale 1=Demonstrate adherence to instructed precautions during ADL tasks. 2=Patient will verbalize/demonstrate understanding of assistive devices/modifications for ADL. 3=Patient will improve strength/tolerance for activity to enable patient to perform ADL's. OT Education/Plan Discharge Recommendations Plan/Recommendations: Continue POC Treatment Plan/Plan of Care Patient would benefit from OT for education, treatment and training to promote independence in ADL's, mobility, safety and/or upper extremity function for ADL's. Plan of Care: ADL Retraining, Functional Mobility, Group Exercise/Act as Ind, UE Funct Exercise/Act Treatment Duration: Oct 20, 2018 Frequency: At least 5 of 7 days/Wk (IRF) Estimated Hrs Per Day: 1.5 hours per day Agreement: Yes Rehab Potential: Fair Time/GCodes Start Time: 08:15 Stop Time: 09:30 Total Time Billed (hr/min): 75 Billed Treatment Time 1 visit, ADL(15minutes), EXx4(60minutes) CHERYL MONTALVO OT Oct 07, 2018 10:57
--- NOTE | 2018-10-07 11:18 | Physical Therapy Daily Note ---
PT Daily Note-Current Subjective Pt reclined in recliner upon arrival. Sp present and discusses possible upcoming D/C. Pt agrees to PT. Pain Numeric Pain Scale: 4 Location: Lower Location Body Site: Back Pain Description: Ache, Tightness Comment: Pt reports radiates down R LE when walking upright. Mental Status Patient Orientation: Person, Place, Situation Attachments: IV Transfers Therapy Code Descriptions/Definitions Functional [place] Measure: 0=Not Assessed/NA 4=Minimal Assistance 1=Total Assistance 5=Supervision or Setup 2=Maximal Assistance 6=Modified [place] 3=Moderate Assistance 7=Complete [place] Therapy Quality Codes: 6 Independent with activity with or without an assistive device 5 Patient requires set up or clean up by helper. Patient completes activity by themselves 4 Supervision or touching assist (CGA). [place] provide cues , steadying assist 3 The helper provides less than half the effort to complete the activity 2 The helper provides more than half the effort to complete the activity 1 Dependent. The helper does all the effort to complete an activity 7 Patient refused to complete or attempt activity 9 The patient did not perform the activity before the current illness or injury 88 Not attempted due to Medical conditions or safety concerns Scootin Sit to/from Stand: 5 Sit to Stand (QC): 5 Weight Bearing Full Weight Bearing Full Weight Bearing Gait Training Does the Patient Walk?: Yes Gait (FIM): 5 Distance (FIM): 3=150 ft Distance: 175' Walk 10 feet (QC): 5 Walk 50 ft with 2 Turns(QC): 5 Walk 150 ft (QC): 5 Gait Level of Assist: 5 Gait Persons Needed: 1 Gait Assistive Device: FWW Pt walks with kyphotic posture. MARKETING RESEARCH COORDINATOR encourages pt to walk w/in FWW, pt reports Sciatic like pain radiating down R LE. Exercises Seated Therapy Exercises: Ankle pumps, Long arc quads, Hip flexion, Kicking activity, Hip abd/add, Glut set Seated Reps: 15 Treatments Pt transfers from recliner to standing, using FWW. Pt ambulates in hallway. Pt completes Seated Ex in chair, with RB as needed. Pt and MARKETING RESEARCH COORDINATOR discuss activity tolerance and PLOF compared to current as well as what progress pt feels has be en made and what is needed before D/C. Pt returns to room at end of tx to rest in recliner with all needs met. ST arrives for tx. Assessment Current Status: Good Progress Pt reports Sciatic like pain radiating down R LE while pt walks with more normalized gait. PT Short Term Goals Short Term Goals Time Frame: Oct 06, 2018 Transfers (B,C,W/C) (FIM): 5 Gait (FIM): 4 Distance (FIM): 3=150 ft Gait Level of Assist: 4 Gait Assistive Device: FWW PT Prison Goals Labor Representative Goals PT Labor Representative Goals Time Frame: Oct 20, 2018 Transfers (B,C,W/C) (FIM): 6 Sit to Lying (QC): 6 Lying-Sitting on Side/Bed(QC): 6 Sit to Stand (QC): 6 Rollin Roll Left to Right (QC): 6 Chair/Gop-vc-Uoqzz Xfer(QC): 6 Car Transfer (QC): 5 Does the Patient Walk: Yes Gait (FIM): 6 Gait distance (FIM): 3=150 ft Walk 10 feet (QC): 6 Walk 10ft-Uneven Surface(QC): 6 Walk 50ft with 2 Turns (QC): 6 Walk 150 ft (QC): 6 Gait Assistive Device: FWW Does the Pt use WC or Scooter?: No Stairs (FIM): 5 # of Steps: 4 1 Step (curb) (QC): 6 4 Steps (QC): 6 12 Steps (QC): 88 Picking up an Object (QC): 88 PT Plan Problem List Problem List: Activity Tolerance, Functional Strength, Gait Treatment/Plan Treatment Plan: Continue Plan of Care Treatment Plan: Bed Mobility, Education, Functional Activity Dale, Functional Strength, Group Therapy, Gait, Safety, Therapeutic Exercise, Transfers Treatment Duration: Oct 20, 2018 Frequency: At least 5 of 7 days/Wk (IRF) Estimated Hrs Per Day: 1.5 hours per day Patient and/or Family Agrees t: Yes Safety Risks/Education Patient Education: Gait Training, Correct Positioning, Safety Issues Teaching Recipient: Patient Teaching Methods: Discussion Response to Teaching: Verbalize Understanding Time/GCodes Time In: 1000 Time Out: 1100 Total Billed Treatment Time: 60 Total Billed Treatment 1, GT (15m), EX (20m) & FA x2 (25m) G Codes Necessary: No KASEY ANGUIANO MARKETING RESEARCH COORDINATOR Oct 07, 2018 11:18
--- NOTE | 2018-10-07 11:48 | Speech Therapy Daily Note ---
Speech Daily Progress Note Subjective Date Seen by Provider: Oct 07, 2018 Time Seen by Provider: 00:30 The patient was very alert and attentive during the session. Objective The patient completed a follow up of the SLUMS with a score of 27/30 which places him in the normal range of function. Assessment Assessment Current Status: Good Progress Treatment Plan Continue Plan of Care Communication Comprehension: 3 Expression: 4 Social Cognition Social Interaction: 5 Problem Solvin Memory: 2 Speech Short Term Goals Short Term Goals Short Term Goals 1) The patient will complete memory tasks with 80% or greater given minimal cues. 2) The patient will complete problem solving tasks with 80% or greater given minimal cues. 3) The patient will complete safety awareness tasks with 80% or greater given minimal cues. Speech [facility] Goals [facility] Goals The patient will improve cognitive skills in order to return safely to his home. Speech-Plan Patient/Family Goals Patient/Family Goals: The patient plans on returning home with his post rehab. Treatment Plan Speech Therapy Treatment Plan: Continue Plan of Care The patient has made good progress. Treatment Duration: Oct 09, 2018 Frequency: 5 times per week Estimated Hrs Per Day: .5 hour per day Rehab Potential: Fair Barriers to Learning: Patient had cognitive deficts which are primarily resolved Pt/Family Agrees to Plan: Yes Safety Risks/Education Teaching Recipient: Patient, Significant Other Teaching Methods: Demonstration, Discussion Response to Teaching: Verbalize Understanding, Return Demonstration Education Topics Provided: Continued safety when he returns home. Time Speech Therapy Time In: 11:00 Speech Therapy Time Out: 11:30 Total Billed Time: 30 Billed Treatment Time 1, SLJUDY Kat Oct 07, 2018 11:48
--- NOTE | 2018-10-07 14:27 | Therapy Group Daily Note ---
Therapy Daily Group Note Patient Education Topic Home Safety, Fall Prevention, Home Safety, Energy Cons, Exercises, ADL Exercises LE Seated Exercise, LE Standing Exercise, Stretching, Gross Motor, UE Exercise Session Ratio (pt:therapist): 3:1 Goal of Session: Education on ARU Expectations, Energy Conservation Tech., Home Safety Strategies, UE/LE Strengthing, Safety with Transfers, Use of Adaptive E quipment Goal Met for this Session: Yes Pt Benefit of Group: Contributions to Others, F/U Use of Strategies @Home, Increased Functional Safety, Increased Functional Strength, Recognition of Peers, Socialization Other/Notes Pt ambulated using platform walker and SBA for safety/ balance to OT/PT group in therapy gym. Group consisted of introductions, home safety techniques/ strategies , home modifications, pt lead UE/LE seated exercises,benefits of exercise and sit to stands, and use of pipe connector to pick items up from floor. Pt introduced self appropriately and actively listened to peers. group asked home safety questions and had to throw item on floor to answer questions. post answering question pt had to pick item up from floor and complete peer driven ex. to lead. Pt able to complete exercises appropriately with skilled instruction for correct technique. After therapy, pt sitting in common area communicating with peer made at group. pt instructed to let NSG know when she is ready to go back to room. NSG made aware. All needs met in room. Start Time: 13:00 Stop Time: 14:05 Total Billed Treatment GRP 65 minutes ADRIENNE PAEZ OT Oct 07, 2018 14:27
--- NOTE | 2018-10-07 16:28 | NUR ---
BRIM SHAPER met with patient and spouse to review Team Conference Summary. As patient is SBA with mobility and MOD I for grooming and patient continues to request to discharge, team has recommended patient proceed with discharge on 10/[address] [facility] for PT/RN services. Patient and spouse are agreeable to this. BRIM SHAPER will meet with patient and spouse tomorrow with [facility] provider list.
[2018-10-07 17:18] VITALS: BP 112/76
[2018-10-07] MEDS: TAMSULOSIN 0.4 MG (FLOMAX) CAP PO SCH (17:18)
[2018-10-07] MEDS: RIVAROXABAN 20 MG TABLET (XARELTO) PO SCH (17:18)
[2018-10-07] MEDS: MIRTAZAPINE 15 MG (REMERON) TAB PO SCH (21:18)
[2018-10-07] MEDS: DONEPEZIL 5 MG (ARICEPT) TAB PO SCH (21:18)
[2018-10-07] MEDS: ATORVASTATIN 10 MG (LIPITOR) TABLET PO SCH (21:18)
--- NOTE | 2018-10-07 23:16 | Cardiology Progress Note ---
Cardiology SOAP Progress Note Subjective: No cardiac complaints. Objective: I&O/Vital Signs 10/08/18 10/08/18 16:18 21:00 Temp 96.8 Pulse 67 Resp 16 B/P (MAP) 98/63 (75) Pulse Ox 97 O2 Delivery Room Air Room Air 10/08/18 00:00 Intake Total 1565 ml Output Total 700 ml Balance 865 ml Weight (Pounds): 336 Weight (Ounces): 8.0 Weight (Calculated Kilograms): 152.482073 Constitutional: AAO x 3, well-developed Respiratory: chest is bilaterally symmetric, lungs clear to auscultation Cardiovascular: irregularly irregular, S1 and S2, systolic murmur (soft JOHANNA at card base) Gastrointestional: No tender; soft; No guarding, No rebound; audible bowel sounds Extremities: swelling (bilat, mild leg edema); No clubbing, No cyanosis Neurologic/Psychiatric: other (moves all limbs equally) Skin: No rash on exposed areas, No ulcerations on exposed areas Results/Procedures: Labs Laboratory Tests 10/08/18 05:05: Glucometer 174H 10/08/18 16:17: Glucometer 285H Microbiology 10/01/18 MRSA Screen - Final, Complete MRSA not isolated 09/30/18 Urine Culture - Final, Complete YEAST A/P: Assessment/Dx: Fall, confusion, on inpatient admission. Low-grade fever, leukocytosis, CAD, CABG, Ischemic cardiomyopathy, ICD, Paroxysmal atrial fibrillation, Anemia, Lactic acidosis, Hyponatremia, Elevated BUN Plan: Gross hematuria - resolved. Cystoscopy by Dr Jack. Fall, confusion, defer to the primary team. resolved. Low-grade fever, leukocytosis, defer to the primary team. resolved. CAD, CABG, continue aspirin, statin. Ischemic cardiomyopathy, stable. ICD, no acute issues. Paroxysmal atrial fibrillation, controlled ventricular rate, continue sotalol, cardizem and xarelto. Request EKG. Anemia, unclear etiology. Hyponatremia, likely secondary to diuretics. Thank you for your consultation. Please call me if you have any questions. Manuel Lawson MD, FACP, FACC, FSCAI, FHRS, CCDS Interventional Cardiology Cardiac Electrophysiology Vascular Medicine and Endovascular Interventions Royal LAWSON MD Oct 07, 2018 23:16
[2018-10-08 05:30] VITALS: BP 108/74
[2018-10-08] MEDS: inSUlin ASPART (NovoLOG) 1 UNIT/0.01 ML (CHARGE PER UNIT) SC SCH ×2 (05:51→16:28)
[2018-10-08] MEDS: SOTALOL 80 MG (BETAPACE) TAB PO SCH ×2 (08:07→18:17)
[2018-10-08] MEDS: ALLOPURINOL 300 MG (ZYLOPRIM) TAB PO SCH (08:08)
[2018-10-08] MEDS: LOSARTAN 25 MG (COZAAR) TAB PO SCH (08:08)
[2018-10-08] MEDS: DILTIAZEM 120 MG (CARDIZEM CD) CAP PO SCH (08:08)
[2018-10-08] MEDS: ASPIRIN E.C. 81 MG (ECOTRIN) TAB PO SCH (08:08)
[2018-10-08] MEDS: FUROSEMIDE 40 MG (LASIX) TAB PO SCH (08:08)
[2018-10-08] MEDS: SPIRONOLACTONE 25 MG (ALDACTONE) TAB PO SCH (08:08)
[2018-10-08] MEDS: FINASTERIDE (PROSCAR) 5 MG TAB PO SCH (08:08)
[2018-10-08] MEDS: FAMOTIDINE 20 MG (PEPCID) TABLET PO SCH ×2 (08:08→21:15)
--- NOTE | 2018-10-08 08:48 | PM&R Progress Note ---
Subjective HPI/CC On Admission Date Seen by Provider: Oct 08, 2018 Time Seen by Provider: 09:00 Chief Complaint: Severe debility with encephalopathy. HPI: This is a 68yoWM who was just transferred from [facility] surg floor from [place] ER due to confusion, UTI, and fever. Dr. Lawson was consulted for atr ial fibrillation. He was just discharged previous Friday when his defibrillator discharged and he was evaluated found to be stable and was discharged home but he began feeling badly shortly after arriving home and returned back with confusion, recurrent UTI, and upper respiratory cough. He was found to have low grade fever he was placed on Rocephin and Vancomycin empirically and also based on cultures before and was deemed stable to be transferred to in patient rehab to work on cognition after slums score initiated and will likely benefit from Aricept in addition he will undergo intensive rehab to further strengthen in order to go home and be successful and returning to his to live independently with close f/u by PCP along with Urology and Cardiology. Prior level of functioning was fairly independent with ADL's and ambulation. Subjective/Events-last exam Pt is doing very well. Slum score of 27 is just an impressive dramatic improvement from 9 on admission. Sent all medications to [facility] in [place] as requested and will confirm receipt of those prescriptions. Discharge is planned for tomorrow. Off antibiotics. Overall dramatically improved and has benefitted a lot from being in inpatient rehab and is very pleased with his progress. Conferred with RN. Reviewed therapy notes. Review of Systems General: Fatigue Objective Exam Vital Signs Vital Signs Date Time Temp Pulse Resp B/P (MAP) Pulse Ox O2 Delivery O2 Flow Rate FiO2 10/08/18 16:18 96.8 67 16 98/63 (75) 97 Room Air Capillary Refill : General Appearance: No Apparent Distress, WD/WN, Chronically ill HEENT: PERRL/EOMI, Normal ENT Inspection, Pharynx Normal, Moist Mucous Membranes Neck: Full Range of Motion, Normal Inspection, Non Tender, Supple Respiratory: Chest Non Tender, Lungs Clear, Normal Breath Sounds, No Accessory Muscle Use, No Respiratory Distress Cardiovascular: Regular Rate, Rhythm, No Edema, No Gallop, No JVD, No Murmur Gastrointestinal: Normal Bowel Sounds, No Organomegaly, No Pulsatile Mass, Non Tender, Soft Back: Normal Inspection, No CVA Tenderness, No Vertebral Tenderness Extremity: Normal Capillary Refill, Normal Inspection, Normal Range of Motion, Non Tender, No Calf Tenderness, No Pedal Edema Neurologic/Psychiatric: Alert, Oriented x3, No Motor/Sensory Deficits, Normal Mood/Affect, warp drawer II-XII Norm as Tested, Disoriented (poor recall), Motor Weakness (generalized weakness) Skin: Normal Color, Warm/Dry Lymphatic: No Adenopathy Results/Procedures Lab Patient resulted labs reviewed. FIM Transfers Therapy Code Descriptions/Definitions Functional [place] Measure: 0=Not Assessed/NA 4=Minimal Assistance 1=Total Assistance 5=Supervision or Setup 2=Maximal Assistance 6=Modified [place] 3=Moderate Assistance 7=Complete [place] Therapy Quality Codes: 6 Independent with activity with or without an assistive device 5 Patient requires set up or clean up by helper. Patient completes activity by themselves 4 Supervision or touching assist (CGA). Lillian provide cues , steadying assist 3 The helper provides less than half the effort to complete the activity 2 The helper provides more than half the effort to complete the activity 1 Dependent. The helper does all the effort to complete an activity 7 Patient refused to complete or attempt activity 9 The patient did not perform the activity before the current illness or injury 88 Not attempted due to Medical conditions or safety concerns Transfers (B, C, W/C) (FIM): 5 Scootin Rollin Roll Left to Right (QC): 4 Supine to/from Sit: 6 Sit to/from Stand: 5 Sit to Lying (QC): 5 Sit to Stand (QC): 5 Chair/Ddn-cp-Ovkev Xfer(QC): 4 Bed to/from Chair: 5 Car Transfer (QC): 3 (assist with both legs) Gait Training Does the Patient Walk?: Yes Gait (FIM): 5 Distance (FIM): 3=150 ft Distance: 175' Walk 10 feet (QC): 5 Walk 50 ft with 2 Turns(QC): 5 Walk 150 ft (QC): 5 Walking 10ft/uneven surface-QC: 4 Gait Level of Assist: 5 Gait Persons Needed: 1 Gait Assistive Device: FWW Wheelchair Training Does the Pt Use a Wheelchair?: No Stair Training Stair Training: Handrails/: 2 handrails Stairs (FIM): 2 #of Steps: 4 1 Step (curb) (QC): 4 4 Steps (QC): 88 12 Steps (QC): 88 Stairs: Pattern: Step to Level of Assist: 4 Balance Picking up an Object (QC): 88 (unsafe to attempt and did not perform before. ) Mental Status/Objective Comprehension: 3 Expression: 4 Social Interaction: 5 Problem Solvin Memory: 2 ADL-Treatment Feedin Eating (QC): 5 Groomin Oral Hygiene (QC): 6 Bathin (CGA in stance. Cues to wash rear and front lito areas thoroughly. Pt. utilized LH sponge to wash feet.) Shower/Bathe Self (QC): 4 Upper Extremity Dressin Upper Body Dressing (QC): 5 Lower Extremity Dressin Lower Body Dressing (QC): 3 On/Off Footwear (QC): 2 Toiletin Toileting Hygiene (QC): 1 Toilet/Commode Transfer: 4 Toilet Transfer (QC): 4 Shower: 4 Assessment/Plan Assessment and Plan Assess & Plan/Chief Complaint Assessment: Encephalopathy acute on chronic New diagnosis of dementia 12/28 SLUMS done on admit so started Aricept 5mg and now SLUMS is 27 CAD AF Pacemaker UTI Cough Cardiomyopathy Confusion improved Plan: Aricept to continue at DC IRF protocols Abx and reviewed cultures Bowel regimen Consult Dr Jack and Dr Lawson Midline DC at DC (1) Encephalopathy (2) Unable to ambulate (3) Transient alteration of awareness (4) DVT prophylaxis (5) Coronary artery disease (6) Atrial fibrillation (7) Diabetes mellitus (8) Hyponatremia (9) UTI (urinary tract infection) (10) Cardiomyopathy (11) Cardiac defibrillator in place (12) Acute on chronic systolic (congestive) heart failure (13) MICHELLE on CPAP ROSEMARY CURRIE DO Oct 08, 2018 08:48
[2018-10-08] MEDS ORDERED: LOSA25TA41 PO (09:09)
[2018-10-08] MEDS ORDERED: SPIR25TA5 PO (09:09)
[2018-10-08] MEDS ORDERED: DONE5TAB8 PO (09:09)
[2018-10-08] MEDS ORDERED: MICO90PO TOP (09:09)
[2018-10-08] MEDS ORDERED: TAMS0.4C98 PO (09:09)
[2018-10-08] MEDS ORDERED: DILT120C94 PO (09:09)
[2018-10-08] MEDS ORDERED: STL80T PO (09:09)
[2018-10-08] MEDS ORDERED: FURO40TA4 PO (09:09)
--- NOTE | 2018-10-08 09:18 | NUR ---
PRODUCTION STAFF WORKER met with patient and spouse to review IMM and Patient Choice Letter for outpatient therapy. Patient was previously active with [facility] outpatient therapy in [place] and prefers this over [facility]. Patient is eager to return home and expresses no concerns. Patient is aware that IMM is valid for 48hours, signature provided. Please see discharge summary for further information.
--- NOTE | 2018-10-08 09:22 | Occupational Ther Daily Note ---
OT Current Status-Daily Note Subjective pt sitting in recliner chair upon O T arrival. pt agreed to OT TX session with focus on increasing independence with ADLs/ functional transfers. pt reports no pain at this time. Mental Status/Objective Patient Orientation: Normal For Age Therapy Code Descriptions/Definitions Functional [place] Measure: 0=Not Assessed/NA 4=Minimal Assistance 1=Total Assistance 5=Supervision or Setup 2=Maximal Assistance 6=Modified [place] 3=Moderate Assistance 7=Complete [place] ADL-Treatment Therapy Code Descriptions/Definitions Functional [place] Measure: 0=Not Assessed/NA 4=Minimal Assistance 1=Total Assistance 5=Supervision or Setup 2=Maximal Assistance 6=Modified [place] 3=Moderate Assistance 7=Complete [place] Therapy Quality Codes: 6 Independent with activity with or without an assistive device 5 Patient requires set up or clean up by helper. Patient completes activity by themselves 4 Supervision or touching assist (CGA). [place] provide cues , steadying assist 3 The helper provides less than half the effort to complete the activity 2 The helper provides more than half the effort to complete the activity 1 Dependent. The helper does all the effort to complete an activity 7 Patient refused to complete or attempt activity 9 The patient did not perform the activity before the current illness or injury 88 Not attempted due to Medical conditions or safety concerns Eating (FIM): 7 Eating (QC): 6 Grooming (FIM): 7 (standing at sink, shave, comb hair, brush teeth, comb hair, and wash hair. ) Oral Hygiene (QC): 6 Bathing (FIM): 6 (use of LHS. noted use of shower chair, and GB while stanidng to wash buttock.) Bathing Location: L Arm, R Arm, L Upper Leg, R Upper Leg, L Lower Leg (including foot), R Lower Leg (including foot), Chest, Abdomen, Buttocks, Perineal Area Shower/Bathe Self (QC): 6 (10/10 body parts ) Upper Body (FIM): 7 (rod puller chart ) Upper Body Dressing (QC): 6 Lower Body Dressing (FIM): 6 (increased timing noted for us if AE. pants, u nderpants, terrell socks, use of industrial yard brake coupler and sock aid. ) Lower Body Dressing (QC): 6 On/Off Footwear (QC): 6 (increase timing to complete task. use of AE ) Toileting (FIM): 6 (3/3 toileting task. noted use of GB to maintian balance while standing to pull up/ down pants. ) Toileting Hygiene (QC): 6 Transfers (B, C, W/C) (FIM): 6 (use of RW ) Toilet/Commode Transfer (FIM): 6 (use of RW ) Toilet Transfer (QC): 6 (use of RW ) Tub Transfer(FIM): 6 Shower Transfer(FIM): 6 (use of RW, GB, and shower chair. ) pt demo ability to gather clothing from closet to ADLs. pt prepared bathroom for ADLs. please refer to FIMs for scores. post shower pt cleaned up bathroom with use of industrial yard brake coupler to gather items from floor with safety concerns for balance. noted use of industrial yard brake coupler, sock aid, and LHS used during ADLs. shower chair, GB, and RW used with functional transfers. post OT session pt sitting in recliner chair , call light within reach, all needs met. present in room. Education OT Patient Education: Progress toward Goal/Update tx plan, Purpose of tx/fu nctional activities, Reviewed precautions, Rehab process Teaching Recipient: Patient, Family Teaching Methods: Demonstration, Discussion Response to Teaching: Verbalize Understanding, Return Demonstration OT Short Term Goals Short Term Goals Time Frame: Oct 06, 2018 Eating(FIM): 5 Grooming(FIM): 5 Bathing(FIM): 4 Upper Body Dressing(FIM): 5 Lower Body Dressing(FIM): 4 Toileting(FIM): 4 Transfers (B,C,W/C) (FIM): 5 Toilet/Commode Transfer(FIM): 5 Shower Transfer(FIM): 5 Additional Short Term Goals: 1-Demonstrate ADL Tasks, 2-Verbalize Understanding, 3-ImproveStrength/Dale 1=Demonstrate adherence to instructed precautions during ADL tasks. 2=Patient will verbalize/demonstrate understanding of assistive devices/modifications for ADL. 3=Patient will improve strength/tolerance for activity to enable patient to per form ADL's. OT Helpdesk Manager Goals Intermediate Goals Time Frame: Oct 20, 2018 Eating (FIM): 6 (MET ) Eating (QC): 6 (MET ) Groomin (MET ) Oral Hygiene (QC): 6 (MET ) Bathing(FIM): 5 (MET ) Shower/Bathe Self (QC): 4 (MET ) Upper Body Dressing(FIM): 5 (MET ) Upper Body Dressing (QC): 5 (MET ) Lower Body Dressing(FIM): 5 (MET ) Lower Body Dressing (QC): 4 (MET ) Toileting(FIM): 5 (MET ) Toileting Hygiene (QC): 4 (MET ) Transfers (B,C,W/C) (FIM): 6 (MET ) Toilet/Commode Transfer(FIM): 6 (MET ) Toilet/Commode Transfer (QC): 6 (MET ) Shower Transfer(FIM): 5 (MET ) Additional Goals: 1-Demonstrate ADL Tasks, 2-Verbalize Understanding, 3- ImproveStrength/Dale 1=Demonstrate adherence to instructed precautions during ADL tasks. 2=Patient will verbalize/demonstrate understanding of assistive devices/modifications for ADL. 3=Patient will improve strength/tolerance for activity to enable patient to perform ADL's. OT Education/Plan Problem List/Assessment Assessment: Decreased Activ Tolerance pt continues to make progress while in inpt rehab. pt required additional timing to complete LB dressing with using AE. noted frustration with AE. pt would benefit from continued OT services to increase independence with ADLS/ functional transfers. Discharge Recommendations Plan/Recommendations: Continue POC Therapy D/C Recommendations: Home w/ Family Support Equpiment Recommendations-D/C: Watermelon Harvesting Supervisor, Sock Aide (soft shell) Treatment Plan/Plan of Care Treatment,Training & Education: Yes Patient would benefit from OT for education, treatment and training to promote independence in ADL's, mobility, safety and/or upper extremity function for ADL's. Plan of Care: ADL Retraining, Functional Mobility, Group Exercise/Act as Ind, UE Funct Exercise/Act Treatment Duration: Oct 20, 2018 Frequency: At least 5 of 7 days/Wk (IRF) Estimated Hrs Per Day: 1.5 hours per day Agreement: Yes Rehab Potential: Fair Time/GCodes Start Time: 09:00 Stop Time: 10:25 Billed Treatment Time ADL 85 minutes, 6 units ADRIENNE PAEZ OT Oct 08, 2018 09:22
--- NOTE | 2018-10-08 09:32 | Speech Therapy Daily Note ---
Speech Daily Progress Note Subjective Date Seen by Provider: Oct 08, 2018 Time Seen by Provider: 00:30 The patient is excited about returning home tomorrow. Objective The patient completed problem solving tasks at 90% with minimal verbal cues. Assessment Assessment Current Status: Good Progress Treatment Plan Discontinue ST, Goals Met Communication Comprehension: 7 Expression: 7 Social Cognition Social Interaction: 7 Problem Solvin Memory: 7 Speech Short Term Goals Short Term Goals Short Term Goals 1) The patient will complete memory tasks with 80% or greater given minimal cues. 2) The patient will complete problem solving tasks with 80% or greater given minimal cues. 3) The patient will complete safety awareness tasks with 80% or greater given minimal cues. Speech Inverted Block Operator Goals Inverted Block Operator Goals The patient will improve cognitive skills in order to return safely to his home. Speech-Plan Patient/Family Goals Patient/Family Goals: The patient is returning home tomorrow with his . Treatment Plan Speech Therapy Treatment Plan: Discontinue ST, Goals Met Patient is being discharged tomorrow. Treatment Duration: Oct 09, 2018 Frequency: 5 times per week Estimated Hrs Per Day: .5 hour per day Rehab Potential: Fair Barriers to Learning: Patient has minimal cognitive deficits at this time. Pt/Family Agrees to Plan: Yes Safety Risks/Education Teaching Recipient: Patient, Family Teaching Methods: Discussion Response to Teaching: Verbalize Understanding Education Topics Provided: Continued safety upon his return home. Time Speech Therapy Time In: 08:15 Speech Therapy Time Out: 08:45 Total Billed Time: 30 Billed Treatment Time [address] Oct 08, 2018 09:32
--- NOTE | 2018-10-08 11:23 | Physical Therapy Daily Note ---
PT Daily Note-Current Subjective Pt sitting in recliner upon arrival. Pt agrees to PT. Pain Numeric Pain Scale: 3 Location: Right Location Body Site: Hip Pain Description: Tightness Mental Status Patient Orientation: Person, Place, Time, Situation Transfers Therapy Code Descriptions/Definitions Functional [place] Measure: 0=Not Assessed/NA 4=Minimal Assistance 1=Total Assistance 5=Supervision or Setup 2=Maximal Assistance 6=Modified [place] 3=Moderate Assistance 7=Complete [place] Therapy Quality Codes: 6 Independent with activity with or without an assistive device 5 Patient requires set up or clean up by helper. Patient completes activity by themselves 4 Supervision or touching assist (CGA). [place] provide cues , steadying assist 3 The helper provides less than half the effort to complete the activity 2 The helper provides more than half the effort to complete the activity 1 Dependent. The helper does all the effort to complete an activity 7 Patient refused to complete or attempt activity 9 The patient did not perform the activity before the current illness or injury 88 Not attempted due to Medical conditions or safety concerns Transfers (B, C, W/C) (FIM): 6 Scootin Rollin Roll Left to Right (QC): 6 Supine to/from Sit: 6 Sit to/from Stand: 6 Sit to Lying (QC): 6 Sit to Stand (QC): 6 Chair/Lfl-oi-Rlxqu Xfer(QC): 6 Bed to/from Chair: 6 Car Transfer (QC): 6 Weight Bearing Full Weight Bearing Full Weight Bearing Gait Training Does the Patient Walk?: Yes Gait (FIM): 6 Distance (FIM): 3=150 ft Distance: 200' Walk 10 feet (QC): 6 Walk 50 ft with 2 Turns(QC): 6 Walk 150 ft (QC): 6 Walking 10ft/uneven surface-QC: 6 Gait Level of Assist: 6 Gait Persons Needed: 1 Gait Assistive Device: FWW Wheelchair Training Does the Pt Use a Wheelchair?: No Stair Training Stair Training: Handrails/: 2 handrails Stairs (FIM): 2 #of Steps: 4 1 Step (curb) (QC): 5 4 Steps (QC): 5 12 Steps (QC): 88 Stairs: Pattern: Step to Level of Assist: 5 Pt is fatigued after 4 steps and asks to rest. Balance Picking up an Object (QC): 88 Special Test Comments This is unsafe to test at this time although pt has websphere administrator at home to use. Exercises NuStep Minutes: 15 NuStep Workload: 6 Treatments Pt completes FIM scoring items including bed mobility, transfers including car transfer, ambulation including across varying surface, 4 steps but not attempt picking up object from floor due to safety concern with balance. Pt also uses NuStep for 15m at WL 6. Pt returns to room to rest at end of tx. Pt resting in recliner with all needs met, call light in hand. Assessment Current Status: Good Progress Pt walks with kyphotic posture but reports some Low bk pain when trying to walk upright. PT Short Term Goals Short Term Goals Time Frame: Oct 06, 2018 Transfers (B,C,W/C) (FIM): 5 Gait (FIM): 4 Distance (FIM): 3=150 ft Gait Level of Assist: 4 Gait Assistive Device: FWW PT Member [employer] Goals [employer] Goals PT Member Of [employer] Goals Time Frame: Oct 20, 2018 Transfers (B,C,W/C) (FIM): 6 Sit to Lying (QC): 6 Lying-Sitting on Side/Bed(QC): 6 Sit to Stand (QC): 6 Rollin Roll Left to Right (QC): 6 Chair/Pmz-ct-Nymby Xfer(QC): 6 Car Transfer (QC): 5 Does the Patient Walk: Yes Gait (FIM): 6 Gait distance (FIM): 3=150 ft Walk 10 feet (QC): 6 Walk 10ft-Uneven Surface(QC): 6 Walk 50ft with 2 Turns (QC): 6 Walk 150 ft (QC): 6 Gait Assistive Device: FWW Does the Pt use WC or Scooter?: No Stairs (FIM): 5 # of Steps: 4 1 Step (curb) (QC): 6 4 Steps (QC): 6 12 Steps (QC): 88 Picking up an Object (QC): 88 PT Plan Problem List Problem List: Activity Tolerance, Functional Strength, Gait Treatment/Plan Treatment Plan: Continue Plan of Care Treatment Plan: Bed Mobility, Education, Functional Activity [place], Functional Strength, Group Therapy, Gait, Safety, Therapeutic Exercise, Transfers Treatment Duration: Oct 20, 2018 Frequency: At least 5 of 7 days/Wk (IRF) Estimated Hrs Per Day: 1.5 hours per day Patient and/or Family Agrees t: Yes Safety Risks/Education Patient Education: Gait Training, Transfer Techniques, Correct Positioning, Safety Issues Teaching Recipient: Patient Teaching Methods: Discussion Response to Teaching: Verbalize Understanding Time/GCodes Time In: 1030 Time Out: 1115 Total Billed Treatment Time: 45 Total Billed Treatment 1, GT (15m), FA (15m) & EX (15m) G Codes Necessary: KASEY Farias BRANCH LOGISTICS SUPERVISOR Oct 08, 2018 11:23
--- NOTE | 2018-10-08 15:05 | Physical Therapy Daily Note ---
PT Daily Note-Current Subjective CATTLE TRADER arrives to pt's room with call light on. Pt reports needing urinal dumped and to use BSC. Pt agrees to PT. Pain Numeric Pain Scale: 3 Location: Right Location Body Site: Hip Pain Description: Tightness Mental Status Patient Orientation: Person, Place, Time, Situation Transfers Therapy Code Descriptions/Definitions Functional [place] Measure: 0=Not Assessed/NA 4=Minimal Assistance 1=Total Assistance 5=Supervision or Setup 2=Maximal Assistance 6=Modified [place] 3=Moderate Assistance 7=Complete [place] Therapy Quality Codes: 6 Independent with activity with or without an assistive device 5 Patient requires set up or clean up by helper. Patient completes activity by themselves 4 Supervision or touching assist (CGA). [place] provide cues , steadying assist 3 The helper provides less than half the effort to complete the activity 2 The helper provides more than half the effort to complete the activity 1 Dependent. The helper does all the effort to complete an activity 7 Patient refused to complete or attempt activity 9 The patient did not perform the activity before the current illness or injury 88 Not attempted due to Medical conditions or safety concerns Scootin Sit to/from Stand: 6 Sit to Stand (QC): 6 Weight Bearing Full Weight Bearing Full Weight Bearing Treatments CATTLE TRADER dumps urinal and records output. Pt transfers from recliner to BSC. Pt uses both urinal & BSC but misses urinal. CATTLE TRADER assists pt with clean up of floor as well as don/doff of new shorts. Pt attempts pericare but needs additional assist from CATTLE TRADER. Pt returns to recliner at end of tx. Pt has all needs met, call light in hand. Assessment Current Status: Good Progress Pt has gained strength, mobility & safety of tasks since start of ARU stay. PT Short Term Goals Short Term Goals Time Frame: Oct 06, 2018 Transfers (B,C,W/C) (FIM): 5 Gait (FIM): 4 Distance (FIM): 3=150 ft Gait Level of Assist: 4 Gait Assistive Device: FWW PT Poultry Husbandry Worker Goals Poultry Husbandry Worker Goals PT Poultry Husbandry Worker Goals Time Frame: Oct 20, 2018 Transfers (B,C,W/C) (FIM): 6 Sit to Lying (QC): 6 Lying-Sitting on Side/Bed(QC): 6 Sit to Stand (QC): 6 Rollin Roll Left to Right (QC): 6 Chair/Qqs-cv-[id number] Xfer(QC): 6 Car Transfer (QC): 5 Does the Patient Walk: Yes Gait (FIM): 6 Gait distance (FIM): 3=150 ft Walk 10 feet (QC): 6 Walk 10ft-Uneven Surface(QC): 6 Walk 50ft with 2 Turns (QC): 6 Walk 150 ft (QC): 6 Gait Assistive Device: FWW Does the Pt use WC or Scooter?: No Stairs (FIM): 5 # of Steps: 4 1 Step (curb) (QC): 6 4 Steps (QC): 6 12 Steps (QC): 88 Picking up an Object (QC): 88 PT Plan Problem List Problem List: Activity Tolerance, Functional Strength Treatment/Plan Treatment Plan: Continue Plan of Care Treatment Plan: Bed Mobility, Education, Functional Activity Dale, Functional Strength, Group Therapy, Gait, Safety, Therapeutic Exercise, Transfers Treatment Duration: Oct 20, 2018 Frequency: At least 5 of 7 days/Wk (IRF) Estimated Hrs Per Day: 1.5 hours per day Patient and/or Family Agrees t: Yes Safety Risks/Education Patient Education: Correct Positioning, Safety Issues Teaching Recipient: Patient Teaching Methods: Discussion Response to Teaching: Verbalize Understanding Time/GCodes Time In: 1330 Time Out: 1400 Total Billed Treatment Time: 30 Total Billed Treatment 1, FA x2 (30m) G Codes Necessary: KASEY Farias CATTLE TRADER Oct 08, 2018 15:04
[2018-10-08 16:18] VITALS: BP 98/63
[2018-10-08] MEDS: RIVAROXABAN 20 MG TABLET (XARELTO) PO SCH (18:17)
[2018-10-08] MEDS: TAMSULOSIN 0.4 MG (FLOMAX) CAP PO SCH (18:17)
[2018-10-08] MEDS: MIRTAZAPINE 15 MG (REMERON) TAB PO SCH (21:14)
[2018-10-08] MEDS: ATORVASTATIN 10 MG (LIPITOR) TABLET PO SCH (21:15)
[2018-10-08] MEDS: DONEPEZIL 5 MG (ARICEPT) TAB PO SCH (21:15)
[2018-10-09 06:00] VITALS: BP 103/68
[2018-10-09] MEDS: inSUlin ASPART (NovoLOG) 1 UNIT/0.01 ML (CHARGE PER UNIT) SC SCH (07:03)
[2018-10-09 08:30] VITALS: BP 96/59
--- NOTE | 2018-10-09 08:42 | Discharge Summary ---
Diagnosis/Chief Complaint Date of Admission Sep 29, 2018 at 11:11 Date of Discharge Discharge Date: Oct 09, 2018 Discharge Diagnosis Assessment: Encephalopathy acute on chronic New diagnosis of dementia 12/28 SLUMS done on admit so started Aricept 5mg and now SLUMS is 27 CAD AF Pacemaker UTI Cough Cardiomyopathy Confusion improved Plan: Aricept to continue at DC IRF protocols Abx and reviewed cultures Bowel regimen Consult Dr Jack and Dr Lawson Midline DC at DC (1) Encephalopathy (2) Unable to ambulate (3) Transient alteration of awareness (4) DVT prophylaxis (5) Coronary artery disease (6) Atrial fibrillation (7) Diabetes mellitus (8) Hyponatremia (9) UTI (urinary tract infection) (10) Cardiomyopathy (11) Cardiac defibrillator in place (12) Acute on chronic systolic (congestive) heart failure (13) MICHELLE on CPAP Discharge Summary Discharge Physical Examination Allergies: Coded Allergies: No Known Drug Allergies (Unverified , 09/01/18) Vitals & I&Os Vital Signs Date Time Temp Pulse Resp B/P (MAP) Pulse Ox O2 Delivery O2 Flow Rate FiO2 10/09/18 10:07 68 20 97/58 (71) 97 Room Air 10/09/18 06:00 97.3 General Appearance: Alert, Oriented X3, Cooperative Respiratory: Clear to Auscultation, Normal Air Movement Abdominal: Normal Bowel Sounds, Soft Neuro: Normal Gait, Normal Speech, Strength at 5/5 X4 Ext Psych/Mental Status: Mental Status NL, Mood NL Hospital Course Was the Problem List Reviewed?: Yes Hospital course: Patient had an uneventful hospital course for the 10 days of inpatient rehabilitation after transferred from fourth floor after 2 recent hospital stays and severe debility. He participated in all therapies as required. Cardiology managed his chronic atrial fibrillation and adjusted multiple blood pressure medications due to mild hypotension. Urology managed Ambrocio catheter and cystoscopy was normal and patient was placed on appropriate medications and tolerated well. Significant cognitive deficit noted with a slums score of /30 so Aricept was given with good results. His repeat slums scores 27 and had a dramatic improvement overall in memory and cognition and problem solving and resolution of delirium. was very pleased with his improvement and was back to his prior level of functioning and was very strong in ambulation with walker and will continue therapies as ordered. Labs (last 24 hrs) Laboratory Tests 09/29/18 11:11: Lab Scanned Report Referred Lab Report 09/30/18 06:13: White Blood Count 9.2, Red Blood Count 3.74L, Hemoglobin 11.2L, Hematocrit 33L, Mean Corpuscular Volume 89, Mean Corpuscular Hemoglobin 30, Mean Corpuscular Hemoglobin Concent 34, Red Cell Distribution Width 14.1, Platelet Count 223, Mean Platelet Volume 11.7H, Neutrophils (%) (Auto) 64, Lymphocytes (%) (Auto) 18, Monocytes (%) (Auto) 13H, Eosinophils (%) (Auto) 4, Basophils (%) (Auto) 1, Neutrophils # (Auto) 5.9, Lymphocytes # (Auto) 1.7, Monocytes # (Auto) 1.2H, Eosinophils # (Auto) 0.3, Basophils # (Auto) 0.1, Sodium Level 130L, Potassium Level 3.9, Chloride Level 101, Carbon Dioxide Level 17L, Anion Gap 12, Blood Urea Nitrogen 51H, Creatinine 1.32H, Estimat Glomerular Filtration Rate 54, BUN/Creatinine Ratio 39, Glucose Level 222H, Calcium Level 8.7, Corrected Calcium 9.7, Total Bilirubin 0.5, Aspartate Amino Transf (AST/SGOT) 25, Alanine Aminotransferase (ALT/SGPT) 20, Alkaline Phosphatase 68, Total Protein 6.1L, Albumin 2.8L 09/30/18 18:11: Urine Color AMBERH, Urine Clarity VERY CLOUDYH, Urine pH 5, Urine Specific [place] 1.015L, Urine Protein 3+H, Urine Glucose (UA) NEGATIVE, Urine Ketones NEGATIVE, Urine Nitrite NEGATIVE, Urine Bilirubin NEGATIVE, Urine Urobilinogen 4H, Urine Leukocyte Esterase 3+H, Urine RBC (Auto) 5+H, Urine RBC 50-100H, Urine WBC TNTCH, Urine Squamous Epithelial Cells 5-10, Urine Crystals NONE, Urine Bacteria LARGEH, Urine Casts NONE, Urine Mucus SMALLH, Urine Yeast LARGEH, Urine Culture Indicated YES 10/01/18 08:00: Vancomycin Level Trough 22.7H 10/01/18 16:30: Glucometer 339H 10/01/18 20:07: Vancomycin Level Trough 15.7 10/02/18 05:33: Glucometer 200H 10/02/18 05:35: White Blood Count 11.2H, Red Blood Count 3.95L, Hemoglobin 11.8L, Hematocrit 36L , Mean Corpuscular Volume 90, Mean Corpuscular Hemoglobin 30, Mean Corpuscular Hemoglobin Concent 33, Red Cell Distribution Width 14.3, Platelet Count 297, Mean Platelet Volume 10.7H, Neutrophils (%) (Auto) 69, Lymphocytes (%) (Auto) 18, Monocytes (%) (Auto) 10, Eosinophils (%) (Auto) 3, Basophils (%) (Auto) 1, Neutrophils # (Auto) 7.7, Lymphocytes # (Auto) 2.1, Monocytes # (Auto) 1.1H, Eosinophils # (Auto) 0.3, Basophils # (Auto) 0.1, Sodium Level 134L, Potassium Level 4.5, Chloride Level 104, Carbon Dioxide Level 19L, Anion Gap 11, Blood Urea Nitrogen 29H, Creatinine 1.06, Estimat Glomerular Filtration Rate > 60, BUN/Creatinine Ratio 27, Glucose Level 213H, Calcium Level 9.2, Corrected Calcium 10.1, Total Bilirubin 0.5, Aspartate Amino Transf (AST/SGOT) 26, Alanine Aminotransferase (ALT/SGPT) 22, Alkaline Phosphatase 80, Total Protein 6.4, Albumin 2.9L 10/02/18 16:24: Glucometer 249H 10/03/18 05:20: White Blood Count 9.9, Red Blood Count 3.74L, Hemoglobin 11.1L, Hematocrit 34L, Mean Corpuscular Volume 90, Mean Corpuscular Hemoglobin 30, Mean Corpuscular Hemoglobin Concent 33, Red Cell Distribution Width 14.8H, Platelet Count 316, Mean Platelet Volume 10.4, Neutrophils (%) (Auto) 69, Lymphocytes (%) (Auto) 19, Monocytes (%) (Auto) 8, Eosinophils (%) (Auto) 3, Basophils (%) (Auto) 1, Ne utrophils # (Auto) 6.8, Lymphocytes # (Auto) 1.9, Monocytes # (Auto) 0.8, Eosinophils # (Auto) 0.3, Basophils # (Auto) 0.1, Sodium Level 136, Potassium Level 4.3, Chloride Level 106, Carbon Dioxide Level 21, Anion Gap 9, Blood Urea Nitrogen 23H, Creatinine 1.01, Estimat Glomerular Filtration Rate > 60, BUN/Creatinine Ratio 23, Glucose Level 228H, Calcium Level 9.0, Corrected Calcium 10.0, Total Bilirubin 0.4, Aspartate Amino Transf (AST/SGOT) 30, Alanine Aminotransferase (ALT/SGPT) 25, Alkaline Phosphatase 79, Total Protein 6.1L, Albumin 2.8L 10/03/18 16:48: Glucometer 294H 10/04/18 06:11: Glucometer 179H 10/04/18 15:54: Glucometer 272H 10/05/18 06:00: White Blood Count 12.8H, Red Blood Count 3.92L, Hemoglobin 11.6L, Hematocrit 36L , Mean Corpuscular Volume 91, Mean Corpuscular Hemoglobin 30, Mean Corpuscular Hemoglobin Concent 33, Red Cell Distribution Width 14.9H, Platelet Count 329, Mean Platelet Volume 10.3, Neutrophils (%) (Auto) 74, Lymphocytes (%) (Auto) 17, Monocytes (%) (Auto) 6, Eosinophils (%) (Auto) 3, Basophils (%) (Auto) 1, Neutrophils # (Auto) 9.4H, Lymphocytes # (Auto) 2.1, Monocytes # (Auto) 0.8, Eosinophils # (Auto) 0.4H, Basophils # (Auto) 0.1, Sodium Level 134L, Potassium Level 6.6#*H, Chloride Level 104, Carbon Dioxide Level 21, Anion Gap 9, Blood Urea Nitrogen 18, Creatinine 0.99, Estimat Glomerular Filtration Rate > 60, BUN/Creatinine Ratio 18, Glucose Level 194H, Calcium Level 9.2, Corrected Calcium 10.1, Total Bilirubin 0.5, Aspartate Amino Transf (AST/SGOT) 33, Alanine Aminotransferase (ALT/SGPT) 24, Alkaline Phosphatase 84, Total Protein 7.1, Albumin 2.9L 10/05/18 07:15: White Blood Count 13.1H, Red Blood Count 4.02L, Hemoglobin 11.9L, Hematocrit 37L , Mean Corpuscular Volume 91, Mean Corpuscular Hemoglobin 30, Mean Corpuscular Hemoglobin Concent 33, Red Cell Distribution Width 14.9H, Platelet Count 352, Mean Platelet Volume 10.2, Neutrophils (%) (Auto) 75, Lymphocytes (%) (Auto) 15, Monocytes (%) (Auto) 6, Eosinophils (%) (Auto) 3, Basophils (%) (Auto) 1, Neutrophils # (Auto) 9.9H, Lymphocytes # (Auto) 2.0, Monocytes # (Auto) 0.8, Eosinophils # (Auto) 0.4H, Basophils # (Auto) 0.1, Sodium Level 135, Potassium Level 4.7, Chloride Level 105, Carbon Dioxide Level 20L, Anion Gap 10, Blood Urea Nitrogen 17, Creatinine 0.98, Estimat Glomerular Filtration Rate > 60, BUN/Creatinine Ratio 17, Glucose Level 199H, Calcium Level 9.4, Corrected Calcium 10.2H, Total Bilirubin 0.5, Aspartate Amino Transf (AST/SGOT) 26, Alanine Aminotransferase (ALT/SGPT) 24, Alkaline Phosphatase 87, Total Protein 6.8, Albumin 3.0L 10/05/18 09:05: Vancomycin Level Trough 13.9 10/05/18 15:32: Glucometer 255H 10/06/18 05:38: Glucometer 199H 10/06/18 16:23: Glucometer 223H 10/07/18 05:32: Glucometer 181H 10/07/18 15:36: Glucometer 292H 10/08/18 05:05: Glucometer 174H 10/08/18 16:17: Glucometer 285H 10/09/18 06:06: Glucometer 202H Microbiology 10/01/18 MRSA Screen - Final, Complete MRSA not isolated 09/30/18 Urine Culture - Final, Complete YEAST Pending Labs Microbiology Date/Time Source Procedure Growth Status 10/01/18 13:45 Nasal MRSA Screen - Final MRSA not isolated Complete 09/30/18 18:11 Urine Ambrocio Cath Urine Culture - Final YEAST Complete Laboratory Tests 09/29/18 11:11: Lab Scanned Report Referred Lab Report 09/30/18 06:13: White Blood Count 9.2, Red Blood Count 3.74, Hemoglobin 11.2, Hematocrit 33, Mean Corpuscular Volume 89, Mean Corpuscular Hemoglobin 30, Mean Corpuscular Hemoglobin Concent 34, Red Cell Distribution Width 14.1, Platelet Count 223, Mean Platelet Volume 11.7, Neutrophils (%) (Auto) 64, Lymphocytes (%) (Auto) 18, Monocytes (%) (Auto) 13, Eosinophils (%) (Auto) 4, Basophils (%) (Auto) 1, Neutrophils # (Auto) 5.9, Lymphocytes # (Auto) 1.7, Monocytes # (Auto) 1.2, Eosinophils # (Auto) 0.3, Basophils # (Auto) 0.1, Sodium Level 130, Potassium Level 3.9, Chloride Level 101, Carbon Dioxide Level 17, Anion Gap 12, Blood Urea Nitrogen 51, Creatinine 1.32, Estimat Glomerular Filtration Rate 54, BUN/Cre atinine Ratio 39, Glucose Level 222, Calcium Level 8.7, Corrected Calcium 9.7, Total Bilirubin 0.5, Aspartate Amino Transf (AST/SGOT) 25, Alanine Aminotransferase (ALT/SGPT) 20, Alkaline Phosphatase 68, Total Protein 6.1, Albumin 2.8 09/30/18 18:11: Urine Color NUVIA, Urine Clarity VERY CLOUDY, Urine pH 5, Urine Specific [place] 1.015, Urine Protein 3+, Urine Glucose (UA) NEGATIVE, Urine Ketones NEGATIVE, Urine Nitrite NEGATIVE, Urine Bilirubin NEGATIVE, Urine Urobilinogen 4, Urine Leukocyte Esterase 3+, Urine RBC (Auto) 5+, Urine RBC 50-100, Urine WBC TNTC, Urine Squamous Epithelial Cells 5-10, Urine Crystals NONE, Urine Bacteria LARGE, Urine Casts NONE, Urine Mucus SMALL, Urine Yeast LARGE, Urine Culture Indicated YES 10/01/18 08:00: Vancomycin Level Trough 22.7 10/01/18 16:30: Glucometer 339 10/01/18 20:07: Vancomycin Level Trough 15.7 10/02/18 05:33: Glucometer 200 10/02/18 05:35: White Blood Count 11.2, Red Blood Count 3.95, Hemoglobin 11.8, Hematocrit 36, Mean Corpuscular Volume 90, Mean Corpuscular Hemoglobin 30, Mean Corpuscular Hemoglobin Concent 33, Red Cell Distribution Width 14.3, Platelet Count 297, Mean Platelet Volume 10.7, Neutrophils (%) (Auto) 69, Lymphocytes (%) (Auto) 18, Monocytes (%) (Auto) 10, Eosinophils (%) (Auto) 3, Basophils (%) (Auto) 1, Neutrophils # (Auto) 7.7, Lymphocytes # (Auto) 2.1, Monocytes # (Auto) 1.1, Eosinophils # (Auto) 0.3, Basophils # (Auto) 0.1, Sodium Level 134, Potassium Level 4.5, Chloride Level 104, Carbon Dioxide Level 19, Anion Gap 11, Blood Urea Nitrogen 29, Creatinine 1.06, Estimat Glomerular Filtration Rate > 60, BUN/Creatinine Ratio 27, Glucose Level 213, Calcium Level 9.2, Corrected Calcium 10.1, Total Bilirubin 0.5, Aspartate Amino Transf (AST/SGOT) 26, Alanine Aminotransferase (ALT/SGPT) 22, Alkaline Phosphatase 80, Total Protein 6.4, Albumin 2.9 10/02/18 16:24: Glucometer 249 10/03/18 05:20: White Blood Count 9.9, Red Blood Count 3.74, Hemoglobin 11.1, Hematocrit 34, Mean Corpuscular Volume 90, Mean Corpuscular Hemoglobin 30, Mean Corpuscular Hemoglobin Concent 33, Red Cell Distribution Width 14.8, Platelet Count 316, Mean Platelet Volume 10.4, Neutrophils (%) (Auto) 69, Lymphocytes (%) (Auto) 19, Monocytes (%) (Auto) 8, Eosinophils (%) (Auto) 3, Basophils (%) (Auto) 1, Neutrophils # (Auto) 6.8, Lymphocytes # (Auto) 1.9, Monocytes # (Auto) 0.8, Eosinophils # (Auto) 0.3, Basophils # (Auto) 0.1, Sodium Level 136, Potassium Level 4.3, Chloride Level 106, Carbon Dioxide Level 21, Anion Gap 9, Blood Urea Nitrogen 23, Creatinine 1.01, Estimat Glomerular Filtration Rate > 60, BUN/Creatinine Ratio 23, Glucose Level 228, Calcium Level 9.0, Corrected Calcium 10.0, Total Bilirubin 0.4, Aspartate Amino Transf (AST/SGOT) 30, Alanine Aminotransferase (ALT/SGPT) 25, Alkaline Phosphatase 79, Total Protein 6.1, Albumin 2.8 10/03/18 16:48: Glucometer 294 10/04/18 06:11: Glucometer 179 10/04/18 15:54: Glucometer 272 10/05/18 06:00: White Blood Count 12.8, Red Blood Count 3.92, Hemoglobin 11.6, Hematocrit 36, Mean Corpuscular Volume 91, Mean Corpuscular Hemoglobin 30, Mean Corpuscular Hemoglobin Concent 33, Red Cell Distribution Width 14.9, Platelet Count 329, Mean Platelet Volume 10.3, Neutrophils (%) (Auto) 74, Lymphocytes (%) (Auto) 17, Monocytes (%) (Auto) 6, Eosinophils (%) (Auto) 3, Basophils (%) (Auto) 1, Neutrophils # (Auto) 9.4, Lymphocytes # (Auto) 2.1, Monocytes # (Auto) 0.8, Eosinophils # (Auto) 0.4, Basophils # (Auto) 0.1, Sodium Level 134, Potassium Level 6.6, Chloride Level 104, Carbon Dioxide Level 21, Anion Gap 9, Blood Urea Nitrogen 18, Creatinine 0.99, Estimat Glomerular Filtration Rate > 60, BUN/Creatinine Ratio 18, Glucose Level 194, Calcium Level 9.2, Corrected Calcium 10.1, Total Bilirubin 0.5, Aspartate Amino Transf (AST/SGOT) 33, Alanine Aminotransferase (ALT/SGPT) 24, Alkaline Phosphatase 84, Total Protein 7.1, Albumin 2.9 10/05/18 07:15: White Blood Count 13.1, Red Blood Count 4.02, Hemoglobin 11.9, Hematocrit 37, Mean Corpuscular Volume 91, Mean Corpuscular Hemoglobin 30, Mean Corpuscular Hemoglobin Concent 33, Red Cell Distribution Width 14.9, Platelet Count 352, Mean Platelet Volume 10.2, Neutrophils (%) (Auto) 75, Lymphocytes (%) (Auto) 15, Monocytes (%) (Auto) 6, Eosinophils (%) (Auto) 3, Basophils (%) (Auto) 1, Neutrophils # (Auto) 9.9, Lymphocytes # (Auto) 2.0, Monocytes # (Auto) 0.8, Eosinophils # (Auto) 0.4, Basophils # (Auto) 0.1, Sodium Level 135, Potassium Level 4.7, Chloride Level 105, Carbon Dioxide Level 20, Anion Gap 10, Blood Urea Nitrogen 17, Creatinine 0.98, Estimat Glomerular Filtration Rate > 60, BUN/Creatinine Ratio 17, Glucose Level 199, Calcium Level 9.4, Corrected Calcium 10.2, Total Bilirubin 0.5, Aspartate Amino Transf (AST/SGOT) 26, Alanine Aminotransferase (ALT/SGPT) 24, Alkaline Phosphatase 87, Total Protein 6.8, Albumin 3.0 10/05/18 09:05: Vancomycin Level Trough 13.9 10/05/18 15:32: Glucometer 255 10/06/18 05:38: Glucometer 199 10/06/18 16:23: Glucometer 223 10/07/18 05:32: Glucometer 181 10/07/18 15:36: Glucometer 292 10/08/18 05:05: Glucometer 174 10/08/18 16:17: Glucometer 285 10/09/18 06:06: Glucometer 202 Discharge Home Medications: Active Scripts Active Lotrimin AF (Miconazole Nitrate) 90 Gm Powder 0 Gm TOP BID PRN Furosemide 40 Mg Tablet 40 Mg PO Q48H Spironolactone 25 Mg Tablet 25 Mg PO Q48H Losartan Potassium 25 Mg Tablet 25 Mg PO DAILY Diltiazem 24Hr Cd (Diltiazem HCl) 120 Mg Cap.er.24h 120 Mg PO DAILY Sotalol (Sotalol HCl) 80 Mg Tablet 80 Mg PO 0800,1800 Flomax (Tamsulosin HCl) 0.4 Mg Cap 0.4 Mg PO DAILY@1800 Aricept (Donepezil HCl) 5 Mg Tablet 5 Mg PO HS Reported Tylenol Extra Strength (Acetaminophen) 500 Mg Tablet 500 Mg PO Q4H PRN Mirtazapine 15 Mg Tablet 7.5 Mg PO HS TAKES 1/2 (15MG) TABLET Pravastatin Sodium 20 Mg Tablet 60 Mg PO HS TAKES 3 (20MG) TABLETS Xarelto (Rivaroxaban) 20 Mg Tablet 20 Mg PO 1800 Acid Laser Print Operator (FAMOTIDINE) (Famotidine) 20 Mg Tablet 20 Mg PO BID Allopurinol 300 Mg Tablet 300 Mg PO DAILY Finasteride 5 Mg Tablet 5 Mg PO DAILY Aspirin EC (Aspirin) 81 Mg Tablet.dr 81 Mg PO DAILY Metformin HCl 500 Mg Tablet 500 Mg PO 0800,1800 Instructions to patient/family Please see electronic discharge instructions given to patient. Diagnosis/Problems Diagnosis/Problems (1) Encephalopathy (2) Unable to ambulate Status: Acute (3) Transient alteration of awareness Status: Acute (4) DVT prophylaxis Status: Acute (5) Coronary artery disease Status: Chronic (6) Atrial fibrillation Status: Chronic (7) Diabetes mellitus Status: Chronic (8) Hyponatremia Status: Acute (9) UTI (urinary tract infection) Status: Acute (10) Cardiomyopathy Status: Chronic (11) Cardiac defibrillator in place Status: Chronic (12) Acute on chronic systolic (congestive) heart failure Status: Acute (13) MICHELLE on CPAP Status: Chronic Clinical Quality Measures DVT/VTE Risk/Contraindication: Risk Factor Score Per Nursin RFS Level Per Nursing on Admit: 4+=Very High ROSEMARY CRURIE DO Oct 09, 2018 08:42
[2018-10-09] MEDS: SOTALOL 80 MG (BETAPACE) TAB PO SCH (09:11)
[2018-10-09] MEDS: LOSARTAN 25 MG (COZAAR) TAB PO SCH (09:11)
[2018-10-09] MEDS: FAMOTIDINE 20 MG (PEPCID) TABLET PO SCH (10:03)
[2018-10-09] MEDS: ASPIRIN E.C. 81 MG (ECOTRIN) TAB PO SCH (10:03)
[2018-10-09] MEDS: ALLOPURINOL 300 MG (ZYLOPRIM) TAB PO SCH (10:03)
[2018-10-09] MEDS: FINASTERIDE (PROSCAR) 5 MG TAB PO SCH (10:04)
[2018-10-09 10:07] VITALS: BP 97/58
[2018-10-09] MEDS: DILTIAZEM 120 MG (CARDIZEM CD) CAP PO SCH (10:13)
--- NOTE | 2018-10-09 10:25 | Therapy Team Discharge Summary ---
Therapy Discharge Summary Discharge Recommendations Date of Discharge Therapy D/C Recommendations: Home w/ Family Support Occupational Therapy pt had made great progress while in inpt rehab. while pt was here OT focus on increase independence with ADLs, functional transfers, increasing FMC/ GMC, activity tolerance/ endurance, static tolerance, UE strength, IADLs, use of AE/ DME, and overall safety with functional tasks in sitting and standing. currently pt is able to perform all ADLS and functional transfers MOD I / Indep. with increase timing and use of AE. recommended AE: LHS, soft shell sock aid, patient assessment coordinator, shower chair, non skid shower mats, and RW. pt to d/c home this date with family support. recommended continue OT services outpt to continue address deficits. Decreased Activ Tolerance, Decreased Safety Aware, Decreased UE Strength, Impaired Funct Balance PT Room Attendant Goals Room Attendant Goals PT Room Attendant Goals Time Frame: Oct 20, 2018 Transfers (B,C,W/C) (FIM): 6 Roll Left to Right (QC): 6 Sit to Lying (QC): 6 Lying-Sitting on Side/Bed(QC): 6 Sit to Stand (QC): 6 Chair/Bny-wp-Stluz Xfer(QC): 6 Car Transfer (QC): 5 Does the Patient Walk: Yes Gait (FIM): 6 Gait distance (FIM): 3=150 ft Walk 10 feet (QC): 6 Walk 10ft-Uneven Surface(QC): 6 Walk 50ft with 2 Turns (QC): 6 Walk 150 ft (QC): 6 Gait Assistive Device: FWW Does the Pt use WC or Scooter?: No Stairs (FIM): 5 # of Steps: 4 1 Step (curb) (QC): 6 4 Steps (QC): 6 12 Steps (QC): 88 Picking up an Object (QC): 88 OT Detention Goals Room Attendant Goals Time Frame: Oct 20, 2018 Eating (FIM): 6 (MET ) Eating (QC): 6 (MET ) Oral Hygiene (QC): 6 (MET ) Grooming(FIM): 6 (MET ) Bathing(FIM): 5 (MET ) Shower/Bathe Self (QC): 4 (MET ) Upper Body Dressing(FIM): 5 (MET ) Upper Body Dressing (QC): 5 (MET ) Lower Body Dressing(FIM): 5 (MET ) Lower Body Dressing (QC): 4 (MET ) Toileting(FIM): 5 (MET ) Toileting Hygiene (QC): 4 (MET ) Transfers (B,C,W/C) (FIM): 6 (MET ) Toilet/Commode Transfer(FIM): 6 (MET ) Toilet/Commode Transfer (QC): 6 (MET ) Shower Transfer(FIM): 5 (MET ) Additional Goals: 1-Demonstrate ADL Tasks, 2-Verbalize Understanding, 3- ImproveStrength/Dale 1=Demonstrate adherence to instructed precautions during ADL tasks. 2=Patient will verbalize/demonstrate understanding of assistive devices/modifications for ADL. 3=Patient will improve strength/tolerance for activity to enable patient to perform ADL's. Speech Room Attendant Goals Detention Goals The patient will improve cognitive skills in order to return safely to his home. ADRIENNE PAEZ OT Oct 09, 2018 10:25
[2018-10-09 12:30] VITALS: BP 97/58
--- NOTE | 2018-10-09 12:38 | Cardiology Progress Note ---
Cardiology SOAP Progress Note Subjective: No cardiac symptoms. Objective: I&O/Vital Signs 10/09/18 10/09/18 10/09/18 06:00 08:30 10:07 Temp 97.3 Pulse 65 60 68 Resp 18 20 B/P (MAP) 103/68 (80) 96/59 (71) 97/58 (71) Pulse Ox 97 97 O2 Delivery Room Air Room Air 10/09/18 00:00 Intake Total 540 ml Output Total 1000 ml Balance -460 ml Weight (Pounds): 334 Weight (Ounces): 6.0 Weight (Calculated Kilograms): 151.794880 Constitutional: AAO x 3, well-developed Respiratory: chest is bilaterally symmetric, lungs clear to auscultation Cardiovascular: irregularly irregular, S1 and S2, systolic murmur (soft JOHANNA at card base) Gastrointestional: No tender; soft; No guarding, No rebound; audible bowel sounds Extremities: No normal range of motion, No non-tender, No normal inspection, No pedal edema, No calf tenderness, No normal capillary refill, No pelvis stable, No calf tenderness, No inflammation, No pedal edema, No slow capillary refill; swelling (bilat, mild leg edema); No other, No abrasion, No clubbing, No cyanosis, No ecchymosis, No laceration, No no lower extremity edema bilateral, No significant edema, No tenderness, No wound Neurologic/Psychiatric: no motor/sensory deficits, alert, normal mood/affect, oriented x 3, other (moves all limbs equally) Skin: No rash on exposed areas, No ulcerations on exposed areas Results/Procedures: Labs Laboratory Tests 10/08/18 16:17: Glucometer 285H 10/09/18 06:06: Glucometer 202H Microbiology 10/01/18 MRSA Screen - Final, Complete MRSA not isolated 09/30/18 Urine Culture - Final, Complete YEAST A/P: Assessment/Dx: Fall, confusion, on inpatient admission. Low-grade fever, leukocytosis, CAD, CABG, Ischemic cardiomyopathy, ICD, Paroxysmal atrial fibrillation, Anemia, Lactic acidosis, Hyponatremia, Elevated BUN Plan: Gross hematuria - resolved. Cystoscopy by Dr Jack. Fall, confusion, defer to the primary team. resolved. Low-grade fever, leukocytosis, defer to the primary team. resolved. CAD, CABG, continue aspirin, statin. Ischemic cardiomyopathy, stable. ICD, no acute issues. Paroxysmal atrial fibrillation, controlled ventricular rate, continue sotalol, cardizem and xarelto. Follow-up in the clinic. Anemia, unclear etiology. Hyponatremia, likely secondary to diuretics. Thank you for your consultation. Please call me if you have any questions. Manuel Lawson MD, FACP, FACC, FSCAI, FHRS, CCDS Interventional Cardiology Cardiac Electrophysiology Vascular Medicine and Endovascular Interventions Royal LAWSON MD Oct 09, 2018 12:38
--- NOTE | 2018-10-09 14:25 | NUR ---
Call to Dr. Bermudez's office, & notified that pt was discharged today. Updated & son's phone numbers w office. Office nurse states that Nahed will call them on Friday to schedule a f/u appt for pt w/in the month.
--- NOTE | 2018-10-09 14:36 | NUR ---
Call to pt's PCP, Dr. Bright's office in [facility], notified that pt discharged today. Post Hospital appt made for October 27 at 10:15. Call placed to , & informed her of this appt, & that Dr. Bermudez's office would be calling her to schedule appt on Friday. Addendum: 10/09/18 at 1438 by LUKASZ HERNADEZ RN wrote office appt date, & time down, & verbalized understanding.
--- NOTE | 2018-10-09 14:39 | NUR ---
This RN had written down the parameters of pt's meds on his Discharge sheet, & instructed pt & re: this, also wrote down on the q 48 hr meds, the last time & date given. states that they have a B/P machine at home, & that she is planning on buying a newer one also. Pt, , & son verbalize understanding of all.
--- NOTE | 2018-10-09 14:58 | Therapy Team Discharge Summary ---
Therapy Discharge Summary Discharge Recommendations Date of Discharge Therapy D/C Recommendations: Home w/ Family Support Physical Therapy Patient was admitted to rehab with encephalopathy. Upon evaluation patient performed bed mobility with mod assist, supine <-> sit with mod assist, sit <-> stand with min assist, transfers and car transfer min assist, ambulated 50' with a rolling walker with CGA (including 50' with at least 2 turns of 90 degrees and 10' over an uneven surface), and went up and down 1 step using a rolling walker with CGA. Patient has been performing bed mobility and transfer training, balance and endurance training, functional strengthening, stair training, gait training, and education, to improve functional mobility and independence at home. Patient has made good progress and has met all of his skilled nursing goals. Now, patient performs bed mobility and transfers with mod I, car transfer mod I, ambulates 200' with a rolling walker with mod I (including 50' with at least 2 turns of 90 degrees and 10' over an uneven surface), and can go up and down 4 steps using 2 handrails with SBA. Patient is discharging from this facility today and will be discharged from PT at this time. Occupational Therapy Decreased Activ Tolerance, Decreased Safety Aware, Decreased UE Strength, Impaired Funct Balance PT Wallpaper Installer Goals Wallpaper Installer Goals PT Wallpaper Installer Goals Time Frame: Oct 20, 2018 Transfers (B,C,W/C) (FIM): 6 Roll Left to Right (QC): 6 Sit to Lying (QC): 6 Lying-Sitting on Side/Bed(QC): 6 Sit to Stand (QC): 6 Chair/Dxm-kz-Lvgkt Xfer(QC): 6 Car Transfer (QC): 5 Does the Patient Walk: Yes Gait (FIM): 6 Gait distance (FIM): 3=150 ft Walk 10 feet (QC): 6 Walk 10ft-Uneven Surface(QC): 6 Walk 50ft with 2 Turns (QC): 6 Walk 150 ft (QC): 6 Gait Assistive Device: FWW Does the Pt use WC or Scooter?: No Stairs (FIM): 5 # of Steps: 4 1 Step (curb) (QC): 6 4 Steps (QC): 6 12 Steps (QC): 88 Picking up an Object (QC): 88 OT Assisted Goals Assisted Goals Time Frame: Oct 20, 2018 Eating (FIM): 6 (MET ) Eating (QC): 6 (MET ) Oral Hygiene (QC): 6 (MET ) Grooming(FIM): 6 (MET ) Bathing(FIM): 5 (MET ) Shower/Bathe Self (QC): 4 (MET ) Upper Body Dressing(FIM): 5 (MET ) Upper Body Dressing (QC): 5 (MET ) Lower Body Dressing(FIM): 5 (MET ) Lower Body Dressing (QC): 4 (MET ) Toileting(FIM): 5 (MET ) Toileting Hygiene (QC): 4 (MET ) Transfers (B,C,W/C) (FIM): 6 (MET ) Toilet/Commode Transfer(FIM): 6 (MET ) Toilet/Commode Transfer (QC): 6 (MET ) Shower Transfer(FIM): 5 (MET ) Additional Goals: 1-Demonstrate ADL Tasks, 2-Verbalize Understanding, 3- ImproveStrength/Dale 1=Demonstrate adherence to instructed precautions during ADL tasks. 2=Patient will verbalize/demonstrate understanding of assistive devices/modifications for ADL. 3=Patient will improve strength/tolerance for activity to enable patient to perform ADL's. Speech Wallpaper Installer Goals Assisted Goals The patient will improve cognitive skills in order to return safely to his home. FRANCY JUNIOR PT Oct 09, 2018 14:58
== END 2018-10-09 12:30 | disposition home or self-care (01) | DRG 71 ==
PROVIDERS: ADMIT Internal Medicine; ATTEND Internal Medicine
PROC: 0TJB8ZZ Inspection of Bladder, Via Natural or Artificial Opening Endoscopic (ICD-10-PCS; principal; 2018-10-02)
DX: G93.49 Other encephalopathy (principal); B37.49 Other urogenital candidiasis; F03.90 Unspecified dementia, unspecified severity, without behavioral disturbance, psychotic disturbance, mood disturbance, and anxiety; E87.1 Hypo-osmolality and hyponatremia; I11.0 Hypertensive heart disease with heart failure; I50.22 Chronic systolic (congestive) heart failure; I48.0 Paroxysmal atrial fibrillation; I25.5 Ischemic cardiomyopathy; I25.10 Atherosclerotic heart disease of native coronary artery without angina pectoris; N40.1 Benign prostatic hyperplasia with lower urinary tract symptoms; R33.9 Retention of urine, unspecified; R31.0 Gross hematuria; B36.9 Superficial mycosis, unspecified; E11.9 Type 2 diabetes mellitus without complications; F41.9 Anxiety disorder, unspecified; F32.9 Major depressive disorder, single episode, unspecified; D64.9 Anemia, unspecified; G47.30 Sleep apnea, unspecified; I25.2 Old myocardial infarction; Z95.810 Presence of automatic (implantable) cardiac defibrillator; Z95.1 Presence of aortocoronary bypass graft; Z87.891 Personal history of nicotine dependence; Z79.84 Long term (current) use of oral hypoglycemic drugs; T50.2X5A Adverse effect of carbonic-anhydrase inhibitors, benzothiadiazides and other diuretics, initial encounter
CPT/HCPCS: 36415; 36569; 71045; 76937; 80053; 80202; 81000; 82962; 85025; 87081; 87088; 93005

== ENCOUNTER → 2018-10-02 | Day surgery (SDC) | payer MEDICARE, OTHER ==
[~2018-10-02] MED LIST changes: +DILT120C94 PO; +DONE5TAB8 PO; +LIDOCAINE UROJET 2% GEL 10 ML PKG ONE; +LOSA25TA41 PO; +MICO90PO TOP; +SPIR25TA5 PO; +STL80T PO; +TAMS0.4C98 PO
--- OUTSIDE RECORDS SUMMARY | 2018-10-02 08:23 | XMS REPORT | Continuity of Care Document ---
[...] Status Pt. Type Provider Facility Loc./Unit Complaint [id number] 09/07/2018 09:45:00 09/07/2018 23:59:59 [facility] Outpatient [facility] [id number] 08/26/2018 14:00:00 Document Registration [id number] 08/18/2018 09:00:00 Document Registration [id number] 08/14/2018 14:00:00 Document Registration
--- NOTE | 2018-10-02 09:23 | Progress Note-Pre Operative ---
Pre-Operative Progress Note H&P Reviewed The H&P was reviewed, patient examined and no changes noted. Date Seen by Provider: Oct 02, 2018 Time Seen by Provider: 09:22 Date H&P Reviewed: Oct 02, 2018 Time H&P Reviewed: 09:23 Pre-Operative Diagnosis: URINE RETENTION AND GROSS HEMATURIA NELSY TAPIA MD Oct 02, 2018 09:23
--- NOTE | 2018-10-02 21:48 | OPERATIVE REPORT ---
DATE OF SERVICE: 10/02/2018 PREOPERATIVE DIAGNOSES: 1. Urinary retention. 2. Gross hematuria. POSTOPERATIVE DIAGNOSES: 1. Urinary retention. 2. Gross hematuria. OPERATION PERFORMED: Cystoscopy. SURGEON: Noel Tapia MD ANESTHESIA: Local. COMPLICATIONS: None. DESCRIPTION OF PROCEDURE: With the patient supine on his bed, the catheter removed. The genitalia were prepped and draped in the usual sterile fashion. Urethra was infiltrated with lidocaine jelly 2% and penile clamp was applied. This was then removed and a flexible cystoscope was introduced under vision. The anterior urethra was normal. The prostate was enlarged and hyperemic. The bladder neck was obstructed. Bladder was entered, revealed trabeculation. No evidence of cystitis, carcinoma in situ or any bladder tumor or stones. Ureteric orifices normal in shape, size and configuration with clear efflux. Cystoscopy was confirmed in an antegrade fashion and the cystoscope was removed. The patient tolerated the procedure and anesthesia well and remained in his bed in stable condition. PLAN: We would trial of voiding. Continue Flomax and Proscar. Check bladder scan postvoid residual daily and p.r.n. and straight catheterization of over 400 mL. Job ID: [id number] DocumentID: [id number] Dictated Date: 10/02/2018 13:19:40 Registration Scheduling Specialist Date: 10/02/2018 21:47:49 Dictated By: NOEL TAPIA MD [facility]
== END | disposition short-term general hospital (02) ==
LOC: SDC 08:20
PROVIDERS: ATTEND Urology
DX: R33.9 Retention of urine, unspecified (principal); R31.0 Gross hematuria

== ENCOUNTER 2018-10-22 11:26 | Inpatient (IN) | payer MEDICARE, OTHER ==
[~2018-10-22] VITALS: Ht 177.8 cm; Wt 147.5 kg
[2018-10-22] VITALS (10 sets, daily range): BP systolic 93–131; BP diastolic 63–80
[~2018-10-22 11:26] MED LIST changes: -LIDOCAINE UROJET 2% GEL 10 ML PKG ONE
--- OUTSIDE RECORDS SUMMARY | 2018-10-22 11:30 | XMS REPORT | Continuity of Care Document ---
[...] Status Pt. Type Provider Facility Loc./Unit Complaint [id number] 10/19/2018 14:00:00 [facility] [id number] 08/26/2018 14:00:00 Document Registration [id number] 08/18/2018 09:00:00 Document Registration [id number] 08/14/2018 14:00:00 Document Registration
--- NOTE | 2018-10-22 11:56 | ED Cardiac General ---
History of Present Illness General Chief Complaint: Cardiac/General Problems Stated Complaint: A-FIB Source: patient Exam Limitations: no limitations History of Present Illness Date Seen by Provider: Oct 22, 2018 Time Seen by Provider: 11:40 Initial Comments The patient is a pleasant morbidly obese 68-year-old male who presents for evaluation of palpitations/tachycardia, fever, urinary complaints, and general malaise. Fibrillation with rapid ventricular rate upon arrival. He states that he is currently taking Coumadin. He denies headache, neck pain or stiffness, chest pain, shortness of breath, abdominal pain, back or flank pain, rash, cough, dizziness or syncope. He is alert and oriented 4, calm, appears to be in no distress. Timing/Duration: 1-2 days Severity: mild Activities at Onset: none Allergies and Home Medications Allergies Coded Allergies: No Known Drug Allergies (Unverified , 09/01/18) Home Medications Acetaminophen 500 Mg Tablet, 500 MG PO Q4H PRN for PAIN-MILD, (Reported) Allopurinol 300 Mg Tablet, 300 MG PO DAILY, (Reported) Aspirin 81 Mg Tablet.dr, 81 MG PO DAILY, (Reported) Diltiazem HCl 120 Mg Cap.er.24h, 120 MG PO DAILY Prescribed by: ROSEMARY CURRIE on 10/08/18908 Donepezil HCl 5 Mg Tablet, 5 MG PO HS Prescribed by: ROSEMARY CURRIE on 10/08/18908 Famotidine 20 Mg Tablet, 20 MG PO BID, (Reported) Finasteride 5 Mg Tablet, 5 MG PO DAILY, (Reported) Furosemide 40 Mg Tablet, 40 MG PO Q48H Prescribed by: ROSEMARY CURRIE on 10/08/18908 Losartan Potassium 25 Mg Tablet, 25 MG PO DAILY Prescribed by: ROSEMARY CURRIE on 10/08/18908 Metformin HCl 500 Mg Tablet, 500 MG PO 0800,1800, (Reported) Miconazole Nitrate 90 Gm Powder, 0 GM TOP BID PRN for RASH Prescribed by: ROSEMARY CURRIE on 10/08/18908 Mirtazapine 15 Mg Tablet, 7.5 MG PO HS, (Reported) TAKES 1/2 (15MG) TABLET Pravastatin Sodium 20 Mg Tablet, 60 MG PO HS, (Reported) TAKES 3 (20MG) TABLETS Rivaroxaban 20 Mg Tablet, 20 MG PO 1800, (Reported) Sotalol HCl 80 Mg Tablet, 80 MG PO 0800,1800 Prescribed by: ROSEMARY CURRIE on 10/08/18908 Spironolactone 25 Mg Tablet, 25 MG PO Q48H Prescribed by: ROSEMARY CURRIE on 10/08/18908 Tamsulosin HCl 0.4 Mg Cap, 0.4 MG PO DAILY@1800 Prescribed by: ROSEMARY CURRIE on 10/08/18908 Patient Home Medication List Home Medication List Reviewed: Yes Review of Systems Review of Systems Constitutional: fever, malaise, weakness EENTM: No Symptoms Reported Respiratory: No Symptoms Reported Cardiovascular: Irregular Heart Rate, Palpitations Gastrointestinal: No Symptoms Reported Genitourinary: Frequency, Urgency Musculoskeletal: no symptoms reported Skin: no symptoms reported Psychiatric/Neurological: No Symptoms Reported Endocrine: No Symptoms Reported Hematologic/Lymphatic: No Symptoms Reported All Other Systems Reviewed Negative Unless Noted: Yes Past Cvfzvvs-Vkergu-Fniarg Hx Past Med/Social Hx: Reviewed Nursing Past Med/Soc Hx Patient Social History 2nd Hand Smoke Exposure: No Recent Hopitalizations: No Immunizations Up To Date PED Vaccines UTD: Yes Date of Pneumonia Vaccine: Sep 23, 2016 Seasonal Allergies Seasonal Allergies: No Past Medical History Surgeries: Yes (H/O heart bypass, defibrillator ) Cardiac, CABG Respiratory: Yes Sleep Apnea Currently Using CPAP: Yes Cardiac: Yes (six vessel coronary artery bypass graph, defibrillator) Atrial Fibrillation, Cardiomyopathy, Heart Attack, High Cholesterol, Hypert ension Neurological: Yes (cerebral vasculary accident) Dementia Genitourinary: Yes (hematuria) Benign Prostatic Hyperpl, Bladder Infection, Renal Failure Gastrointestinal: Yes Chronic Constipation Musculoskeletal: Yes (arthritis of left acromioclavicular joint, arthritis degenerative) Arthritis Endocrine: Yes (gout, type 2 diabetes) Diabetes, Non-Insulin dep HEENT: No Cancer: No Psychosocial: No Sleep Difficulties Integumentary: No Blood Disorders: No Family Medical History Cardiovascular disease 19 MOTHER, Onset:Unknown Diabetes mellitus 19 MOTHER, Onset:Unknown Neoplasm 19 FATHER, Onset:Unknown Physical Exam Vital Signs Vital Signs - First Documented 10/22/18 11:26 Temp 99.0 Pulse 109 Resp 16 B/P (MAP) 110/66 (81) Pulse Ox 95 Capillary Refill : Height, Weight, BMI Height: 5'10.00" Weight: 332lbs. 0.5oz. 150.270154vk; 54.0 BMI Method:Stated General Appearance: No Apparent Distress (morbidly obese), WD/WN HEENT: PERRL/EOMI, Normal ENT Inspection Neck: Full Range of Motion, Normal Inspection, Non Tender, Supple Respiratory: Chest Non Tender, Lungs Clear, Normal Breath Sounds, No Accessory Muscle Use, No Respiratory Distress Cardiovascular: No JVD, No Murmur, Normal Peripheral Pulses, Irregularly Irregular, Tachycardia Gastrointestinal: Normal Bowel Sounds, No Pulsatile Mass, Non Tender, Soft Extremity: Normal Capillary Refill, Normal Inspection, Normal Range of Motion, Non Tender Neurologic/Psychiatric: Alert, Oriented x3, No Motor/Sensory Deficits, Normal Mood/Affect Skin: Normal Color, Warm/Dry Lymphatic: No Adenopathy Focused Exam Lactate Level 10/22/18 11:58: Lactic Acid Level 1.98 Lactic Acid Level Laboratory Tests Test 10/22/18 11:58 Lactic Acid Level 1.98 MMOL/L (0.50-2.00) Progress/Results/Core Measures Results/Orders Lab Results Laboratory Tests Test 10/22/18 11:37 10/22/18 11:58 Range/Units White Blood Count 16.1 H 4.3-11.0 10^3/uL Red Blood Count 4.10 L 4.35-5.85 10^6/uL Hemoglobin 12.0 L 13.3-17.7 G/DL Hematocrit 36 L 40-54 % Mean Corpuscular Volume 88 80-99 FL Mean Corpuscular Hemoglobin 29 25-34 PG Mean Corpuscular Hemoglobin Concent 33 32-36 G/DL Red Cell Distribution Width 14.4 10.0-14.5 % Platelet Count 168 130-400 10^3/uL Mean Platelet Volume 11.1 H 7.4-10.4 FL Neutrophils (%) (Auto) 85 H 42-75 % Lymphocytes (%) (Auto) 8 L 12-44 % Monocytes (%) (Auto) 7 0-12 % Eosinophils (%) (Auto) 0 0-10 % Basophils (%) (Auto) 0 0-10 % Neutrophils # (Auto) 13.5 H 1.8-7.8 X 10^3 Lymphocytes # (Auto) 1.3 1.0-4.0 X 10^3 Monocytes # (Auto) 1.1 H 0.0-1.0 X 10^3 Eosinophils # (Auto) 0.0 0.0-0.3 10^3/uL Basophils # (Auto) 0.1 0.0-0.1 10^3/uL Neutrophils % (Manual) 60 % Lymphocytes % (Manual) 9 % Monocytes % (Manual) 4 % Band Neutrophils 27 % Blood Morphology Comment NORMAL Prothrombin Time 23.6 H 12.2-14.7 SEC INR Comment 2.0 H 0.8-1.4 Activated Partial Thromboplast Time 44 H 24-35 SEC Sodium Level 126 L 135-145 MMOL/L Potassium Level 3.8 3.6-5.0 MMOL/L Chloride Level 90 L 98-107 MMOL/L Carbon Dioxide Level 19 L 21-32 MMOL/L Anion Gap 17 H 5-14 MMOL/L Blood Urea Nitrogen 25 H 7-18 MG/DL Creatinine 1.08 0.60-1.30 MG/DL Estimat Glomerular Filtration Rate > 60 BUN/Creatinine Ratio 23 Glucose Level 247 H 70-105 MG/DL Calcium Level 9.3 8.5-10.1 MG/DL Corrected Calcium 9.9 8.5-10.1 MG/DL Total Bilirubin 1.2 H 0.1-1.0 MG/DL Aspartate Amino Transf (AST/SGOT) 16 5-34 U/L Alanine Aminotransferase (ALT/SGPT) 14 0-55 U/L Alkaline Phosphatase 88 40-136 U/L Total Protein 7.4 6.4-8.2 GM/DL Albumin 3.2 3.2-4.5 GM/DL Lactic Acid Level 1.98 0.50-2.00 MMOL/L My Orders Orders - GUERITA MENA DO Cbc With Automated Diff (10/22/18 11:47) Comprehensive Metabolic Panel (10/22/18 11:47) Blood Culture (10/22/18 11:47) Urinalysis (10/22/18 11:47) Urine Culture (10/22/18 11:47) Protime With Inr (10/22/18 11:47) Partial Thromboplastin Time (10/22/18 11:47) Chest 1 View Ap/Pa Only (10/22/18 11:47) Ed Iv/Invasive Line Start (10/22/18 11:47) O2 (10/22/18 11:47) Lactic Acid Analyzer (10/22/18 11:47) Ns Iv 1000 Ml (Sodium Chloride 0.9%) (10/22/18 12:00) Manual Differential (10/22/18 11:37) Ekg Tracing (10/22/18 13:00) Continuous Ekg Monitoring (10/22/18 13:00) Ns (Ivpb) (Sodium C... W/Diltiazem Iv Fo (10/22/18 13:15) Vital Signs/I&O 10/22/18 11:26 Temp 99.0 Pulse 109 Resp 16 B/P (MAP) 110/66 (81) Pulse Ox 95 Progress Progress Note : Progress Note @1330 - Patient updated on lab results and agrees with plan to be transferred. The patient is currently on a Cardizem drip. Dr. Grewal accepts the admission at [facility]. Comment @1155 - Atrial fibrillation with rapid ventricular response, rate of 119, no acute ischemic findings noted, no STEMI, reviewed and interpreted by myself Departure Communication (Admissions) Time/Spoke to Admitting Phy: 13:40 @1340 - Dr. Grewal accepts the admission at [facility] at this time. Impression Primary Impression: Atrial fibrillation with rapid ventricular response Additional Impressions: Dehydration Hyponatremia Disposition: ADMITTED INPATIENT Condition: Stable Admissions Decision to Admit Reason: Admit from ER (General) Decision to Admit/Date: Oct 22, 2018 Time/Decision to Admit Time: 13:30 Departure-Patient Inst. Referrals: TESSY POON MD (PCP/Family) Primary Care Physician GUERITA MENA DO Oct 22, 2018 11:56
[2018-10-22] MEDS ORDERED: NS IV 1000 ML 1,000 ML IV SCH ×2 (12:00→14:30)
[2018-10-22 12:34] LABS: PROTHROMBIN TIME PATIENT 23.6 SEC (12.2-14.7)
[2018-10-22 12:35] LABS: BASOPHILS % (AUTO) 0 % (0-10); EOSINOPHILS % (AUTO) 0 % (0-10); HEMATOCRIT 36 % (40-54); LYMPHOCYTES % (AUTO) 8 % (12-44); MEAN CORPUSCULAR HEMOGLOBIN 29 PG (25-34); MEAN CORPUSCULAR HGB CONC 33 G/DL (32-36); MEAN CORPUSCULAR VOLUME 88 FL (80-99); MEAN PLATELET VOLUME 11.1 FL (7.4-10.4); MONOCYTES % (AUTO) 7 % (0-12); PLATELET COUNT 168 10^3/uL (130-400); RED CELL DISTRIBUTION WIDTH 14.4 % (10.0-14.5); WHITE BLOOD COUNT 16.1 10^3/uL (4.3-11.0)
[2018-10-22 12:36] LABS: BASOPHILS # (AUTO) 0.1 10^3/uL (0.0-0.1); LYMPHOCYTES # (AUTO) 1.3 X 10^3 (1.0-4.0); MONOCYTES # (AUTO) 1.1 X 10^3 (0.0-1.0); NEUTROPHILS # (AUTO) 13.5 X 10^3 (1.8-7.8); NEUTROPHILS % (AUTO) 85 % (42-75)
[2018-10-22 12:37] LABS: ALANINE AMINOTRANSFERASE 14 U/L (0-55); ALBUMIN 3.2 GM/DL (3.2-4.5); ALKALINE PHOSPHATASE 88 U/L (40-136); BILIRUBIN,TOTAL 1.2 MG/DL (0.1-1.0); BUN/CREATININE RATIO 23; CALCIUM 9.3 MG/DL (8.5-10.1); CARBON DIOXIDE 19 MMOL/L (21-32); CHLORIDE 90 MMOL/L (98-107); CREATININE SERUM 1.08 MG/DL (0.60-1.30); GFR ESTIMATED > 60; GLUCOSE 247 MG/DL (70-105); POTASSIUM 3.8 MMOL/L (3.6-5.0); SODIUM 126 MMOL/L (135-145); TOTAL PROTEIN 7.4 GM/DL (6.4-8.2)
[2018-10-22 12:51] LABS: BAND NEUTROPHILS 27 %; LYMPHOCYTES % (MANUAL) 9 %; MONOCYTES % (MANUAL) 4 %; NEUTROPHILS % (MANUAL) 60 %; RBC MORPH NORMAL
--- NOTE | 2018-10-22 13:11 | Diagnostic Imaging Report ---
EXAM: CHEST 1 VIEW AP/PA ONLY. INDICATION: Arrhythmia. COMPARISON: Chest radiograph 10/02/2018. FINDINGS: Normal heart size. Normal central pulmonary vascularity. AICD. Sternotomy. No pleural effusion or pneumothorax. No focal pulmonary opacity. No acute osseous findings. IMPRESSION: No acute cardiopulmonary findings. Dictated by: Dictated on workstation # [id number]
[2018-10-22] MEDS ORDERED: DILTIAZEM IV FOR DRIP 125 MG in NS (IVPB) 100 ML IV SCH (13:15)
--- OUTSIDE RECORDS SUMMARY | 2018-10-22 14:37 | XMS REPORT | Continuity of Care Document ---
[...] Status Pt. Type Provider Facility Loc./Unit Complaint [id number] 10/19/2018 14:00:00 [facility] [id number] 08/26/2018 14:00:00 Document Registration [id number] 08/18/2018 09:00:00 Document Registration [id number] 08/14/2018 14:00:00 Document Registration
[2018-10-22] MEDS ORDERED: LIDOCAINE UROJET 2% GEL 10 ML PKG ONE (15:00)
--- NOTE | 2018-10-22 15:59 | NUR ---
Patient states he is unable to urinate and feels like he needs to. Bladder scan shows 137 mls and patient reports he is very difficult to cath and would prefer to not be catheterized. Reported to Dr Bush.
[2018-10-22] MEDS ORDERED: ACETAMINOPHEN 500 MG TAB (TYLENOL) PO ONE (16:30)
--- NOTE | 2018-10-22 16:54 | NUR ---
Patient transferred at this time via [facility] to CU[facility] at [facility]. Report given to Ko, crap shooter.
--- NOTE | 2018-10-22 17:40 | NUR ---
SU WARD admitted to room CU7-1, with an admitting diagnosis of AFIB RVR, HYPONATREMIA, DEHYDRATION, on 10/22/18 from [facility] via BED, accompanied by EMS.SU WARD introduced to surroundings, call light, bed controls, phone, TV, temperature control, lights, meal times, smoking policy, visitor policy, side rail policy, bathrooms and showers. Patient Rights given to patient in the handbook. SU WARD verbalizes understanding that [facility] is not responsible for the loss or damage to any personal effects or valuables that are kept in the patients posession during their hospitalization. The following Patient Care Plans were discussed with the PT: Discharge Planning, ANXIETY,ACTIVITY INTOLERANCE, and KNOWLEDGE DEFICIT. SU WARD verbalizes understanding of Interdisciplinary Patient Education. Patient and family were informed about the Rapid Response Team and its purpose.
[2018-10-22 18:14] LABS: BILIRUBIN,URINE NEGATIVE (NEGATIVE); CLARITY,URINE VERY CLOUDY; COLOR,URINE AMBER; GLUCOSE, URINE (UA) NEGATIVE (NEGATIVE); KETONES,URINE 1+ (NEGATIVE); LEUKOCYTE ESTERASE ,URINE 3+ (NEGATIVE); NITRITE,URINE NEGATIVE (NEGATIVE); PH,URINE 5 (5-9); PROTEIN,URINE 2+ (NEGATIVE); UROBILINOGEN,URINE 4 MG/DL (NORMAL)
[2018-10-22 18:25] LABS: BACTERIA,URINE LARGE /HPF; WBC,URINE TNTC /HPF
[2018-10-22 18:26] LABS: RENAL EPITHELIAL CELLS,URINE RARE /HPF
[2018-10-22 18:27] LABS: YEAST,URINE LARGE /HPF
[2018-10-22] MEDS ORDERED: CATHETER FLUSH 10 ML SYR IV PRN (18:30)
[2018-10-22] MEDS: NS IV 1000 ML 1,000 ML IV SCH (18:36)
[2018-10-23] VITALS (24 sets, daily range): BP systolic 90–148; BP diastolic 58–89
[2018-10-23] MEDS: NS IV 1000 ML 1,000 ML IV SCH ×3 (01:30→18:31)
[2018-10-23 03:50] LABS: BASOPHILS % (AUTO) 0 % (0-10); EOSINOPHILS % (AUTO) 0 % (0-10); HEMATOCRIT 35 % (40-54); HEMOGLOBIN 11.5 G/DL (13.3-17.7); LYMPHOCYTES # (AUTO) 0.9 X 10^3 (1.0-4.0); LYMPHOCYTES % (AUTO) 8 % (12-44); MEAN CORPUSCULAR HEMOGLOBIN 29 PG (25-34); MEAN CORPUSCULAR HGB CONC 33 G/DL (32-36); MEAN CORPUSCULAR VOLUME 90 FL (80-99); MEAN PLATELET VOLUME 11.5 FL (7.4-10.4); MONOCYTES % (AUTO) 10 % (0-12); NEUTROPHILS # (AUTO) 8.5 X 10^3 (1.8-7.8); NEUTROPHILS % (AUTO) 82 % (42-75); PLATELET COUNT 130 10^3/uL (130-400); RED CELL DISTRIBUTION WIDTH 14.8 % (10.0-14.5); WHITE BLOOD COUNT 10.4 10^3/uL (4.3-11.0)
[2018-10-23 04:05] LABS: BUN/CREATININE RATIO 24; CALCIUM 8.9 MG/DL (8.5-10.1); CARBON DIOXIDE 17 MMOL/L (21-32); CHLORIDE 97 MMOL/L (98-107); CREATININE SERUM 1.13 MG/DL (0.60-1.30); GFR ESTIMATED > 60; GLUCOSE 176 MG/DL (70-105); MAGNESIUM 1.1 MG/DL (1.8-2.4); PHOSPHORUS 2.6 MG/DL (2.3-4.7); POTASSIUM 3.6 MMOL/L (3.6-5.0); SODIUM 128 MMOL/L (135-145)
[2018-10-23] MEDS: MAGNESIUM 1 GM/100 ML IVPB IV SCH ×4 (06:55→11:19)
--- NOTE | 2018-10-23 07:33 | History & Physical ---
HPI History of Present Illness: Fever and chills, aching, feeling weak for about a week. Difficulty even getting out of chair yesterday. Usually walks with walker. Source: patient, family Date seen by provider: Oct 23, 2018 Time Seen by Provider: 09:20 Attending Physician Leander Grewal MD PCP Miky Bright MD Consult Date of Admission Oct 22, 2018 at 14:31 Home Medications Home Medications Reviewed patient Home Medication Reconciliation performed by pharmacy medication reconciliations plant technician and/or nursing. Patients Allergies have been reviewed. 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 Atrial fibrillation HTN DMII SurgHx: CABG Debrillator Family Medical History Family History: Cardiovascular disease 19 MOTHER, Onset:Unknown Diabetes mellitus 19 MOTHER, Onset:Unknown Neoplasm 19 FATHER, Onset:Unknown Review of Systems (CHC) Constitutional: chills, fever EENTM: No nose congestion Respiratory: cough Cardiovascular: No chest pain Gastrointestinal: abdominal pain; No constipation, No diarrhea, No nausea, No vomiting Genitourinary: other (dark urine) Musculoskeletal: joint pain Skin: No rash Reviewed Test Results Reviewed Test Results Lab Laboratory Tests Test 10/22/18 11:37 10/22/18 11:58 10/22/18 17:59 10/23/18 03:15 Range/Units White Blood Count 16.1 H 10.4 4.3-11.0 10^3/uL Red Blood Count 4.10 L 3.91 L 4.35-5.85 10^6/uL Hemoglobin 12.0 L 11.5 L 13.3-17.7 G/DL Hematocrit 36 L 35 L 40-54 % Mean Corpuscular Volume 88 90 80-99 FL Mean Corpuscular Hemoglobin 29 29 25-34 PG Mean Corpuscular Hemoglobin Concent 33 33 32-36 G/DL Red Cell Distribution Width 14.4 14.8 H 10.0-14.5 % Platelet Count 168 130 130-400 10^3/uL Mean Platelet Volume 11.1 H 11.5 H 7.4-10.4 FL Neutrophils (%) (Auto) 85 H 82 H 42-75 % Lymphocytes (%) (Auto) 8 L 8 L 12-44 % Monocytes (%) (Auto) 7 10 0-12 % Eosinophils (%) (Auto) 0 0 0-10 % Basophils (%) (Auto) 0 0 0-10 % Neutrophils # (Auto) 13.5 H 8.5 H 1.8-7.8 X 10^3 Lymphocytes # (Auto) 1.3 0.9 L 1.0-4.0 X 10^3 Monocytes # (Auto) 1.1 H 1.0 0.0-1.0 X 10^3 Eosinophils # (Auto) 0.0 0.0 0.0-0.3 10^3/uL Basophils # (Auto) 0.1 0.0 0.0-0.1 10^3/uL Neutrophils % (Manual) 60 % Lymphocytes % (Manual) 9 % Monocytes % (Manual) 4 % Band Neutrophils 27 % Blood Morphology Comment NORMAL Prothrombin Time 23.6 H 12.2-14.7 SEC INR Comment 2.0 H 0.8-1.4 Activated Partial Thromboplast Time 44 H 24-35 SEC Sodium Level 126 L 128 L 135-145 MMOL/L Potassium Level 3.8 3.6 3.6-5.0 MMOL/L Chloride Level 90 L 97 L 98-107 MMOL/L Carbon Dioxide Level 19 L 17 L 21-32 MMOL/L Anion Gap 17 H 14 5-14 MMOL/L Blood Urea Nitrogen 25 H 27 H 7-18 MG/DL Creatinine 1.08 1.13 0.60-1.30 MG/DL Estimat Glomerular Filtration Rate > 60 > 60 BUN/Creatinine Ratio 23 24 Glucose Level 247 H 176 H 70-105 MG/DL Calcium Level 9.3 8.9 8.5-10.1 MG/DL Corrected Calcium 9.9 8.5-10.1 MG/DL Total Bilirubin 1.2 H 0.1-1.0 MG/DL Aspartate Amino Transf (AST/SGOT) 16 5-34 U/L Alanine Aminotransferase (ALT/SGPT) 14 0-55 U/L Alkaline Phosphatase 88 40-136 U/L Total Protein 7.4 6.4-8.2 GM/DL Albumin 3.2 3.2-4.5 GM/DL Lactic Acid Level 1.98 0.50-2.00 MMOL/L Urine Color NUVIA H Urine Clarity VERY CLOUDY H Urine pH 5 5-9 Urine Specific [place] 1.015 L 1.016-1.022 Urine Protein 2+ H NEGATIVE Urine Glucose (UA) NEGATIVE NEGATIVE Urine Ketones 1+ H NEGATIVE Urine Nitrite NEGATIVE NEGATIVE Urine Bilirubin NEGATIVE NEGATIVE Urine Urobilinogen 4 H NORMAL MG/DL Urine Leukocyte Esterase 3+ H NEGATIVE Urine RBC (Auto) 4+ H NEGATIVE Urine RBC NONE /HPF Urine WBC TNTC H /HPF Urine Squamous Epithelial Cells 2-5 /HPF Urine Renal Epithelial Cells RARE /HPF Urine Crystals NONE /LPF Urine Bacteria LARGE H /HPF Urine Casts NONE /LPF Urine Mucus SMALL H /LPF Urine Yeast LARGE H /HPF Urine Culture Indicated YES Phosphorus Level 2.6 2.3-4.7 MG/DL Magnesium Level 1.1 L 1.8-2.4 MG/DL Radiology CXR 10/22/18 no acute findings Physical Exam-(CHC) Physical Exam Vital Signs VS - Last 72 Hours, by Label 10/22/18 10/22/18 10/22/18 10/22/18 11:26 13:30 15:52 17:40 Temp 99.0 100.6 Pulse 109 110 109 Resp 16 22 B/P (MAP) 110/66 (81) 124/58 (80) Pulse Ox 95 96 O2 Delivery Room Air 10/22/18 10/22/18 10/22/18 10/22/18 17:49 18:00 18:18 19:00 Temp 99.2 Pulse 100 92 94 Resp 15 B/P (MAP) 98/67 (77) Pulse Ox 96 O2 Delivery Room Air 10/22/18 10/22/18 10/22/18 10/22/18 19:00 19:15 19:30 19:47 Temp 98.0 Pulse 94 88 94 92 Resp 10 18 20 18 B/P (MAP) 105/80 (88) 93/70 (78) 131/69 (89) Pulse Ox 97 96 97 92 O2 Delivery Room Air Room Air Room Air Room Air 10/22/18 10/22/18 10/22/1819 20:00 20:00 20:32 21:00 Pulse 91 96 86 Resp 21 18 26 B/P (MAP) 94/70 (78) 102/69 (80) 104/63 (77) Pulse Ox 99 95 98 97 O2 Delivery Room Air Room Air Room Air Room Air 10/22/18 10/22/18 10/22/18 10/23/18 21:30 22:15 23:00 00:00 Pulse 89 95 83 Resp 20 22 24 B/P (MAP) 100/70 (80) 119/64 (82) 112/69 (83) Pulse Ox 97 99 98 98 O2 Delivery Room Air Room Air Room Air Room Air 10/23/18 10/23/18 10/23/18 10/23/18 00:00 01:00 01:00 02:00 Pulse 98 108 108 109 Resp 27 B/P (MAP) 118/78 (91) 148/89 (108) 121/58 (79) Pulse Ox 97 98 97 O2 Delivery Room Air Room Air Room Air 10/23/18 10/23/18 10/23/18 10/23/18 03:00 04:00 04:00 05:00 Pulse 100 113 101 Resp 24 31 28 B/P (MAP) 97/73 (81) 116/78 (91) 116/82 (93) Pulse Ox 97 99 97 98 O2 Delivery Room Air Room Air Room Air Room Air 10/23/18 10/23/18 10/23/18 10/23/18 06:00 07:00 07:00 08:00 Pulse 106 112 112 101 Resp 25 26 15 B/P (MAP) 110/76 (87) 105/67 (80) 121/72 (88) Pulse Ox 99 94 95 O2 Delivery Room Air Room Air Room Air 10/23/18 10/23/18 10/23/18 10/23/18 08:35 09:00 10:00 11:00 Pulse 105 120 108 Resp 16 21 30 B/P (MAP) 116/71 (86) 90/76 (81) 112/68 (83) Pulse Ox 97 96 94 96 O2 Delivery Room Air Room Air Room Air Room Air 10/23/18 10/23/18 10/23/18 10/23/18 11:19 12:00 12:45 13:00 Temp 98.0 Pulse 108 111 107 Resp 30 32 B/P (MAP) 112/68 109/76 (87) Pulse Ox 96 96 97 O2 Delivery Room Air Room Air Room Air 10/23/18 10/23/18 10/23/18 10/23/18 13:00 14:00 15:00 16:00 Pulse 107 112 105 105 Resp 30 28 29 41 B/P (MAP) 104/72 (83) 99/81 (87) 127/75 (92) 117/70 (86) Pulse Ox 98 97 95 95 O2 Delivery Room Air Room Air Room Air Room Air 10/23/18 10/23/18 16:17 16:17 Temp 99.2 Pulse Ox 97 O2 Delivery Room Air Capillary Refill : Less Than 3 Seconds General Appearance: no apparent distress Respiratory: lungs clear, normal breath sounds Cardiovascular: no murmur, tachycardia, irregularly irregular Gastrointestinal: normal bowel sounds, non tender, soft Extremities: no pedal edema Neurologic/Psychiatric: alert, normal mood/affect Skin: normal color, warm/dry Assessment/Plan Assessment/Plan Admission Status: Inpatient Order (span 2 midnights) Reason for Inpatient Admission: Atrial fibrillation with RVR requiring IV treatment as well as marked hyponatremia will require at least 2 nights for correction (1) UTI (urinary tract infection) Status: Acute Assessment & Plan: On ceftriaxone, culture pending (2) Atrial fibrillation Status: Chronic Assessment & Plan: Started on cardizem drip in ER. Cardiology consult. (3) Diabetes mellitus Status: Chronic Assessment & Plan: Resume home medications Qualifiers: (4) Hyponatremia Status: Acute Assessment & Plan: Uncertain etiology, does not appear significantly hypo or hypervolemic, improved this am. Had hyponatremia on previous admission. Recent TSH okay, check urine Na and osmolality and serum osmolality. (5) Coronary artery disease Status: Chronic Assessment & Plan: No evidence of ACS at this time (6) Hypomagnesemia Status: Acute Assessment & Plan: Replace (7) DVT prophylaxis Status: Acute Assessment & Plan: On Xarelto chronically Clinical Quality Measures DVT/VTE Risk/Contraindication: Risk Factor Score Per Nursin RFS Level Per Nursing on Admit: 4+=Very High LEANDER GREWAL MD Oct 23, 2018 07:33
--- NOTE | 2018-10-23 08:12 | Diagnostic Imaging Report ---
EXAMINATION: Chest one view. INDICATION: Shortness of breath. COMPARISON: 10/22/2018. FINDINGS: Left subclavian pacemaker defibrillator is present with leads in right atrium and right ventricle. Median sternotomy wires are aligned. Heart size is normal. No pleural effusion. No pneumothorax. No edema or pneumonia. IMPRESSION: Clear lungs. Dictated by: Dictated on workstation # [id number]
[2018-10-23] MEDS: POTASSIUM CL 10 MEQ/50 ML IVPB (PRE-MIX) IV SCH ×4 (09:03→12:30)
[2018-10-23] MEDS ORDERED: STL80T PO (10:25)
[2018-10-23] MEDS ORDERED: DONE5TAB8 PO (10:25)
[2018-10-23] MEDS ORDERED: FURO40TA4 PO (10:25)
[2018-10-23] MEDS ORDERED: LOSA25TA41 PO (10:25)
[2018-10-23] MEDS ORDERED: DILT-27 PO (10:25)
[2018-10-23] MEDS ORDERED: SPIR25TA PO (10:25)
[2018-10-23] MEDS ORDERED: MICO90PO TP (10:25)
[2018-10-23] MEDS ORDERED: TAMS0.4C98 PO (10:25)
[2018-10-23] MEDS: cefTRIAXone FOR IV USE 1,000 MG in WATER (STERILE) FOR INJECTION 10 ML IV SCH (10:28)
[2018-10-23] MEDS ORDERED: FAMO20TA5 PO (10:36)
--- NOTE | 2018-10-23 10:43 | NUR ---
SPOKE WITH THE PATIENTS REGARDING THE PATIENTS MEDICATIONS. SHE STATES SHE HAS BEEN FOLLOWING THE DISCHARGE ORDERS FROM REHAB BEST SHE CAN BUT ADMITS IT WAS A BIT CONFUSING. THE SPIRONOLACTONE AND FUROSEMIDE WERE BOTH WRITTEN EVERY OTHER DAY, SHE STATES SHE DID NOT KNOW IF HE WAS TO TAKE THEM TOGETHER OR ALTERNATING. SHE HAS BEEN GIVING THEM TO HIM BOTH ON Mondays AND FRIDAYS. I HAD A LIST FAXED OF FROM [facility] AND VERIFIED HE DID FILL THE NEW SCRIPTS FROM DISCHARGE FROM REHAB. SHE STATES HE IS NO LONGER USING THE LOTRIMIN POWDER. SEE LIST ON CHART FOR DETAILS. HE STILL ONLY TAKES 1/2 TAB OF THE MIRTAZAPINE. HE TAKES TYLENOL PRN AND ASPIRIN 81MG DAILY OTC. HE FILLED THE FAMOTIDINE 20MG HS #90 09-09-18 AT [facility] ACCORDING TO THE EXT MED HX AND SHE VERIFIED HE TAKES IT ONCE DAILY.
--- NOTE | 2018-10-23 10:50 | Consultation-Cardiology ---
HPI-Cardiology Cardiology Consultation: Date of Consultation 10/23/18 Date of Admission Attending Physician Mary Grewal MD Admitting Physician Miky Bright MD Consulting Physician Royal LAWSON MD HPI: Time Seen by a Provider: 09:30 Chief Complaint: Palpitations. This is a pleasant 68-year-old gentleman who has previous history of atrial fibrillation on antiarrhythmic therapy as well as oral anticoagulation. He presents with palpitations and tachycardia and was found to be in atrial fibrillation with rapid ventricular rate. He denies any other cardiac symptoms. He specifically denies chest pain, shortness of breath, syncope, near-syncope. Review of Systems-Cardiology All Other Systems Reviewed Negative Unless Noted: Yes PDA-Kfzjjs-Txgnpn Hx Patient Social History Alcohol Use: Denies Use Recreational Drug Use: No Smoking Status: Never a Smoker 2nd Hand Smoke Exposure: No Recent Foreign Travel: No Recent Infectious Disease Expo: No Immunizations Up To Date Tetanus Booster (TDap): Unknown Date of Pneumonia Vaccine: Sep 23, 2016 Past Medical History PMH As described under Assessment. Family Medical History Family History: Cardiovascular disease 19 MOTHER, Onset:Unknown Diabetes mellitus 19 MOTHER, Onset:Unknown Neoplasm 19 FATHER, Onset:Unknown Allergies and Home Medications Allergies Coded Allergies: No Known Drug Allergies (Unverified , 09/01/18) Home Medications Acetaminophen 500 Mg Tablet, 500 MG PO Q4H PRN for PAIN-MILD, (Reported) Allopurinol 300 Mg Tablet, 300 MG PO DAILY, (Reported) Aspirin 81 Mg Tablet.dr, 81 MG PO DAILY, (Reported) Diltiazem HCl 120 Mg Cap.er.24h, 120 MG PO DAILY, (Reported) Donepezil HCl 5 Mg Tablet, 5 MG PO HS, (Reported) Famotidine 20 Mg Tablet, 20 MG PO HS, (Reported) Finasteride 5 Mg Tablet, 5 MG PO DAILY, (Reported) Furosemide 40 Mg Tablet, 40 MG PO MoWeFr, (Reported) Losartan Potassium 25 Mg Tablet, 25 MG PO DAILY, (Reported) Metformin HCl 500 Mg Tablet, 500 MG PO 0800,1800, (Reported) Mirtazapine 15 Mg Tablet, 7.5 MG PO HS, (Reported) TAKES 1/2 (15MG) TABLET Pravastatin Sodium 20 Mg Tablet, 60 MG PO HS, (Reported) TAKES 3 (20MG) TABLETS Rivaroxaban 20 Mg Tablet, 20 MG PO 1800, (Reported) Sotalol HCl 80 Mg Tablet, 80 MG PO 0800,1800, (Reported) Spironolactone 25 Mg Tablet, 25 MG PO MoWeFr, (Reported) Tamsulosin HCl 0.4 Mg Cap, 0.4 MG PO 1800, (Reported) Patient Home Medication List Home Medication List Reviewed: Yes Physical Exam-Cardiology Physical Exam Vital Signs/I&O 10/23/18 10/23/18 10/23/18 10/23/18 08:00 08:35 09:00 10:00 Pulse 101 105 120 Resp 15 16 21 B/P (MAP) 121/72 (88) 116/71 (86) 90/76 (81) Pulse Ox 95 97 96 94 O2 Delivery Room Air Room Air Room Air Room Air 10/23/18 10/23/18 10/23/18 10/23/18 11:00 11:19 12:00 12:45 Temp 98.0 Pulse 108 108 111 Resp 30 30 32 B/P (MAP) 112/68 (83) 112/68 109/76 (87) Pulse Ox 96 96 96 97 O2 Delivery Room Air Room Air Room Air Room Air 10/23/18 10/23/18 10/23/18 10/23/18 13:00 13:00 14:00 15:00 Pulse 107 107 112 105 Resp 30 28 29 B/P (MAP) 104/72 (83) 99/81 (87) 127/75 (92) Pulse Ox 98 97 95 O2 Delivery Room Air Room Air Room Air 10/23/18 10/23/18 10/23/18 10/23/18 16:00 16:17 16:17 17:00 Temp 99.2 Pulse 105 97 Resp 41 17 B/P (MAP) 117/70 (86) 118/68 (85) Pulse Ox 95 97 95 O2 Delivery Room Air Room Air Room Air 10/23/18 18:00 Pulse 104 Resp 32 B/P (MAP) 108/69 (82) Pulse Ox 94 O2 Delivery Room Air 10/23/18 00:00 Intake Total 2250 ml Balance 2250 ml Capillary Refill : Less Than 3 Seconds Constitutional: appears stated age, AAO x 3; No apparent distress; well- developed, well-nourished HEENT: PERRL; No normal ENT inspection, No TMs normal, No pharynx normal, No scleral icterus (R), No scleral icterus (L), No pale conjunctivae (R), No pale conjunctivae (L), No photophobia, No TM abnormal (R), No TM abnormal (L), No pharyngeal erythema, No tonsillar exudate, No other, No discharge, No EOMI; hearing is well preserved; No hard of hearing; oral hygience is good; No ulceration, No xanthelasmas are seen Neck: No non-tender, No full range of motion, No supple, No normal inspection, No carotid bruit, No limited range of motion, No lymphadenopathy (R), No lymphadenopathy (L), No tender lateral, No tender midline, No thyromegaly, No other; carotid pulses are 2 + bilaterally; No with good upstrokes Respiratory: No accessory muscle use, No respiratory distress, No chest tender, No chest expansion is symmetric; chest is bilaterally symmetric; No lungs clear to percussion; lungs clear to auscultation; No crackles, No rhonchi, No rales, No stridor, No wheezing, No pleural rub, No other Cardiovascular: irregularly irregular, tachycardia, S1 and S2 Gastrointestinal: No tender, No soft, No round, No distended, No pulsatile mass, No organomegaly, No guarding, No rebound, No tenderness, No hernia, No mass, No audible bowel sounds, No abnormal bowel sounds, No abdominal bruits, No spleenomegaly, No other Rectal: deferred Extremities: No normal range of motion, No non-tender, No normal inspection, No pedal edema, No calf tenderness, No normal capillary refill, No pelvis stable, No calf tenderness, No inflammation, No pedal edema, No slow capillary refill, No swelling, No other, No abrasion, No clubbing, No cyanosis, No ecchymosis, No laceration, No no lower extremity edema bilateral, No significant edema, No tenderness, No wound Neurologic/Psychiatric: no motor/sensory deficits, alert, normal mood/affect, oriented x 3, power is 5/5 both on sides Skin: No normal color, No warm/dry, No cyanosis, No cool, No diaphoresis, No damp, No ecchymosis, No jaundice, No mottled, No pallor, No rash, No tattoos/piercings, No ulcerations, No rash on exposed areas, No ulcerations on exposed areas, No other Data Review Labs Laboratory Tests 10/23/18 03:15: White Blood Count 10.4, Red Blood Count 3.91L, Hemoglobin 11.5L, Hematocrit 35L, Mean Corpuscular Volume 90, Mean Corpuscular Hemoglobin 29, Mean Corpuscular Hemoglobin Concent 33, Red Cell Distribution Width 14.8H, Platelet Count 130, Mean Platelet Volume 11.5H, Neutrophils (%) (Auto) 82H, Lymphocytes (%) (Auto) 8L, Monocytes (%) (Auto) 10, Eosinophils (%) (Auto) 0, Basophils (%) (Auto) 0, Neutrophils # (Auto) 8.5H, Lymphocytes # (Auto) 0.9L, Monocytes # (Auto) 1.0, E osinophils # (Auto) 0.0, Basophils # (Auto) 0.0, Sodium Level 128L, Potassium Level 3.6, Chloride Level 97L, Carbon Dioxide Level 17L, Anion Gap 14, Blood Urea Nitrogen 27H, Creatinine 1.13, Estimat Glomerular Filtration Rate > 60, BUN/Creatinine Ratio 24, Glucose Level 176H, Calcium Level 8.9, Phosphorus Level 2.6, Magnesium Level 1.1L 10/23/18 16:55: Microbiology 10/22/18 Blood Culture - Preliminary, Resulted No growth 10/22/18 MRSA Screen - Final, Complete MRSA not isolated 10/22/18 Urine Culture - Final, Complete Mixed Bacterial Haydee YEAST ECG Impression ECG Initial ECG Impression: Atrial Fibrillation w/RVR A/P-Cardiology Assessment/Admission Diagnosis CAD, CABG, Ischemic cardiomyopathy, ICD, Paroxysmal atrial fibrillation with RVR, Plan CAD, CABG, continue aspirin, statin. Ischemic cardiomyopathy, stable. ICD, no acute issues. Paroxysmal atrial fibrillation, RVR, continue sotalol, cardizem and xarelto. Consider cardioversion if patient does not convert till tomorrow am. NPO after midnight. Thank you for your consultation. Please call me if you have any questions. Manuel Lawson MD, FACP, FACC, FSCAI, FHRS, CCDS Interventional Cardiology Cardiac Electrophysiology Vascular Medicine and Endovascular Interventions Clinical Quality Measures DVT/VTE Risk/Contraindication: Risk Factor Score Per Nursin RFS Level Per Nursing on Admit: 4+=Very High Royal LAWSON MD Oct 23, 2018 10:50
--- NOTE | 2018-10-23 11:00 | NUR ---
Pastoral care visit.
[2018-10-23] MEDS: DILTIAZEM IV FOR DRIP 125 MG in NS (IVPB) 100 ML IV SCH (11:19)
--- NOTE | 2018-10-23 11:45 | Physical Therapy Evaluation ---
PT Evaluation-General Medical Diagnosis Admission Date Oct 22, 2018 at 14:31 Medical Diagnosis: A fib with RVR Onset Date: Oct 22, 2018 Therapy Diagnosis Therapy Diagnosis: abnormal gait Height/Weight Height (Feet): 5 Height (Inches): 10.00 Weight (Pounds): 315 Weight (Ounces): 7.0 Precautions Precautions/Isolations: Fall Prevention, Standard Precautions Weight Bear Status Right Lower Extremity: Right Weight Bearing/Tolerated Left Lower Extremity: Left Weight Bearing/Tolerated Referral Physician: Uri Reason for Referral: Evaluation/Treatment Medical History Pertinent Medical History: Atrial Fib, DM, HTN, SC Current History Pt presented to ED in [facility] via EMS with complaints of fever, chills and weakness; transferred to [facility] for admission Reviewed History: Yes Social History Home: Single Level Current Living Status: Spouse Entry Into Home: Stairs With Railing Prior/Core FIM Prior Level of Function Therapy Code Descriptions/Definitions Functional [place] Measure: 0=Not Assessed/NA 4=Minimal Assistance 1=Total Assistance 5=Supervision or Setup 2=Maximal Assistance 6=Modified [place] 3=Moderate Assistance 7=Complete [place] Therapy Quality Codes: 6 Independent with activity with or without an assistive device 5 Patient requires set up or clean up by helper. Patient completes activity by themselves 4 Supervision or touching assist (CGA). [place] provide cues , steadying assist 3 The helper provides less than half the effort to complete the activity 2 The helper provides more than half the effort to complete the activity 1 Dependent. The helper does all the effort to complete an activity 7 Patient refused to complete or attempt activity 9 The patient did not perform the activity before the current illness or injury 88 Not attempted due to Medical conditions or safety concerns Functional Abilities and Goals: Independent: Patient completed the activities by him/herself, with or without an assistive device, with no assistance from a helper. Needed Some Help: Patient needed partial assistance from another person to complete activities. Dependent: A helper completed the activities for the patient. Unknown: Not Applicable: Bed Mobility: 6 Transfers (B,C,W/C) (FIM): 6 Gait: 6 Stairs: 5 Indoor Mobility (Ambulation): Independent Stairs: Needed Some Help Prior Devices Use: Walker Pt has recently discharged from [facility] ARU. PT Evaluation-Current Subjective Reports he feels weak. Agrees to get up to the chair with encouragement Pt/Family Goals Return home when able. Objective Patient Orientation: Person, Place, Time, Situation Problem Solving: Fair Attachments: IV ROM/Strength ROM Lower Extremities wFL Strength Lower Extremities grossly 4-/5 Integumentary/Posture Integumentary intact Bowel Incontinence: No Bladder Incontinence: Yes Posture rounded shoulders and slightly forward head; difficulty with full hip extension in standing. Neuromuscular (Tone, Coordination, Reflexes) functional Sensory Vision: Functional Hearing: Functional Sensation Right Lower Extremit: Intact Sensation Left Lower Extremity: Intact Transfers Therapy Code Descriptions/Definitions Functional [place] Measure: 0=Not Assessed/NA 4=Minimal Assistance 1=Total Assistance 5=Supervision or Setup 2=Maximal Assistance 6=Modified [place] 3=Moderate Assistance 7=Complete [place] Transfers (B, C, W/C) (FIM): 2 Scootin Rollin Supine to/from Sit: 2 (heavy assist to sit EOB with assist with legs, arms and trunk; heavy cues to sequence. ) Sit to/from Stand: 2 (assist of 2 to come to a full stand. ) bed t/f WC(FIM only if WC use): 4 Requires CGA to mn assist to sit EOB due to decresed functional balance; Sit to stand to transfer with FWW to the chair with assist of 2; close CG-min assist to take steps to transfer with skilled cues for steps and sequencing. Pt up in chair post treatment with needs met and present. Nurse notified. Balance Sitting Static: Poor Sitting Dynamic: Poor Standing Static: Fair Standing Dynamic: Fair Treatment While seated EOB, pt performed AP, LAQ and attempted hip flexion. Assessment/Needs Acute hospital admission with functional weakness and max to dependent for all mobiltiy; requires heavy assist and cues to sit EOB and to transer to the chair. Unable to safely attempt to ambulate at this time. Pt will benefit from skilled intervention to address strength and functional mobiltiy to allow him to return home as before. Rehab Potential: Guarded (recent hospital admissions prior to this) PT Dressage Instructor Goals Chcf Goals PT Dressage Instructor Goals Time Frame: Oct 30, 2018 Transfers (B,C,W/C) (FIM): 5 Gait (FIM): 5 Gait distance (FIM): 3=150 ft Gait Assistive Device: FWW PT Plan Problem List Problem List: Activity Tolerance, Functional Strength, Safety, Balance, Gait, Transfer, Bed Mobility Treatment/Plan Treatment Plan: Continue Plan of Care Treatment Plan: Bed Mobility, Education, Functional Activity [place], Functional Strength, Gait, Safety, Therapeutic Exercise, Transfers Treatment Duration: Oct 30, 2018 Frequency: 6 times per week Estimated Hrs Per Day: .5 hour per day Patient and/or Family Agrees t: Yes Safety Risks/Education Patient Education: Transfer Techniques, Safety Issues Teaching Recipient: Patient Teaching Methods: Demonstration, Discussion Response to Teaching: Reinforcement Needed Discharge Recommendations Therapy D/C Recommendations: Other, See Comments (feel pt would benefit from continued care following acute stay; PT) Time/GCodes Time In: 1110 Time Out: 1146 Total Billed Treatment Time: 36 Total Billed Treatment visit EVM 16 FA 20 PANFILO MARIE PT Oct 23, 2018 11:45
[2018-10-23] MEDS ORDERED: FUROSEMIDE 40 MG (LASIX) TAB PO SCH (12:45)
[2018-10-23] MEDS ORDERED: NON-FORMULARY MEDICATION 1 EA EA (Acetaminophen (Tylenol Extra Strength) 500 MG) PO PRN (12:45)
[2018-10-23] MEDS ORDERED: NON-FORMULARY MEDICATION 1 EA EA (Spironolactone (Aldactone) 25 MG) PO SCH (12:45)
[2018-10-23] MEDS ORDERED: SPIRONOLACTONE 25 MG (ALDACTONE) TAB PO SCH (13:00)
[2018-10-23] MEDS ORDERED: ACETAMINOPHEN 500 MG TAB (TYLENOL) PO PRN (13:00)
[2018-10-23] MEDS: SOTALOL 80 MG (BETAPACE) TAB PO SCH (17:29)
[2018-10-23] MEDS: metFORMIN 500 MG (GLUCOPHAGE) TAB PO SCH (17:29)
[2018-10-23] MEDS: TAMSULOSIN 0.4 MG (FLOMAX) CAP PO SCH (17:29)
[2018-10-23] MEDS: RIVAROXABAN 20 MG TABLET (XARELTO) PO SCH (17:29)
[2018-10-23] MEDS ORDERED: NON-FORMULARY MEDICATION 1 EA EA (Metformin HCl 500 MG) PO SCH (18:00)
[2018-10-23] MEDS ORDERED: NON-FORMULARY MEDICATION 1 EA EA (Famotidine 20 MG) PO SCH (21:00)
[2018-10-23] MEDS ORDERED: NON-FORMULARY MEDICATION 1 EA EA (Mirtazapine 7.5 MG) PO SCH (21:00)
[2018-10-23] MEDS ORDERED: PRAVASTATIN SODIUM PO SCH (21:00)
[2018-10-23] MEDS: FAMOTIDINE 20 MG (PEPCID) TABLET PO SCH (21:56)
[2018-10-23] MEDS: ATORVASTATIN 10 MG (LIPITOR) TABLET PO SCH (21:56)
[2018-10-23] MEDS: MIRTAZAPINE 15 MG (REMERON) TAB PO SCH (21:57)
[2018-10-24] VITALS (22 sets, daily range): BP systolic 87–116; BP diastolic 49–78
[2018-10-24 03:55] LABS: BASOPHILS % (AUTO) 0 % (0-10); EOSINOPHILS # (AUTO) 0.1 10^3/uL (0.0-0.3); EOSINOPHILS % (AUTO) 1 % (0-10); HEMATOCRIT 31 % (40-54); HEMOGLOBIN 10.5 G/DL (13.3-17.7); LYMPHOCYTES # (AUTO) 1.6 X 10^3 (1.0-4.0); LYMPHOCYTES % (AUTO) 18 % (12-44); MEAN CORPUSCULAR HEMOGLOBIN 30 PG (25-34); MEAN CORPUSCULAR HGB CONC 33 G/DL (32-36); MEAN CORPUSCULAR VOLUME 89 FL (80-99); MEAN PLATELET VOLUME 11.7 FL (7.4-10.4); MONOCYTES # (AUTO) 1.2 X 10^3 (0.0-1.0); MONOCYTES % (AUTO) 14 % (0-12); NEUTROPHILS # (AUTO) 5.9 X 10^3 (1.8-7.8); NEUTROPHILS % (AUTO) 67 % (42-75); PLATELET COUNT 140 10^3/uL (130-400); RED CELL DISTRIBUTION WIDTH 14.7 % (10.0-14.5); WHITE BLOOD COUNT 8.8 10^3/uL (4.3-11.0)
[2018-10-24 04:15] LABS: BUN/CREATININE RATIO 24; CALCIUM 8.5 MG/DL (8.5-10.1); CARBON DIOXIDE 14 MMOL/L (21-32); CHLORIDE 101 MMOL/L (98-107); CREATININE SERUM 0.98 MG/DL (0.60-1.30); GFR ESTIMATED > 60; GLUCOSE 183 MG/DL (70-105); MAGNESIUM 2.3 MG/DL (1.8-2.4); PHOSPHORUS 2.7 MG/DL (2.3-4.7); POTASSIUM 4.3 MMOL/L (3.6-5.0); SODIUM 127 MMOL/L (135-145)
[2018-10-24] MEDS: NS IV 1000 ML 1,000 ML IV SCH ×3 (06:40→17:27)
[2018-10-24] MEDS: metFORMIN 500 MG (GLUCOPHAGE) TAB PO SCH ×2 (08:26→17:27)
[2018-10-24] MEDS: SOTALOL 80 MG (BETAPACE) TAB PO SCH ×2 (08:26→17:27)
[2018-10-24] MEDS: ASPIRIN E.C. 81 MG (ECOTRIN) TAB PO SCH (08:27)
[2018-10-24] MEDS: FINASTERIDE (PROSCAR) 5 MG TAB PO SCH (08:28)
[2018-10-24] MEDS: ALLOPURINOL 300 MG (ZYLOPRIM) TAB PO SCH (08:28)
[2018-10-24] MEDS: LOSARTAN 25 MG (COZAAR) TAB PO SCH (08:28)
[2018-10-24] MEDS: cefTRIAXone FOR IV USE 1,000 MG in WATER (STERILE) FOR INJECTION 10 ML IV SCH (08:29)
--- NOTE | 2018-10-24 08:49 | Diagnostic Imaging Report ---
EXAMINATION: Chest radiograph, portable AP view. DATE: October 24, 2018 at 0341 hours. INDICATION: 58-year-old male, dyspnea. COMPARISON: October 23, 2018. FINDINGS: Stable overall appearance of the cardiomediastinal silhouette. There is no identified pneumothorax. There is no large pleural effusion. There is no identified interval focal airspace consolidation. IMPRESSION: 1. No identified acute cardiopulmonary abnormality. Dictated by: Dictated on workstation # [id number]
[2018-10-24] MEDS ORDERED: NON-FORMULARY MEDICATION 1 EA EA (Allopurinol 300 MG) PO SCH (09:00)
[2018-10-24] MEDS ORDERED: NON-FORMULARY MEDICATION 1 EA EA (Losartan Potassium 25 MG) PO SCH (09:00)
--- NOTE | 2018-10-24 09:13 | Progress Note ---
Subjective Subjective/Events-last exam patient is pleasant and reclined up in the bed this morning. He does not voice any concerns and have any pain or cardiac palpitations. He does admit that he was having some urinary symptoms Focused Exam Lactate Level 10/22/18 11:58: Lactic Acid Level 1.98 Objective Exam Last Set of Vital Signs Vital Signs Date Time Temp Pulse Resp B/P (MAP) Pulse Ox O2 Delivery O2 Flow Rate FiO2 10/24/18 09:00 89 17 116/56 (76) 98 Room Air 10/24/18 00:30 96.0 Capillary Refill : Less Than 3 Seconds I&O Intake and Output 10/24/18 00:00 Intake Total 3125 ml Output Total 700 ml Balance 2425 ml Intake Oral 1525 ml IV Total 1600 ml Output Urine Total 700 ml # Voids 9 General: No Acute Distress Lungs: Clear to Auscultation Heart: Other (irregular rate but controlled at 86) Abdomen: Soft (without lower abdominal discomfort) Skin: No Rashes Neuro: Normal Speech Results/Procedures Lab Laboratory Tests 10/23/18 16:55: 10/24/18 03:23: White Blood Count 8.8, Red Blood Count 3.55L, Hemoglobin 10.5L, Hematocrit 31L, Mean Corpuscular Volume 89, Mean Corpuscular Hemoglobin 30, Mean Corpuscular Hemoglobin Concent 33, Red Cell Distribution Width 14.7H, Platelet Count 140, Mean Platelet Volume 11.7H, Neutrophils (%) (Auto) 67, Lymphocytes (%) (Auto) 18, Monocytes (%) (Auto) 14H, Eosinophils (%) (Auto) 1, Basophils (%) (Auto) 0, Neutrophils # (Auto) 5.9, Lymphocytes # (Auto) 1.6, Monocytes # (Auto) 1.2H, Eosinophils # (Auto) 0.1, Basophils # (Auto) 0.0, Sodium Level 127L, Potassium Level 4.3, Chloride Level 101, Carbon Dioxide Level 14L, Anion Gap 12, Blood Urea Nitrogen 24H, Creatinine 0.98, Estimat Glomerular Filtration Rate > 60, BUN/Creatinine Ratio 24, Glucose Level 183H, Calcium Level 8.5, Phosphorus Level 2.7, Magnesium Level 2.3 Microbiology 10/22/18 Blood Culture - Preliminary, Resulted No growth 10/22/18 MRSA Screen - Final, Complete MRSA not isolated 10/22/18 Urine Culture - Final, Complete Mixed Bacterial Haydee YEAST Radiology CXR 10/22/18 no acute findings Assessment/Plan Assessment/Plan (1) UTI (urinary tract infection) Status: Acute Assessment & Plan: On ceftriaxone, culture pending 10/24 -urine culture revealed mixed bacteria and yeast -Today is day number 3 of ceftriaxone (2) Atrial fibrillation Status: Chronic Assessment & Plan: Started on cardizem drip in ER. Cardiology consult. 10/24 -cardiology managing the Cardizem drip. I suspect he will be switched to oral medications (3) Diabetes mellitus Status: Chronic Assessment & Plan: Resume home medications 10/24 -Accu-Cheks in the morning and evening Qualifiers: (4) Hyponatremia Status: Acute Assessment & Plan: Uncertain etiology, does not appear significantly hypo or hypervolemic, improved this am. Had hyponatremia on previous admission. Recent TSH okay, check urine Na and osmolality and serum osmolality. (5) Coronary artery disease Status: Chronic Assessment & Plan: No evidence of ACS at this time (6) Hypomagnesemia Status: Acute Assessment & Plan: Replace (7) DVT prophylaxis Status: Acute Assessment & Plan: On Xarelto chronically Clinical Quality Measures DVT/VTE Risk/Contraindication: Risk Factor Score Per Nursin RFS Level Per Nursing on Admit: 4+=Very High CHAYITO ARROYO MD Oct 24, 2018 09:13
[2018-10-24] MEDS: DILTIAZEM IV FOR DRIP 125 MG in NS (IVPB) 100 ML IV SCH (11:07)
[2018-10-24] MEDS: DILTIAZEM 240 MG (CARDIZEM CD) CAP PO SCH (13:34)
--- NOTE | 2018-10-24 13:58 | Cardiology Progress Note ---
Cardiology SOAP Progress Note Subjective: Continues to be in atrial fibrillation. Objective: I&O/Vital Signs 10/24/18 10/24/18 10/24/18 10/24/18 02:00 03:00 04:00 04:35 Pulse 70 68 74 Resp 21 20 20 B/P (MAP) 107/73 (84) 103/69 (80) 94/65 (75) Pulse Ox 94 95 94 97 O2 Delivery Room Air Room Air Room Air Room Air 10/24/18 10/24/18 10/24/18 10/24/18 05:00 06:00 07:00 07:22 Pulse 67 86 75 76 Resp 19 19 18 B/P (MAP) 92/71 (78) 98/69 (79) 99/63 (75) Pulse Ox 92 97 94 O2 Delivery Room Air Room Air Room Air 10/24/18 10/24/18 10/24/18 10/24/18 08:00 08:00 08:00 09:00 Temp 96.8 Pulse 90 89 Resp 11 17 B/P (MAP) 100/49 (66) 116/56 (76) Pulse Ox 97 97 98 O2 Delivery Room Air Room Air Room Air 10/24/18 10/24/18 10/24/18 10/24/18 10:00 11:00 12:00 12:00 Temp 98.7 Pulse 78 81 80 Resp 30 18 17 B/P (MAP) 110/72 (85) 111/71 (84) 96/72 (80) Pulse Ox 96 98 95 O2 Delivery Room Air Room Air Room Air 10/24/18 12:49 Pulse 85 10/24/18 00:00 Intake Total 1500 ml Output Total 600 ml Balance 900 ml Weight (Pounds): 320 Weight (Ounces): 9.0 Weight (Calculated Kilograms): 145.321583 Constitutional: appears stated age, AAO x 3; No apparent distress; well- developed, well-nourished Respiratory: No accessory muscle use, No respiratory distress, No chest tender, No chest expansion is symmetric; chest is bilaterally symmetric; No lungs clear to percussion; lungs clear to auscultation; No crackles, No rhonchi, No rales, No stridor, No wheezing, No pleural rub, No other Cardiovascular: irregularly irregular, tachycardia, S1 and S2 Gastrointestional: No tender, No soft, No round, No distended, No pulsatile mass, No organomegaly, No guarding, No rebound, No tenderness, No hernia, No mass, No audible bowel sounds, No abnormal bowel sounds, No abdominal bruits, No spleenomegaly, No other Extremities: No normal range of motion, No non-tender, No normal inspection, No pedal edema, No calf tenderness, No normal capillary refill, No pelvis stable, No calf tenderness, No inflammation, No pedal edema, No slow capillary refill, No swelling, No other, No abrasion, No clubbing, No cyanosis, No ecchymosis, No laceration, No no lower extremity edema bilateral, No significant edema, No tenderness, No wound Neurologic/Psychiatric: no motor/sensory deficits, alert, normal mood/affect, oriented x 3, power is 5/5 both on sides Skin: No normal color, No warm/dry, No cyanosis, No cool, No diaphoresis, No damp, No ecchymosis, No jaundice, No mottled, No pallor, No rash, No tattoos/piercings, No ulcerations, No rash on exposed areas, No ulcerations on exposed areas, No other Results/Procedures: Labs Laboratory Tests 10/23/18 16:55: 10/24/18 03:23: White Blood Count 8.8, Red Blood Count 3.55L, Hemoglobin 10.5L, Hematocrit 31L, Mean Corpuscular Volume 89, Mean Corpuscular Hemoglobin 30, Mean Corpuscular Hemoglobin Concent 33, Red Cell Distribution Width 14.7H, Platelet Count 140, Mean Platelet Volume 11.7H, Neutrophils (%) (Auto) 67, Lymphocytes (%) (Auto) 18, Monocytes (%) (Auto) 14H, Eosinophils (%) (Auto) 1, Basophils (%) (Auto) 0, Neutrophils # (Auto) 5.9, Lymphocytes # (Auto) 1.6, Monocytes # (Auto) 1.2H, Eosinophils # (Auto) 0.1, Basophils # (Auto) 0.0, Sodium Level 127L, Potassium Level 4.3, Chloride Level 101, Carbon Dioxide Level 14L, Anion Gap 12, Blood Urea Nitrogen 24H, Creatinine 0.98, Estimat Glomerular Filtration Rate > 60, BUN/Creatinine Ratio 24, Glucose Level 183H, Calcium Level 8.5, Phosphorus Level 2.7, Magnesium Level 2.3 10/24/18 11:03: Glucometer 241H Microbiology 10/22/18 Blood Culture - Preliminary, Resulted Probable Coag Negative Staph 10/22/18 MRSA Screen - Final, Complete MRSA not isolated 10/22/18 Urine Culture - Final, Complete Mixed Bacterial Hadyee YEAST A/P: Assessment/Dx: CAD, CABG, Ischemic cardiomyopathy, ICD, Paroxysmal atrial fibrillation with RVR, Plan: CAD, CABG, continue aspirin, statin. Ischemic cardiomyopathy, stable. ICD, no acute issues. Paroxysmal atrial fibrillation, RVR, continue sotalol, cardizem and xarelto. Patient continues to be in atrial fibrillation with controlled ventricular rate. I discussed at length with the patient about pathophysiology of atrial fibrillation, stroke prevention, rate versus rhythm control. By mouth Cardizem. DC Cardizem infusion. Cardioversion in the morning. Nothing by mouth after midnight. Thank you for your consultation. Please call me if you have any questions. Manuel Lawson MD, FACP, FACC, FSCAI, FHRS, CCDS Interventional Cardiology Cardiac Electrophysiology Vascular Medicine and Endovascular Interventions Focused Exam Lactate Level 10/22/18 11:58: Lactic Acid Level 1.98 Royal LAWSON MD Oct 24, 2018 1:58 pm
[2018-10-24] MEDS: TAMSULOSIN 0.4 MG (FLOMAX) CAP PO SCH (17:27)
[2018-10-24] MEDS: RIVAROXABAN 20 MG TABLET (XARELTO) PO SCH (17:27)
[2018-10-24] MEDS: MIRTAZAPINE 15 MG (REMERON) TAB PO SCH (20:29)
[2018-10-24] MEDS: ATORVASTATIN 10 MG (LIPITOR) TABLET PO SCH (20:29)
[2018-10-24] MEDS: FAMOTIDINE 20 MG (PEPCID) TABLET PO SCH (20:30)
[2018-10-25] VITALS (15 sets, daily range): BP systolic 93–113; BP diastolic 62–78
[2018-10-25] MEDS: NS IV 1000 ML 1,000 ML IV SCH ×2 (01:35→11:29)
[2018-10-25 03:51] LABS: BASOPHILS % (AUTO) 0 % (0-10); EOSINOPHILS # (AUTO) 0.2 10^3/uL (0.0-0.3); EOSINOPHILS % (AUTO) 2 % (0-10); HEMATOCRIT 31 % (40-54); HEMOGLOBIN 10.5 G/DL (13.3-17.7); LYMPHOCYTES # (AUTO) 1.5 X 10^3 (1.0-4.0); LYMPHOCYTES % (AUTO) 18 % (12-44); MEAN CORPUSCULAR HEMOGLOBIN 30 PG (25-34); MEAN CORPUSCULAR HGB CONC 34 G/DL (32-36); MEAN CORPUSCULAR VOLUME 89 FL (80-99); MEAN PLATELET VOLUME 11.8 FL (7.4-10.4); MONOCYTES # (AUTO) 1.2 X 10^3 (0.0-1.0); MONOCYTES % (AUTO) 14 % (0-12); NEUTROPHILS # (AUTO) 5.3 X 10^3 (1.8-7.8); NEUTROPHILS % (AUTO) 65 % (42-75); PLATELET COUNT 172 10^3/uL (130-400); RED CELL DISTRIBUTION WIDTH 14.7 % (10.0-14.5); WHITE BLOOD COUNT 8.1 10^3/uL (4.3-11.0)
[2018-10-25 04:09] LABS: BUN/CREATININE RATIO 29; CALCIUM 8.5 MG/DL (8.5-10.1); CARBON DIOXIDE 17 MMOL/L (21-32); CHLORIDE 104 MMOL/L (98-107); CREATININE SERUM 0.87 MG/DL (0.60-1.30); GFR ESTIMATED > 60; GLUCOSE 153 MG/DL (70-105); MAGNESIUM 1.5 MG/DL (1.8-2.4); PHOSPHORUS 2.6 MG/DL (2.3-4.7); POTASSIUM 3.5 MMOL/L (3.6-5.0); SODIUM 132 MMOL/L (135-145)
[2018-10-25] MEDS ORDERED: MAGNESIUM 1 GM/100 ML IVPB 100 ML IV ONE (06:30)
[2018-10-25] MEDS ORDERED: POTASSIUM CL 10MEQ/50ML IVPB 50 ML IV ONE (06:30)
[2018-10-25] MEDS ORDERED: NS IV 500 ML 500 ML ONE (08:14)
[2018-10-25] MEDS ORDERED: proPOfol 200 MG/20 ML (DIPRIVAN) VIAL IV ONE (08:53)
--- NOTE | 2018-10-25 09:04 | Progress Note ---
Subjective Subjective/Events-last exam Patient in good spirits this morning. He has no complaints of chest pain. He does not report any palpitations. He remains in A. fib. With rate controlled Focused Exam Lactate Level 10/22/18 11:58: Lactic Acid Level 1.98 Objective Exam Last Set of Vital Signs Vital Signs Date Time Temp Pulse Resp B/P (MAP) Pulse Ox O2 Delivery O2 Flow Rate FiO2 10/25/18 08:00 80 20 102/69 (80) 94 Room Air 10/25/18 06:38 96.8 Capillary Refill : Less Than 3 Seconds I&O Intake and Output 10/25/18 00:00 Intake Total 4805 ml Output Total 1315 ml Balance 3490 ml Intake Oral 1680 ml IV Total 3125 ml Output Urine Total 1315 ml # Voids 7 # Bowel Movements 1 General: No Acute Distress Lungs: Clear to Auscultation Heart: No Murmurs, Other (Irregular irregular) Abdomen: Soft Skin: No Rashes Psych/Mental Status: Mental Status NL Results/Procedures Lab Laboratory Tests 10/24/18 11:03: Glucometer 241H 10/24/18 16:33: Glucometer 219H 10/24/18 20:55: Glucometer 182H 10/25/18 03:42: White Blood Count 8.1, Red Blood Count 3.53L, Hemoglobin 10.5L, Hematocrit 31L, Mean Corpuscular Volume 89, Mean Corpuscular Hemoglobin 30, Mean Corpuscular Hemoglobin Concent 34, Red Cell Distribution Width 14.7H, Platelet Count 172, Mean Platelet Volume 11.8H, Neutrophils (%) (Auto) 65, Lymphocytes (%) (Auto) 18, Monocytes (%) (Auto) 14H, Eosinophils (%) (Auto) 2, Basophils (%) (Auto) 0, Neutrophils # (Auto) 5.3, Lymphocytes # (Auto) 1.5, Monocytes # (Auto) 1.2H, Eosinophils # (Auto) 0.2, Basophils # (Auto) 0.0, Sodium Level 132L, Potassium Level 3.5L, Chloride Level 104, Carbon Dioxide Level 17L, Anion Gap 11, Blood Urea Nitrogen 25H, Creatinine 0.87, Estimat Glomerular Filtration Rate > 60, BUN/Creatinine Ratio 29, Glucose Level 153H, Calcium Level 8.5, Phosphorus Level 2.6, Magnesium Level 1.5L 7/28/19 05:24: Glucometer 157H Microbiology 10/22/18 Blood Culture - Preliminary, Resulted Probable Coag Negative Staph 10/22/18 MRSA Screen - Final, Complete MRSA not isolated 10/22/18 Urine Culture - Final, Complete Mixed Bacterial Haydee YEAST Radiology CXR 10/22/18 no acute findings Assessment/Plan Assessment/Plan (1) Atrial fibrillation Status: Chronic Assessment & Plan: Started on cardizem drip in ER. Cardiology consult. 10/24 -cardiology managing the Cardizem drip. I suspect he will be switched to oral medications 10/25 -Cardiology may be performing cardioversion this morning. He is currently on Cardizem orally. (2) Diabetes mellitus Status: Chronic Assessment & Plan: Resume home medications 10/24 -Accu-Cheks in the morning and evening 10/25 -Ultimately he will be back on his regular diabetic regimen at home and hopefully with more regular activity and diet his glucose by his will be in the low 100s. Currently he is at 153. Qualifiers: (3) UTI (urinary tract infection) Status: Acute Assessment & Plan: On ceftriaxone, culture pending 10/24 -urine culture revealed mixed bacteria and yeast -Today is day number 3 of ceftriaxone 10/25 -Day number 4 ceftriaxone. -Outpatient his urine will be rechecked for clearance (4) Hyponatremia Status: Acute Assessment & Plan: Uncertain etiology, does not appear significantly hypo or hypervolemic, improved this am. Had hyponatremia on previous admission. Recent TSH okay, check urine Na and osmolality and serum osmolality. (5) Coronary artery disease Status: Chronic Assessment & Plan: No evidence of ACS at this time (6) Hypomagnesemia Status: Acute Assessment & Plan: Replace (7) DVT prophylaxis Status: Acute Assessment & Plan: On Xarelto chronically Clinical Quality Measures DVT/VTE Risk/Contraindication: Risk Factor Score Per Nursin RFS Level Per Nursing on Admit: 4+=Very High CHAYITO ARROYO MD Oct 25, 2018 09:04
--- NOTE | 2018-10-25 09:10 | NUR ---
Dr. Lawson and anesthesia in room to start procedure.
--- NOTE | 2018-10-25 09:27 | Diagnostic Imaging Report ---
EXAM: CHEST 1 VIEW, AP/PA ONLY INDICATION: Dyspnea. COMPARISON: Chest radiograph 10/24/2018. FINDINGS: AICD. Sternotomy. Normal heart size and central pulmonary vascularity. No focal pulmonary opacity, pleural effusion or pneumothorax. IMPRESSION: No acute cardiopulmonary findings. Dictated by: Dictated on workstation # [id number]
--- NOTE | 2018-10-25 09:38 | NUR ---
pt cardioverted, converted to SR after 2 shocks of 200j each. See anesthesia note for medications administered. Pt tolerated procedure well. Resting in bed with eyes closed at this time.
--- NOTE | 2018-10-25 09:42 | Anesthesia-General Post-Op ---
MAC Patient Condition Mental Status/LOC: Same as Preop Cardiovascular: Satisfactory Nausea/Vomiting: Absent Respiratory: Satisfactory Pain: Controlled Complications: Absent Post Op Complications Complications None Follow Up Care/Instructions Patient Instructions None needed. Anesthesiology Discharge Order Discharge Order Patient is doing well, no complaints, stable vital signs, no apparent adverse anesthesia problems. No complications reported per nursing. SIMEON CARDENAS CRNA Oct 25, 2018 09:42
--- NOTE | 2018-10-25 09:43 | Anesthesia-Procedure Note ---
Procedures/Interventions Procedure Start/Stop/Diagnosis Date of Procedure: Oct 25, 2018 Start Time: 09:15 Stop Time: 09:30 XANDER/Cardioversion Anesthesia Type: MAC ASA Class: 3 Medications propofol 60 mg IV Monitors and Equipment: Continuous EKG, End Tidal CO2, IV, Pulse Oximeter, V Lead EKG SIMEON CARDENAS CRNA Oct 25, 2018 09:43
--- NOTE | 2018-10-25 09:51 | Cardiology Progress Note ---
Cardiology SOAP Progress Note Subjective: No cardiac complaints. Objective: I&O/Vital Signs 10/24/18 10/24/18 10/25/18 10/25/18 22:00 23:00 00:00 00:26 Temp 98.2 Pulse 69 75 80 Resp 20 24 24 B/P (MAP) 98/70 (79) 91/70 (77) 100/75 (83) Pulse Ox 95 96 95 O2 Delivery Room Air Room Air Room Air 10/25/18 10/25/18 10/25/18 10/25/18 00:53 01:00 01:00 02:00 Pulse 68 68 76 Resp 23 23 B/P (MAP) 98/71 (80) 101/75 (84) Pulse Ox 97 95 95 O2 Delivery Room Air Room Air Room Air 10/25/18 10/25/18 10/25/18 10/25/18 03:00 04:00 04:00 04:06 Temp 98.0 Pulse 73 74 Resp 27 23 B/P (MAP) 93/62 (72) 100/71 (81) Pulse Ox 96 94 97 O2 Delivery Room Air Room Air Room Air 10/25/18 10/25/18 10/25/18 10/25/18 05:00 06:00 06:38 07:00 Temp 96.8 Pulse 69 72 78 Resp 25 23 29 B/P (MAP) 106/74 (85) 99/71 (80) 100/71 (81) Pulse Ox 94 94 94 O2 Delivery Room Air Room Air Room Air 10/25/18 10/25/18 10/25/18 07:00 08:00 09:00 Pulse 73 80 73 Resp 20 33 B/P (MAP) 102/69 (80) 100/72 (81) Pulse Ox 94 92 O2 Delivery Room Air Room Air 10/25/18 00:00 Intake Total 2290 ml Output Total 665 ml Balance 1625 ml Weight (Pounds): 325 Weight (Ounces): 2.0 Weight (Calculated Kilograms): 147.323554 Constitutional: appears stated age, AAO x 3; No apparent distress; well- developed, well-nourished Respiratory: No accessory muscle use, No respiratory distress, No chest tender, No chest expansion is symmetric; chest is bilaterally symmetric; No lungs clear to percussion; lungs clear to auscultation; No crackles, No rhonchi, No rales, No stridor, No wheezing, No pleural rub, No other Cardiovascular: irregularly irregular, tachycardia, S1 and S2 Gastrointestional: No tender, No soft, No round, No distended, No pulsatile mass, No organomegaly, No guarding, No rebound, No tenderness, No hernia, No mass, No audible bowel sounds, No abnormal bowel sounds, No abdominal bruits, No spleenomegaly, No other Extremities: No normal range of motion, No non-tender, No normal inspection, No pedal edema, No calf tenderness, No normal capillary refill, No pelvis stable, No calf tenderness, No inflammation, No pedal edema, No slow capillary refill, No swelling, No other, No abrasion, No clubbing, No cyanosis, No ecchymosis, No laceration, No no lower extremity edema bilateral, No significant edema, No tenderness, No wound Neurologic/Psychiatric: no motor/sensory deficits, alert, normal mood/affect, oriented x 3, power is 5/5 both on sides Skin: No normal color, No warm/dry, No cyanosis, No cool, No diaphoresis, No damp, No ecchymosis, No jaundice, No mottled, No pallor, No rash, No tattoos/piercings, No ulcerations, No rash on exposed areas, No ulcerations on exposed areas, No other Results/Procedures: Labs Laboratory Tests 10/24/18 11:03: Glucometer 241H 10/24/18 16:33: Glucometer 219H 10/24/18 20:55: Glucometer 182H 10/25/18 03:42: White Blood Count 8.1, Red Blood Count 3.53L, Hemoglobin 10.5L, Hematocrit 31L, Mean Corpuscular Volume 89, Mean Corpuscular Hemoglobin 30, Mean Corpuscular Hemoglobin Concent 34, Red Cell Distribution Width 14.7H, Platelet Count 172, Mean Platelet Volume 11.8H, Neutrophils (%) (Auto) 65, Lymphocytes (%) (Auto) 18, Monocytes (%) (Auto) 14H, Eosinophils (%) (Auto) 2, Basophils (%) (Auto) 0, Neutrophils # (Auto) 5.3, Lymphocytes # (Auto) 1.5, Monocytes # (Auto) 1.2H, Eosinophils # (Auto) 0.2, Basophils # (Auto) 0.0, Sodium Level 132L, Potassium Level 3.5L, Chloride Level 104, Carbon Dioxide Level 17L, Anion Gap 11, Blood Urea Nitrogen 25H, Creatinine 0.87, Estimat Glomerular Filtration Rate > 60, BUN/Creatinine Ratio 29, Glucose Level 153H, Calcium Level 8.5, Phosphorus Level 2.6, Magnesium Level 1.5L 10/25/18 05:24: Glucometer 157H Microbiology 10/22/18 Blood Culture - Preliminary, Resulted Probable Coag Negative Staph 10/22/18 MRSA Screen - Final, Complete MRSA not isolated 10/22/18 Urine Culture - Final, Complete Mixed Bacterial Haydee YEAST A/P: Assessment/Dx: CAD, CABG, Ischemic cardiomyopathy, ICD, Paroxysmal atrial fibrillation with RVR, Plan: CAD, CABG, continue aspirin, statin. Ischemic cardiomyopathy, stable. ICD, no acute issues. Paroxysmal atrial fibrillation, RVR, continue sotalol, cardizem and xarelto. Patient continues to be in atrial fibrillation with controlled ventricular rate. I discussed at length with the patient about pathophysiology of atrial fibrillation, stroke prevention, rate versus rhythm control. By mouth Cardizem. DC Cardizem infusion. Cardioversion today. Thank you for your consultation. Please call me if you have any questions. Manuel Lawson MD, FACP, FACC, FSCAI, FHRS, CCDS Interventional Cardiology Cardiac Electrophysiology Vascular Medicine and Endovascular Interventions Focused Exam Lactate Level 10/22/18 11:58: Lactic Acid Level 1.98 Royal LAWSON MD Oct 25, 2018 09:51
--- NOTE | 2018-10-25 09:55 | Cardioversion ---
Cardioversion PROCEDURE PHYSICIAN: Manuel Lawson MD DATE OF PROCEDURE: 10/25/18 DIRECT EXTERNAL ELECTRICAL CARDIOVERSION: Indications: Atrial Fibrillation with rapid ventricular rate Preoperative diagnoses: Atrial Fibrillation with rapid ventricular rate Postoperative diagnosis: Sinus rhythm, Successful Electrical Cardioversion History: This is a 68 year old gentleman with history of AF, ICD, Cardiomyopathy. He presented with AF RVR and still has not converted on medical therapy. Anesthesia: By Anesthesia services Complications: None Specimen: None Contrast: 0 Flouroscopy: none Procedure Details: The patient was brought the ear mold laboratory technician after informed consent was taken, all the risks and complications were explained including the risk of stroke. Electrical cardioversion was carried out with anesthesia support with propofol. 200 joules of synchronized shock was delivered through external patches x2 which promptly restored sinus rhythm. The patient tolerated the procedure well. Conclusions: 1.Successful Cardioversion. 2.Continue oral anticoagulation, sotalol and rate controlling agent. 3.Follow up in office in 2-3 weeks. Manuel Lawson MD, RS, CCDS Cardiac Electrophysiology Royal LAWSON MD Oct 25, 2018 09:55
[2018-10-25] MEDS: SOTALOL 80 MG (BETAPACE) TAB PO SCH (10:23)
[2018-10-25] MEDS: cefTRIAXone FOR IV USE 1,000 MG in WATER (STERILE) FOR INJECTION 10 ML IV SCH (10:23)
[2018-10-25] MEDS: FINASTERIDE (PROSCAR) 5 MG TAB PO SCH (10:24)
[2018-10-25] MEDS: metFORMIN 500 MG (GLUCOPHAGE) TAB PO SCH (10:24)
[2018-10-25] MEDS: DILTIAZEM 240 MG (CARDIZEM CD) CAP PO SCH (10:24)
[2018-10-25] MEDS: ALLOPURINOL 300 MG (ZYLOPRIM) TAB PO SCH (10:24)
[2018-10-25] MEDS: ASPIRIN E.C. 81 MG (ECOTRIN) TAB PO SCH (10:24)
[2018-10-25] MEDS: LOSARTAN 25 MG (COZAAR) TAB PO SCH (10:24)
[2018-10-25] MEDS: DILTIAZEM IV FOR DRIP 125 MG in NS (IVPB) 100 ML IV SCH (10:25)
--- NOTE | 2018-10-25 13:32 | Discharge Summary ---
Diagnosis/Chief Complaint Date of Admission Oct 22, 2018 at 14:31 Date of Discharge October 25, 2018 Admission Diagnosis Admission Diagnosis (1) Atrial fibrillation (2) Diabetes mellitus (3) UTI (urinary tract infection) (4) Hyponatremia (5) Coronary artery disease (6) Hypomagnesemia Discharge Diagnosis (1) Atrial fibrillation (2) Diabetes mellitus (3) UTI (urinary tract infection) (4) Hyponatremia (5) Coronary artery disease (6) Hypomagnesemia Problems/Diagnosis: (1) Atrial fibrillation Assessment & Plan: Started on cardizem drip in ER. Cardiology consult. 10/24 -cardiology managing the Cardizem drip. I suspect he will be switched to oral medications 10/25 -Cardiology may be performing cardioversion this morning. He is currently on C ardizem orally. Status: Chronic (2) Diabetes mellitus Assessment & Plan: Resume home medications 10/24 -Accu-Cheks in the morning and evening 10/25 -Ultimately he will be back on his regular diabetic regimen at home and hopefully with more regular activity and diet his glucose by his will be in the low 100s. Currently he is at 153. Qualifiers: Status: Chronic (3) UTI (urinary tract infection) Assessment & Plan: On ceftriaxone, culture pending 10/24 -urine culture revealed mixed bacteria and yeast -Today is day number 3 of ceftriaxone 10/25 -Day number 4 ceftriaxone. -Outpatient his urine will be rechecked for clearance Status: Acute (4) Hyponatremia Assessment & Plan: Uncertain etiology, does not appear significantly hypo or hypervolemic, improved this am. Had hyponatremia on previous admission. Recent TSH okay, check urine Na and osmolality and serum osmolality. Status: Acute (5) Coronary artery disease Assessment & Plan: No evidence of ACS at this time Status: Chronic (6) Hypomagnesemia Assessment & Plan: Replace Status: Acute (7) DVT prophylaxis Assessment & Plan: On Xarelto chronically Status: Acute Chief Complaint/HPI Chief Complaint/HPI Fever and chills, aching, feeling weak for about a week. Difficulty even getting out of chair yesterday. Usually walks with walker. Discharge Summary-Simple/Stand Consultations Discharge Physical Examination Allergies: Coded Allergies: No Known Drug Allergies (Unverified , 09/01/18) Vitals & I&Os Vital Sign - Last 12Hours Date Time Temp Pulse Resp B/P (MAP) Pulse Ox O2 Delivery O2 Flow Rate FiO2 10/25/18 13:00 76 11 97/66 (76) Room Air 10/25/18 12:00 99 10/25/18 12:00 96.7 Intake and Output 10/25/18 00:00 Intake Total 2290 ml Output Total 665 ml Balance 1625 ml Hospital Course See final discharge diagnosis. Radiology Reviewed CXR 10/22/18 no acute findings Discharge Instructions to patient/family Please see electronic discharge instructions given to patient. Discharge Medications Reviewed and agree with Discharge Medication list on patient's Discharge Instruction sheet Clinical Quality Measures DVT/VTE Risk/Contraindication: Risk Factor Score Per Nursin RFS Level Per Nursing on Admit: 4+=Very High CHAYITO ARROYO MD Oct 25, 2018 13:32
--- NOTE | 2018-10-25 13:42 | Discharge Inst-Simple/Standard ---
Discharge Inst-Standard Discharge Medications New, Converted or Re-Newed RX: Transmitted to Pharmacy Patient Instructions/Follow Up Plan of Care/Instructions/FU: FU with Dr Hudson within the week and with cardiology as instructed Activity as Tolerated: Yes Discharge Diet: Low Sodium Diet, Low Fat/Low Cholesterol Return to The Hospital For: Chest pain, rapid heart rate, or shortness of breath CHAYITO ARROYO MD Oct 25, 2018 13:42
[2018-10-25] MEDS ORDERED: DILT240C97 PO (13:47)
[2018-10-25] MEDS ORDERED: CEPH500C PO (13:55)
[2018-10-26] MEDS ORDERED: MAGNESIUM 1 GM/100 ML IVPB 100 ML IV SCH (06:00)
[2018-10-26] MEDS ORDERED: POTASSIUM CL 10MEQ/50ML IVPB 50 ML IV SCH (06:00)
[2018-10-26] MEDS ORDERED: KCL 20 MEQ TAB (K-DUR) PO SCH (06:00)
== END 2018-10-25 15:20 | disposition home or self-care (01) | DRG 309 ==
LOC: EDUNIT# 11:26 → ER FS 11:27 → ICU 14:31
PROVIDERS: ADMIT Family Medicine; ATTEND Family Medicine
PROC: 5A2204Z Restoration of Cardiac Rhythm, Single (ICD-10-PCS; principal; 2018-10-25)
DX: I48.0 Paroxysmal atrial fibrillation (principal); E87.1 Hypo-osmolality and hyponatremia; E86.0 Dehydration; N39.0 Urinary tract infection, site not specified; Z68.42 Body mass index [BMI] 45.0-49.9, adult; E66.01 Morbid (severe) obesity due to excess calories; I25.2 Old myocardial infarction; I10 Essential (primary) hypertension; E11.9 Type 2 diabetes mellitus without complications; I25.10 Atherosclerotic heart disease of native coronary artery without angina pectoris; E83.42 Hypomagnesemia; I25.5 Ischemic cardiomyopathy; G47.30 Sleep apnea, unspecified; E78.00 Pure hypercholesterolemia, unspecified; F03.90 Unspecified dementia, unspecified severity, without behavioral disturbance, psychotic disturbance, mood disturbance, and anxiety; N40.0 Benign prostatic hyperplasia without lower urinary tract symptoms; K59.09 Other constipation; M19.012 Primary osteoarthritis, left shoulder; M10.9 Gout, unspecified; Z95.1 Presence of aortocoronary bypass graft; Z86.73 Personal history of transient ischemic attack (TIA), and cerebral infarction without residual deficits; Z95.810 Presence of automatic (implantable) cardiac defibrillator; Z79.01 Long term (current) use of anticoagulants; Z79.84 Long term (current) use of oral hypoglycemic drugs
CPT/HCPCS: 36415; 71045; 76937; 80048; 80053; 81000; 82436; 82962; 83605; 83735; 83930; 83935; 84100; 84300; 85007; 85025; 85027; 85610; 85730; 87040; 87077; 87081; 87088; 93005; 93041; 93306; 96361; 96374

== ENCOUNTER 2018-11-10 10:55 | Inpatient (IN) | payer MEDICARE, OTHER ==
[~2018-11-10] VITALS: Ht 177.8 cm; Wt 144.7 kg
[2018-11-10 10:55] VITALS: BP 120/84
[~2018-11-10 10:55] MED LIST changes: +CEPH500C PO; +DILT-27 PO; +FAMO20TA5 PO; +MICO90PO TP
--- NOTE | 2018-11-10 10:55 | NUR ---
SU WARD admitted to room 407-1, with an admitting diagnosis of A-FIB W/ RVR, on 11/10/18 from D/A via W/C, accompanied by FAMILY. SU WARD introduced to surroundings, call light, bed controls, phone, TV, temperature control, lights, meal times, smoking policy, visitor policy, side rail policy, bathrooms and showers. Patient Rights given to patient in the handbook. SU WARD verbalizes understanding that [facility] is not responsible for the loss or damage to any personal effects or valuables that are kept in the patients possession during their hospitalization.
--- NOTE | 2018-11-10 12:00 | NUR ---
THIS RN CONTACTED DANETTE SORENSEN ABOUT NO IV ORDERED. PA SAID TO LEAVE IV OUT FOR NOW; PT STATES THAT HE IS A HARD STICK AND IS REQUESTING A PICC LINE IF ACCESS IS NEEDED.
[2018-11-10 12:26] LABS: BASOPHILS # (AUTO) 0.1 10^3/uL (0.0-0.1); BASOPHILS % (AUTO) 1 % (0-10); EOSINOPHILS # (AUTO) 0.1 10^3/uL (0.0-0.3); EOSINOPHILS % (AUTO) 1 % (0-10); HEMATOCRIT 36 % (40-54); HEMOGLOBIN 11.6 G/DL (13.3-17.7); LYMPHOCYTES % (AUTO) 17 % (12-44); MEAN CORPUSCULAR HEMOGLOBIN 29 PG (25-34); MEAN CORPUSCULAR HGB CONC 32 G/DL (32-36); MEAN CORPUSCULAR VOLUME 90 FL (80-99); MEAN PLATELET VOLUME 10.7 FL (7.4-10.4); MONOCYTES # (AUTO) 0.9 X 10^3 (0.0-1.0); MONOCYTES % (AUTO) 7 % (0-12); NEUTROPHILS # (AUTO) 8.7 X 10^3 (1.8-7.8); NEUTROPHILS % (AUTO) 74 % (42-75); PLATELET COUNT 336 10^3/uL (130-400); RED CELL DISTRIBUTION WIDTH 15.9 % (10.0-14.5); WHITE BLOOD COUNT 11.8 10^3/uL (4.3-11.0)
--- NOTE | 2018-11-10 12:59 | NUR ---
BOTTLES HE HAD WITH HIM FROM [facility]: 11-06-18 LOSARTAN 25MG DAILY #30 11-02-18 ALLOPURINOL 300MG DAILY #30 11-02-18 PRAVASTATIN 20MG 3 TABS DAILY #90 10-14-18 XARELTO 20MG DAILY #30 10-09-18 SPIRONOLACTONE 25MG EVERY OTHER DAY #15 (TAKES Fri) 10-08-18 SOTALOL 80MG BID #60 10-08-18 DONEPEZIL 5MG DAILY #30 10-08-18 FUROSEMIDE 40MG EVERY OTHER DAY #15 (TAKES Fri) 10-08-18 TAMSULOSIN 0.4MG EVENING #30 09-25-18 CARTIA XT 240MG DAILY #30 09-23-18 METFORMIN 500MG BID #60 THEY DO NOT HAVE THE FINASTERIDE OR MIRTAZAPINE BOTTLES WITH THEM BUT STATES HE IS STILL TAKING THEM. I CALLED [facility] AND VERIFIED THEY WERE LAST FILLED: 10-09-18 FINASTERIDE 5MG DAILY #30 09-09-18 MIRTAZAPINE 15MG DAILY #30 (TAKES 1/2 TAB HS) HE FILLED FAMOTIDINE 20MG #90 09-09-18 AT [facility] HOWEVER HE DOES NOT HAVE THE BOTTLE WITH HIM. THEY STATE IF THEY DO NOT HAVE THE PRESCRIPTION BOTTLE HE IS NOT TAKING IT. I REMOVED IT FROM THE MED REC AT THIS TIME. HE TAKES ASPIRIN 81MG DAILY AND TYLENOL PRN OTC.
[2018-11-10 13:15] LABS: BUN/CREATININE RATIO 15; CALCIUM 9.5 MG/DL (8.5-10.1); CARBON DIOXIDE 23 MMOL/L (21-32); CHLORIDE 102 MMOL/L (98-107); CREATININE SERUM 0.84 MG/DL (0.60-1.30); GFR ESTIMATED > 60; GLUCOSE 154 MG/DL (70-105); POTASSIUM 4.2 MMOL/L (3.6-5.0); SODIUM 137 MMOL/L (135-145)
[2018-11-10] MEDS ORDERED: DILT240C53 PO (13:18)
[2018-11-10 16:00] VITALS: BP 111/69
[2018-11-10 17:13] LABS: BILIRUBIN,URINE NEGATIVE (NEGATIVE); CLARITY,URINE CLEAR; COLOR,URINE YELLOW; GLUCOSE, URINE (UA) NEGATIVE (NEGATIVE); KETONES,URINE NEGATIVE (NEGATIVE); LEUKOCYTE ESTERASE ,URINE 3+ (NEGATIVE); NITRITE,URINE NEGATIVE (NEGATIVE); PH,URINE 6 (5-9); PROTEIN,URINE 1+ (NEGATIVE); UROBILINOGEN,URINE 4 MG/DL (NORMAL)
[2018-11-10] MEDS: metFORMIN 500 MG (GLUCOPHAGE) TAB PO SCH (17:15)
[2018-11-10] MEDS: RIVAROXABAN 20 MG TABLET (XARELTO) PO SCH (17:15)
[2018-11-10 17:20] LABS: RBC,URINE RARE /HPF; WBC,URINE >100 /HPF
[2018-11-10 17:21] LABS: BACTERIA,URINE MODERATE /HPF
[2018-11-10 17:22] LABS: YEAST,URINE MODERATE /HPF
[2018-11-10] MEDS ORDERED: NON-FORMULARY MEDICATION 1 EA EA (Metformin HCl 500 MG) PO SCH (18:00)
[2018-11-10] MEDS ORDERED: RIVAROXABAN 20 MG TABLET (XARELTO) PO SCH (18:00)
[2018-11-10 19:26] VITALS: BP 106/69
--- NOTE | 2018-11-10 20:35 | NUR ---
NOTIFIED DR. FOUNTAIN OF PT'S BP 100/60 AND HR 68. ORDERS RECEIVED TO GIVE BETAPACE SCHEDULED AND START NS @ 100ML/HR. RECHECK BP AND HR BEFORE GIVING ANY CARDIAC MEDICATIONS. NO HOLD PARAMETERS RECEIVED.
[2018-11-10] MEDS ORDERED: PRAVASTATIN SODIUM PO SCH (21:00)
[2018-11-10] MEDS ORDERED: NON-FORMULARY MEDICATION 1 EA EA (Mirtazapine 7.5 MG) PO SCH (21:00)
[2018-11-10] MEDS: TAMSULOSIN 0.4 MG (FLOMAX) CAP PO SCH (21:02)
[2018-11-10] MEDS: NS IV 1000 ML 1,000 ML IV SCH (21:02)
[2018-11-10] MEDS: MIRTAZAPINE 15 MG (REMERON) TAB PO SCH (21:03)
[2018-11-10] MEDS: ATORVASTATIN 10 MG (LIPITOR) TABLET PO SCH (21:04)
[2018-11-10] MEDS: DONEPEZIL 5 MG (ARICEPT) TAB PO SCH (21:04)
[2018-11-10] MEDS: SOTALOL 80 MG (BETAPACE) TAB PO SCH (21:05)
[2018-11-10 23:09] VITALS: BP 102/60
[2018-11-11 04:09] VITALS: BP 105/63
[2018-11-11] MEDS: NS IV 1000 ML 1,000 ML IV SCH ×2 (06:53→16:48)
[2018-11-11 08:00] VITALS: BP 115/75
[2018-11-11] MEDS: metFORMIN 500 MG (GLUCOPHAGE) TAB PO SCH ×2 (08:20→17:22)
[2018-11-11] MEDS: SOTALOL 80 MG (BETAPACE) TAB PO SCH ×2 (08:20→21:21)
[2018-11-11] MEDS: ALLOPURINOL 300 MG (ZYLOPRIM) TAB PO SCH (08:20)
[2018-11-11] MEDS: LOSARTAN 25 MG (COZAAR) TAB PO SCH (08:20)
[2018-11-11] MEDS: SPIRONOLACTONE 25 MG (ALDACTONE) TAB PO SCH (08:20)
[2018-11-11] MEDS: FINASTERIDE (PROSCAR) 5 MG TAB PO SCH (08:21)
[2018-11-11] MEDS: ASPIRIN E.C. 81 MG (ECOTRIN) TAB PO SCH (08:21)
[2018-11-11] MEDS: FUROSEMIDE 40 MG (LASIX) TAB PO SCH (08:21)
--- NOTE | 2018-11-11 08:44 | Cardiology History & Physical ---
HPI-Cardiology Cardiology Consultation Date of Consultation 11/11/18 Date of Admission 11/10/18 Time Seen by Provider: 08:05 Indication: Atrial fibrillation HPI Patient is a 68-year-old gentleman history of coronary artery disease, congestive heart failure, CVA, hypertension, hyperlipidemia. Came into the office yesterday for post hospitalization follow up. He was hospitalized in August, and then again in September 2018 for UTI and sepsis, noted to be in atrial fibrillation. Underwent cardioversion in September 2018 and has been maintained on sotalol. EKG yesterday revealed patient is back in atrial fibrillation. Complaining of some generalized fatigue. In addition he is concerned that he might have another UTI. Denies any chest pain or palpitation. Denies any fevers chills or night sweats. Patient admitted, sotalol dose increased and planning for XANDER with cardioversion. PMH-Cardiology Immunizations Up To Date Tetanus Booster (DTap): Unknown Date of Pneumonia Vaccine: Sep 23, 2016 Seasonal Allergies Seasonal Allergies: No Surgeries Yes (H/O heart bypass, defibrillator ) Open Heart Surgery, Defibrillator, Pacemaker Respiratory Yes Sleep Apnea Cardiovascular Yes (six vessel coronary artery bypass graph, defibrillator) Atrial Fibrillation, Hypertension, Congestive Heart Failure Neurological Yes (cerebral vasculary accident) Dementia Genitourinary Yes (hematuria) Benign Prostatic Hyperpl, Bladder Infection, Renal Failure Gastrointestinal Yes Chronic Constipation Musculoskeletal Yes (arthritis of left acromioclavicular joint, arthritis degenerative) Arthritis Endocrine Yes (gout, type 2 diabetes) Diabetes, Non-Insulin dep HEENT No Cancer No Psychosocial Yes Sleep Difficulties Integumentary No Blood Transfusions No Social History Patient Social History Marrital Status: Employed/Student: retired Alcohol Use: Denies Use Smoking: Never smoker Recent Foreign Travel: No Contact w/other who traveled: No Recent Infectious Disease Expo: No Family Hx Significant Family History: No Pertinent Family Hx Family History: Cardiovascular disease 19 MOTHER, Onset:Unknown Diabetes mellitus 19 MOTHER, Onset:Unknown Neoplasm 19 FATHER, Onset:Unknown ROS-Cardiology Review of Systems General: No Chills, No Night Sweats; Fatigue, Malaise HEENT: No Visual Changes, No Ear Pain, No Dysphasia Pulmonary: Dyspnea; No Cough, No Pleuritic Chest Pain Cardiovascular: No: Chest Pain, Palpitations, Paroxysmal Noc. Dyspnea, Edema, Lt Headedness Gastrointestinal: No: Nausea, Vomiting, Abdominal Pain, Diarrhea, Constipation Genitourinary: No Dysuria; Frequency Musculoskeletal: No: neck pain, back pain Neurological: Weakness; No: Numbness, Change in speech, Confusion Home Medications & Allergies Allergies: Coded Allergies: No Known Drug Allergies (Unverified , 09/01/18) Home Medication List Reviewed: Yes Exam-Cardiology Vital Signs Vital Signs Date Time Temp Pulse Resp B/P (MAP) Pulse Ox O2 Delivery O2 Flow Rate FiO2 11/11/18 10:14 Nasal Cannula 1.00 11/11/18 08:00 97.7 71 20 115/75 (88) 96 Exam General Appearance: Alert, Oriented X3, Cooperative, No Acute Distress HEENT: Atraumatic, PERRLA Respiratory: Clear to Auscultation, Normal Air Movement Cardiovascular: Normal S1, Normal S2, No Murmurs, Other (irregularly irregular) Abdominal: Normal Bowel Sounds, Soft, No Tenderness, No Hepatosplenomegaly, No Masses Extremities: No Clubbing, No Cyanosis, Normal Pulses, No Tenderness/Swelling, Other (trace edema BLE) Skin: No Rashes, No Breakdown, No Significant Lesion Neuro: Normal Gait, Normal Speech, Strength at 5/5 X4 Ext, Normal Tone, Sensation Intact Psych/Mental Status: Mental Status NL, Mood NL Results Labs Labs Laboratory Tests 11/10/18 12:15: White Blood Count 11.8H, Red Blood Count 4.02L, Hemoglobin 11.6L, Hematocrit 36L , Mean Corpuscular Volume 90, Mean Corpuscular Hemoglobin 29, Mean Corpuscular Hemoglobin Concent 32, Red Cell Distribution Width 15.9H, Platelet Count 336, Mean Platelet Volume 10.7H, Neutrophils (%) (Auto) 74, Lymphocytes (%) (Auto) 17, Monocytes (%) (Auto) 7, Eosinophils (%) (Auto) 1, Basophils (%) (Auto) 1, Neutrophils # (Auto) 8.7H, Lymphocytes # (Auto) 2.0, Monocytes # (Auto) 0.9, Eosinophils # (Auto) 0.1, Basophils # (Auto) 0.1 11/10/18 12:55: Sodium Level 137, Potassium Level 4.2, Chloride Level 102, Carbon Dioxide Level 23, Anion Gap 12, Blood Urea Nitrogen 13, Creatinine 0.84, Estimat Glomerular Filtration Rate > 60, BUN/Creatinine Ratio 15, Glucose Level 154H, Calcium Level 9.5, Thyroid Stimulating Hormone (TSH) 1.59 11/10/18 16:25: Urine Color YELLOW, Urine Clarity CLEAR, Urine pH 6, Urine Specific [place] 1.010L, Urine Protein 1+H, Urine Glucose (UA) NEGATIVE, Urine Ketones NEGATIVE, Urine Nitrite NEGATIVE, Urine Bilirubin NEGATIVE, Urine Urobilinogen 4H, Urine Leukocyte Esterase 3+H, Urine RBC (Auto) NEGATIVE, Urine RBC RARE, Urine WBC >100H, Urine Squamous Epithelial Cells 2-5, Urine Crystals NONE, Urine Bacteria MODERATEH, Urine Casts NONE, Urine Mucus NEGATIVE, Urine Yeast MODERATEH, Urine Culture Indicated YES A/P-Cardiology Admission Diagnosis PAF CAD CHF HTN UTI Admission Status: Inpatient Order (span 2 midnights) Reason for Inpatient Admission: Change in soltalol dose requiring close monitoring of EKG for 72 hours. Assessment/Plan Coronary artery disease, history of CABG 6 done in 2014 in [place], has not seen primary foreign language interpreter for the past 2 years, requested transfer to our services. Underwent stress test August 2018 while in the Hospital revealing fixed defect with no ischemia or infarct, 2-D echocardiogram done September 2018 revealed EF 45-50 percent. Continue on current medications and continue to monitor. Paroxysmal atrial fibrillation, maintained on sotalol, diltiazem, Xarelto. Was hospitalized in September 2018 for urosepsis, underwent XANDER with cardioversion while there. Patient is back in atrial fibrillation, rate controlled. Patient admitted to the hospital to increase sotalol. EKG today reveals atrial fibril lation, borderline QT, continue to monitor. Planning for cardioversion in the morning. Congestive heart failure, most recent EF September 2018 revealed EF 45-50 percent. Maintained on ARB and beta morris. History of permanent pacemaker/ICD, [employer]. Most recent pacemaker interrogation done while hospitalized in August 2018. Continue to monitor. Requesting device to be followed with our clinic. UTI- History of UTI and sepsis in August and September 2018 requiring hospitalization, patient reports follows with Dr. Clark as outpatient, I will defer treatment to medical services. 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 Continue to monitor. Hypertension, borderline hypotension, I will hold diltiazem, continue to monitor. Hyperlipidemia, maintained on statin, continue to monitor. DM, managed by PCP COPD/obstructive sleep apnea, managed by primary care physician Morbid obesity, patient working on diet and exercise for weight loss Generalized debility/weakness-PT to evaluate and treat while in hospital Carotid artery stenosis, bilateral nonobstructive disease per carotid duplex done 11/10/18 This is Katie Nixon PA-C, as a scribe for . Dr. Bermudez, I have seen and evaluated the patient with Katie, interviewed the patient and examined the patient, examination lungs were clear to auscultation bilateral, heart is irregular. Agree with the current scribed note. Patient has paroxysmal atrial fibrillation, underwent cardiac XANDER and cardioversion previously, did not maintain sinus rhythm. I will increase sotalol to 120 mg daily and evaluate tolerance and response, planning for electrical cardioversion for tomorrow. Continue with all medication and monitor heart rate and blood pressure. Monitor electrolytes closely. I reviewed the note and made few minor modifications using Italic font Clinical Quality Measures DVT/VTE Risk/Contraindication: Risk Factor Score Per Nursin RFS Level Per Nursing on Admit: 3=High KATIE COX Nov 11, 2018 08:44 DAVIDA BERMUDEZ MD Nov 11, 2018 10:45
[2018-11-11] MEDS ORDERED: NON-FORMULARY MEDICATION 1 EA EA (Diltiazem HCl (Cartia Xt) 240 MG) PO SCH (09:00)
[2018-11-11] MEDS ORDERED: DILTIAZEM 240 MG (CARDIZEM CD) CAP PO SCH (09:00)
[2018-11-11] MEDS ORDERED: NON-FORMULARY MEDICATION 1 EA EA (Losartan Potassium 25 MG) PO SCH (09:00)
[2018-11-11] MEDS ORDERED: NON-FORMULARY MEDICATION 1 EA EA (Allopurinol 300 MG) PO SCH (09:00)
--- NOTE | 2018-11-11 10:07 | Physical Therapy Evaluation ---
PT Evaluation-General Medical Diagnosis Admission Date Nov 10, 2018 at 10:55 Medical Diagnosis: weakness, UTI, AFIB Onset Date: Nov 10, 2018 Therapy Diagnosis Therapy Diagnosis: impaired mobility, strength, endurance Height/Weight Height (Feet): 5 Height (Inches): 10.00 Weight (Pounds): 319 Weight (Ounces): 0.0 Precautions Precautions/Isolations: Fall Prevention, Standard Precautions Referral Physician: Katie Tatum Reason for Referral: Evaluation/Treatment Medical History Pertinent Medical History: Atrial Fib, DM, HTN, [place] Additional Medical History Surgeries Yes (H/O heart bypass, defibrillator ) Open Heart Surgery, Defibrillator, Pacemaker Respiratory Yes Sleep Apnea Cardiovascular Yes (six vessel coronary artery bypass graph, defibrillator) Atrial Fibrillation, Hypertension, Congestive Heart Failure Neurological Yes (cerebral vasculary accident) Dementia Genitourinary Yes (hematuria) Benign Prostatic Hyperpl, Bladder Infection, Renal Failure Gastrointestinal Yes Chronic Constipation Musculoskeletal Yes (arthritis of left acromioclavicular joint, arthritis degenerative) Arthritis Endocrine Yes (gout, type 2 diabetes) Diabetes, Non-Insulin dep HEENT No Cancer No Psychosocial Yes Sleep Difficulties Reviewed History: Yes Social History Home: Single Level Current Living Status: Spouse Entry Into Home: Stairs With Railing PT Steps Into Home: 3 Patient states he is having a ramp installed soon. Prior/Core FIM Prior Level of Function Therapy Code Descriptions/Definitions Functional [place] Measure: 0=Not Assessed/NA 4=Minimal Assistance 1=Total Assistance 5=Supervision or Setup 2=Maximal Assistance 6=Modified [place] 3=Moderate Assistance 7=Complete [place] Therapy Quality Codes: 6 Independent with activity with or without an assistive device 5 Patient requires set up or clean up by helper. Patient completes activity by themselves 4 Supervision or touching assist (CGA). [place] provide cues , steadying assist 3 The helper provides less than half the effort to complete the activity 2 The helper provides more than half the effort to complete the activity 1 Dependent. The helper does all the effort to complete an activity 7 Patient refused to complete or attempt activity 9 The patient did not perform the activity before the current illness or inj ury 88 Not attempted due to Medical conditions or safety concerns Functional Abilities and Goals: Independent: Patient completed the activities by him/herself, with or without an assistive device, with no assistance from a helper. Needed Some Help: Patient needed partial assistance from another person to complete activities. Dependent: A helper completed the activities for the patient. Unknown: Not Applicable: Bed Mobility: 6 Transfers (B,C,W/C) (FIM): 6 Gait: 6 Stairs: 6 Indoor Mobility (Ambulation): Independent Stairs: Independent Patient states he always uses a rolling walker. PT Evaluation-Current Subjective Patient in bed pre tx, agrees to PT, no complaints of pain at rest. Needs dressed, assists with shorts, max assist. Pt/Family Goals "to get stronger" Objective Patient Orientation: Person, Place, Situation Attachments: Oxygen, IV ROM/Strength ROM Lower Extremities limited generally due to obesity and BLE swelling Strength Lower Extremities RLE (hip flexion 3+/5, knee flexion 4/5, knee extension 4/5, dorsiflexion 4+/5), LLE (hip flexion 3+/5, knee flexion 4/5, knee extension 4/5, dorsiflexion 4+/5) Integumentary/Posture Integumentary reports that patient has a small red spot on his bottom, reported to nurse and she put a protective covering on it. Sensory Vision: Wears Glasses Hearing: Functional Sensation Right Lower Extremit: Impaired Sensation Left Lower Extremity: Impaired Sensation Lower Extremities Patient has intact light touch sensation in BLE but is diminished in both feet. Transfers Therapy Code Descriptions/Definitions Functional [place] Measure: 0=Not Assessed/NA 4=Minimal Assistance 1=Total Assistance 5=Supervision or Setup 2=Maximal Assistance 6=Modified [place] 3=Moderate Assistance 7=Complete [place] Transfers (B, C, W/C) (FIM): 3 Scootin Rollin Supine to/from Sit: 3 Sit to/from Stand: 4 bed t/f WC(FIM only if WC use): 4 Needs assist with both feet getting back into bed. Gait Mode of Locomotion: Walk Anticipated Mode of Locomotion: Walk Gait (FIM): 2 Distance: 100' Gait Level of Assist: 4 Gait Persons Needed: 1 Gait Assistive Device: FWW Comments/Gait Description CGA, slow but steady, tends to lean a lot on the walker Balance Sitting Static: Normal Sitting Dynamic: Normal Standing Static: Good Standing Dynamic: Good Treatment BLE seated exercises x15 (AP, LAQ, hip flexion) Assessment/Needs Patient has impaired mobility, strength, endurance. Patient back in bed post tx with nurse call, phone, tray, family in the room. Rehab Potential: Fair PT Short Term Goals Short Term Goals Time Frame: Nov 18, 2018 Transfers (B,C,W/C) (FIM): 5 Gait (FIM): 5 Gait Distance Comment: 150' Gait Level of Assist: 5 Gait Assistive Device: FWW PT Plan Problem List Problem List: Activity Tolerance, Functional Strength, Safety, Balance, Gait, Transfer, Bed Mobility, ROM Treatment/Plan Treatment Plan: Continue Plan of Care Treatment Plan: Bed Mobility, Education, Functional Activity [place], Functional Strength, Gait, Safety, Therapeutic Exercise, Transfers Treatment Duration: Nov 18, 2018 Frequency: 6 times per week Estimated Hrs Per Day: .25 hour per day Patient and/or Family Agrees t: Yes Safety Risks/Education Patient Education: Gait Training, Transfer Techniques, Correct Positioning, Safety Issues Teaching Recipient: Patient Teaching Methods: Demonstration, Discussion Response to Teaching: Reinforcement Needed Discharge Recommendations Plan Patient will perform bed mobility and transfers, balance and endurance training, functional strengthening, stair training, gait training, and education, to improve functional mobility and independence at home. Therapy D/C Recommendations: Home w/ Family Support Time/GCodes Time In: 0940 Time Out: 1000 Total Billed Treatment Time: 20 Total Billed Treatment 1 visit WILIAM 20' FRANCY JUNIOR PT Nov 11, 2018 10:07
[2018-11-11 12:00] VITALS: BP 127/82
--- NOTE | 2018-11-11 13:08 | Electrophysiology Consultation ---
HPI-Cardiology Cardiology Consultation: Date of Consultation 11/11/18 Date of Admission Attending Physician Amanda Bermudez MD Admitting Physician Miky Bright MD Consulting Physician Royal LAWSON MD HPI: Time Seen by a Provider: 15:00 Chief Complaint: persistent atrial fibrillation this is a 68-year-old gentleman with history of CAD, congestive heart failure, hypertension and hyperlipidemia. He has known history of paroxysmal atrial fibrillation. He underwent cardioversion in September 2018 and was on sotalol. However during office visit on 11/10/2018 he was found to be in atrial fibrillation. He was complaining of symptoms of fatigue likely due to atrial fibrillation. Therefore he was admitted to increase his dose of sotalol and for possible cardioversion. Review of Systems-Cardiology Review of Systems Constitutional: As described under HPI; No As described under HPI, No no symptoms reported, No chills, No fever, No lightheadedness; tiredness Eyes: No As described under HPI, No no symptoms reported, No blindness, No blurred vision, No contact lenses, No drainage, No decreased acuity, No foreign body sensation, No pain, No vision change Ears/Nose/Throat: No As described under HPI, No no symptoms reported, No chronic hearing loss, No ear discharge, No ear pain, No nasal drainage, No ulcerations Respiratory: No no symptoms reported; As described under HPI; No As described under HPI, No cough, No orthopnea, No shortness of breath, No SOB with excertion Cardiovascular: No no symptoms reported; As described under HPI; No As described under HPI, No chest pain, No edema, No irregular heart rate, No lightheadedness; palpitations Gastrointestinal: No no symptoms reported, No As described under HPI, No abdomen distended, No abdominal pain, No blood streaked bowels, No constipation, No diarrhea, No nausea, No vomiting, No stool coloration changes Genitourinary: No As described under HPI, No burning, No dysuria, No discharge, No frequency, No flank pain, No hematuria, No urgency Skin: No rash, No skin related problems, No ulcerations Psychiatric/Neurological: No anxiety, No depression, No seizure, No focal weakness, No syncope Hematologic: No bleeding abnormalities HGV-Hdebuc-Iknizh Hx Patient Social History Marrital Status: Employed/Student: retired Alcohol Use: Denies Use 2nd Hand Smoke Exposure: No Recent Foreign Travel: No Recent Infectious Disease Expo: No Immunizations Up To Date Tetanus Booster (TDap): Unknown Date of Pneumonia Vaccine: Sep 23, 2016 Past Medical History PMH As described under Assessment. Family Medical History Family History: Cardiovascular disease 19 MOTHER, Onset:Unknown Diabetes mellitus 19 MOTHER, Onset:Unknown Neoplasm 19 FATHER, Onset:Unknown Allergies and Home Medications Allergies Coded Allergies: No Known Drug Allergies (Unverified , 09/01/18) Home Medications Acetaminophen 500 Mg Tablet, 500-1,000 MG PO Q4H PRN for PAIN-MILD, (Reported) Allopurinol 300 Mg Tablet, 300 MG PO DAILY, (Reported) Aspirin 81 Mg Tablet.dr, 81 MG PO DAILY, (Reported) Diltiazem HCl 240 Mg Cap.er.24h, 240 MG PO DAILY, (Reported) Donepezil HCl 5 Mg Tablet, 5 MG PO HS, (Reported) Finasteride 5 Mg Tablet, 5 MG PO DAILY, (Reported) Furosemide 40 Mg Tablet, 40 MG PO MoWeFr, (Reported) Losartan Potassium 25 Mg Tablet, 25 MG PO DAILY, (Reported) Metformin HCl 500 Mg Tablet, 500 MG PO 0800,1800, (Reported) Mirtazapine 15 Mg Tablet, 7.5 MG PO HS, (Reported) TAKES 1/2 (15MG) TABLET Pravastatin Sodium 20 Mg Tablet, 60 MG PO HS, (Reported) TAKES 3 (20MG) TABLETS Rivaroxaban 20 Mg Tablet, 20 MG PO 1800, (Reported) Sotalol HCl 80 Mg Tablet, 80 MG PO 0800,1800, (Reported) Spironolactone 25 Mg Tablet, 25 MG PO MoWeFr, (Reported) Tamsulosin HCl 0.4 Mg Cap, 0.4 MG PO HS, (Reported) Patient Home Medication List Home Medication List Reviewed: Yes Physical Exam-Cardiology Physical Exam Vital Signs/I&O 11/12/18 11/12/18 11/12/18 11/12/18 04:01 07:00 08:00 08:00 Temp 98.2 Pulse 85 88 80 Resp 20 20 B/P (MAP) 125/67 (86) 109/74 (86) Pulse Ox 93 96 96 O2 Delivery Nasal Cannula Nasal Cannula Nasal Cannula O2 Flow Rate 1.00 3.00 3.00 11/12/18 11/12/18 11/12/1819 08:05 08:10 08:15 08:30 Pulse 85 89 80 87 Resp 20 20 20 20 B/P (MAP) 109/74 (86) 123/82 (96) 125/79 (94) 126/78 (94) Pulse Ox 96 96 96 96 O2 Delivery Nasal Cannula Nasal Cannula Nasal Cannula Nasal Cannula O2 Flow Rate 3.00 3.00 3.00 3.00 11/12/18 11/12/18 11/12/18 11/12/18 09:05 09:05 09:20 09:35 Temp 97.3 Pulse 90 87 87 Resp 20 B/P (MAP) 114/73 (87) 115/73 (87) 109/70 (83) Pulse Ox 96 94 92 94 O2 Delivery Nasal Cannula Nasal Cannula Nasal Cannula Nasal Cannula O2 Flow Rate 3.00 1.00 1.00 1.00 11/12/18 11/12/18 11/12/18 11/12/18 09:50 10:20 10:50 11:20 Temp 97.2 97.1 Pulse 90 91 91 89 Resp 20 B/P (MAP) 117/76 (90) 115/75 (88) 121/82 (95) 118/77 (91) Pulse Ox 94 94 96 96 O2 Delivery Nasal Cannula Nasal Cannula Nasal Cannula Nasal Cannula O2 Flow Rate 1.00 1.00 1.00 1.00 11/12/18 11/12/18 11:45 12:52 Temp 97.1 Pulse 87 85 Resp 20 B/P (MAP) 106/68 (81) Pulse Ox 96 O2 Delivery Nasal Cannula O2 Flow Rate 1.00 11/12/18 00:00 Intake Total 1710 ml Output Total 1450 ml Balance 260 ml Capillary Refill : Constitutional: appears stated age, AAO x 3; No apparent distress; well- developed, well-nourished HEENT: PERRL; No normal ENT inspection, No TMs normal, No pharynx normal, No scleral icterus (R), No scleral icterus (L), No pale conjunctivae (R), No pale conjunctivae (L), No photophobia, No TM abnormal (R), No TM abnormal (L), No pharyngeal erythema, No tonsillar exudate, No other, No discharge, No EOMI; hearing is well preserved; No hard of hearing; oral hygience is good; No ulceration, No xanthelasmas are seen Neck: No non-tender, No full range of motion, No supple, No normal inspection, No carotid bruit, No limited range of motion, No lymphadenopathy (R), No lymphadenopathy (L), No tender lateral, No tender midline, No thyromegaly, No other; carotid pulses are 2 + bilaterally; No with good upstrokes Respiratory: No accessory muscle use, No respiratory distress, No chest tender, No chest expansion is symmetric; chest is bilaterally symmetric; No lungs clear to percussion; lungs clear to auscultation; No crackles, No rhonchi, No rales, No stridor, No wheezing, No pleural rub, No other Cardiovascular: No regular rate-rhythm; irregularly irregular; No extra beats, No parasternal heave is noted, No JVD, No edema, No bradycardia, No tachycardia, No point of maximal impulse, No cardiac thrills are palpable; S1 and S2; No gallop/S3, No gallop/S4, No diastolic murmur, No systolic murmur, No friction rub, No click, No other Gastrointestinal: No tender, No soft, No round, No distended, No pulsatile mass, No organomegaly, No guarding, No rebound, No tenderness, No hernia, No mass, No audible bowel sounds, No abnormal bowel sounds, No abdominal bruits, No spleenomegaly, No other Rectal: deferred Extremities: No normal range of motion, No non-tender, No normal inspection, No pedal edema, No calf tenderness, No normal capillary refill, No pelvis stable, No calf tenderness, No inflammation, No pedal edema, No slow capillary refill, No swelling, No other, No abrasion, No clubbing, No cyanosis, No ecchymosis, No laceration, No no lower extremity edema bilateral, No significant edema, No tenderness, No wound Neurologic/Psychiatric: no motor/sensory deficits, alert, normal mood/affect, oriented x 3, power is 5/5 both on sides Skin: No normal color, No warm/dry, No cyanosis, No cool, No diaphoresis, No damp, No ecchymosis, No jaundice, No mottled, No pallor, No rash, No tattoos/piercings, No ulcerations, No rash on exposed areas, No ulcerations on exposed areas, No other Data Review Labs Laboratory Tests 11/12/18 05:35: White Blood Count 10.4, Red Blood Count 3.84L, Hemoglobin 11.1L, Hematocrit 35L, Mean Corpuscular Volume 91, Mean Corpuscular Hemoglobin 29, Mean Corpuscular Hemoglobin Concent 32, Red Cell Distribution Width 16.2H, Platelet Count 352, Mean Platelet Volume 10.1, Neutrophils (%) (Auto) 69, Lymphocytes (%) (Auto) 22, Monocytes (%) (Auto) 7, Eosinophils (%) (Auto) 1, Basophils (%) (Auto) 1, Neutrophils # (Auto) 7.2, Lymphocytes # (Auto) 2.3, Monocytes # (Auto) 0.7, Eosinophils # (Auto) 0.2, Basophils # (Auto) 0.1, Sodium Level 137, Potassium Level 4.0, Chloride Level 105, Carbon Dioxide Level 21, Anion Gap 11, Blood Urea Nitrogen 13, Creatinine 0.79, Estimat Glomerular Filtration Rate > 60, BUN/Creatinine Ratio 16, Glucose Level 150H, Calcium Level 8.5, Corrected Calcium 9.5, Total Bilirubin 0.6, Aspartate Amino Transf (AST/SGOT) 14, Alanine Aminotransferase (ALT/SGPT) 12, Alkaline Phosphatase 96, Total Protein 6.6, Albumin 2.7L Microbiology 11/10/18 Urine Culture - Final, Complete 3 or more isolates ECG Impression ECG Initial ECG Impression: Atrial Fibrillation A/P-Cardiology Assessment/Admission Diagnosis persistent atrial fibrillation, CAD CHF HTN UTI Plan persistent atrial fibrillation: Patient is on oral anticoagulation therapy, diltiazem and sotalol 80 mg twice a day. He went back into atrial fibrillation. Sotalol dose is been increased to 120 mg twice a day. Continue QT monitoring. Cardioversion in the morning if patient does not spontaneously convert to sinus rhythm. Defer treatment of CAD, congestive heart failure to Dr. Bermudez. Thank you for your consultation. Please call me if you have any questions. Manuel Lawson MD, FACP, FACC, FSCAI, FHRS, CCDS Interventional Cardiology Cardiac Electrophysiology Vascular Medicine and Endovascular Interventions Clinical Quality Measures DVT/VTE Risk/Contraindication: Risk Factor Score Per Nursin RFS Level Per Nursing on Admit: 3=High Royal LAWSON MD Nov 11, 2018 13:08
[2018-11-11] MEDS ORDERED: NON-FORMULARY MEDICATION 1 EA EA (Spironolactone (Aldactone) 25 MG) PO SCH (14:15)
--- NOTE | 2018-11-11 15:49 | History & Physical-Hospitalist ---
HIMANSHU SHEPPARD, 11/11/18 1549: History of Present Illness HPI/Chief Complaint CC: recurrent UTI HPI: This is a 68 yo WM in [facility] from a direct admit from Dr. Bermudez's office after a follow-up visit regarding his recent cardioversion. Pt is back in a-fib with RVR and was admitted. C/o UTI issues as well. Noticed UTI based on stomach pain and color of urine. Denied dysuria, urgency, or increased frequency. Stated urine was "unnatural" to him. Nothing improves or worsens his symptoms. Was supposed to have PO abx after recent discharge, but pharmacy did not get orders. Pt went without abx for 3 days and symptoms returned. Source: patient, family Exam Limitations: clinical condition (pt has dementia and needed assistance from ) Date Seen 11/11/18 Time Seen by a Provider: 03:15 Attending Physician Amanda Bermudez MD PCP Miky Bright MD Referring Physician Date of Admission Nov 10, 2018 at 10:55 Home Medications & Allergies Home Medications Reviewed patient Home Medication Reconciliation performed by pharmacy medication reconciliations diesel technician and/or nursing. Patients Allergies have been reviewed. Allergies Allergies Coded Allergies No Known Drug Allergies (Unverified09/01/18) Past Rrqobvd-Naayyj-Vjnrzl Hx Patient Social History Marrital Status: Number of Children: 2 Employed/Student: retired Alcohol Use: Denies Use Smoking Status: Former Smoker (quit 5 years ago) Type Used: Cigars, Smokeless Tobacco 2nd Hand Smoke Exposure: No Recent Foreign Travel: No Contact w/other who traveled: No Recent Hopitalizations: No Recent Infectious Disease Expo: No Immunizations Up To Date Tetanus Booster (TDap): Unknown Pediatric: Yes Date of Pneumonia Vaccine: Sep 23, 2016 Seasonal Allergies Seasonal Allergies: No Past Medical History Surgeries: Cardiac, CABG Respiratory: Sleep Apnea Currently Using CPAP: Yes Cardiac: Atrial Fibrillation, Cardiomyopathy, Heart Attack, High Cholesterol, Hypertension Neurological: Dementia Genitourinary: Benign Prostatic Hyperpl, Bladder Infection, Renal Failure Gastrointestinal: Chronic Constipation Musculoskeletal: Arthritis Endocrine: Diabetes, Non-Insulin dep Psychosocial: Sleep Difficulties History of Blood Disorders: No Family History Cardiovascular disease 19 MOTHER, Onset:Unknown Diabetes mellitus 19 MOTHER, Onset:Unknown Neoplasm 19 FATHER, Onset:Unknown No Pertinent Family Hx Review of Systems Constitutional: chills, fever EENTM: no symptoms reported Respiratory: cough; No phlegm; short of breath Cardiovascular: no symptoms reported Gastrointestinal: diarrhea (incontinence, loose stools), loss of appetite, vomiting (from medication) Genitourinary: incontinence (only with UTI) Musculoskeletal: muscle pain, muscle weakness, other (L shoulder pain after recent hospitalization) Skin: other (wound from sitting) Psychiatric/Neurological: Anxiety, Depressed, Numbness (L 2nd digit) All Other Systems Reviewed Negative Unless Noted: Yes Physical Exam Physical Exam Vital Signs Vital Signs - First Documented 11/10/18 11/10/18 10:55 23:09 Temp 97.8 Pulse 91 Resp 20 B/P (MAP) 120/84 Pulse Ox 94 O2 Delivery Room Air O2 Flow Rate 1.00 Capillary Refill : Height, Weight, BMI Height: 5'10.00" Weight: 319lbs. 0.0oz. 144.973777ky; 45.8 BMI Method:Stated General Appearance: No Apparent Distress, Anxious HEENT: Pharynx Normal, Moist Mucous Membranes Respiratory: Lungs Clear, Normal Breath Sounds, No Accessory Muscle Use Cardiovascular: Regular Rate, Rhythm Gastrointestinal: Normal Bowel Sounds, Non Tender; No Guarding, No Tenderness Extremity: Pedal Edema, Other (+5/5 UE strength) Neurologic/Psychiatric: Alert, Other (dementia) Skin: Normal Color, Warm/Dry Results Results/Procedures Labs Laboratory Tests 11/10/18 12:15 11/10/18 12:55 Patient resulted labs reviewed. Procedures Cardioversion 11/12/18 Assessment/Plan Admission Diagnosis A fib with RVR Admission Status: Inpatient Order (span 2 midnights) Assessment and Plan Assessment: 1. A fib w/ RVR 2. Recurrent UTI 3. Hypertension 4. Hypercholesterolemia 5. Dementia 6. Heart failure 7. BPH 8. DM 9. Depression 10. Hx of urosepsis 11. Cardiomyopathy Plan: 1. Cardioversion 11/12/[address] Bermudez 2. Empiric antibiotic treatment of UTI 3. Targeted antibiotic therapy once cultures return 4. Continue home medications 5. Wound care 6. Dr. Aguilera consult 7. RT consult 8. Continue CPAP 9. DVT prophylaxis Diagnosis/Problems Diagnosis/Problems (1) Atrial fibrillation Status: Chronic (2) UTI (urinary tract infection) Status: Acute (3) Encephalopathy (4) MICHELLE on CPAP Status: Chronic (5) Acute on chronic systolic (congestive) heart failure Status: Acute (6) Cardiac defibrillator in place Status: Chronic (7) Cardiomyopathy Status: Chronic (8) DVT prophylaxis Status: Acute (9) Diabetes mellitus Status: Chronic Clinical Quality Measures DVT/VTE Risk/Contraindication: Risk Factor Score Per Nursin RFS Level Per Nursing on Admit: 3=High LATONYA CURRIE DO 11/12/182052: Past Ublrfrp-Psehxb-Ltbltd Hx Past Med/Social Hx: Reviewed Nursing Past Med/Soc Hx, Reviewed and Corrections made Patient Social History Marrital Status: Employed/Student: retired ([employer]) Smoking Status: Former Smoker (quit 5 years ago) Past Medical History Cardiac: Atrial Fibrillation, Cardiomyopathy, Heart Attack, High Cholesterol, Hypertension Neurological: Dementia Genitourinary: Benign Prostatic Hyperpl, Bladder Infection, Renal Failure Gastrointestinal: Chronic Constipation Musculoskeletal: Arthritis Endocrine: Diabetes, Non-Insulin dep Psychosocial: Sleep Difficulties Family History Cardiovascular disease 19 MOTHER, Onset:Unknown Diabetes mellitus 19 MOTHER, Onset:Unknown Neoplasm 19 FATHER, Onset:Unknown Review of Systems Constitutional: see HPI, malaise Genitourinary: frequency, hematuria Physical Exam Physical Exam General Appearance: No Apparent Distress, WD/WN, Anxious, Chronically ill, Obese Eyes: Right Eye Normal Inspection, Right Eye PERRL HEENT: PERRL/EOMI, Normal ENT Inspection, Pharynx Normal, Moist Mucous Membranes Neck: Full Range of Motion, Normal Inspection, Non Tender Respiratory: Chest Non Tender, Lungs Clear, Normal Breath Sounds, No Accessory Muscle Use, No Respiratory Distress Cardiovascular: No Edema, No Gallop, No JVD, No Murmur, Normal Peripheral Pulses, Irregularly Irregular Gastrointestinal: Normal Bowel Sounds, No Organomegaly, No Pulsatile Mass, Non Tender, Soft Back: Normal Inspection, No CVA Tenderness, No Vertebral Tenderness Extremity: Normal Capillary Refill, Normal Inspection, Normal Range of Motion, Non Tender, No Calf Tenderness, No Pedal Edema Neurologic/Psychiatric: Alert, Oriented x3, No Motor/Sensory Deficits, Normal Mood/Affect Skin: Normal Color, Warm/Dry Lymphatic: No Adenopathy Assessment/Plan Admission Diagnosis AF w/RVR Abnormal UA with NGTD on UCx recurrent UTI BPH HTN HLP DM Dementia Plan: UCx reviewed Monitor closely Admission Status: Inpatient Order (span 2 midnights) Reason for Inpatient Admission: AF w/RVR failed PO rate controllers with UTI Supervisory-Addendum Brief Verification & Attestation Participated in pt care: history, MDM, physical Personally performed: exam, history, MDM, supervision of care Care discussed with: Medical Student Procedures: n/a Results interpretation: Verified all documentation Verification and Attestation of Medical Student E/M Service A medical student performed and documented this service in my presence. I reviewed and verified all information documented by the medical student and made modifications to such information, when appropriate. I personally performed the physical exam and medical decision making. Latonya Currie, Nov 12, 2018,20:52 HIMANSHU SHEPPARD, Nov 11, 2018 15:49 LATONYA CURRIE DO Nov 12, 2018 20:53
[2018-11-11 16:00] VITALS: BP 108/67
[2018-11-11] MEDS: RIVAROXABAN 20 MG TABLET (XARELTO) PO SCH (17:22)
[2018-11-11] MEDS: PHENAZOPYRIDINE 100 MG (PYRIDIUM) TABLET PO SCH (19:00)
[2018-11-11 20:00] VITALS: BP 105/68
[2018-11-11] MEDS: DONEPEZIL 5 MG (ARICEPT) TAB PO SCH (21:19)
[2018-11-11] MEDS: BETHANECHOL 10 MG (URECHOLINE) TAB PO SCH (21:20)
[2018-11-11] MEDS: TAMSULOSIN 0.4 MG (FLOMAX) CAP PO SCH (21:21)
[2018-11-11] MEDS: ATORVASTATIN 10 MG (LIPITOR) TABLET PO SCH (21:21)
[2018-11-11] MEDS: MIRTAZAPINE 15 MG (REMERON) TAB PO SCH (21:21)
[2018-11-12] VITALS (17 sets, daily range): BP systolic 106–129; BP diastolic 67–82
[2018-11-12] MEDS: NS IV 1000 ML 1,000 ML IV SCH ×3 (02:56→22:45)
[2018-11-12 05:43] LABS: BASOPHILS # (AUTO) 0.1 10^3/uL (0.0-0.1); BASOPHILS % (AUTO) 1 % (0-10); EOSINOPHILS # (AUTO) 0.2 10^3/uL (0.0-0.3); EOSINOPHILS % (AUTO) 1 % (0-10); HEMATOCRIT 35 % (40-54); HEMOGLOBIN 11.1 G/DL (13.3-17.7); LYMPHOCYTES # (AUTO) 2.3 X 10^3 (1.0-4.0); LYMPHOCYTES % (AUTO) 22 % (12-44); MEAN CORPUSCULAR HEMOGLOBIN 29 PG (25-34); MEAN CORPUSCULAR HGB CONC 32 G/DL (32-36); MEAN CORPUSCULAR VOLUME 91 FL (80-99); MEAN PLATELET VOLUME 10.1 FL (7.4-10.4); MONOCYTES # (AUTO) 0.7 X 10^3 (0.0-1.0); MONOCYTES % (AUTO) 7 % (0-12); NEUTROPHILS # (AUTO) 7.2 X 10^3 (1.8-7.8); NEUTROPHILS % (AUTO) 69 % (42-75); PLATELET COUNT 352 10^3/uL (130-400); RED CELL DISTRIBUTION WIDTH 16.2 % (10.0-14.5); WHITE BLOOD COUNT 10.4 10^3/uL (4.3-11.0)
[2018-11-12] MEDS: BETHANECHOL 10 MG (URECHOLINE) TAB PO SCH ×4 (06:21→20:53)
[2018-11-12 06:26] LABS: ALANINE AMINOTRANSFERASE 12 U/L (0-55); ALBUMIN 2.7 GM/DL (3.2-4.5); ALKALINE PHOSPHATASE 96 U/L (40-136); BILIRUBIN,TOTAL 0.6 MG/DL (0.1-1.0); BUN/CREATININE RATIO 16; CALCIUM 8.5 MG/DL (8.5-10.1); CARBON DIOXIDE 21 MMOL/L (21-32); CHLORIDE 105 MMOL/L (98-107); CREATININE SERUM 0.79 MG/DL (0.60-1.30); GFR ESTIMATED > 60; GLUCOSE 150 MG/DL (70-105); SODIUM 137 MMOL/L (135-145); TOTAL PROTEIN 6.6 GM/DL (6.4-8.2)
--- NOTE | 2018-11-12 07:19 | Cardiology Progress Note ---
Subjective Date Seen by Provider: Nov 12, 2018 Time Seen by Provider: 07:18 Subjective/Events-last exam patient is laying down in bed, slept well last night, feeling better, heart rate is better controlled Review of Systems General: No Chills, No Night Sweats, No Fatigue, No Malaise, No Appetite, No Other HEENT: No Head Aches, No Visual Changes, No Eye Pain, No Ear Pain, No Dysphasia, No Sinus Congestion, No Post Nasal Drip, No Sore Throat, No Other Pulmonary: Dyspnea; No Cough, No Pleuritic Chest Pain, No Other Cardiovascular: No: Chest Pain, Palpitations, Orthopnea, Paroxysmal Noc. Dyspnea, Edema, Lt Headedness, Other Objective-Cardiology Exam Last Set of Vital Signs Vital Signs 11/12/18 11/12/18 04:01 07:00 Temp 98.2 Pulse 88 Resp 20 B/P (MAP) 125/67 (86) Pulse Ox 93 O2 Delivery Nasal Cannula O2 Flow Rate 1.00 Capillary Refill : I&O Intake and Output 11/12/18 00:00 Intake Total 2860 ml Output Total 1800 ml Balance 1060 ml Intake Oral 1860 ml IV Total 1000 ml Output Urine Total 1800 ml # Bowel Movements 2 General: Alert, Oriented X3, Cooperative, No Acute Distress HEENT: Atraumatic, PERRLA Lungs: Clear to Auscultation, Normal Air Movement Heart: Normal S1, Normal S2, No Murmurs, Other (irregularly irregular) Abdomen: Normal Bowel Sounds, Soft, No Tenderness, No Hepatosplenomegaly, No Masses Extremities: No Clubbing, No Cyanosis, Normal Pulses, No Tenderness/Swelling, Other (trace edema BLE) Skin: No Rashes, No Breakdown, No Significant Lesion Neuro: Normal Gait, Normal Speech, Strength at 5/5 X4 Ext, Normal Tone, Sensation Intact Psych/Mental Status: Mental Status NL, Mood NL Results Lab Laboratory Tests 11/12/18 05:35 A/P-Cardiology Admission Diagnosis PAF CAD CHF HTN UTI Assessment/Plan Coronary artery disease, history of CABG 6 done in 2014 in [place] [address] Yin, has not seen primary riprap worker for the past 2 years, requested transfer to our services. Underwent stress test August 2018 while in the Hospital revealing fixed defect with no ischemia or infarct, 2-D echocardiogram done September 2018 revealed EF 45-50 percent. Continue on current medications and continue to monitor. Paroxysmal atrial fibrillation, maintained on sotalol, diltiazem, Xarelto. Was hospitalized in September 2018 for urosepsis, underwent XANDER with cardioversion while there. Patient is back in atrial fibrillation, rate controlled. Patient admi tted to the hospital to increase sotalol. EKG today reveals atrial fibrillation, borderline QT, continue to monitor. Planning for cardioversion today. Congestive heart failure, most recent EF September 2018 revealed EF 45-50 percent. Maintained on ARB and beta morris. History of permanent pacemaker/ICD, Medtronic. Most recent pacemaker interrogation done while hospitalized in August 2018. Continue to monitor. Requesting device to be followed with our clinic. UTI- History of UTI and sepsis in August and September 2018 requiring hospitalization, patient reports follows with Dr. Clark as outpatient, I will defer treatment to medical services. 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 Continue to monitor. Hypertension, borderline hypotension, I will hold diltiazem, continue to monitor. Hyperlipidemia, maintained on statin, continue to monitor. DM, managed by PCP COPD/obstructive sleep apnea, managed by primary care physician Morbid obesity, patient working on diet and exercise for weight loss Generalized debility/weakness-PT to evaluate and treat while in hospital Carotid artery stenosis, bilateral nonobstructive disease per carotid duplex done 11/10/18 This is Katie Nixon PA-C, as a scribe for . Dr. Bermudez, I have seen and evaluated the patient with Katie, interviewed the patient and examined the patient, examination lungs were clear to auscultation bilateral, heart is irregular. Agree with the current scribed note. Patient has paroxysmal atrial fibrillation, underwent cardiac XANDER and cardioversion previously, did not maintain sinus rhythm. I will increase sotalol to 120 mg daily and evaluate tolerance and response, planning for electrical cardioversion for tomorrow. Continue with all medication and monitor heart rate and blood pressure. Monitor electrolytes closely. I reviewed the note and made few minor modifications using Italic font Clinical Quality Measures DVT/VTE Risk/Contraindication: Risk Factor Score Per Nursin RFS Level Per Nursing on Admit: 3=High DAVIDA BERMUDEZ MD Nov 12, 2018 07:19
[2018-11-12] MEDS: PHENAZOPYRIDINE 100 MG (PYRIDIUM) TABLET PO SCH ×3 (08:00→18:50)
--- NOTE | 2018-11-12 08:00 | NUR ---
PT TAKEN OFF FLOOR FOR PROCEDURE.
[2018-11-12] MEDS ORDERED: MIDAZOLAM 5 MG/5 ML (VERSED) VIAL ONE (08:05)
[2018-11-12] MEDS ORDERED: NS IV 1000 ML 0 ML ONE (08:05)
[2018-11-12] MEDS ORDERED: proPOfol 200 MG/20 ML (DIPRIVAN) VIAL IV ONE (08:05)
--- NOTE | 2018-11-12 08:06 | Cardiac Procedure Note-CS/ASA ---
Pre-Procedure Note Pre-Op Procedure Note H&P Reviewed The H&P was reviewed, patient examined and no changes noted. Date H&P Reviewed: Nov 12, 2018 Time H&P Reviewed: 08:06 Conscious Sedation Pre-Proced Time 08:06 ASA Score 3 For ASA 3 and 4: Consider anesthesia and medical clearance. Also, for patients with a history of failed moderate sedation consider anesthesia. Airway Lungs Heart ASA score ASA 1: a normal healthy patient ASA 2: a patient with a mild systemic disease (mid diabetes, controlled hypertension, obesity x ASA 3: a patient with a severe systemic disease that limits activity (angina, COPD, prior Myocardial infarction) ASA 4: a patient with an incapacitating disease that is a constant threat to life (CHF, renal failure) ASA 5: a moribund patient not expected to survive 24 hrs. (ruptured aneurysm) ASA 6: a declared brain- patient whose organs are being harvested. For emergent operations, add the letter E after the classification Mallampati Classification Grade 3 Sedation Plan Analgesia, Amnesia, Plan communicated to team members, Discussed options with patient/fam, Discussed risks with patient/fam The patient is an appropriate candidate to undergo the planned procedure, sedation, and anesthesia. The patient immediately re-assessed prior to indication. DAVIDA FOUNTAIN MD Nov 12, 2018 08:06
--- NOTE | 2018-11-12 08:31 | Progress Note ---
Standard Progress Note Progress Notes/Assess & Plan Date Seen by a Provider: Nov 12, 2018 Time Seen by a Provider: 08:20 Progress/Assessment & Plan asa 4 start time 0820 end time 0827. 80mg propofol and 2 mg versed given iv. tolerated procedure well MARYAN RAMIREZ CRNA Nov 12, 2018 08:31
--- NOTE | 2018-11-12 09:05 | NUR ---
PT BACK TO ROOM FROM PROCEDURE. AT BEDSIDE. NEURO CHECK AND VS COMPLETED. PT RESTING IN BED WITH NO COMPLAINTS. WILL MONITOR PT CLOSELY. CALL LIGHT WITHIN REACH.
--- NOTE | 2018-11-12 10:19 | Progress Note - Hospitalist ---
HIMANSHU SHEPPARD, 11/12/18 1019: Subjective HPI/CC On Admission Date Seen by Provider: Nov 12, 2018 Time Seen by Provider: 07:10 CC: recurrent UTI HPI: This is a 68 yo WM in [facility] from a direct admit from Dr. Bermudez's office after a follow-up visit regarding his recent cardioversion. Pt is back in a-fib with RVR and was admitted. C/o UTI issues as well. Noticed UTI based on stomach pain and color of urine. Denied dysuria, urgency, or increased frequency. Stated urine was "unnatural" to him. Nothing improves or worsens his symptoms. Was supposed to have PO abx after recent discharge, but pharmacy did not get orders. Pt went without abx for 3 days and symptoms returned. Subjective/Events-last exam Better night Slept well Bowels 2x yesterday Denies pain or nausea Denies chest pain Wound care for bed sore Heart: tachycardic but regular rhythm Lungs: clear bilaterally on auscultation Vitals stable Cr 0.79 Hg stable Albumin 2.7 Bethanechol 10 mg ACHS and phenazopyridine 100mg TID PC for UTI Sleep study before transfer to Transfer for valve replacement Objective Exam Vital Signs Vital Signs Date Time Temp Pulse Resp B/P (MAP) Pulse Ox O2 Delivery O2 Flow Rate FiO2 11/12/18 08:30 87 20 126/78 (94) 96 Nasal Cannula 3.00 11/12/18 04:01 98.2 Capillary Refill : General Appearance: No Apparent Distress Respiratory: Lungs Clear, No Accessory Muscle Use, No Respiratory Distress Cardiovascular: Tachycardia Results/Procedures Lab Laboratory Tests 11/12/18 05:35 Patient resulted labs reviewed. Procedures Cardioversion 11/12/18 Assessment/Plan Assessment and Plan Assess & Plan/Chief Complaint Assessment: 1. A fib w/ RVR 2. Recurrent UTI 3. Hypertension 4. Hypercholesterolemia 5. Dementia 6. Heart failure 7. BPH 8. DM 9. Depression 10. Hx of urosepsis 11. Cardiomyopathy Plan: 1. Cardioversion 11/12/[address] Bermudez 2. Start phenazopyridine 3. Start bethanechol 4. Continue home medications 5. Wound care 6. Dr. Aguilera consult 7. RT consult 8. Continue CPAP 9. Transfer for valve replacement Diagnosis/Problems Diagnosis/Problems (1) Atrial fibrillation Status: Chronic (2) UTI (urinary tract infection) Status: Acute (3) Encephalopathy (4) MICHELLE on CPAP Status: Chronic (5) Acute on chronic systolic (congestive) heart failure Status: Acute (6) Cardiac defibrillator in place Status: Chronic (7) Cardiomyopathy Status: Chronic (8) DVT prophylaxis Status: Acute (9) Diabetes mellitus Status: Chronic Clinical Quality Measures DVT/VTE Risk/Contraindication: Risk Factor Score Per Nursin RFS Level Per Nursing on Admit: 3=High LATONYA CURRIE DO 11/12/182054: Subjective Subjective/Events-last exam Pt known to me from [facility] several weeks ago in in patient rehab for two weeks Reviewed urine culture three or more isolates Cardioversion completed today uneventfully but showed severe valvular regurgitation and may very well need valve replacement at and Dr. Bermudez is reaching out to right now Really needs a sleep study He sees Dr. Jack on a regular basis but he is on vacation so I did go ahead and initiate a bladder scanning schedule along with Urecholine and Pyridium to empty the bladder since urine culture did not appear to require any Empiric antibiotics right now Review of Systems Genitourinary: Incontinence, Hematuria Objective Exam General Appearance: No Apparent Distress, WD/WN, Chronically ill, Obese Respiratory: Chest Non Tender, Lungs Clear, Normal Breath Sounds, No Accessory Muscle Use, No Respiratory Distress Cardiovascular: Regular Rate, Rhythm, No Edema, No Gallop, No JVD, No Murmur, Normal Peripheral Pulses Neurologic/Psychiatric: Alert, Oriented x3, No Motor/Sensory Deficits, Normal Mood/Affect, Disoriented (subtle) Assessment/Plan Assessment and Plan Assess & Plan/Chief Complaint UCx NGTD for specific bacteria so no abx required Urecholine and Pyridium to empty bladder completely Dr Jack as outpatient Diagnosis/Problems Diagnosis/Problems (1) Atrial fibrillation Status: Chronic (2) Hyponatremia Status: Acute (3) Coronary artery disease Status: Chronic (4) Hypomagnesemia Status: Acute (5) Diabetes mellitus Status: Chronic (6) Encephalopathy (7) UTI (urinary tract infection) Status: Acute (8) Cardiomyopathy Status: Chronic (9) Cardiac defibrillator in place Status: Chronic (10) Acute on chronic systolic (congestive) heart failure Status: Acute (11) DVT prophylaxis Status: Acute (12) MICHELLE on CPAP Status: Chronic Supervisory-Addendum Brief Verification & Attestation Participated in pt care: history, MDM, physical Personally performed: exam, history, MDM, supervision of care Care discussed with: Medical Student Procedures: n/a Results interpretation: Verified all documentation Verification and Attestation of Medical Student E/M Service A medical student performed and documented this service in my presence. I reviewed and verified all information documented by the medical student and made modifications to such information, when appropriate. I personally performed the physical exam and medical decision making. Latonya Currie, Nov 12, 2018,20:54 HIMANSHU SHEPPARD, Nov 12, 2018 10:19 LATONYA CURRIE DO Nov 12, 2018 20:55
--- NOTE | 2018-11-12 10:43 | Physical Therapy Progress Note ---
Therapy Progress Note Patient's spouse declined PT at this time due to patient is resting and may transfer on this date. 1 ref([id number]) REJI ETIENNE PT Nov 12, 2018 10:42
[2018-11-12] MEDS: SOTALOL 80 MG (BETAPACE) TAB PO SCH ×2 (11:24→20:55)
[2018-11-12] MEDS: ALLOPURINOL 300 MG (ZYLOPRIM) TAB PO SCH (11:24)
[2018-11-12] MEDS: FINASTERIDE (PROSCAR) 5 MG TAB PO SCH (11:25)
[2018-11-12] MEDS: ASPIRIN E.C. 81 MG (ECOTRIN) TAB PO SCH (11:25)
[2018-11-12] MEDS: LOSARTAN 25 MG (COZAAR) TAB PO SCH (11:25)
[2018-11-12] MEDS: metFORMIN 500 MG (GLUCOPHAGE) TAB PO SCH ×2 (11:25→17:23)
--- NOTE | 2018-11-12 12:59 | Physical Therapy Daily Note ---
PT Daily Note-Current Subjective Patient agrees to PT. No c/o. Pain Numeric Pain Scale: 0-No Pain Location: No Pain Reported Mental Status Patient Orientation: Normal For Age Attachments: Oxygen, IV Transfers Therapy Code Descriptions/Definitions Functional [place] Measure: 0=Not Assessed/NA 4=Minimal Assistance 1=Total Assistance 5=Supervision or Setup 2=Maximal Assistance 6=Modified [place] 3=Moderate Assistance 7=Complete [place] Therapy Quality Codes: 6 Independent with activity with or without an assistive device 5 Patient requires set up or clean up by helper. Patient completes activity by themselves 4 Supervision or touching assist (CGA). [place] provide cues , steadying assist 3 The helper provides less than half the effort to complete the activity 2 The helper provides more than half the effort to complete the activity 1 Dependent. The helper does all the effort to complete an activity 7 Patient refused to complete or attempt activity 9 The patient did not perform the activity before the current illness or injury 88 Not attempted due to Medical conditions or safety concerns Transfers (B, C, W/C) (FIM): 6 Scootin Rollin Supine to/from Sit: 6 Sit to/from Stand: 6 Bed to/from Chair: 6 Gait Training Gait (FIM): 1 Distance (FIM): 1=up to 49 ft Distance: 10' Gait Level of Assist: 6 Gait Assistive Device: FWW Exercises Seated Therapy Exercises: Ankle pumps, Long arc quads Seated Reps: 15 (2 sets) Assessment Patient reports frustration with medical status. He does perform tasks without difficulty. PT Short Term Goals Short Term Goals Time Frame: Nov 18, 2018 Transfers (B,C,W/C) (FIM): 5 Gait (FIM): 5 Gait Distance Comment: 150' Gait Level of Assist: 5 Gait Assistive Device: FWW PT Plan Treatment/Plan Treatment Plan: Continue Plan of Care Treatment Plan: Bed Mobility, Education, Functional Activity [place], Functional Strength, Gait, Safety, Therapeutic Exercise, Transfers Treatment Duration: Nov 18, 2018 Frequency: 6 times per week Estimated Hrs Per Day: .25 hour per day Patient and/or Family Agrees t: Yes Time/GCodes Time In: 1240 Time Out: 1253 Total Billed Treatment Time: 13 Total Billed Treatment 1 visit FA 13 min REJI ETIENNE PT Nov 12, 2018 12:59
--- NOTE | 2018-11-12 14:06 | NUR ---
Initial visit with the pt and his , Arabella. The pt said they used to go to [facility], but the [facility] closed. Since that time they have had personal betty but no [employer] affiliation.
--- NOTE | 2018-11-12 15:47 | Cardiology Progress Note ---
Cardiology SOAP Progress Note Subjective: Post-cardioversion this morning. Objective: I&O/Vital Signs 11/12/18 11/12/18 11/12/18 11/12/18 04:01 07:00 08:00 08:00 Temp 98.2 Pulse 85 88 80 Resp 20 20 B/P (MAP) 125/67 (86) 109/74 (86) Pulse Ox 93 96 96 O2 Delivery Nasal Cannula Nasal Cannula Nasal Cannula O2 Flow Rate 1.00 3.00 3.00 11/12/18 11/12/18 11/12/18 11/12/18 08:05 08:10 08:15 08:30 Pulse 85 89 80 87 Resp 20 20 20 20 B/P (MAP) 109/74 (86) 123/82 (96) 125/79 (94) 126/78 (94) Pulse Ox 96 96 96 96 O2 Delivery Nasal Cannula Nasal Cannula Nasal Cannula Nasal Cannula O2 Flow Rate 3.00 3.00 3.00 3.00 11/12/18 11/12/18 11/12/18 11/12/18 09:05 09:05 09:20 09:35 Temp 97.3 Pulse 90 87 87 Resp 20 B/P (MAP) 114/73 (87) 115/73 (87) 109/70 (83) Pulse Ox 96 94 92 94 O2 Delivery Nasal Cannula Nasal Cannula Nasal Cannula Nasal Cannula O2 Flow Rate 3.00 1.00 1.00 1.00 11/12/18 11/12/18 11/12/18 11/12/18 09:50 10:20 10:50 11:20 Temp 97.2 97.1 Pulse 90 91 91 89 Resp 20 B/P (MAP) 117/76 (90) 115/75 (88) 121/82 (95) 118/77 (91) Pulse Ox 94 94 96 96 O2 Delivery Nasal Cannula Nasal Cannula Nasal Cannula Nasal Cannula O2 Flow Rate 1.00 1.00 1.00 1.00 11/12/18 11/12/18 11:45 12:52 Temp 97.1 Pulse 87 85 Resp 20 B/P (MAP) 106/68 (81) Pulse Ox 96 O2 Delivery Nasal Cannula O2 Flow Rate 1.00 11/12/18 00:00 Intake Total 1710 ml Output Total 1450 ml Balance 260 ml Weight (Pounds): 319 Weight (Ounces): 0.0 Weight (Calculated Kilograms): 144.309001 Constitutional: appears stated age, AAO x 3; No apparent distress; well- developed, well-nourished Respiratory: No accessory muscle use, No respiratory distress, No chest tender, No chest expansion is symmetric; chest is bilaterally symmetric; No lungs clear to percussion; lungs clear to auscultation; No crackles, No rhonchi, No rales, No stridor, No wheezing, No pleural rub, No other Cardiovascular: regular rate-rhythm; No irregularly irregular, No extra beats, No parasternal heave is noted, No JVD, No edema, No bradycardia, No tachycardia, No point of maximal impulse, No cardiac thrills are palpable; S1 and S2; No gallop/S3, No gallop/S4, No diastolic murmur, No systolic murmur, No friction rub, No click, No other Gastrointestional: No tender, No soft, No round, No distended, No pulsatile mass, No organomegaly, No guarding, No rebound, No tenderness, No hernia, No mass, No audible bowel sounds, No abnormal bowel sounds, No abdominal bruits, No spleenomegaly, No other Extremities: No normal range of motion, No non-tender, No normal inspection, No pedal edema, No calf tenderness, No normal capillary refill, No pelvis stable, No calf tenderness, No inflammation, No pedal edema, No slow capillary refill, No swelling, No other, No abrasion, No clubbing, No cyanosis, No ecchymosis, No laceration, No no lower extremity edema bilateral, No significant edema, No tenderness, No wound Neurologic/Psychiatric: no motor/sensory deficits, alert, normal mood/affect, oriented x 3, power is 5/5 both on sides Skin: No normal color, No warm/dry, No cyanosis, No cool, No diaphoresis, No damp, No ecchymosis, No jaundice, No mottled, No pallor, No rash, No tattoos/piercings, No ulcerations, No rash on exposed areas, No ulcerations on exposed areas, No other Results/Procedures: Labs Laboratory Tests 11/12/18 05:35: White Blood Count 10.4, Red Blood Count 3.84L, Hemoglobin 11.1L, Hematocrit 35L, Mean Corpuscular Volume 91, Mean Corpuscular Hemoglobin 29, Mean Corpuscular Hemoglobin Concent 32, Red Cell Distribution Width 16.2H, Platelet Count 352, Mean Platelet Volume 10.1, Neutrophils (%) (Auto) 69, Lymphocytes (%) (Auto) 22, Monocytes (%) (Auto) 7, Eosinophils (%) (Auto) 1, Basophils (%) (Auto) 1, Neutrophils # (Auto) 7.2, Lymphocytes # (Auto) 2.3, Monocytes # (Auto) 0.7, Eosinophils # (Auto) 0.2, Basophils # (Auto) 0.1, Sodium Level 137, Potassium Level 4.0, Chloride Level 105, Carbon Dioxide Level 21, Anion Gap 11, Blood Urea Nitrogen 13, Creatinine 0.79, Estimat Glomerular Filtration Rate > 60, BUN/Creatinine Ratio 16, Glucose Level 150H, Calcium Level 8.5, Corrected Calcium 9.5, Total Bilirubin 0.6, Aspartate Amino Transf (AST/SGOT) 14, Alanine Aminotransferase (ALT/SGPT) 12, Alkaline Phosphatase 96, Total Protein 6.6, Albumin 2.7L Microbiology 11/10/18 Urine Culture - Final, Complete 3 or more isolates A/P: Assessment/Dx: persistent atrial fibrillation, CAD CHF HTN UTI Plan: persistent atrial fibrillation: Patient is on oral anticoagulation therapy, diltiazem and sotalol 80 mg twice a day. He went back into atrial fibrillation. Sotalol dose is been increased to 120 mg twice a day. QTc interval 484 ms. Successful cardioversion done by Dr. Bermudez this morning. Patient is in sinus rhythm. Defer treatment of CAD, congestive heart failure to Dr. Bermudez. Thank you for your consultation. Please call me if you have any questions. Manuel Lawson MD, FACP, FACC, FSCAI, FHRS, CCDS Interventional Cardiology Cardiac Electrophysiology Vascular Medicine and Endovascular Interventions Royal LAWSON MD Nov 12, 2018 15:47
[2018-11-12] MEDS: RIVAROXABAN 20 MG TABLET (XARELTO) PO SCH (17:23)
[2018-11-12] MEDS: ATORVASTATIN 10 MG (LIPITOR) TABLET PO SCH (20:53)
[2018-11-12] MEDS: DONEPEZIL 5 MG (ARICEPT) TAB PO SCH (20:53)
[2018-11-12] MEDS: MIRTAZAPINE 15 MG (REMERON) TAB PO SCH (20:54)
[2018-11-12] MEDS: TAMSULOSIN 0.4 MG (FLOMAX) CAP PO SCH (20:54)
[2018-11-13] VITALS: BP 121/77
[2018-11-13 03:30] VITALS: BP 137/81
[2018-11-13] MEDS: NS IV 1000 ML 1,000 ML IV SCH (05:02)
[2018-11-13] MEDS: BETHANECHOL 10 MG (URECHOLINE) TAB PO SCH ×2 (05:12→11:50)
[2018-11-13 06:06] LABS: BASOPHILS # (AUTO) 0.1 10^3/uL (0.0-0.1); BASOPHILS % (AUTO) 1 % (0-10); EOSINOPHILS # (AUTO) 0.2 10^3/uL (0.0-0.3); EOSINOPHILS % (AUTO) 2 % (0-10); HEMATOCRIT 35 % (40-54); HEMOGLOBIN 10.9 G/DL (13.3-17.7); LYMPHOCYTES % (AUTO) 19 % (12-44); MEAN CORPUSCULAR HEMOGLOBIN 29 PG (25-34); MEAN CORPUSCULAR HGB CONC 31 G/DL (32-36); MEAN CORPUSCULAR VOLUME 92 FL (80-99); MEAN PLATELET VOLUME 10.7 FL (7.4-10.4); MONOCYTES # (AUTO) 0.6 X 10^3 (0.0-1.0); MONOCYTES % (AUTO) 6 % (0-12); NEUTROPHILS # (AUTO) 7.7 X 10^3 (1.8-7.8); NEUTROPHILS % (AUTO) 73 % (42-75); PLATELET COUNT 354 10^3/uL (130-400); RED CELL DISTRIBUTION WIDTH 16.2 % (10.0-14.5); WHITE BLOOD COUNT 10.5 10^3/uL (4.3-11.0)
[2018-11-13 06:19] LABS: SMEAR SCAN COMMENT YES
[2018-11-13 06:39] LABS: ALANINE AMINOTRANSFERASE 9 U/L (0-55); ALBUMIN 2.7 GM/DL (3.2-4.5); ALKALINE PHOSPHATASE 90 U/L (40-136); BILIRUBIN,TOTAL 0.7 MG/DL (0.1-1.0); BUN/CREATININE RATIO 15; CALCIUM 8.7 MG/DL (8.5-10.1); CARBON DIOXIDE 24 MMOL/L (21-32); CHLORIDE 105 MMOL/L (98-107); CREATININE SERUM 0.78 MG/DL (0.60-1.30); GFR ESTIMATED > 60; GLUCOSE 131 MG/DL (70-105); POTASSIUM 4.5 MMOL/L (3.6-5.0); SODIUM 138 MMOL/L (135-145); TOTAL PROTEIN 6.5 GM/DL (6.4-8.2)
[2018-11-13 08:00] VITALS: BP 127/82
[2018-11-13] MEDS: ALLOPURINOL 300 MG (ZYLOPRIM) TAB PO SCH (08:14)
[2018-11-13] MEDS: ASPIRIN E.C. 81 MG (ECOTRIN) TAB PO SCH (08:14)
[2018-11-13] MEDS: PHENAZOPYRIDINE 100 MG (PYRIDIUM) TABLET PO SCH ×2 (08:14→11:50)
[2018-11-13] MEDS: SPIRONOLACTONE 25 MG (ALDACTONE) TAB PO SCH (08:14)
[2018-11-13] MEDS: FUROSEMIDE 40 MG (LASIX) TAB PO SCH (08:15)
[2018-11-13] MEDS: SOTALOL 80 MG (BETAPACE) TAB PO SCH (08:15)
[2018-11-13] MEDS: metFORMIN 500 MG (GLUCOPHAGE) TAB PO SCH (08:15)
[2018-11-13] MEDS: LOSARTAN 25 MG (COZAAR) TAB PO SCH (08:15)
[2018-11-13] MEDS: FINASTERIDE (PROSCAR) 5 MG TAB PO SCH (08:17)
[2018-11-13] MEDS ORDERED: SOTA120T PO (08:44)
--- NOTE | 2018-11-13 08:49 | Cardiology Discharge Summary ---
Diagnosis/Chief Complaint Date of Admission Nov 10, 2018 at 10:55 Date of Discharge November 13, 2018 Admission Diagnosis PAF CAD CHF HTN UTI Discharge Diagnosis Atrial fibrillation Severe mitral regurgitation Congestive heart failure, chronic compensated left ventricular diastolic dysfunction, nonischemic cardiomyopathy Hypertension Hyperlipidemia Chief Complaint/HPI Chief Complaint/HPI Patient is a 68-year-old gentleman history of coronary artery disease, congestive heart failure, CVA, hypertension, hyperlipidemia. Came into the office yesterday for post hospitalization follow up. He was hospitalized in August, and then again in September 2018 for UTI and sepsis, noted to be in atrial fibrillation. Underwent cardioversion in September 2018 and has been maintained on sotalol. EKG yesterday revealed patient is back in atrial fibrillation. Complaining of some generalized fatigue. In addition he is concerned that he might have another UTI. Denies any chest pain or palpitation. Denies any fevers chills or night sweats. Patient admitted, sotalol dose increased and planning for XANDER with cardioversion. Discharge Summary Hospital Course Was the Problem List Reviewed?: Yes Hospital Course Paroxysmal atrial fibrillation, was back to atrial fibrillation, admitted and started on a higher dose of sotalol, QT interval was borderline prolonged, monitored then underwent XANDER with electrical cardioversion, it was successful, patient is still in sinus rhythm. During XANDER patient was noted to have severe mitral regurgitation with ruptured chordae and prolapse of the anterior leaflet with flail leaflet. I discussed the management plan with Dr. Alexis at , patient is a candidate for evaluation for possible mitral valve clip or surgical repair. Arrangement were made for him to follow-up in as an outpatient. 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 Underwent stress test August 2018 while in the Hospital revealing fixed defect with no ischemia or infarct, 2-D echocardiogram done September 2018 revealed EF 45-50 percent. Continue on current medications and continue to monitor. Congestive heart failure, chronic compensated left ventricular diastolic dysfunction, nonischemic cardiomyopathy, severe mitral regurgitation History of permanent pacemaker/ICD, [employer]. Most recent pacemaker interrogation done while hospitalized in August 2018. Continue to monitor. 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 Continue to monitor. Hypertension, borderline hypotension, I will hold diltiazem, continue to monitor. Hyperlipidemia, maintained on statin, continue to monitor. DM, managed by PCP COPD/obstructive sleep apnea, managed by primary care physician Morbid obesity, patient working on diet and exercise for weight loss Generalized debility/weakness-PT to evaluate and treat while in hospital Carotid artery stenosis, bilateral nonobstructive disease per carotid duplex done 11/10/18 Labs Laboratory Tests 11/10/18 12:15: White Blood Count 11.8H, Red Blood Count 4.02L, Hemoglobin 11.6L, Hematocrit 36L , Red Cell Distribution Width 15.9H, Mean Platelet Volume 10.7H, Neutrophils # (Auto) 8.7H 11/10/18 12:55: Glucose Level 154H 11/10/18 16:25: Urine Specific [place] 1.010L, Urine Protein 1+H, Urine Urobilinogen 4H, Urine Leukocyte Esterase 3+H, Urine WBC >100H, Urine Bacteria MODERATEH, Urine Yeast MODERATEH 11/12/18 05:35: Red Blood Count 3.84L, Hemoglobin 11.1L, Hematocrit 35L, Red Cell Distribution Width 16.2H, Glucose Level 150H, Albumin 2.7L 11/13/18 04:50: Red Blood Count 3.80L, Hemoglobin 10.9L, Hematocrit 35L, Mean Corpuscular Hemoglobin Concent 31L, Red Cell Distribution Width 16.2H, Mean Platelet Volume 10.7H 11/13/18 06:00: Glucose Level 131H, Albumin 2.7L Procedures None. Discharge Physical Examination Allergies: Coded Allergies: No Known Drug Allergies (Unverified , 09/01/18) Vitals & I&Os Vital Signs Date Time Temp Pulse Resp B/P (MAP) Pulse Ox O2 Delivery O2 Flow Rate FiO2 11/13/18 08:00 Nasal Cannula 1.00 11/13/18 07:00 92 11/13/18 03:30 97.8 20 137/81 (99) 92 General Appearance: Alert, Oriented X3, Cooperative, No Acute Distress HEENT: Atraumatic, PERRLA Respiratory: Clear to Auscultation, Normal Air Movement Cardiovascular: Regular Rate, Normal S1, Normal S2, Other (Systolic murmur at the left sternal border) Abdominal: Normal Bowel Sounds, Soft, No Tenderness, No Hepatosplenomegaly, No Masses Extremities: No Clubbing, No Cyanosis, Normal Pulses, No Tenderness/Swelling, Other (Mild edema) Skin: No Rashes, No Breakdown, No Significant Lesion Neuro: Normal Gait, Normal Speech, Strength at 5/5 X4 Ext, Normal Tone, Sensation Intact, Cranial Nerves 3-12 NL, Reflexes 2+ Psych/Mental Status: Mental Status NL, Mood NL Discharge Home Medications Reviewed and agree with Discharge Medication list on patient's Discharge Instruction sheet Instructions to Patient/Family Please see electronic discharge instructions given to patient. Clinical Quality Measures DVT/VTE Risk/Contraindication: Risk Factor Score Per Nursin RFS Level Per Nursing on Admit: 3=High DAVIDA FOUNTAIN MD Nov 13, 2018 08:49
--- NOTE | 2018-11-13 10:03 | Cardiology Progress Note ---
Cardiology SOAP Progress Note Subjective: No acute cardiac complaints. Objective: I&O/Vital Signs 11/12/18 11/13/18 11/13/18 11/13/18 23:59 00:00 01:00 03:30 Temp 97.6 97.8 Pulse 87 88 87 Resp 21 20 B/P (MAP) 121/77 (92) 137/81 (99) Pulse Ox 95 92 O2 Delivery Nasal Cannula Nasal Cannula Nasal Cannula O2 Flow Rate 1.00 1.00 1.00 11/13/18 11/13/18 07:00 08:00 Pulse 92 O2 Delivery Nasal Cannula O2 Flow Rate 1.00 11/13/18 00:00 Intake Total 2600 ml Output Total 425 ml Balance 2175 ml Weight (Pounds): 319 Weight (Ounces): 0.0 Weight (Calculated Kilograms): 144.407406 Constitutional: appears stated age, AAO x 3; No apparent distress; well- developed, well-nourished Respiratory: No accessory muscle use, No respiratory distress, No chest tender, No chest expansion is symmetric; chest is bilaterally symmetric; No lungs clear to percussion; lungs clear to auscultation; No crackles, No rhonchi, No rales, N o stridor, No wheezing, No pleural rub, No other Cardiovascular: regular rate-rhythm; No irregularly irregular, No extra beats, No parasternal heave is noted, No JVD, No edema, No bradycardia, No tachycardia, No point of maximal impulse, No cardiac thrills are palpable; S1 and S2; No gallop/S3, No gallop/S4, No diastolic murmur; systolic murmur; No friction rub, No click, No other Gastrointestional: No tender, No soft, No round, No distended, No pulsatile mass, No organomegaly, No guarding, No rebound, No tenderness, No hernia, No mass, No audible bowel sounds, No abnormal bowel sounds, No abdominal bruits, No spleenomegaly, No other Extremities: No normal range of motion, No non-tender, No normal inspection, No pedal edema, No calf tenderness, No normal capillary refill, No pelvis stable, No calf tenderness, No inflammation, No pedal edema, No slow capillary refill, No swelling, No other, No abrasion, No clubbing, No cyanosis, No ecchymosis, No laceration, No no lower extremity edema bilateral, No significant edema, No tenderness, No wound Neurologic/Psychiatric: no motor/sensory deficits, alert, normal mood/affect, oriented x 3, power is 5/5 both on sides Skin: No normal color, No warm/dry, No cyanosis, No cool, No diaphoresis, No damp, No ecchymosis, No jaundice, No mottled, No pallor, No rash, No tattoos/piercings, No ulcerations, No rash on exposed areas, No ulcerations on exposed areas, No other Results/Procedures: Labs Laboratory Tests 11/13/18 04:50: White Blood Count 10.5, Red Blood Count 3.80L, Hemoglobin 10.9L, Hematocrit 35L, Mean Corpuscular Volume 92, Mean Corpuscular Hemoglobin 29, Mean Corpuscular Hemoglobin Concent 31L, Red Cell Distribution Width 16.2H, Platelet Count 354, Mean Platelet Volume 10.7H, Neutrophils (%) (Auto) 73, Lymphocytes (%) (Auto) 19, Monocytes (%) (Auto) 6, Eosinophils (%) (Auto) 2, Basophils (%) (Auto) 1, Neutrophils # (Auto) 7.7, Lymphocytes # (Auto) 2.0, Monocytes # (Auto) 0.6, Eosinophils # (Auto) 0.2, Basophils # (Auto) 0.1, Smear Scan YES 11/13/18 06:00: Sodium Level 138, Potassium Level 4.5, Chloride Level 105, Carbon Dioxide Level 24, Anion Gap 9, Blood Urea Nitrogen 12, Creatinine 0.78, Estimat Glomerular Filtration Rate > 60, BUN/Creatinine Ratio 15, Glucose Level 131H, Calcium Level 8.7, Corrected Calcium 9.7, Total Bilirubin 0.7, Aspartate Amino Transf (AST/SGOT) 16, Alanine Aminotransferase (ALT/SGPT) 9, Alkaline Phosphatase 90, Total Protein 6.5, Albumin 2.7L Microbiology 11/10/18 Urine Culture - Final, Complete 3 or more isolates A/P: Assessment/Dx: persistent atrial fibrillation, Ruptured mitral chordae tendineae, acute mitral regurgitation CAD CHF HTN UTI Plan: persistent atrial fibrillation: Patient is on oral anticoagulation therapy, diltiazem and sotalol 80 mg twice a day. He went back into atrial fibrillation. Sotalol dose is been increased to 120 mg twice a day. QTc interval 484 ms. Successful cardioversion done by Dr. Bermudez this morning. Patient is in sinus rhythm. Acute mitral regurgitation associated with a ruptured mitral chordae tendonae, patient will be transferred to for further management. Defer treatment of CAD, congestive heart failure to Dr. Bermudez. Thank you for your consultation. Please call me if you have any questions. Manuel Lawson MD, FACP, FACC, FSCAI, FHRS, CCDS Interventional Cardiology Cardiac Electrophysiology Vascular Medicine and Endovascular Interventions Royal LAWSON MD Nov 13, 2018 10:03 am
[2018-11-13] MEDS ORDERED: BTH10T PO (10:17)
[2018-11-13] MEDS ORDERED: PHEN-826 PO (10:17)
--- NOTE | 2018-11-13 10:43 | Progress Note - Hospitalist ---
HIMANSHU SHEPPARD, 11/13/18 1043: Subjective HPI/CC On Admission Date Seen by Provider: Nov 13, 2018 Time Seen by Provider: 07:10 Subjective/Events-last exam Pt is pleasant this morning Denies any chest pain No fluttering or pounding of his chest Denies n/v Denies general pain BM are regular Is getting up and around Plan to discharge today Coordinating a [facility] appointment for valve issue Vitals stable Labs stable Lungs: CTAB Heart: RRR Objective Exam Vital Signs Vital Signs Date Time Temp Pulse Resp B/P (MAP) Pulse Ox O2 Delivery O2 Flow Rate FiO2 11/13/18 08:00 Nasal Cannula 1.00 11/13/18 07:00 92 11/13/18 03:30 97.8 20 137/81 (99) 92 Capillary Refill : General Appearance: No Apparent Distress Respiratory: Lungs Clear, Normal Breath Sounds Cardiovascular: Regular Rate, Rhythm Results/Procedures Lab Laboratory Tests 11/13/18 04:50 11/13/18 06:00 Patient resulted labs reviewed. Procedures Cardioversion 11/12/18 Assessment/Plan Assessment and Plan Assess & Plan/Chief Complaint Assessment: 1. A fib w/ RVR 2. Recurrent UTI 3. Hypertension 4. Hypercholesterolemia 5. Dementia 6. Heart failure 7. BPH 8. DM 9. Depression 10. Hx of urosepsis 11. Cardiomyopathy Plan: 1. Cardioversion 11/12/[address] Bermudez 2. Start phenazopyridine 3. Start bethanechol 4. Continue home medications 5. Wound care 6. Dr. Jack consult next week 7. RT consult 8. Continue CPAP 9. F/U w/ [facility] regarding valve 10. Discharge Diagnosis/Problems Diagnosis/Problems (1) Atrial fibrillation Status: Chronic (2) UTI (urinary tract infection) Status: Acute (3) Encephalopathy (4) MICHELLE on CPAP Status: Chronic (5) Acute on chronic systolic (congestive) heart failure Status: Acute (6) Cardiac defibrillator in place Status: Chronic (7) Cardiomyopathy Status: Chronic (8) DVT prophylaxis Status: Acute (9) Diabetes mellitus Status: Chronic Clinical Quality Measures DVT/VTE Risk/Contraindication: Risk Factor Score Per Nursin RFS Level Per Nursing on Admit: 3=High LATONYA CURRIE DO 11/14/18 4517: Supervisory-Addendum Brief Verification & Attestation Participated in pt care: history, MDM, physical Personally performed: exam, history, MDM, supervision of care Care discussed with: Medical Student Procedures: n/a Results interpretation: Verified all documentation Verification and Attestation of Medical Student E/M Service A medical student performed and documented this service in my presence. I reviewed and verified all information documented by the medical student and made modifications to such information, when appropriate. I personally performed the physical exam and medical decision making. Latonya Currie, Nov 14, 2018,15:37 HIMANSHU SHEPPARD, Nov 13, 2018 10:43 LATONYA CURRIE DO Nov 14, 2018 15:37
[2018-11-13 14:06] VITALS: BP 127/82
--- NOTE | 2018-11-13 14:53 | D/C HH Face to Face Order ---
D/C HH Face to Face Orders Reconcile Patient Problems Problems Reviewed?: Yes Instructions for Patient HH Patient Instructions/FollowUp: PCP 1 week Physician to follow Patient: [facility] Discharge Diet for Home: ADA Diet Patient Problems: AF DM Patient Data-Allergies,Ht & Wt Patient Allergies: Coded Allergies: No Known Drug Allergies (Unverified , 09/01/18) Height (Feet): 5 Height (Inches): 10.00 Weight (Pounds): 319 Weight (Ounces): 0.0 Home Health Need/Face to Face Date of Face to Face: Nov 13, 2018 Clinical Findings: Generalized weakness and fatigue, Instability, Muscle weakness I have seen Pt [id number]: Yes Discharged To: Home Diagnosis/Conditions: Atrial fibrillation Severe mitral regurgitation Congestive heart failure, chronic compensated left ventricular diastolic dysfunction, nonischemic cardiomyopathy Hypertension Hyperlipidemia Patient is Homebound due to: CognItive deficits, Kehinde fall risk due to instabilty, Muscle weakness, Shortness of breath/distress Homebound Status Due to the above stated illness, injury or surgical procedure (medical condition or diagnosis) and associated clinical findings, the patient is homebound because of his/her inability to leave home except with aid of a supportive device and/or person AND leaving the home requires a considerable and taxing effort or is medically contraindicated. Pt req the following assistanc: Walker Home Health Nursing Orders Home Health Services Order: Nursing Services, Physical Therapy-Evaluate & Treat Home Health Infusion Therapy Line Start Date: Nov 10, 2018 Certify Stmt I certify that this patient is under my care and that I, a nurse practitioner or a physician; a pastoral assistant working with me, had a face to face encounter that - meets the physician face to face encounter requirements with this patient as dated. ROSEMARY CURRIE DO Nov 13, 2018 14:53
--- NOTE | 2018-11-13 16:47 | NUR ---
CM/SS, respond to consult for complex discharge issues. HHC: Coordinated with [facility] in patient service area and as their preferred agency for RN and PT. Confirmed receipt of referral with [facility], their first available to see patient is Friday. They will call patient Friday and understand to contact spouse through her cell as listed on face sheet. Called Arabella and left message on her cell re same. DME: Patient has his own FWW for ambulation. SUMMARY: Visited with patient, spouse Arabella East, son Bolivar East who all reside together in [facility]. Arabella and Bolivar are the primary caregivers for patient. Lengthy discussion about their concern that patient was not ready to leave hospital, that he was weak, increasingly incontinent, and had a fever. RN present and took temperature which was within a normal range. They indicated that per his history, he would be discharged and then have to return soon back to hospital for issues, and problematic for recurrent UTI. Patient has a cardiac issue and Dr. Bermudez is setting up a consult with specialist in , he is to followup directly with patient to update. Presented IMM2 and discussed fully about patient right to appeal discharge, the QIO timeframe for review/decision, and the timeframe for Medicare paid stay. They began to calculate that it would at least allow him one more day in the hospital so that they could get things more ready for him at home. Shading Painter and RN explored what needed to change at home to prepare for patient, ultimately after much discussion it appeared they were concerned that he needed more care and assistance than before. Shading Painter offered HHC and also short term retirement placement. The decision was left up to patient and family. They refused SNF placement, they agreed to C for RN and PT and understood that HHC does not come and stay to assist. Patient then signed the IMM2 freely and began to dress to leave hospital. All understood that they had the right to appeal, but made a decision among them not to. Appropriate referral completed for [facility]. Patient care plan includes referral to operation specialist in .
== END 2018-11-13 14:00 | disposition home health service (06) | DRG 309 ==
LOC: 4TH 10:55 → OBSVTOIN 10:55
PROVIDERS: ADMIT Internal Medicine Cardiovascular Disease; ATTEND Internal Medicine Cardiovascular Disease
PROC: 5A2204Z Restoration of Cardiac Rhythm, Single (ICD-10-PCS; principal; 2018-11-12)
DX: I48.0 Paroxysmal atrial fibrillation (principal); I11.0 Hypertensive heart disease with heart failure; I50.32 Chronic diastolic (congestive) heart failure; N39.0 Urinary tract infection, site not specified; Z68.42 Body mass index [BMI] 45.0-49.9, adult; I25.10 Atherosclerotic heart disease of native coronary artery without angina pectoris; R31.9 Hematuria, unspecified; J44.9 Chronic obstructive pulmonary disease, unspecified; E66.01 Morbid (severe) obesity due to excess calories; E11.9 Type 2 diabetes mellitus without complications; G47.33 Obstructive sleep apnea (adult) (pediatric); E78.5 Hyperlipidemia, unspecified; I69.898 Other sequelae of other cerebrovascular disease; H54.60 Unqualified visual loss, one eye, unspecified; R53.81 Other malaise; F03.90 Unspecified dementia, unspecified severity, without behavioral disturbance, psychotic disturbance, mood disturbance, and anxiety; N40.0 Benign prostatic hyperplasia without lower urinary tract symptoms; M10.9 Gout, unspecified; M19.012 Primary osteoarthritis, left shoulder; I65.23 Occlusion and stenosis of bilateral carotid arteries; I42.9 Cardiomyopathy, unspecified; I25.2 Old myocardial infarction; F41.9 Anxiety disorder, unspecified; F32.9 Major depressive disorder, single episode, unspecified; R32 Unspecified urinary incontinence; Z95.1 Presence of aortocoronary bypass graft; Z95.810 Presence of automatic (implantable) cardiac defibrillator; Z87.891 Personal history of nicotine dependence
CPT/HCPCS: 36415; 80048; 80053; 81000; 84443; 85025; 87088; 92960; 93005; 93312; 93320; 93325

== ENCOUNTER 2018-11-15 13:22 | Emergency (ER) | payer MEDICARE, OTHER ==
[~2018-11-15] VITALS: Ht 177.8 cm; Wt 144.7 kg
[~2018-11-15 13:22] MED LIST changes: +BTH10T PO; +DILT240C53 PO; +PHEN-826 PO; +SOTA120T PO
--- NOTE | 2018-11-15 13:42 | ED Fall/Injury ---
General Stated Complaint: FALL Source: patient Exam Limitations: no limitations History of Present Illness Date Seen by Provider: Nov 15, 2018 Time Seen by Provider: 13:25 Initial Comments Patient presents to ER by EMS from home with chief complaint that he had a fall while ambulating from the living room to the bathroom. Says he just felt short of breath and fell. He's been using his home oxygen more frequently but he does not know the level. He denies cough fever chills. He has a history of CHF and multiple recent admissions for altered mental status secondary to a urinary tract infection as well as A. fib with rapid ventricular response. He has an AICD in place. EMS was unable to obtain EKG or IV. Patient denies any chest pain at any point. He denies any struck his head or passed out. He does use Xarelto. He's having some mild amount of pain initially in his right hip but that's about gone away. He has not taken anything for pain nor does he want anything. Normally he says he ambulates with a walker but today he was trying to get by without it. Primary care by Dr. Hudson. Allergies and Home Medications Allergies Coded Allergies: No Known Drug Allergies (Unverified , 09/01/18) Home Medications Acetaminophen 500 Mg Tablet, 500-1,000 MG PO Q4H PRN for PAIN-MILD, (Reported) Allopurinol 300 Mg Tablet, 300 MG PO DAILY, (Reported) Aspirin 81 Mg Tablet.dr, 81 MG PO DAILY, (Reported) Bethanechol Chloride 10 Mg Tablet, 10 MG PO AC Prescribed by: ROSEMARY CURRIE on 11/13/18 1017 Diltiazem HCl 240 Mg Cap.er.24h, 240 MG PO DAILY, (Reported) Donepezil HCl 5 Mg Tablet, 5 MG PO HS, (Reported) Finasteride 5 Mg Tablet, 5 MG PO DAILY, (Reported) Furosemide 40 Mg Tablet, 40 MG PO MoWeFr, (Reported) Losartan Potassium 25 Mg Tablet, 25 MG PO DAILY, (Reported) Metformin HCl 500 Mg Tablet, 500 MG PO 0800,1800, (Reported) Mirtazapine 15 Mg Tablet, 7.5 MG PO HS, (Reported) TAKES 1/2 (15MG) TABLET Phenazopyridine HCl 100 Mg Tablet, 100 MG PO TIDPC Prescribed by: ROSEMARY CURIRE on 11/13/18 1017 Pravastatin Sodium 20 Mg Tablet, 60 MG PO HS, (Reported) TAKES 3 (20MG) TABLETS Rivaroxaban 20 Mg Tablet, 20 MG PO 1800, (Reported) Sotalol HCl 120 Mg Tablet, 120 MG PO BID Prescribed by: DAVIDA BERMUDEZ on 11/13/18 0844 Spironolactone 25 Mg Tablet, 25 MG PO MoWeFr, (Reported) Tamsulosin HCl 0.4 Mg Cap, 0.4 MG PO HS, (Reported) Patient Home Medication List Home Medication List Reviewed: Yes Review of Systems Review of Systems Constitutional: No chills, No fever, No malaise Eyes: Denies Blindness, Denies Blurred Vision Ears, Nose, Mouth, Throat: denies ear pain, denies mouth pain Respiratory: No cough, No hemoptysis; short of breath Cardiovascular: No chest pain, No edema Gastrointestinal: No abdominal pain, No constipation, No diarrhea, No nausea Genitourinary: No discharge, No dysuria Musculoskeletal: No back pain, No joint pain Past Todsmjp-Gyvkbv-Lqstzq Hx Patient Social History Alcohol Use: Denies Use Recreational Drug Use: No Smoking Status: Former Smoker Type Used: Cigars, Smokeless Tobacco 2nd Hand Smoke Exposure: No Recent Hopitalizations: No Immunizations Up To Date Tetanus Booster (TDap): Unknown PED Vaccines UTD: Yes Date of Pneumonia Vaccine: Sep 23, 2016 Seasonal Allergies Seasonal Allergies: No Past Medical History Surgeries: Yes (H/O heart bypass, defibrillator ) Cardiac, CABG Respiratory: Yes Sleep Apnea Currently Using CPAP: Yes Cardiac: Yes (six vessel coronary artery bypass graph, defibrillator) Atrial Fibrillation, Cardiomyopathy, Heart Attack, High Cholesterol, Hypertension Neurological: Yes (cerebral vasculary accident) Dementia Genitourinary: Yes (hematuria) Benign Prostatic Hyperpl, Bladder Infection, Renal Failure Gastrointestinal: Yes Chronic Constipation Musculoskeletal: Yes (arthritis of left acromioclavicular joint, arthritis degenerative) Arthritis Endocrine: Yes (gout, type 2 diabetes) Diabetes, Non-Insulin dep HEENT: No Cancer: No Psychosocial: Yes Sleep Difficulties Integumentary: No Blood Disorders: No Family Medical History Cardiovascular disease 19 MOTHER, Onset:Unknown Diabetes mellitus 19 MOTHER, Onset:Unknown Neoplasm 19 FATHER, Onset:Unknown No Pertinent Family Hx Physical Exam Vital Signs Vital Signs - First Documented 11/15/18 13:23 Temp 98.5 Pulse 114 Resp 32 B/P (MAP) 127/59 (81) Pulse Ox 95 O2 Delivery Nasal Cannula O2 Flow Rate 2.50 Capillary Refill : Height, Weight, BMI Height: 5'10.00" Weight: 319lbs. 0.0oz. 144.148474dw; 45.8 BMI Method:Stated General Appearance: WD/WN, no apparent distress HEENT: PERRL/EOMI, normal ENT inspection, TMs normal, pharynx normal, other (atraumatic head without vital sign or raccoon eyes) Neck: non-tender, full range of motion, normal inspection Cardiovascular: normal peripheral pulses, regular rate, rhythm Respiratory: chest non-tender, lungs clear, normal breath sounds, respiratory distress (mild), decreased breath sounds, accessory muscle use (mild) Peripheral Pulses: 2+ Dorsalis Pedis (R), 2+ Left Dors-Pedis (L), 2+ Radial Pulses (R), 2+ Radial Pulses (L) Gastrointestinal: normal bowel sounds, non tender, soft Extremities: normal range of motion, non-tender, pedal edema (1+ pitting bilat) 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, no motor/sensory deficits, alert, normal mood/affect, oriented x 3 Skin: normal color, warm/dry Progress/Results/Core Measures Results/Orders Lab Results Laboratory Tests Test 11/15/18 13:55 11/15/18 14:30 11/15/18 15:30 Range/Units White Blood Count 20.2 H 4.3-11.0 10^3/uL Red Blood Count 3.84 L 4.35-5.85 10^6/uL Hemoglobin 11.2 L 13.3-17.7 G/DL Hematocrit 35 L 40-54 % Mean Corpuscular Volume 90 80-99 FL Mean Corpuscular Hemoglobin 29 25-34 PG Mean Corpuscular Hemoglobin Concent 33 32-36 G/DL Red Cell Distribution Width 15.8 H 10.0-14.5 % Platelet Count 223 130-400 10^3/uL Mean Platelet Volume 10.8 H 7.4-10.4 FL Neutrophils (%) (Auto) 91 H 42-75 % Lymphocytes (%) (Auto) 5 L 12-44 % Monocytes (%) (Auto) 3 0-12 % Eosinophils (%) (Auto) 0 0-10 % Basophils (%) (Auto) 0 0-10 % Neutrophils # (Auto) 18.4 H 1.8-7.8 X 10^3 Lymphocytes # (Auto) 1.0 1.0-4.0 X 10^3 Monocytes # (Auto) 0.7 0.0-1.0 X 10^3 Eosinophils # (Auto) 0.0 0.0-0.3 10^3/uL Basophils # (Auto) 0.0 0.0-0.1 10^3/uL Neutrophils % (Manual) 82 % Lymphocytes % (Manual) 6 % Monocytes % (Manual) 3 % Eosinophils % (Manual) 0 % Basophils % (Manual) 0 % Band Neutrophils 9 % Anisocytosis SLIGHT Sodium Level 130 L 135-145 MMOL/L Potassium Level 4.8 3.6-5.0 MMOL/L Chloride Level 91 L 98-107 MMOL/L Carbon Dioxide Level 17 L 21-32 MMOL/L Anion Gap 22 H 5-14 MMOL/L Blood Urea Nitrogen 26 H 7-18 MG/DL Creatinine 1.16 0.60-1.30 MG/DL Estimat Glomerular Filtration Rate > 60 BUN/Creatinine Ratio 22 Glucose Level 234 H 70-105 MG/DL Calcium Level 9.1 8.5-10.1 MG/DL Corrected Calcium 10.1 8.5-10.1 MG/DL Total Bilirubin 1.0 0.1-1.0 MG/DL Aspartate Amino Transf (AST/SGOT) 25 5-34 U/L Alanine Aminotransferase (ALT/SGPT) 11 0-55 U/L Alkaline Phosphatase 93 40-136 U/L Pro-B-Type Natriuretic Peptide 7650.0 H <75.0 PG/ML Total Protein 7.0 6.4-8.2 GM/DL Albumin 2.8 L 3.2-4.5 GM/DL Blood Gas Puncture Site RT RAD Blood Gas Patient Temperature 97.8 Arterial Blood pH 7.44 H 7.37-7.43 Arterial Blood Partial Pressure CO2 30 L 35-45 MMHG Arterial Blood Partial Pressure O2 77 L 79-93 MMHG Arterial Blood HCO3 20 L 23-27 MMOL/L Arterial Blood Total CO2 21.3 21.0-31.0 MMOL/L Arterial Blood Oxygen Saturation 96 94-100 % Arterial Blood Base Excess -2.8 L -2.5-2.5 MMOL/L Nick Test YES-POS Blood Gas Ventilator Setting NO Blood Gas Inspired Oxygen 2L Urine Color ORANGE H Urine Clarity CLOUDY H Urine pH 5.0 5-9 Urine Specific [place] 1.025 H 1.016-1.022 Urine Protein 2+ H NEGATIVE Urine Glucose (UA) TRACE NEGATIVE Urine Ketones TRACE H NEGATIVE Urine Nitrite POSITIVE H NEGATIVE Urine Bilirubin 2+ H NEGATIVE Urine Urobilinogen 4.0 NORMAL MG/DL Urine Leukocyte Esterase 2+ H NEGATIVE Urine RBC (Auto) TRACE H NEGATIVE Urine RBC NONE /HPF Urine WBC >100 H /HPF Urine Squamous Epithelial Cells 25-50 H /HPF Urine Crystals PRESENT H /LPF Urine Amorphous Sediment FEW JARED URATES H /LPF Urine Bacteria MODERATE H /HPF Urine Casts NONE /LPF Urine Mucus MODERATE H /LPF Urine Yeast MODERATE H /HPF Urine Culture Indicated YES My Orders Orders - JOHN CHOWDARY Ct Head/Cervical Spine Wo (11/15/18 13:34) Cbc With Automated Diff (11/15/18 13:34) Comprehensive Metabolic Panel (11/15/18 13:34) Probnp Fs (11/15/18 13:34) Chest 1 View Ap/Pa Only (11/15/18 13:34) Hip 2-3 View Right (11/15/18 13:34) Ed Iv/Invasive Line Start (11/15/18 13:34) O2 (11/15/18 13:34) Arterial Blood Gas (11/15/18 13:36) Manual Differential (11/15/18 13:55) Ua Culture If Indicated (11/15/18 14:36) Ceftriaxone For Iv Use (Rocephin For I (11/15/18 15:00) Blood Culture (11/15/18 14:52) Straight Cath For Spec.-Adult (11/15/18 15:11) Urine Culture (11/15/18 15:30) Medications Given in ED Current Medications Medications Dose Ordered Sig/Lisa Route Start Time Stop Time Status Last Admin Dose Admin Ceftriaxone Sodium 1000 mg/ Sterile Water 10 ml @ 200 mls/hr ONCE ONCE IV 11/15/18 15:00 11/15/18 15:02 DC 11/15/18 15:52 200 MLS/HR Vital Signs/I&O 11/15/18 11/15/18 11/15/18 13:23 13:23 17:40 Temp 98.5 98.5 Pulse 114 80 Resp 32 24 B/P (MAP) 127/59 (81) 105/59 (74) Pulse Ox 95 95 95 O2 Delivery Nasal Cannula Nasal Cannula Nasal Cannula O2 Flow Rate 2.50 2.50 2.50 Progress Progress Note #1: Time: 13:42 Progress Note Chest x-ray, right hip x-ray and CT of the head and neck. Labs included BNP and an EKG. Echocardiogram transesophageal 11/12/[address] Bermudez: Dilated left atrium smoke in the left atrium no clot or thrombus. Left atrial appendage appears to be occluded. Torn chordae flailed mitral valve leaflet with severe mitral regurgitation. Normal left ventricular size and systolic function and EF of 60%. Aneurysmal intra-atrial septum with some bubbles crossing from right to left. Progress Note #2: Time: 15:44 Progress Note Because of the 20,000 white count blood cultures and a urinalysis were ordered. Patient has recent admissions to the hospital for UTI and delirium. He was instructed to follow-up with urology for what they think was overflow incontinence either from strictures or neurogenic bladder. However he went home on Friday and has not unable to even contact urology. We're unable to pass a Ambrocio catheter but we were able to get a straight catheter and drain his bladder. The only Coude catheter we have available is a 22 Finnish. 200cc out. BNP significantly elevated. Does not appear to be septic. HR in [address]s [address] is on house wide diversion. Will seek transfer. Initial ECG Impression Date: Nov 15, 2018 Initial ECG Impression Time: 13:32 Initial ECG Rate: 85 Initial ECG Rhythm: A Fib/Flutter Initial ECG Intervals: QT (461) Initial ECG Impression: Nonspecific Changes, Atrial Fibrillation Initial ECG Comparisson: Unchanged Comment Atrial fibrillation with incomplete left bundle branch block and no clinically significant ST elevation or depression. Does not meet any of Sgarbossas' criteria. Diagnostic Imaging Diagonstic Imaging: Xray Plain Films/CT/US/NM/MRI: chest (1v) Comments Cardiomegaly but no acute infiltrate or other acute cardiopulmonary process. Defibrillator noted. NAME: SU WARD Royal [facility] REC#: [id number] PT STATUS: REG ER : 1950 PHYSICIAN: JOHN CHOWDARY MD ADMIT DATE: 11/15/18/ER FS Draft Date of Exam:11/15/18 CHEST 1 VIEW AP/PA ONLY INDICATION: Patient fell, pain. EXAMINATION: Chest, 11/15/2018. COMPARISON: 10/17/2018. FINDINGS: Two views of the chest demonstrate cardiomegaly. There is pulmonary vascular congestion. Findings of edema throughout both lungs. No effusions or pneumothorax. Left-sided pacemaker noted and sternotomy wires are also seen. IMPRESSION: Diffuse chronic findings with mild pulmonary edema not excluded. Dictated on workstation # [id number] Dict: 11/15/18 1505 Trans: 11/15/18 1536 PJE [id number] Interpreted by: IRENE BARROSO MD Electronically signed by: Reviewed: Reviewed by Me Diagonstic Imaging: Xray Plain Films/CT/US/NM/MRI: hip (R) Comments No acute osseous abnormality noted. [facility] [place] [place] NAME: SU WARD [facility] REC#: [id number] PT STATUS: REG ER : 1950 PHYSICIAN: JOHN CHOWDARY MD ADMIT DATE: 11/15/18/ER FS Draft Date of Exam:11/15/18 HIP 2-3 VIEW RIGHT INDICATION: Patient fell. Landed on buttock region. Pain. EXAMINATION: Right hip dated 11/15/2018. FINDINGS: Two views of the right hip demonstrate deformity at the acetabulum consistent with chronic disease, narrowing and spurring present. A definite acute fracture is not appreciated but not excluded on the images provided given patient body habitus and technique. If pain persists or patient cannot bear weight, further imaging would be recommended. IMPRESSION: 1. Diffuse chronic change. No definite acute fracture seen however please see above discussion and recommendations. Dictated on workstation # [id number] Dict: 11/15/18 1503 Trans: 11/15/18 1537 TS [id number] Interpreted by: IRENE BARROSO MD Electronically signed by: Reviewed: Reviewed by Me Diagonstic Imaging: CT (without IV contrast) Plain Films/CT/US/NM/MRI: c-spine, head Comments No calvarial or C-spine fracture or subluxation or acute misalignment. No intracranial hemorrhage, mass effect, tumor, midline shift. Encephalomalacia in the left occiput, chronic noted. [facility] [place] [place] NAME: SU WARD REC#: [id number] PT STATUS: REG ER : 1950 PHYSICIAN: JOHN CHOWDARY MD ADMIT DATE: 11/15/18/ER FS Draft Date of Exam:11/15/18 CT HEAD/CERVICAL SPINE WO PROCEDURE: CT head and CT cervical spine without contrast. TECHNIQUE: Multiple contiguous axial images were obtained through the brain and cervical spine without the use of intravenous contrast. Sagittal and coronal reformations through the cervical spine were then performed. Auto Exposure Controls were utilized during the CT exam to meet ALARA standards for radiation dose reduction. INDICATION: Fell. Pain. EXAMINATION: CT brain, CT cervical spine 11/15/2018. COMPARISON: Comparison made to a brain dated 09/28/2018. 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 Secondary ex vacuo dilatation of the left lateral ventricle similar to previous. Remaining ventricles unchanged. There is an area of encephalomalacia within the right frontal parietal region as well. No acute hemorrhage appreciated. No acute infarct is seen. No mass effect or midline shift. There is diffuse atherosclerotic disease. The paranasal sinuses and mastoid air cells appear clear. IMPRESSION: 1. Diffuse chronic findings as above. No acute process appreciated. CERVICAL SPINE: There is loss of the normal lordosis however no subluxations or acute fractures are seen. Multilevel facet hypertrophy and intervertebral disc space narrowing and endplate changes consistent with degenerative disease. No definite acute fractures are seen. There are some limitations due to motion artifact. Prevertebral soft tissues unremarkable for acute abnormality. IMPRESSION: 1. Chronic changes throughout the cervical spine. No acute process is seen. Dictated on workstation # [id number] Dict: 11/15/18 1509 Trans: 11/15/18 1546 [id number] Interpreted by: IRENE BARROSO MD Electronically signed by: Reviewed: Reviewed by Me Departure Impression Primary Impression: Fall Qualified Codes: W19.XXXA - Unspecified fall, initial encounter Additional Impressions: Right hip pain Acute exacerbation of congestive heart failure Qualified Codes: I50.9 - Heart failure, unspecified UTI (urinary tract infection) Qualified Codes: N10 - Acute pyelonephritis Disposition: HOME, SELF-CARE Condition: Stable Transfer Time Spoke to Accepting Phy: 16:00 Transfer Progress Notes 1555: Discussed the case with Ernestina 1 call and they will call us back with a physician. 1600: Discussed the case with Dr. Qureshi and he has accepted the patient. Transfer Facility: [place], [place] Method of Transfer: EMS Departure-Patient Inst. Referrals: TESSY POON MD (PCP/Family) Primary Care Physician JOHN CHOWDARY Nov 15, 2018 13:42
[2018-11-15 14:09] LABS: BASOPHILS % (AUTO) 0 % (0-10); EOSINOPHILS % (AUTO) 0 % (0-10); HEMATOCRIT 35 % (40-54); HEMOGLOBIN 11.2 G/DL (13.3-17.7); LYMPHOCYTES % (AUTO) 5 % (12-44); MEAN CORPUSCULAR HEMOGLOBIN 29 PG (25-34); MEAN CORPUSCULAR HGB CONC 33 G/DL (32-36); MEAN CORPUSCULAR VOLUME 90 FL (80-99); MEAN PLATELET VOLUME 10.8 FL (7.4-10.4); MONOCYTES # (AUTO) 0.7 X 10^3 (0.0-1.0); MONOCYTES % (AUTO) 3 % (0-12); NEUTROPHILS # (AUTO) 18.4 X 10^3 (1.8-7.8); NEUTROPHILS % (AUTO) 91 % (42-75); PLATELET COUNT 223 10^3/uL (130-400); RED CELL DISTRIBUTION WIDTH 15.8 % (10.0-14.5); WHITE BLOOD COUNT 20.2 10^3/uL (4.3-11.0)
[2018-11-15 14:34] LABS: ABG PCO2 30 MMHG (35-45); ABG PH 7.44 (7.37-7.43)
[2018-11-15 14:35] LABS: ABG BASE EXCESS -2.8 MMOL/L (-2.5-2.5); ABG OXYGEN SATURATION 96 % (94-100); ABG PO2 77 MMHG (79-93); ABG TCO2 21.3 MMOL/L (21.0-31.0); ALLENS TEST YES-POS; INSPIRED O2 2L; PATIENT TEMP 97.8; VENTILATOR NO
[2018-11-15 14:53] LABS: ALANINE AMINOTRANSFERASE 11 U/L (0-55); ALKALINE PHOSPHATASE 93 U/L (40-136); BUN/CREATININE RATIO 22; CALCIUM 9.1 MG/DL (8.5-10.1); CARBON DIOXIDE 17 MMOL/L (21-32); CHLORIDE 91 MMOL/L (98-107); CREATININE SERUM 1.16 MG/DL (0.60-1.30); GFR ESTIMATED > 60; GLUCOSE 234 MG/DL (70-105); POTASSIUM 4.8 MMOL/L (3.6-5.0); SODIUM 130 MMOL/L (135-145)
[2018-11-15 14:54] LABS: ALBUMIN 2.8 GM/DL (3.2-4.5)
[2018-11-15] MEDS ORDERED: cefTRIAXone FOR IV USE 1,000 MG in WATER (STERILE) FOR INJECTION 10 ML IV ONE (15:00)
[2018-11-15 15:13] LABS: ANISOCYTOSIS SLIGHT; BAND NEUTROPHILS 9 %; BASOPHILS % (MANUAL) 0 %; EOSINOPHILS % (MANUAL) 0 %; LYMPHOCYTES % (MANUAL) 6 %; MONOCYTES % (MANUAL) 3 %; NEUTROPHILS % (MANUAL) 82 %
--- NOTE | 2018-11-15 15:37 | Diagnostic Imaging Report ---
INDICATION: Patient fell, pain. EXAMINATION: Chest, 11/15/2018. COMPARISON: 10/17/2018. FINDINGS: Two views of the chest demonstrate cardiomegaly. There is pulmonary vascular congestion. Findings of edema throughout both lungs. No effusions or pneumothorax. Left-sided pacemaker noted and sternotomy wires are also seen. IMPRESSION: Diffuse chronic findings with mild pulmonary edema not excluded. Dictated by: Dictated on workstation # [id number]
--- NOTE | 2018-11-15 15:37 | Diagnostic Imaging Report ---
INDICATION: Patient fell. Landed on buttock region. Pain. EXAMINATION: Right hip dated 11/15/2018. FINDINGS: Two views of the right hip demonstrate deformity at the acetabulum consistent with chronic disease, narrowing and spurring present. A definite acute fracture is not appreciated but not excluded on the images provided given patient body habitus and technique. If pain persists or patient cannot bear weight, further imaging would be recommended. IMPRESSION: 1. Diffuse chronic change. No definite acute fracture seen however please see above discussion and recommendations. Dictated by: Dictated on workstation # [id number]
--- NOTE | 2018-11-15 15:46 | Diagnostic Imaging Report ---
PROCEDURE: CT head and CT cervical spine without contrast. TECHNIQUE: Multiple contiguous axial images were obtained through the brain and cervical spine without the use of intravenous contrast. Sagittal and coronal reformations through the cervical spine were then performed. Auto Exposure Controls were utilized during the CT exam to meet ALARA standards for radiation dose reduction. INDICATION: Fell. Pain. EXAMINATION: CT brain, CT cervical spine 11/15/2018. COMPARISON: Comparison made to a brain dated 09/28/2018. 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 Secondary ex vacuo dilatation of the left lateral ventricle similar to previous. Remaining ventricles unchanged. There is an area of encephalomalacia within the right frontal parietal region as well. No acute hemorrhage appreciated. No acute infarct is seen. No mass effect or midline shift. There is diffuse atherosclerotic disease. The paranasal sinuses and mastoid air cells appear clear. IMPRESSION: 1. Diffuse chronic findings as above. No acute process appreciated. CERVICAL SPINE: There is loss of the normal lordosis however no subluxations or acute fractures are seen. Multilevel facet hypertrophy and intervertebral disc space narrowing and endplate changes consistent with degenerative disease. No definite acute fractures are seen. There are some limitations due to motion artifact. Prevertebral soft tissues unremarkable for acute abnormality. IMPRESSION: 1. Chronic changes throughout the cervical spine. No acute process is seen. Dictated by: Dictated on workstation # [id number]
[2018-11-15 16:12] LABS: GLUCOSE, URINE (UA) TRACE (NEGATIVE); KETONES,URINE TRACE (NEGATIVE); LEUKOCYTE ESTERASE ,URINE 2+ (NEGATIVE); NITRITE,URINE POSITIVE (NEGATIVE); PROTEIN,URINE 2+ (NEGATIVE)
[2018-11-15 16:13] LABS: AMORPHOUS SEDIMENT,UR FEW AMOR URATES /LPF; BACTERIA,URINE MODERATE /HPF; SQUAMOUS EPITHELIAL CELL,UR 25-50 /HPF; WBC,URINE >100 /HPF
[2018-11-15 16:16] LABS: BILIRUBIN,URINE 2+ (NEGATIVE)
[2018-11-15 16:19] LABS: YEAST,URINE MODERATE /HPF
[2018-11-15 16:21] LABS: CLARITY,URINE CLOUDY; COLOR,URINE ORANGE
[2018-11-15 17:40] VITALS: BP 105/59
== END 2018-11-15 17:40 | disposition short-term general hospital (02) ==
LOC: EDUNIT# 13:22 → ER FS 13:23
DX: M25.551 Pain in right hip (principal); I11.0 Hypertensive heart disease with heart failure; I50.9 Heart failure, unspecified; N39.0 Urinary tract infection, site not specified; E78.00 Pure hypercholesterolemia, unspecified; I25.2 Old myocardial infarction; F03.90 Unspecified dementia, unspecified severity, without behavioral disturbance, psychotic disturbance, mood disturbance, and anxiety; E11.9 Type 2 diabetes mellitus without complications; M10.9 Gout, unspecified; I48.91 Unspecified atrial fibrillation; M19.012 Primary osteoarthritis, left shoulder; G47.30 Sleep apnea, unspecified; Z99.89 Dependence on other enabling machines and devices; Z79.01 Long term (current) use of anticoagulants; Z95.810 Presence of automatic (implantable) cardiac defibrillator; Z99.81 Dependence on supplemental oxygen; Z79.82 Long term (current) use of aspirin; Z79.84 Long term (current) use of oral hypoglycemic drugs; Z87.891 Personal history of nicotine dependence; Z95.1 Presence of aortocoronary bypass graft; Z82.49 Family history of ischemic heart disease and other diseases of the circulatory system; W19.XXXA Unspecified fall, initial encounter
CPT/HCPCS: 36415; 51701; 70450; 71045; 72125; 73502; 80053; 81000; 82805; 83880; 85007; 85027; 87040; 87088; 93005